=== PATIENT | male | born 1960 | race Caucasian/White ===

== ENCOUNTER → 2017-09-13 | Outpatient (CLI) | payer MEDICAID ==
--- NOTE | 2017-09-13 16:56 | RADIOLOGY REPORT (SQ) ---
EXAM DESCRIPTION: LUMBAR SPINE COMPLETE COMPLETED DATE/TIME: 09/13/2017 2:34 pm REASON FOR STUDY: LOW BACK PAIN M54.5 LOW BACK PAIN COMPARISON: None. NUMBER OF VIEWS: Five views including obliques. TECHNIQUE: AP, lateral, oblique, and sacral radiographic images acquired of the lumbar spine. LIMITATIONS: None. FINDINGS: MINERALIZATION: Normal. SEGMENTATION: Normal. No transitional anatomy. ALIGNMENT: Minimal curvature, convex to the right. VERTEBRAE: Maintained height. No fracture or worrisome bone lesion. DISCS: Mild disc space narrowing with small osteophytes. POSTERIOR ELEMENTS: Pedicles and facets are intact. No pars defect or posterior arch defects. HARDWARE: None in the spine. PARASPINAL SOFT TISSUES: Normal. PELVIS: Intact as visualized. No fractures or worrisome bone lesions. SI joints intact. OTHER: No other significant finding. IMPRESSION: MILD DEGENERATIVE CHANGES. NO ACUTE FINDINGS. TECHNICAL DOCUMENTATION: JOB ID: [id number] [employer]- All Rights Reserved
== END ==
LOC: OD 14:08
PROVIDERS: ATTEND Internal Medicine
DX: M54.5 Low back pain (principal)
CPT/HCPCS: 72110

== ENCOUNTER 2017-09-25 15:55 | Inpatient (IN) | payer MEDICAID ==
[2017-09-25] MEDS ORDERED: NORMAL SALINE 250 ML IV ONE (16:28)
[2017-09-25 16:38] LABS: ABSOLUTE BASOPHILS # (AUTO) 0.1 10^3/uL (0.0-0.2); ABSOLUTE LYMPHOCYTES (AUTO) 0.9 10^3/uL (0.5-4.7); ABSOLUTE MONOCYTES (AUTO) 0.8 10^3/uL (0.1-1.4); ABSOLUTE NEUT (AUTO) 7.6 10^3/uL (1.7-8.2); BASOPHILS % (AUTO) 1.4 % (0-2); HEMATOCRIT 18.9 % (37.9-51.0); LYMPHOCYTES % (AUTO) 9.9 % (13-45); MEAN CORPUSCULAR HEMOGLOBIN 35.6 pg (27.0-33.4); MEAN CORPUSCULAR HGB CONC 34.1 g/dL (32.0-36.0); MEAN CORPUSCULAR VOLUME 105 fl (80-97); MONOCYTES % (AUTO) 8.6 % (3-13); RED BLOOD COUNT 1.81 10^6/uL (4.35-5.55); RED CELL DISTRIBUTION WIDTH 15.2 % (11.5-14.0); SEGMENTED NEUTROPHILS % (AUTO) 80.1 % (42-78); TOTAL CELLS COUNTED % (AUTO) 100 %; WHITE BLOOD COUNT 9.4 10^3/uL (4.0-10.5)
[2017-09-25 16:40] LABS: HEMOGLOBIN 6.4 g/dL (13.5-17.0); PLATELET COUNT 88 10^3/uL (150-450)
--- NOTE | 2017-09-25 16:55 | RADIOLOGY REPORT (SQ) ---
EXAM DESCRIPTION: CHEST SINGLE VIEW COMPLETED DATE/TIME: 09/25/2017 4:45 pm REASON FOR STUDY: Weakness and vomiting COMPARISON: 01/05/2011, 02/15/2011 EXAM PARAMETERS: NUMBER OF VIEWS: One view. TECHNIQUE: Single frontal radiographic view of the chest acquired. RADIATION DOSE: NA LIMITATIONS: None. FINDINGS: LUNGS AND PLEURA: No opacities, masses or pneumothorax. No pleural effusion. MEDIASTINUM AND HILAR STRUCTURES: No masses. Contour normal. HEART AND VASCULAR STRUCTURES: Heart normal in size. Normal vasculature. BONES: No acute findings. HARDWARE: None in the chest. OTHER: Stable chronic elevation right hemidiaphragm IMPRESSION: NO ACUTE RADIOGRAPHIC FINDING IN THE CHEST. TECHNICAL DOCUMENTATION: JOB ID: [id number] [employer]- All Rights Reserved
--- NOTE | 2017-09-25 16:59 | ER Document Report ---
ED GI/ - General Chief Complaint: Nausea/Vomiting Stated Complaint: WEAKNESS Time Seen by Provider: 09/25/17 16:02 Notes: Patient says that he was awakened from sleep about 1 AM with his stomach flipping and began vomiting and has vomited every 45 minutes since then. Thinks he is vomited about a total of 20 times. Has not had any diarrhea. Only mild abdominal pain. About 7 or 8 AM this morning, he noted passage of some black stools, but no blood seen. Thinks he may have seen a small amount of blood in his vomitus. Has not taken any Pepto-Bismol. Patient has a history of gastrointestinal disease having been seen here for similar presentation a year or so ago and transferred to [facility] where he says he underwent scopes of the upper and lower part of his body and was told he had a couple of polyps that were removed. Patient denies any chest pains. Denies any difficulty breathing. No fevers. No abdominal surgeries. Patient admits to regular and heavy alcohol drinking and smokes cigarettes. TRAVEL OUTSIDE OF THE [place] IN LAST 30 DAYS: No - Related Data Allergies/Adverse Reactions: No Known Allergies Allergy (Unverified 09/05/11 15:27) Past Medical History - Social History Smoking Status: Current Every Day Smoker Chew tobacco use (# tins/day): No Frequency of alcohol use: Heavy Drug Abuse: None Family History: Reviewed & Not Pertinent Patient has suicidal ideation: No Patient has homicidal ideation: No - Past Medical History Cardiac Medical History: Reports: Hx Hypercholesterolemia, Hx Hypertension - meds x 2.5 months Pulmonary Medical History: Reports: Hx Bronchitis, Hx COPD GI Medical History: Reports: Hx Gastroesophageal Reflux Disease Musculoskeltal Medical History: Reports Hx Arthritis - RA Psychiatric Medical History: Reports: Hx Depression Past Surgical History: Reports: Hx Orthopedic Surgery - right femur, jaw surgery - Immunizations Hx Diphtheria, Pertussis, Tetanus Vaccination: Yes Review of Systems - Review of Systems Notes: REVIEW OF SYSTEMS: CONSTITUTIONAL : Denies fever. Feels generalized weakness. EENT: Denies eye, ear, nose or mouth or throat pain or other symptoms. CARDIOVASCULAR: Denies chest pain. RESPIRATORY: Denies cough, chest congestion, or shortness of breath. GASTROINTESTINAL: See HPI. GENITOURINARY: Denies difficulty or painful urinating, urinary frequency, blood in urine. MUSCULOSKELETAL: Denies back or neck pain. Denies joint pain or swelling. SKIN: Denies rash or skin lesions. NEUROLOGICAL: Denies LOC or altered mental status. Denies headache. Denies sensory loss or motor deficits. ALL OTHER SYSTEMS REVIEWED AND NEGATIVE. Physical Exam - Vital signs Vitals: Temp Pulse Resp BP Pulse Ox 98.5 F 118 H 16 118/73 94 18 16:24 18 16:24 09/25/17 16:24 09/25/17 16:24 09/25/17 16:24 Interpretation: Tachycardic - Notes Notes: PHYSICAL EXAMINATION: GENERAL: Well-appearing, in no acute distress. HEAD: Atraumatic, normocephalic. Patient appears to have a somewhat yellow color to his skin. EYES: Pupils equal round and reactive to light, extraocular movements intact. I think the patient has scleral icterus ENT: oropharynx clear without exudates. Moist mucous membranes. NECK: Normal range of motion, supple. LUNGS: Breath sounds clear and equal bilaterally. HEART: Regular rate and rhythm without murmurs. Heart rate about 120 and irregular at the bedside by me. ABDOMEN: Soft, nontender. No guarding or rebound. No masses. Rectal exam reveals some dark flecks of stool and brown color as well. Not grossly bloody. BACK: No tenderness throughout entire back. EXTREMITIES: Normal range of motion without pain. NEUROLOGICAL: Normal speech, normal gait. Normal sensory, motor, and reflex exams. Awake, alert, and oriented x3. Cranial nerves normal. PSYCH: Normal mood, normal affect. SKIN: Warm, dry, no rashes. Chronic old bruises present of the extremities. Course - Re-evaluation Re-evalutation: 09/25/17 16:59 Patient's initial hemoglobin is 6.4. Being typed for a couple units of blood now. 09/25/17 17:[address] Chung and Dr. Barillas about patient and he will be admitted to [facility] here. But is being typed. Protonix bolus and drip have been started. Dr. Barillas will see the patient in consultation. - Vital Signs Vital signs: Temp Pulse Resp BP Pulse Ox 98.5 F 118 H 16 118/73 94 09/25/17 16:24 09/25/17 16:24 09/25/17 16:24 09/25/17 16:24 09/25/17 16:24 - Laboratory Result Diagrams: 09/25/17 13:50 09/25/17 16:19 Laboratory results interpreted by me: 09/25/17 09/25/17 09/25/17 13:50 16:19 16:19 RBC 1.81 L Hgb 6.4 L Hct 18.9 L MCV 105 H MCH 35.6 H RDW 15.2 H Plt Count 88 L Seg Neutrophils % 80.1 H Lymphocytes % 9.9 L PT 20.0 H Sodium 147.2 H Carbon Dioxide 32 H BUN 33 H Glucose 158 H Total Bilirubin 5.1 H Direct Bilirubin 1.6 H AST 86 H Alkaline Phosphatase 204 H Albumin 2.7 L Crossmatch 09/25/17 17:02 RBC Hgb Hct MCV MCH RDW Plt Count Seg Neutrophils % Lymphocytes % PT Sodium Carbon Dioxide BUN Glucose Total Bilirubin Direct Bilirubin AST Alkaline Phosphatase Albumin Crossmatch See Detail - EKG Interpretation by Ri EKG shows normal: Sinus rhythm Rate: Tachycardia Rhythm: NSR Additional EKG results interpreted by me: 09/25/17 17:00 Except for tachycardia, patient's EKG is essentially normal. Discharge - Discharge Clinical Impression: Gastrointestinal hemorrhage, Anemia, Liver disease Condition: Serious Disposition: ADMITTED INPATIENT Admitting Provider: Juliet Unit Admitted: [facility]
[2017-09-25 17:11] LABS: ALANINE AMINOTRANSFERASE 37 U/L (21-72); ALBUMIN 2.7 g/dL (3.5-5.0); ALKALINE PHOSPHATASE 204 U/L (38-126); ANION GAP 9 (5-19); ASPARTATE AMINO TRANSFERASE 86 U/L (17-59); BILIRUBIN,DIRECT 1.6 mg/dL (0.0-0.4); BILIRUBIN,TOTAL 5.1 mg/dL (0.2-1.3); BLOOD UREA NITROGEN 33 mg/dL (7-20); CALCIUM 9.3 mg/dL (8.4-10.2); CARBON DIOXIDE 32 mmol/L (22-30); CHLORIDE 106 mmol/L (98-107); GLUCOSE 158 mg/dL (75-110); LIPASE 108.4 U/L (23-300); POTASSIUM 4.2 mmol/L (3.6-5.0); SODIUM 147.2 mmol/L (137-145); TOTAL PROTEIN 6.3 g/dL (6.3-8.2)
[2017-09-25] MEDS ORDERED: PANTOPRAZOLE SODIUM 40 MG VIAL IV ONE (17:27)
[2017-09-25] MEDS ORDERED: ONDANSETRON HCL INJ/PF 4 MG/2 ML SDV ONE (18:12)
[2017-09-25] MEDS: PANTOPRAZOLE SODIUM 40 MG VIAL IV PRN (18:14)
[2017-09-25] MEDS ORDERED: ONDANSETRON HCL INJ/PF 4 MG/2 ML SDV IV ONE (18:37)
--- NOTE | 2017-09-25 19:10 | PDOC CONSULTATION ---
Consultation Consult Date: 09/25/17 Attending physician:: EDSON GUADALUPE Consult reason:: coffee ground emesis vs melena. history of alcohol use. colon polyps. alcoholic hepatitis History of Present Illness Admission Date/PCP: 09/25/17 17:49 GARLAND ROJAS History of Present Illness: MARTIN OWEN is a 57 year old male I have been asked to see this patient as a GI consult from the ED physician patient is being admitted presented with melena, and Hgb of 6.6 has a history of ETOH use in the past on his previous admission, he was transferred to [facility] he apparently had EGD and colonoscopy the only thing that he remembers is that he had some colon polyps he cannot remember being told if he had varices he present jaundice as well, he does have an elevated T. Bili and does have transaminases that are probably consistent with alcoholic hepatitis patient will need to admitted should be started on PPI drip as well as probably Sandostatin for now will need PRBC tranfusion will need EGD to find out reason for his melena he would likely need Propofol for adequate sedation Past Medical History Cardiac Medical History: Reports: Hyperlipidema, Hypertension - meds x 2.5 months Pulmonary Medical History: Reports: Bronchitis, Chronic Obstructive Pulmonary Disease (COPD) GI Medical History: Reports: Gastroesophageal Reflux Disease Musculoskeltal Medical History: Reports: Arthritis - RA Psychiatric Medical History: Reports: Depression Hematology: Denies: Anemia Past Surgical History Past Surgical History: Reports: Orthopedic Surgery - right femur, jaw surgery Social History Smoking Status: Current Every Day Smoker Frequency of Alcohol Use: None Hx Recreational Drug Use: No Drugs: None Hx Prescription Drug Abuse: No Family History Family History: Reviewed & Not Pertinent Parental Family History Reviewed: Yes Children Family History Reviewed: Unknown Sibling(s) Family History Reviewed.: Unknown Medication/Allergy Allergies/Adverse Reactions: No Known Allergies Allergy (Unverified 09/05/11 15:27) Review of Systems Constitutional: ABSENT: fever(s), headache(s), night sweats, weakness Eyes: ABSENT: visual disturbances Ears: ABSENT: hearing changes Nose, Mouth, and Throat: ABSENT: mouth pain, sore throat Cardiovascular: ABSENT: edema, orthropnea Respiratory: ABSENT: dyspnea, hemoptysis Gastrointestinal: PRESENT: coffee ground emesis. ABSENT: diarrhea, nausea, vomiting Genitourinary: ABSENT: dysuria, hematuria Musculoskeletal: ABSENT: deformity, joint swelling Integumentary: ABSENT: lesions Neurological: PRESENT: weakness. ABSENT: syncope, tingling, tremor(s) Endocrine: ABSENT: polydipsia, polyphagia, polyuria Hematologic/Lymphatic: ABSENT: easy bruising Physical Exam Vital Signs: Temp Pulse Resp BP Pulse Ox 98.5 F 118 H 16 118/73 94 09/25/17 16:24 09/25/17 16:24 09/25/17 16:24 09/25/17 16:24 09/25/17 16:24 General appearance: PRESENT: no acute distress, well-developed, well-nourished Head exam: PRESENT: atraumatic, normocephalic Eye exam: PRESENT: EOMI, PERRLA, scleral icterus. ABSENT: nystagmus, periorbital swelling Mouth exam: PRESENT: moist, neck supple Throat exam: ABSENT: tonsillar exudate, tonsillogmegaly Neck exam: ABSENT: meningismus, tenderness, thyromegaly Respiratory exam: PRESENT: symmetrical, unlabored. ABSENT: tachypnea, wheezes Cardiovascular exam: PRESENT: RRR, +S1, +S2 Pulses: PRESENT: normal carotid pulses GI/Abdominal exam: PRESENT: soft. ABSENT: Waddell's sign, rebound, rigid, tenderness Extremities exam: ABSENT: joint swelling Musculoskeletal exam: PRESENT: full ROM Neurological exam: PRESENT: oriented to time, oriented to situation, CN II-XII grossly intact Psychiatric exam: PRESENT: appropriate affect Focused psych exam: PRESENT: restlessness Skin exam: PRESENT: normal color. ABSENT: mottled, pallor, urticaria, vesicles Results Impressions: Chest X-Ray 09/25/17 16:29 IMPRESSION: NO ACUTE RADIOGRAPHIC FINDING IN THE CHEST. Assessment & Plan - Diagnosis (1) Anemia Plan: likely multifactorial due to alcohol use could be due to GI bleeding as well could have peptic ulcer disease also differential to include variceal but less likely given hemodynamic stability will need work up with EGD risks, benefits and alternatives are discussed with the patient in detail further recommendations to follow he would likely need Propofol sedation (2) Gastrointestinal hemorrhage Plan: start PPI drip and possibly even sandostatin if needed transfuse PRBC as needed his BUN/ creat ratio is suggestive of upper GI source (3) Liver disease Plan: likely has chronic liver disease given history of alcohol use will need to prevent DT's likely has alcoholic hepatitis as well given the blood work check phosphorus level (4) Chronic alcohol abuse Plan: likely will go into DT's patient will need Propofol sedation during his procedure Risks, benefits and alternatives are discussed he appears to be willing to proceed - Time Time Spent: 50 to 70 Minutes
[2017-09-25 19:31] LABS: APPEARANCE,URINE CLEAR; BILIRUBIN,URINE NEGATIVE (NEGATIVE); COLOR,URINE AMBER; GLUCOSE, URINE NEGATIVE (NEGATIVE); KETONES,URINE TRACE mg/dL (NEGATIVE); LEUKOCYTE ESTERASE,URINE NEGATIVE (NEGATIVE); NITRITE,URINE NEGATIVE (NEGATIVE); PROTEIN,URINE NEGATIVE (NEGATIVE); URINE SPECIFIC GRAVITY 1.021
[2017-09-25] MEDS ORDERED: ONDANSETRON HCL INJ/PF 4 MG/2 ML SDV IV PRN ×2 (21:16→23:02)
--- NOTE | 2017-09-25 22:44 | EKG REPORT ---
SEVERITY:- ABNORMAL ECG - SINUS TACHYCARDIA RIGHT BUNDLE BRANCH BLOCK : Confirmed by: Fausto Russell 25-Sep-2017 22:43:54
[2017-09-25] MEDS ORDERED: DIPHENHYDRAMINE HCL 25 MG/10 ML UDC PO PRN (23:01)
[2017-09-26] MEDS: NORMAL SALINE 250 ML IV PRN ×2 (00:17→02:58)
[2017-09-26] MEDS: ZOLPIDEM TARTRATE 5 MG TABLET PO PRN (01:15)
[2017-09-26] MEDS: FUROSEMIDE INJ/PF 20 MG/2 ML SDV IV PRN ×2 (03:02→20:00)
[2017-09-26] MEDS: PANTOPRAZOLE SODIUM 40 MG VIAL IV PRN (04:04)
[2017-09-26] MEDS: LORAZEPAM INJ 2 MG/1 ML VIAL IV PRN ×6 (04:23→18:50)
[2017-09-26 05:25] LABS: ALANINE AMINOTRANSFERASE 44 U/L (21-72); ALBUMIN 2.8 g/dL (3.5-5.0); ALKALINE PHOSPHATASE 181 U/L (38-126); ANION GAP 9 (5-19); ASPARTATE AMINO TRANSFERASE 84 U/L (17-59); BILIRUBIN,DIRECT 2.3 mg/dL (0.0-0.4); BILIRUBIN,TOTAL 6.9 mg/dL (0.2-1.3); BLOOD UREA NITROGEN 41 mg/dL (7-20); CALCIUM 9.3 mg/dL (8.4-10.2); CARBON DIOXIDE 31 mmol/L (22-30); CHLORIDE 106 mmol/L (98-107); CHOLESTEROL 241.98 mg/dL (0-200); GLUCOSE 109 mg/dL (75-110); POTASSIUM 3.6 mmol/L (3.6-5.0); SODIUM 145.9 mmol/L (137-145); TOTAL PROTEIN 6.3 g/dL (6.3-8.2); TRIGLYCERIDES 63 mg/dL (<150)
[2017-09-26] MEDS ORDERED: HALOPERIDOL LACTATE INJ 5 MG/1 ML VIAL IV ONE (05:35)
[2017-09-26 05:36] LABS: DIRECT LDL 31 mg/dL (<100)
[2017-09-26] MEDS ORDERED: DIPHENHYDRAMINE HCL 50 MG/ML VIAL IV ONE (05:36)
--- NOTE | 2017-09-26 05:37 | Progress Note ---
Provider Note Provider Note: Hospitalist called around 530 regarding this patient. Patient going through DTs. Apparently Ativan is not helping. Haldol 5 IV was ordered along with a low-dose of Benadryl. Also patient is being placed in soft restraints.
[2017-09-26 05:44] LABS: ABSOLUTE BASOPHILS # (AUTO) 0.1 10^3/uL (0.0-0.2); ABSOLUTE LYMPHOCYTES (AUTO) 2.3 10^3/uL (0.5-4.7); ABSOLUTE MONOCYTES (AUTO) 1.7 10^3/uL (0.1-1.4); ABSOLUTE NEUT (AUTO) 9.7 10^3/uL (1.7-8.2); BASOPHILS % (AUTO) 0.7 % (0-2); EOSINOPHILS % (AUTO) 0.2 % (0-6); HEMATOCRIT 24.6 % (37.9-51.0); LYMPHOCYTES % (AUTO) 16.9 % (13-45); MEAN CORPUSCULAR HEMOGLOBIN 32.9 pg (27.0-33.4); MEAN CORPUSCULAR HGB CONC 35.2 g/dL (32.0-36.0); RED BLOOD COUNT 2.63 10^6/uL (4.35-5.55); RED CELL DISTRIBUTION WIDTH 21.4 % (11.5-14.0); SEGMENTED NEUTROPHILS % (AUTO) 70.2 % (42-78); TOTAL CELLS COUNTED % (AUTO) 100 %; WHITE BLOOD COUNT 13.9 10^3/uL (4.0-10.5)
[2017-09-26 05:57] LABS: HEMOGLOBIN 8.7 g/dL (13.5-17.0); MEAN CORPUSCULAR VOLUME 94 fl (80-97)
[2017-09-26 05:58] LABS: PLATELET COUNT 80 10^3/uL (150-450)
--- NOTE | 2017-09-26 07:22 | Progress Note ---
Provider Note Provider Note: Patient seen yesterday in ED Hospitalist called over night for DT's patient has no signed consent for EGD and therefore will have to defer at this point he previous had a niece who had signed consent for him while he was at [facility] will need to get up with her patient is in soft restraints at this point was on Ativan but did not help monitor H/H continue PPI transfuse as necessary EGD in the next 1-2 days
[2017-09-26] MEDS ORDERED: FUROSEMIDE 40 MG TABLET PO SCH (10:00)
[2017-09-26] MEDS ORDERED: SPIRONOLACTONE 25 MG TABLET PO SCH (10:00)
--- NOTE | 2017-09-26 10:17 | PDOC H&P ---
History of Present Illness Admission Date/PCP: 09/25/17 17:49 GARLAND ROJAS Patient complains of: Vomiting, hematochezia, melena, abd. pain since 1-2 am on day of presentation. History of Present Illness: 57 year old man with hx of HTN/Hyperlipidemia/COPD/PUD/ETOH liver disease/BPH/ Osteoarthritis/Rhinitis/RLS/Gout/Vitamin D def/Depression/Anxiety disorder/ Chronic smoker, who was transferred to [facility] for GI blled s.p EGD/colonoscopy. Pt continued to drink heavily. He was woken up from sleep at around 1-2 am with persistent vomiting, abd. pain, dark stool - possible hematochezia vs melena. He denied NSAID use. He was brought to ER by EMS and his Hb is 6.4; BUN/Cr- 33/0.88. He is mildly tachycardic.He was admitted to [facility] for GI bleed and severe ETOH withdrawal with possible delirium tremens. Past Medical History Cardiac Medical History: Reports: Hyperlipidema, Hypertension - meds x 2.5 months Pulmonary Medical History: Reports: Bronchitis, Chronic Obstructive Pulmonary Disease (COPD) GI Medical History: Reports: Gastroesophageal Reflux Disease Musculoskeltal Medical History: Reports: Arthritis - RA Psychiatric Medical History: Reports: Depression Hematology: Denies: Anemia Past Surgical History Past Surgical History: Reports: Orthopedic Surgery - right femur, jaw surgery Social History Smoking Status: Current Every Day Smoker Cigarettes Packs Per Day: 0.5 Number of Years Smokin Last Time Smoked: 09/25/17 Frequency of Alcohol Use: Heavy Hx Recreational Drug Use: Yes Drugs: Cocaine, Marijuana Hx Prescription Drug Abuse: No - Advance Directive Resuscitation Status: Full Code Family History Family History: Reviewed & Not Pertinent Parental Family History Reviewed: Yes Children Family History Reviewed: Yes Sibling(s) Family History Reviewed.: Yes Medication/Allergy Allergies/Adverse Reactions: No Known Allergies Allergy (Unverified 09/05/11 15:27) Review of Systems All systems: reviewed and no additional remarkable complaints except as stated Constitutional: PRESENT: anorexia, fatigue, weakness, weight loss Eyes: PRESENT: as per HPI Ears: PRESENT: as per HPI Nose, Mouth, and Throat: PRESENT: as per HPI Cardiovascular: PRESENT: as per HPI Respiratory: PRESENT: as per HPI Gastrointestinal: PRESENT: abdominal pain, hematemesis, hematochezia, melena Genitourinary: PRESENT: as per HPI Musculoskeletal: PRESENT: as per HPI Integumentary: PRESENT: as per HPI Neurological: PRESENT: as per HPI Psychiatric: PRESENT: as per HPI Physical Exam Vital Signs: Temp Pulse Resp BP Pulse Ox 97.9 F 105 H 20 124/79 95 09/26/17 04:25 09/26/17 04:25 09/26/17 04:25 09/26/17 04:25 09/26/17 09:40 Intake & Output 09/25/17 09/26/17 09/27/17 06:59 06:59 06:59 Intake Total 1050 Balance 1050 Weight 59.9 kg General appearance: PRESENT: no acute distress, disheveled, thin Head exam: PRESENT: atraumatic, normocephalic Eye exam: PRESENT: conjunctiva pale, scleral icterus Ear exam: PRESENT: normal external ear exam, TM's normal bilaterally Mouth exam: PRESENT: neck supple, tongue midline Neck exam: PRESENT: full ROM Respiratory exam: PRESENT: decreased breath sounds, stridor, symmetrical Cardiovascular exam: PRESENT: +S1, +S2 Pulses: PRESENT: +1 pedal pulses bilateral GI/Abdominal exam: PRESENT: normal bowel sounds, soft, tenderness Rectal exam: PRESENT: heme (+) stool Extremities exam: PRESENT: full ROM Musculoskeletal exam: PRESENT: full ROM Neurological exam: PRESENT: alert, awake, oriented to person, oriented to place , oriented to time Psychiatric exam: PRESENT: agitated Results Laboratory Results: 09/26/17 04:32 09/26/17 04:32 09/25/17 09/26/17 09/26/17 18:23 04:32 04:32 WBC 13.9 H RBC 2.63 L Hgb 8.7 L D Hct 24.6 L MCV 94 D MCH 32.9 MCHC 35.2 RDW 21.4 H Plt Count 80 L Seg Neutrophils % 70.2 Lymphocytes % 16.9 Monocytes % 12.0 Eosinophils % 0.2 Basophils % 0.7 Absolute Neutrophils 9.7 H Absolute Lymphocytes 2.3 Absolute Monocytes 1.7 H Absolute Eosinophils 0.0 Absolute Basophils 0.1 Sodium 145.9 H Potassium 3.6 Chloride 106 Carbon Dioxide 31 H Anion Gap 9 BUN 41 H Creatinine 0.94 Est GFR ( Amer) > 60 Est GFR (Non-Af Amer) > 60 Glucose 109 Calcium 9.3 Total Bilirubin 6.9 H AST 84 H ALT 44 Alkaline Phosphatase 181 H Total Protein 6.3 Albumin 2.8 L Triglycerides 63 Cholesterol 241.98 H LDL Cholesterol Direct 31 VLDL Cholesterol 13.0 HDL Cholesterol 71 Urine Color MCKAYLA Urine Appearance CLEAR Urine pH 6.0 Ur Specific [place] 1.021 Urine Protein NEGATIVE Urine Glucose (UA) NEGATIVE Urine Ketones TRACE H Urine Blood NEGATIVE Urine Nitrite NEGATIVE Ur Leukocyte Esterase NEGATIVE Urine WBC (Auto) 3 Urine RBC (Auto) 1 Impressions: Chest X-Ray 09/25/17 16:29 IMPRESSION: NO ACUTE RADIOGRAPHIC FINDING IN THE CHEST. Assessment & Plan - Diagnosis (1) Gastrointestinal hemorrhage Is this a current diagnosis for this admission?: Yes Plan: Ct with Protonix drip; Transfuse 3 units of PRBC and give Lasix 20 mg IV after each unit of PRBC; NPO for now. Ct with IV fluids; F/U GI, Dr Barillas. (2) Alcohol withdrawal delirium Is this a current diagnosis for this admission?: Yes Plan: Ct with IV fluids- D5 in normal saline plus Thiamine and multivitamin at 125 cc/ hr; Ativan 1 mg q2h IV prn; 2 hourly neurochecks; soft restraints. (3) Hypertension Qualifiers: Hypertension type: essential hypertension Qualified Code(s): I10 - Essential (primary) hypertension Is this a current diagnosis for this admission?: Yes Plan: Ct with Coreg 6.25 mg BID PO; 2 g sodium diet when NPO is D/C. (4) Hyperlipidemia Qualifiers: Hyperlipidemia type: mixed hyperlipidemia Qualified Code(s): E78.2 - Mixed hyperlipidemia Is this a current diagnosis for this admission?: Yes Plan: Ct with Simvasatin 20 mg qhs po; 200 mg cholesterol diet when NPO is D/C. (5) COPD (chronic obstructive pulmonary disease) Qualifiers: COPD type: unspecified COPD Qualified Code(s): J44.9 - Chronic obstructive pulmonary disease, unspecified Is this a current diagnosis for this admission?: Yes Plan: Ct with oxygen by N/C 2 L/min to keep saturation >92%; Duonebs q6h prn; Advair 250/50 1 puff BID. (6) BPH (benign prostatic hyperplasia) Is this a current diagnosis for this admission?: Yes Plan: Ct with Flomax 0.4 mg qd po. (7) Alcoholic cirrhosis of liver Qualifiers: Ascites presence: with ascites Qualified Code(s): K70.31 - Alcoholic cirrhosis of liver with ascites Is this a current diagnosis for this admission?: Yes Plan: Ct with spironolactone 100 mg qd po; Lasix 40 mg qd po.Strict input/out put chart; daily weight; monitor chemistries daily. (8) Depression Is this a current diagnosis for this admission?: Yes Plan: Ct with Celexa 20 mg qd po. (9) Osteoarthritis Is this a current diagnosis for this admission?: Yes Plan: Ct with Oxycodone 5 mg TID prn po. (10) DVT prophylaxis Is this a current diagnosis for this admission?: Yes Plan: Ct with SCD; Hold Lovenox due to GI bleed. - Time Time Spent: 30 to 50 Minutes Smoking Cessation Education: 3 to 10 minutes Medications reviewed and adjusted accordingly: Yes Anticipated discharge: Home Within: within 72 hours - Inpatient Certification Medical Necessity: Failure to Improve With Outpatient Therapy, Significant Comorbidiites Make Outpatient Treatment Too Risky, Need Close Monitoring Due to Risk of Patient Decompensation, Need For IV Fluids, Need For Continuous Telemetry Monitoring, Need for Neurological Checks, Risk of Complication if Not Cared For in Hospital, Risk of Diagnosis Which Will Require Inpatient Eval/Care/ Monitoring
[2017-09-26] MEDS ORDERED: OXYCODONE HCL IR 5 MG TABLET PO PRN (10:23)
[2017-09-26] MEDS: FLUTICASONE/SALMETEROL DISKUS 250-50 MCG/DOSE IH SCH ×2 (11:17→18:54)
[2017-09-26] MEDS: CITALOPRAM HYDROBROMIDE 20 MG TABLET PO SCH (11:17)
[2017-09-26] MEDS: CARVEDILOL 6.25 MG TABLET PO SCH ×2 (11:17→18:54)
[2017-09-26] MEDS: THIAMINE HCL 100 MG TABLET PO SCH (11:17)
[2017-09-26] MEDS: TAMSULOSIN HCL 0.4 MG CAP.SR.24H PO SCH (11:17)
[2017-09-26] MEDS: NICOTINE 21 MG/24 HR PATCH.TD24 TD SCH (13:19)
--- NOTE | 2017-09-26 15:16 | Physician Advisory Note ---
Physician Advisor ProgressNote .: Pursuant to the plan for [facility], I have reviewed the medical record for this patient. Physician Advisor Statement: Please consider documenting, if you agree: 1. "Anemia of Acute Blood Loss due to GI bleeding" 2. "GI Bleed, suspect likely due to " 3. "Acute Hypernatremia, suspect due to " Thanks! CK
[2017-09-26] MEDS: [UNRECOGNIZED DRUG - REMARK] IV SCH ×3 (19:32)
[2017-09-26 22:59] LABS: HEMATOCRIT 25.6 % (37.9-51.0); HEMOGLOBIN 9.1 g/dL (13.5-17.0); MEAN CORPUSCULAR HGB CONC 35.4 g/dL (32.0-36.0); MEAN CORPUSCULAR VOLUME 93 fl (80-97); RED BLOOD COUNT 2.75 10^6/uL (4.35-5.55); RED CELL DISTRIBUTION WIDTH 20.9 % (11.5-14.0); WHITE BLOOD COUNT 13.9 10^3/uL (4.0-10.5)
[2017-09-26 23:16] LABS: PLATELET COUNT 76 10^3/uL (150-450)
[2017-09-27] MEDS: LORAZEPAM INJ 2 MG/1 ML VIAL IV PRN ×2 (00:09→05:01)
[2017-09-27] MEDS: PANTOPRAZOLE SODIUM 40 MG VIAL IV PRN (05:18)
[2017-09-27 07:25] LABS: ABSOLUTE BASOPHILS # (AUTO) 0.1 10^3/uL (0.0-0.2); ABSOLUTE MONOCYTES (AUTO) 2.4 10^3/uL (0.1-1.4); BASOPHILS % (AUTO) 0.8 % (0-2); EOSINOPHILS % (AUTO) 0.2 % (0-6); HEMATOCRIT 22.9 % (37.9-51.0); HEMOGLOBIN 8.1 g/dL (13.5-17.0); LYMPHOCYTES % (AUTO) 7.2 % (13-45); MEAN CORPUSCULAR HEMOGLOBIN 33.1 pg (27.0-33.4); MEAN CORPUSCULAR HGB CONC 35.5 g/dL (32.0-36.0); MEAN CORPUSCULAR VOLUME 93 fl (80-97); MONOCYTES % (AUTO) 17.8 % (3-13); RED BLOOD COUNT 2.46 10^6/uL (4.35-5.55); RED CELL DISTRIBUTION WIDTH 21.1 % (11.5-14.0); TOTAL CELLS COUNTED % (AUTO) 100 %; WHITE BLOOD COUNT 13.5 10^3/uL (4.0-10.5)
[2017-09-27 07:35] LABS: ALANINE AMINOTRANSFERASE 39 U/L (21-72); ALBUMIN 2.6 g/dL (3.5-5.0); ALKALINE PHOSPHATASE 126 U/L (38-126); ANION GAP 9 (5-19); ASPARTATE AMINO TRANSFERASE 80 U/L (17-59); BILIRUBIN,DIRECT 2.3 mg/dL (0.0-0.4); BILIRUBIN,TOTAL 6.3 mg/dL (0.2-1.3); BLOOD UREA NITROGEN 63 mg/dL (7-20); CALCIUM 8.4 mg/dL (8.4-10.2); CARBON DIOXIDE 31 mmol/L (22-30); CHLORIDE 113 mmol/L (98-107); GLUCOSE 129 mg/dL (75-110); PHOSPHORUS 4.7 mg/dL (2.5-4.5); POTASSIUM 3.2 mmol/L (3.6-5.0); SODIUM 152.9 mmol/L (137-145); TOTAL PROTEIN 5.7 g/dL (6.3-8.2)
[2017-09-27 08:28] LABS: ANISOCYTOSIS 3+; BURR CELLS 2+; PLATELET COMMENT DECREASED; PLATELET COUNT 74 10^3/uL (150-450); POIKILOCYTOSIS 2+
--- NOTE | 2017-09-27 09:09 | PDOC PROGRESS REPORT ---
Subjective Progress Note for:: 09/27/17 Subjective:: Still no family member available for the patient he remains in DT's labs are worsening this am likely elevated WBC, LFT's are abnormal worsening renal function patient is tachycardic increased respiratory rate ? if patient needs to be transferred to tertiary institution he remains a full code for now Reason For Visit: GI BLEED ETOH WITHDRAWAL Physical Exam Vital Signs: Temp Pulse Resp BP Pulse Ox 98.8 F 133 H 36 H 164/77 H 91 L 09/27/17 08:01 09/27/17 08:01 09/27/17 08:01 09/27/17 08:01 09/27/17 08:01 Intake & Output 09/26/17 09/27/17 09/28/17 06:59 06:59 06:59 Intake Total 1050 2165 Output Total 175 Balance 1050 1990 Weight 59.9 kg 57.1 kg General appearance: PRESENT: severe distress Head exam: PRESENT: atraumatic Eye exam: PRESENT: EOMI, PERRLA, scleral icterus. ABSENT: nystagmus, periorbital swelling Mouth exam: PRESENT: moist, neck supple Throat exam: ABSENT: tonsillar exudate, tonsillogmegaly Neck exam: ABSENT: thyromegaly Respiratory exam: PRESENT: retraction, tachypnea Cardiovascular exam: PRESENT: RRR, +S1, +S2, tachycardia GI/Abdominal exam: PRESENT: diminished bowel sounds. ABSENT: rebound, rigid, tenderness Extremities exam: ABSENT: joint swelling Neurological exam: PRESENT: altered Psychiatric exam: PRESENT: agitated Focused psych exam: PRESENT: restlessness Skin exam: ABSENT: mottled, petechiae, urticaria, vesicles Results Laboratory Results: 09/27/17 06:04 09/27/17 06:04 09/26/17 09/26/17 09/27/17 21:30 22:43 06:04 WBC Cancelled 13.9 H RBC Cancelled 2.75 L Hgb Cancelled 9.1 L Hct Cancelled 25.6 L MCV Cancelled 93 MCH Cancelled 33.0 MCHC Cancelled 35.4 RDW Cancelled 20.9 H Plt Count Cancelled 76 L Seg Neutrophils % Lymphocytes % Monocytes % Eosinophils % Basophils % Absolute Neutrophils Absolute Lymphocytes Absolute Monocytes Absolute Eosinophils Absolute Basophils Sodium 152.9 H Potassium 3.2 L Chloride 113 H Carbon Dioxide 31 H Anion Gap 9 BUN 63 H Creatinine 1.52 H Est GFR ( Amer) 57 L Est GFR (Non-Af Amer) 48 L Glucose 129 H Calcium 8.4 Phosphorus 4.7 H Total Bilirubin 6.3 H AST 80 H ALT 39 Alkaline Phosphatase 126 Total Protein 5.7 L Albumin 2.6 L 09/27/17 06:04 WBC 13.5 H RBC 2.46 L Hgb 8.1 L Hct 22.9 L MCV 93 MCH 33.1 MCHC 35.5 RDW 21.1 H Plt Count 74 L Seg Neutrophils % 74.0 Lymphocytes % 7.2 L Monocytes % 17.8 H Eosinophils % 0.2 Basophils % 0.8 Absolute Neutrophils 10.0 H Absolute Lymphocytes 1.0 Absolute Monocytes 2.4 H Absolute Eosinophils 0.0 Absolute Basophils 0.1 Sodium Potassium Chloride Carbon Dioxide Anion Gap BUN Creatinine Est GFR ( Amer) Est GFR (Non-Af Amer) Glucose Calcium Phosphorus Total Bilirubin AST ALT Alkaline Phosphatase Total Protein Albumin Impressions: Chest X-Ray 09/25/17 16:29 IMPRESSION: NO ACUTE RADIOGRAPHIC FINDING IN THE CHEST. Assessment & Plan - Diagnosis (1) Anemia Plan: multifactorial in nature now had worsening labs include hypernatremia, azotemia etc (2) Gastrointestinal hemorrhage Is this a current diagnosis for this admission?: Yes Plan: not able to get EGD done patient not able to sign consent no family member available (3) Liver disease Plan: Alcoholic hepatitis previous GI work up done at [facility] may need to be transferred for higher level of care (4) Chronic alcohol abuse Plan: currently in DT's ? if patient needs to be moved to ICU setting. - Time Time Spent with patient: 25-34 minutes
[2017-09-27 09:25] LABS: ARTERIAL BLOOD BASE EXCESS 4.5 mmol/L; ARTERIAL BLOOD H2CO3 1.23 mmol/L (1.05-1.35); ARTERIAL BLOOD HCO3 28.7 mmol/L (20-26); ARTERIAL BLOOD O2 SATURATION 97.4 % (94-98); ARTERIAL BLOOD PH 7.46 (7.35-7.45); ARTERIAL BLOOD PO2 92.5 mmHg (80-100)
[2017-09-27 09:26] LABS: ARTERIAL BLOOD FIO2 4L
[2017-09-27] MEDS ORDERED: MIDAZOLAM 2 MG/2 ML INJ ONE ×3 (11:13→11:24)
[2017-09-27] MEDS ORDERED: MIDAZOLAM 2 MG/2 ML INJ IV ONE ×3 (11:18→13:30)
[2017-09-27] MEDS ORDERED: MIDAZOLAM HCL 50 MG/100 ML RTUINJ IV PRN ×2 (11:29→12:02)
[2017-09-27] MEDS ORDERED: DEXTROSE 5%-1/2 NORMAL SALINE 1,000 ML IV PRN (11:35)
[2017-09-27] MEDS ORDERED: PHENYLEPHRINE HCL INJ/PF 10 MG/1 ML SDV ONE (11:44)
--- NOTE | 2017-09-27 11:55 | Progress Note ---
Provider Note Provider Note: This is Dr. Dumont dictating a cross cover note for Dr. Chung patient. I was notified by the nurse that there is a patient in 329 that was not doing well. Nurse has explained the patient had transfer orders to come to ICU. I went to evaluate the patient and found patient in acute respiratory distress which appeared at that time to be consistent with aspiration pneumonia. Patient was intubated on first attempt with an 8 cuff ET tube patient was given 4 mg of Versed initially and after patient was intubated patient was given a total of 8 additional milligrams of Versed. Patient was transferred to ICU. Patient's lab results were evaluated it appears that patient is volume depleted secondary to diuretics therefore patient was given IV fluids. Patient was also noted to have a sodium of 152 therefore patient was given D5W bolus followed by maintenance fluids. Patient also written for normal saline bolus. Dr. Park was consulted and has recommended starting patient on pressors. During the intubation process patient was found to have whitish brown secretions that were very thick consistent with aspiration. Chest x-ray has been ordered to evaluate ET tube placement. Patient was also noted to have acute renal failure secondary to over diuresing therefore patient has given IV fluids for volume resuscitation. Patient does have history of hepatitis C and has been experiencing DTs. Patient was also admitted for gastrointestinal hemorrhage and GI has been following patient. No anticoagulation will be used at this time and patient will be written for SCDs. Patient has been placed on Zosyn and sputum cultures have been requested.
--- NOTE | 2017-09-27 12:43 | PDOC PROGRESS REPORT ---
Bedside Procedure - History of Present Illness History of Present Illness: 57 year old man with hx of HTN/Hyperlipidemia/COPD/PUD/ETOH liver disease/BPH/ Osteoarthritis/Rhinitis/RLS/Gout/Vitamin D def/Depression/Anxiety disorder/ Chronic smoker, who was transferred to [facility] for GI blled s.p EGD/colonoscopy. Pt continued to drink heavily. He was woken up from sleep at around 1-2 am with persistent vomiting, abd. pain, dark stool - possible hematochezia vs melena. He denied NSAID use. He was brought to ER by EMS and his Hb is 6.4; BUN/Cr- 33/0.88. He is mildly tachycardic.He was admitted to IMCU for GI bleed and severe ETOH withdrawal with possible delirium tremens. Indication for Procedure: poor venous access - Central Line Right Internal jugular Time completed: 12:42 Central line pre-insertion: Sterile PPE donned, Betadine prep applied, Chloraprep applied, Sterile drapes applied Central line lumen type: Triple Anesthetic type: 1% Lidocaine Line secured with sutures: Yes Central line post-insertion: Blood return from lumens, Biopatch applied, Sutured , Sterile dressing applied Complications: No
--- NOTE | 2017-09-27 12:51 | PDOC CONSULTATION ---
Consultation Consult Date: 09/27/17 Attending physician:: DAVID QUIGLEY Consult reason:: acute resp failure History of Present Illness Admission Date/PCP: 09/25/17 17:49 GARLAND ROJAS History of Present Illness: 57 year old man with hx of HTN/Hyperlipidemia/COPD/PUD/ETOH liver disease/BPH/ Osteoarthritis/Rhinitis/RLS/Gout/Vitamin D def/Depression/Anxiety disorder/ Chronic smoker, who was transferred to [facility] for GI blled s.p EGD/colonoscopy. Pt continued to drink heavily. He was woken up from sleep at around 1-2 am with persistent vomiting, abd. pain, dark stool - possible hematochezia vs melena. He denied NSAID use. He was brought to ER by EMS and his Hb is 6.4; BUN/Cr- 33/0.88. He is mildly tachycardic.He was admitted to [facility] for GI bleed and severe ETOH withdrawal with possible delirium tremens. Past Medical History Cardiac Medical History: Reports: Hyperlipidema, Hypertension - meds x 2.5 months Pulmonary Medical History: Reports: Bronchitis, Chronic Obstructive Pulmonary Disease (COPD) GI Medical History: Reports: Gastroesophageal Reflux Disease Musculoskeltal Medical History: Reports: Arthritis - RA Psychiatric Medical History: Reports: Depression Hematology: Denies: Anemia Past Surgical History Past Surgical History: Reports: Orthopedic Surgery - right femur, jaw surgery Social History Smoking Status: Current Every Day Smoker Cigarettes Packs Per Day: 0.5 Number of Years Smokin Last Time Smoked: 09/25/17 Frequency of Alcohol Use: Heavy Hx Recreational Drug Use: Yes Drugs: Cocaine, Marijuana Hx Prescription Drug Abuse: No - Advance Directive Resuscitation Status: Full Code Family History Parental Family History Reviewed: No Children Family History Reviewed: No Sibling(s) Family History Reviewed.: No Medication/Allergy Home Medications: Fluticasone Propionate [Flonase Nasal [place] 50 Mcg/[place] 16 gm] 1 spray NASL DAILY 09/26/17 Oxycodone HCl [Oxy-Ir 5 mg Tablet] 5 mg PO Q8 09/26/17 Tamsulosin HCl [Flomax 0.4 mg Cap.sr] 0.4 mg PO DAILY 09/26/17 Zolpidem Tartrate [Ambien 5 mg Tablet] 5 mg PO QHS 09/26/17 Allergies/Adverse Reactions: No Known Allergies Allergy (Unverified 09/05/11 15:27) Review of Systems ROS unobtainable: Due to endotracheal tube Physical Exam Vital Signs: Temp Pulse Resp BP Pulse Ox 100.4 F 104 H 23 H 95/48 L 96 09/27/17 12:19 09/27/17 12:19 09/27/17 12:27 09/27/17 12:27 09/27/17 12:27 Intake & Output 09/26/17 09/27/17 09/28/17 06:59 06:59 06:59 Intake Total 1050 2165 Output Total 175 400 Balance 1050 1989 - Weight 59.9 kg 57.1 kg General appearance: PRESENT: no acute distress, disheveled, mild distress, morbidly obese, obese, severe distress, thin, well-developed. ABSENT: cooperative Head exam: PRESENT: atraumatic, normocephalic Eye exam: PRESENT: conjunctiva pale, scleral icterus. ABSENT: conjunctival injection, conjunctiva pink, nystagmus Mouth exam: PRESENT: dry mucosa, neck supple, tongue midline, other - ET tube. ABSENT: laceration, moist Neck exam: ABSENT: carotid bruit, JVD, lymphadenopathy, thyromegaly, tracheal deviation, tracheostomy Respiratory exam: PRESENT: decreased breath sounds, prolonged expiratory phas, rhonchi - scattered, symmetrical, unlabored, wheezes - rare. ABSENT: accessory muscle use, chest wall tenderness, clear to auscultation spike, crackles, rales, retraction, stridor, tachypnea Cardiovascular exam: PRESENT: RRR, +S1, +S2 Pulses: PRESENT: normal radial pulses GI/Abdominal exam: PRESENT: diminished bowel sounds Gentrourinary exam: PRESENT: indwelling catheter Extremities exam: ABSENT: clubbing, full ROM, joint swelling Musculoskeletal exam: ABSENT: ambulatory, deformity, dislocation Neurological exam: ABSENT: alert, altered, awake, oriented to person Skin exam: PRESENT: dry, jaundice, warm Results Laboratory Results: 09/27/17 06:04 09/27/17 06:04 09/26/17 09/26/17 09/27/17 21:30 22:43 06:04 WBC Cancelled 13.9 H RBC Cancelled 2.75 L Hgb Cancelled 9.1 L Hct Cancelled 25.6 L MCV Cancelled 93 MCH Cancelled 33.0 MCHC Cancelled 35.4 RDW Cancelled 20.9 H Plt Count Cancelled 76 L Seg Neutrophils % Lymphocytes % Monocytes % Eosinophils % Basophils % Absolute Neutrophils Absolute Lymphocytes Absolute Monocytes Absolute Eosinophils Absolute Basophils Carbonic Acid HCO3/H2CO3 Ratio ABG pH ABG pCO2 ABG pO2 ABG HCO3 ABG O2 Saturation ABG Base Excess FiO2 Sodium 152.9 H Potassium 3.2 L Chloride 113 H Carbon Dioxide 31 H Anion Gap 9 BUN 63 H Creatinine 1.52 H Est GFR ( Amer) 57 L Est GFR (Non-Af Amer) 48 L Glucose 129 H Calcium 8.4 Phosphorus 4.7 H Total Bilirubin 6.3 H AST 80 H ALT 39 Alkaline Phosphatase 126 Total Protein 5.7 L Albumin 2.6 L 09/27/17 09/27/17 06:04 08:10 WBC 13.5 H RBC 2.46 L Hgb 8.1 L Hct 22.9 L MCV 93 MCH 33.1 MCHC 35.5 RDW 21.1 H Plt Count 74 L Seg Neutrophils % 74.0 Lymphocytes % 7.2 L Monocytes % 17.8 H Eosinophils % 0.2 Basophils % 0.8 Absolute Neutrophils 10.0 H Absolute Lymphocytes 1.0 Absolute Monocytes 2.4 H Absolute Eosinophils 0.0 Absolute Basophils 0.1 Carbonic Acid 1.23 HCO3/H2CO3 Ratio 23:1 ABG pH 7.46 H ABG pCO2 41.0 ABG pO2 92.5 ABG HCO3 28.7 H ABG O2 Saturation 97.4 ABG Base Excess 4.5 FiO2 4L Sodium Potassium Chloride Carbon Dioxide Anion Gap BUN Creatinine Est GFR ( Amer) Est GFR (Non-Af Amer) Glucose Calcium Phosphorus Total Bilirubin AST ALT Alkaline Phosphatase Total Protein Albumin Assessment & Plan - Diagnosis (1) Obtunded Is this a current diagnosis for this admission?: Yes Plan: unable to respond or protect airway (2) Alcohol withdrawal delirium Is this a current diagnosis for this admission?: Yes Plan: as per PCP and GI med (3) Alcoholic cirrhosis of liver Qualifiers: Ascites presence: with ascites Qualified Code(s): K70.31 - Alcoholic cirrhosis of liver with ascites Is this a current diagnosis for this admission?: Yes Plan: as per PCP and GI med (4) Anemia Is this a current diagnosis for this admission?: Yes Plan: bone marrow toxicity due to etoh (5) Alcohol withdrawal seizure Qualifiers: Complication of substance-induced condition: uncomplicated Qualified Code(s ): F10.230 - Alcohol dependence with withdrawal, uncomplicated Is this a current diagnosis for this admission?: Yes (6) Anxiety disorder Is this a current diagnosis for this admission?: Yes - Time Total Critical Time (Minutes): 60
--- NOTE | 2017-09-27 12:57 | RADIOLOGY REPORT (SQ) ---
EXAM DESCRIPTION: CHEST SINGLE VIEW COMPLETED DATE/TIME: 09/27/2017 12:21 pm REASON FOR STUDY: post intubation COMPARISON: 09/25/2017, 02/13/2008 EXAM PARAMETERS: NUMBER OF VIEWS: One view. TECHNIQUE: Single frontal radiographic view of the chest acquired. RADIATION DOSE: NA LIMITATIONS: Left lateral costophrenic sulcus and left lung apex cropped from the field of view FINDINGS: Endotracheal tube tip 3 cm above the will. Nasogastric tube tip and side port in the st omach. LUNGS AND PLEURA: No opacities, masses or pneumothorax. No pleural effusion. MEDIASTINUM AND HILAR STRUCTURES: No masses. Contour normal. HEART AND VASCULAR STRUCTURES: Heart normal in size. Normal vasculature. BONES: No acute findings. HARDWARE: As above OTHER: No other significant finding. IMPRESSION: Endotracheal and nasogastric tubes in good positioning. No focal infiltrates TECHNICAL DOCUMENTATION: JOB ID: [id number] [employer]- All Rights Reserved
[2017-09-27] MEDS ORDERED: RINGERS SOLUTION,LACTATED 1,000 ML IV ONE (13:00)
[2017-09-27] MEDS ORDERED: DEXTROSE 5%-WATER 1000 ML 1,000 ML IV ONE (13:00)
[2017-09-27] MEDS ORDERED: PIPERACILLIN SODIUM/TAZOBACTAM 3.375 GM in NORMAL SALINE 100 ML IV ONE (13:00)
[2017-09-27] MEDS: THIAMINE HCL 100 MG TABLET PO SCH (13:13)
[2017-09-27] MEDS: CITALOPRAM HYDROBROMIDE 20 MG TABLET PO SCH (13:13)
[2017-09-27] MEDS: TAMSULOSIN HCL 0.4 MG CAP.SR.24H PO SCH (13:13)
[2017-09-27] MEDS: FLUTICASONE/SALMETEROL DISKUS 250-50 MCG/DOSE IH SCH ×2 (13:13→19:15)
[2017-09-27] MEDS: NICOTINE 21 MG/24 HR PATCH.TD24 TD SCH (13:13)
[2017-09-27] MEDS: CARVEDILOL 6.25 MG TABLET PO SCH ×2 (13:13→19:15)
--- NOTE | 2017-09-27 13:13 | RADIOLOGY REPORT (SQ) ---
EXAM DESCRIPTION: CHEST SINGLE VIEW COMPLETED DATE/TIME: 09/27/2017 12:55 pm REASON FOR STUDY: verify central line placement COMPARISON: Chest films 09/27/2017, 09/25/2017 EXAM PARAMETERS: NUMBER OF VIEWS: One view. TECHNIQUE: Single frontal radiographic view of the chest acquired. RADIATION DOSE: NA LIMITATIONS: None. FINDINGS: Interval placement of a right jugular central line with the tip in the right atrium. No p neumothorax. LUNGS AND PLEURA: No opacities, masses or pneumothorax. No pleural effusion. MEDIASTINUM AND HILAR STRUCTURES: No masses. Contour normal. HEART AND VASCULAR STRUCTURES: Heart normal in size. Normal vasculature. BONES: No acute findings. HARDWARE: Endotracheal and nasogastric tubes in good positioning OTHER: No other significant finding. IMPRESSION: Interval placement of a right jugular central line with the tip in the right atrium. No pneumothorax. Endotracheal and nasogastric tubes in good positioning No focal pulmonary infiltrates TECHNICAL DOCUMENTATION: JOB ID: [id number] [employer]- All Rights Reserved
[2017-09-27] MEDS: MIDAZOLAM HCL 50 MG/100 ML RTUINJ IV PRN ×2 (13:15→20:49)
[2017-09-27 13:16] LABS: APPEARANCE,URINE CLEAR; BILIRUBIN,URINE NEGATIVE (NEGATIVE); COLOR,URINE YELLOW; GLUCOSE, URINE 150 mg/dL (NEGATIVE); KETONES,URINE NEGATIVE (NEGATIVE); LEUKOCYTE ESTERASE,URINE NEGATIVE (NEGATIVE); NITRITE,URINE NEGATIVE (NEGATIVE); PROTEIN,URINE NEGATIVE (NEGATIVE); URINE SPECIFIC GRAVITY 1.015
[2017-09-27] MEDS: DEXTROSE 5%-WATER 250 ML with PHENYLEPHRINE HCL 40 MG IV PRN ×4 (13:16→22:09)
[2017-09-27 14:00] LABS: ARTERIAL BLOOD BASE EXCESS 0.2 mmol/L; ARTERIAL BLOOD FIO2 40%; ARTERIAL BLOOD H2CO3 1.11 mmol/L (1.05-1.35); ARTERIAL BLOOD HCO3 24.4 mmol/L (20-26); ARTERIAL BLOOD PCO2 36.8 mmHg (35-45); ARTERIAL BLOOD PH 7.44 (7.35-7.45); ARTERIAL BLOOD PO2 77.9 mmHg (80-100); ARTERIAL BLOOD TOTAL CO2 25.5 mmol/L (23-27)
[2017-09-27] MEDS ORDERED: NOREPINEPHRINE BITARTRATE INJ/PF 4 MG/4 ML SDV IV ONE (15:22)
[2017-09-27] MEDS ORDERED: LACTULOSE SYRUP 20 GM/30 ML UDCUP PO ONE (16:00)
--- NOTE | 2017-09-27 16:06 | PDOC PROGRESS REPORT ---
Subjective Progress Note for:: 09/27/17 Subjective:: Pt was transferred to ICU because of acute respiratory failure- his respiratory rate was 40 and was unresponsive and could no longer maintain his airways. His ammonia level was 136; sodium was 152. He was intubated on mech. ventilation and we got pulmonary consult with Dr Park for ventilator mgt. We appreciate his input and that of hospitalist, Dr Dumont in the mgt of this pt. Reason For Visit: GI BLEED ETOH WITHDRAWAL Physical Exam Vital Signs: Temp Pulse Resp BP Pulse Ox 98.4 F 96 24 H 88/40 L 97 09/27/17 14:00 09/27/17 14:00 09/27/17 14:00 09/27/17 14:00 09/27/17 14:00 Intake & Output 09/26/17 09/27/17 09/28/17 06:59 06:59 06:59 Intake Total 1050 2165 Output Total 175 550 Balance 1050 1989 -550 Weight 59.9 kg 57.1 kg General appearance: PRESENT: severe distress, thin Eye exam: PRESENT: conjunctiva pale, EOMI, PERRLA Ear exam: PRESENT: normal external ear exam, TM's normal bilaterally Mouth exam: PRESENT: neck supple Respiratory exam: PRESENT: decreased breath sounds, symmetrical Cardiovascular exam: PRESENT: +S1, +S2 GI/Abdominal exam: PRESENT: normal bowel sounds, soft Rectal exam: PRESENT: heme (+) stool Neurological exam: PRESENT: altered Results Laboratory Results: 09/27/17 06:04 09/26/17 09/26/17 09/27/17 21:30 22:43 06:04 WBC Cancelled 13.9 H RBC Cancelled 2.75 L Hgb Cancelled 9.1 L Hct Cancelled 25.6 L MCV Cancelled 93 MCH Cancelled 33.0 MCHC Cancelled 35.4 RDW Cancelled 20.9 H Plt Count Cancelled 76 L Seg Neutrophils % Lymphocytes % Monocytes % Eosinophils % Basophils % Absolute Neutrophils Absolute Lymphocytes Absolute Monocytes Absolute Eosinophils Absolute Basophils Carbonic Acid HCO3/H2CO3 Ratio ABG pH ABG pCO2 ABG pO2 ABG HCO3 ABG O2 Saturation ABG Base Excess FiO2 Sodium 152.9 H Potassium 3.2 L Chloride 113 H Carbon Dioxide 31 H Anion Gap 9 BUN 63 H Creatinine 1.52 H Est GFR ( Amer) 57 L Est GFR (Non-Af Amer) 48 L Glucose 129 H Calcium 8.4 Phosphorus 4.7 H Total Bilirubin 6.3 H AST 80 H ALT 39 Alkaline Phosphatase 126 Ammonia Total Protein 5.7 L Albumin 2.6 L Urine Color Urine Appearance Urine pH Ur Specific Donald Urine Protein Urine Glucose (UA) Urine Ketones Urine Blood Urine Nitrite Ur Leukocyte Esterase Urine WBC (Auto) Urine RBC (Auto) 09/27/17 09/27/17 09/27/17 06:04 08:10 12:41 WBC 13.5 H RBC 2.46 L Hgb 8.1 L Hct 22.9 L MCV 93 MCH 33.1 MCHC 35.5 RDW 21.1 H Plt Count 74 L Seg Neutrophils % 74.0 Lymphocytes % 7.2 L Monocytes % 17.8 H Eosinophils % 0.2 Basophils % 0.8 Absolute Neutrophils 10.0 H Absolute Lymphocytes 1.0 Absolute Monocytes 2.4 H Absolute Eosinophils 0.0 Absolute Basophils 0.1 Carbonic Acid 1.23 HCO3/H2CO3 Ratio 23:1 ABG pH 7.46 H ABG pCO2 41.0 ABG pO2 92.5 ABG HCO3 28.7 H ABG O2 Saturation 97.4 ABG Base Excess 4.5 FiO2 4L Sodium Potassium Chloride Carbon Dioxide Anion Gap BUN Creatinine Est GFR ( Amer) Est GFR (Non-Af Amer) Glucose Calcium Phosphorus Total Bilirubin AST ALT Alkaline Phosphatase Ammonia 136.3 H Total Protein Albumin Urine Color Urine Appearance Urine pH Ur Specific Donald Urine Protein Urine Glucose (UA) Urine Ketones Urine Blood Urine Nitrite Ur Leukocyte Esterase Urine WBC (Auto) Urine RBC (Auto) 09/27/17 09/27/17 12:50 12:50 WBC RBC Hgb Hct MCV MCH MCHC RDW Plt Count Seg Neutrophils % Lymphocytes % Monocytes % Eosinophils % Basophils % Absolute Neutrophils Absolute Lymphocytes Absolute Monocytes Absolute Eosinophils Absolute Basophils Carbonic Acid 1.11 HCO3/H2CO3 Ratio 21:1 ABG pH 7.44 ABG pCO2 36.8 ABG pO2 77.9 L ABG HCO3 24.4 ABG O2 Saturation 96.0 ABG Base Excess 0.2 FiO2 40% Sodium Potassium Chloride Carbon Dioxide Anion Gap BUN Creatinine Est GFR ( Amer) Est GFR (Non-Af Amer) Glucose Calcium Phosphorus Total Bilirubin AST ALT Alkaline Phosphatase Ammonia Total Protein Albumin Urine Color YELLOW Urine Appearance CLEAR Urine pH 6.0 Ur Specific Donald 1.015 Urine Protein NEGATIVE Urine Glucose (UA) 150 H Urine Ketones NEGATIVE Urine Blood LARGE H Urine Nitrite NEGATIVE Ur Leukocyte Esterase NEGATIVE Urine WBC (Auto) 11 Urine RBC (Auto) 53 Impressions: Chest X-Ray 09/27/17 11:20 IMPRESSION: Endotracheal and nasogastric tubes in good positioning. No focal infiltrates Assessment & Plan - Diagnosis (1) Acute respiratory failure Qualifiers: Respiratory failure complication: hypoxia Qualified Code(s): J96.01 - Acute respiratory failure with hypoxia Is this a current diagnosis for this admission?: Yes Plan: Ct with [facility]. ventilation and sedation with propofol; ct with Zosyn 3.375 m q6h IV; f/u blood cultures and sputum cultures. (2) Acute hepatic encephalopathy Is this a current diagnosis for this admission?: Yes Plan: Ct with Lactulose 20 g q8h via NGT; monitor ammonia level daily. (3) Gastrointestinal hemorrhage Qualifiers: Gastritis type: alcoholic Is this a current diagnosis for this admission?: Yes Plan: Ct with Protonix drip; Transfuse 3 units of PRBC and give Lasix 20 mg IV after each unit of PRBC; NPO for now. Ct with IV fluids; F/U GI, Dr Barillas. (4) Alcohol withdrawal delirium Is this a current diagnosis for this admission?: Yes Plan: Ct with IV fluids- D5 in normal saline plus Thiamine and multivitamin at 125 cc/ hr; Ativan 1 mg q2h IV prn; 2 hourly neurochecks; soft restraints. (5) Acute hypernatremia Is this a current diagnosis for this admission?: Yes Plan: This is likely due poor po intake due to altered mental status from delirium tremens and hepatic encephalopathy. Ct with IV fluids D5 half normal saline at 75 cc/hr; Monitor chemistries daily. (6) Hypertension Qualifiers: Hypertension type: essential hypertension Qualified Code(s): I10 - Essential (primary) hypertension Is this a current diagnosis for this admission?: Yes Plan: Hold Coreg 6.25 mg BID PO due to hypotension; 2 g sodium diet when NPO is D/C. (7) Hyperlipidemia Qualifiers: Hyperlipidemia type: mixed hyperlipidemia Qualified Code(s): E78.2 - Mixed hyperlipidemia Is this a current diagnosis for this admission?: Yes Plan: Hold Simvasatin 20 mg qhs po for now; 200 mg cholesterol diet when NPO is D/C. (8) COPD (chronic obstructive pulmonary disease) Qualifiers: COPD type: unspecified COPD Qualified Code(s): J44.9 - Chronic obstructive pulmonary disease, unspecified Is this a current diagnosis for this admission?: Yes Plan: Ct with [facility]. ventilation; Duonebs q6h prn; Advair 250/50 1 puff BID. (9) BPH (benign prostatic hyperplasia) Is this a current diagnosis for this admission?: Yes Plan: Ct with Flomax 0.4 mg qd po. (10) Alcoholic cirrhosis of liver Qualifiers: Ascites presence: with ascites Qualified Code(s): K70.31 - Alcoholic cirrhosis of liver with ascites Is this a current diagnosis for this admission?: Yes Plan: Hold spironolactone 100 mg qd po and Lasix 40 mg qd po. due to mild metabolic alkalosis.Strict input/out put chart; daily weight; monitor chemistries daily. (11) Depression Is this a current diagnosis for this admission?: Yes Plan: Ct with Celexa 20 mg qd po. (12) Osteoarthritis Is this a current diagnosis for this admission?: Yes Plan: Ct with Oxycodone 5 mg TID prn po. (13) DVT prophylaxis Is this a current diagnosis for this admission?: Yes Plan: Ct with SCD; Hold Lovenox due to GI bleed. - Time Time Spent with patient: 35 or more minutes Smoking Cessation Education: 3 to 10 minutes Medications reviewed and adjusted accordingly: Yes Within: within 72 hours - Inpatient Certification Medical Necessity: Failure to Improve With Outpatient Therapy, Significant Comorbidiites Make Outpatient Treatment Too Risky, Need Close Monitoring Due to Risk of Patient Decompensation, Need For IV Fluids, Need For Continuous Telemetry Monitoring, Need for Nebulizer Therapy and Monitoring of Response, Need for Neurological Checks, Need for IV Antibiotics, Risk of Complication if Not Cared For in Hospital, Risk of Diagnosis Which Will Require Inpatient Eval/ Care/Monitoring
[2017-09-27 16:22] LABS: CREATINE KINASE MB 0.8 ng/mL (<4.55); TROPONIN I 0.028 ng/mL
[2017-09-27] MEDS ORDERED: VASOPRESSIN INJ 20 UNIT/1 ML VIAL ONE (17:12)
[2017-09-27 17:22] LABS: ANION GAP 12 (5-19); BLOOD UREA NITROGEN 56 mg/dL (7-20); CALCIUM 7.5 mg/dL (8.4-10.2); CARBON DIOXIDE 25 mmol/L (22-30); CHLORIDE 109 mmol/L (98-107); GLUCOSE 111 mg/dL (75-110); SODIUM 146.1 mmol/L (137-145)
[2017-09-27 17:28] LABS: POTASSIUM 2.7 mmol/L (3.6-5.0)
[2017-09-27] MEDS ORDERED: POTASSI CL 20 MEQ/50 ML RIDER 20 MEQ/50 ML RTUPB IV ONE (17:31)
[2017-09-27] MEDS ORDERED: PROPOFOL 100 ML IV PRN (18:28)
[2017-09-27] MEDS: DEXTROSE 5%-WATER 250 ML with VASOPRESSIN 100 UNIT IV PRN ×2 (18:57)
[2017-09-27] MEDS: [UNRECOGNIZED DRUG - REMARK] IV SCH ×3 (19:10)
[2017-09-27] MEDS: POTASSIUM CHLORIDE 20 MEQ/50 ML RTU IV SCH ×3 (19:11→22:10)
[2017-09-27] MEDS: PIPERACILLIN SODIUM/TAZOBACTAM 3.375 GM in NORMAL SALINE 100 ML IV SCH (19:13)
[2017-09-27] MEDS ORDERED: ACETAMINOPHEN 325 MG SUPP.RECT PR PRN (19:46)
[2017-09-27 20:10] LABS: ABSOLUTE BASOPHILS # (AUTO) 0.5 10^3/uL (0.0-0.2); ABSOLUTE EOSINOPHILS # (AUTO) 0.1 10^3/uL (0.0-0.6); ABSOLUTE LYMPHOCYTES (AUTO) 1.2 10^3/uL (0.5-4.7); ABSOLUTE MONOCYTES (AUTO) 2.2 10^3/uL (0.1-1.4); BASOPHILS % (AUTO) 3.1 % (0-2); EOSINOPHILS % (AUTO) 0.5 % (0-6); LYMPHOCYTES % (AUTO) 7.5 % (13-45); MEAN CORPUSCULAR HEMOGLOBIN 32.7 pg (27.0-33.4); MEAN CORPUSCULAR HGB CONC 34.7 g/dL (32.0-36.0); MEAN CORPUSCULAR VOLUME 94 fl (80-97); MONOCYTES % (AUTO) 13.9 % (3-13); RED BLOOD COUNT 2.12 10^6/uL (4.35-5.55); TOTAL CELLS COUNTED % (AUTO) 100 %
[2017-09-27 20:13] LABS: INTERNATIONAL RATION (INR) 1.83; PARTIAL THROMBOPLASTIN TIME 40.6 SEC (23.5-35.8); PROTHROMBIN TIME 22.2 SEC (11.4-15.4)
[2017-09-27] MEDS: VANCOMYCIN HCL 1,000 MG in DEXTROSE 5%-WATER 250 ML IV SCH (20:33)
--- NOTE | 2017-09-27 20:53 | RADIOLOGY REPORT (SQ) ---
EXAM DESCRIPTION: U/S ABDOMEN COMPLETE W/O DOP COMPLETED DATE/TIME: 09/27/2017 8:30 pm REASON FOR STUDY: elavated LFT COMPARISON: 10/30/2014 TECHNIQUE: Dynamic and static grayscale images acquired of the abdomen and recorded on PACS. Additio sarbjit selected color Doppler and spectral images recorded. LIMITATIONS: Very limited study. FINDINGS: PANCREAS: No masses. Visualized pancreatic duct normal caliber. LIVER: Heterogeneous. LIVER VASCULATURE: Poorly seen. GALLBLADDER: No stones. Normal wall thickness. No pericholecystic fluid. ULTRASOUND-DETECTED DE DIOS'S SIGN: Negative. INTRAHEPATIC DUCTS AND COMMON DUCT: CBD and intrahepatic ducts normal caliber. No filling defects. INFERIOR VENA CAVA: Normal flow. AORTA: No aneurysm. RIGHT KIDNEY: Normal size. Normal echogenicity. No solid or suspicious masses. No hydronephros is. No calcifications. LEFT KIDNEY: Normal size. Normal echogenicity. No solid or suspicious masses. No hydronephrosi s. No calcifications. SPLEEN: Not seen. PERITONEAL AND PLEURAL SPACES: No ascites or effusions. OTHER: No other significant finding. IMPRESSION: For visualization of the liver and hepatic vessels. Heterogeneous appearance. Fatty in filtration/ cirrhosis. TECHNICAL DOCUMENTATION: JOB ID: [id number] [employer]- All Rights Reserved
[2017-09-27 21:16] LABS: HEMOGLOBIN 6.9 g/dL (13.5-17.0)
[2017-09-27 21:17] LABS: PLATELET COUNT 86 10^3/uL (150-450)
[2017-09-27] MEDS ORDERED: FUROSEMIDE INJ/PF 20 MG/2 ML SDV IV PRN (21:45)
[2017-09-27] MEDS: LACTULOSE SYRUP 20 GM/30 ML UDCUP PO SCH (22:09)
[2017-09-27] MEDS: DEXTROSE 5%-WATER 250 ML with NOREPINEPHRINE BITARTRATE 4 MG IV PRN ×2 (22:09)
--- NOTE | 2017-09-27 22:43 | EKG REPORT ---
SEVERITY:- ABNORMAL ECG - SINUS TACHYCARDIA MULTIPLE ATRIAL PREMATURE COMPLEXES PROBABLE ANTEROSEPTAL INFARCT, AGE INDETERM : Confirmed by: Fausto Russell 27-Sep-2017 22:42:51
[2017-09-28] MEDS: PIPERACILLIN SODIUM/TAZOBACTAM 3.375 GM in NORMAL SALINE 100 ML IV SCH ×4 (00:01→18:14)
[2017-09-28] MEDS: MIDAZOLAM HCL 50 MG/100 ML RTUINJ IV PRN ×5 (00:02→21:54)
[2017-09-28] MEDS: PROPOFOL 100 ML IV PRN ×2 (00:02→15:54)
[2017-09-28] MEDS: LACTULOSE SYRUP 20 GM/30 ML UDCUP PO SCH ×3 (05:27→21:54)
[2017-09-28] MEDS: DEXTROSE 5%-WATER 250 ML with PHENYLEPHRINE HCL 40 MG IV PRN ×4 (05:28→15:54)
--- NOTE | 2017-09-28 06:45 | RADIOLOGY REPORT (SQ) ---
EXAM DESCRIPTION: CHEST SINGLE VIEW CLINICAL HISTORY: resp fail COMPARISON: 09/27/2016 FINDINGS: Single frontal view of the chest. Endotracheal tube with tip 4 cm above the will. NG tube with tip below the diaphragm. Right IJ central venous catheter. Leads overlie the chest. No consolidation, pneumothorax, or pleural effusion. No acute osseous abnormalities identified. Upper abdominal soft tissues are unremarkable. IMPRESSION: 1. Stable appearance of the chest.
[2017-09-28 09:01] LABS: ARTERIAL BLOOD BASE EXCESS 4.1 mmol/L; ARTERIAL BLOOD H2CO3 0.76 mmol/L (1.05-1.35); ARTERIAL BLOOD HCO3 25.1 mmol/L (20-26); ARTERIAL BLOOD O2 SATURATION 95.6 % (94-98); ARTERIAL BLOOD PCO2 25.3 mmHg (35-45); ARTERIAL BLOOD PO2 62.4 mmHg (80-100); ARTERIAL BLOOD TOTAL CO2 25.9 mmol/L (23-27)
[2017-09-28 09:14] LABS: ARTERIAL BLOOD FIO2 50%
[2017-09-28 09:17] LABS: ARTERIAL BLOOD PH 7.62 (7.35-7.45)
[2017-09-28 09:18] LABS: INTERNATIONAL RATION (INR) 1.41; PROTHROMBIN TIME 18.2 SEC (11.4-15.4)
[2017-09-28 09:19] LABS: PARTIAL THROMBOPLASTIN TIME 39.1 SEC (23.5-35.8)
[2017-09-28 09:34] LABS: HEMATOCRIT 24.3 % (37.9-51.0); MEAN CORPUSCULAR HEMOGLOBIN 31.4 pg (27.0-33.4); RED BLOOD COUNT 2.78 10^6/uL (4.35-5.55); RED CELL DISTRIBUTION WIDTH 21.3 % (11.5-14.0); WHITE BLOOD COUNT 16.7 10^3/uL (4.0-10.5)
[2017-09-28 09:42] LABS: ALANINE AMINOTRANSFERASE 40 U/L (21-72); ALBUMIN 2.6 g/dL (3.5-5.0); ALKALINE PHOSPHATASE 112 U/L (38-126); ANION GAP 8 (5-19); ASPARTATE AMINO TRANSFERASE 74 U/L (17-59); BILIRUBIN,DIRECT 2.9 mg/dL (0.0-0.4); BILIRUBIN,TOTAL 7.4 mg/dL (0.2-1.3); CALCIUM 8.3 mg/dL (8.4-10.2); CARBON DIOXIDE 27 mmol/L (22-30); CHLORIDE 106 mmol/L (98-107); CREATINE KINASE 64 U/L (55-170); GLUCOSE 162 mg/dL (75-110); SODIUM 140.7 mmol/L (137-145); TRIGLYCERIDES 79 mg/dL (<150)
[2017-09-28 09:59] LABS: HEMOGLOBIN 8.7 g/dL (13.5-17.0); MEAN CORPUSCULAR VOLUME 87 fl (80-97)
[2017-09-28 10:00] LABS: PLATELET COUNT 119 10^3/uL (150-450)
[2017-09-28 10:02] LABS: BLOOD UREA NITROGEN 32 mg/dL (7-20)
[2017-09-28 10:04] LABS: POTASSIUM 2.4 mmol/L (3.6-5.0)
[2017-09-28 10:13] LABS: ABSOLUTE LYMPHOCYTES# (MANUAL) 2.8 10^3/uL (0.5-4.7); ABSOLUTE MONOCYTES # (MANUAL) 0.5 10^3/uL (0.1-1.4); ABSOLUTE NEUTROPHILS# (MANUAL) 13.2 10^3/uL (1.7-8.2); ANISOCYTOSIS 2+; BAND NEUTROPHILS % (MANUAL) 4 % (3-5); BASOPHILS % (MANUAL) 1 % (0-2); EOSINOPHILS % (MANUAL) 0 % (0-6); LYMPHOCYTES % (MANUAL) 16 % (13-45); METAMYELOCYTES % (MANUAL) 2 % (0); MONOCYTES % (MANUAL) 3 % (3-13); OVALOCYTES 1+; POIKILOCYTOSIS 2+; POLYCHROMASIA 1+; SEGMENTED NEUTROPHILS % (MAN) 73 % (42-78); TOTAL CELLS COUNTED 100
[2017-09-28 10:14] LABS: BURR CELLS 1+; PLATELET COMMENT DECREASED; PLATELET LARGE PRESENT
[2017-09-28 10:38] LABS: HEPATITIS A AB IGM Negative (Negative); HEPATITIS B CORE AB IGM Negative (Negative); HEPATITS B SURFACE ANTIGEN Negative (Negative)
[2017-09-28 10:45] LABS: HEPATITIS C VIRUS ANTIBODY <0.1 s/co ratio (0.0-0.9)
[2017-09-28] MEDS: DEXTROSE 5%-WATER 250 ML with NOREPINEPHRINE BITARTRATE 4 MG IV PRN ×4 (10:56→21:54)
[2017-09-28] MEDS: THIAMINE HCL 100 MG TABLET PO SCH (10:57)
[2017-09-28] MEDS: NICOTINE 21 MG/24 HR PATCH.TD24 TD SCH (10:57)
[2017-09-28] MEDS: TAMSULOSIN HCL 0.4 MG CAP.SR.24H PO SCH (10:57)
[2017-09-28] MEDS: CITALOPRAM HYDROBROMIDE 20 MG TABLET PO SCH (10:57)
[2017-09-28] MEDS: POTASSI CL 20 MEQ/50 ML RIDER 20 MEQ/50 ML RTUPB IV SCH ×3 (10:58→16:26)
[2017-09-28] MEDS: CARVEDILOL 6.25 MG TABLET PO SCH ×2 (11:01→18:11)
[2017-09-28] MEDS: FLUTICASONE/SALMETEROL DISKUS 250-50 MCG/DOSE IH SCH ×2 (11:01→18:11)
[2017-09-28] MEDS: POTASSI CL 40 MEQ/D5-1/2NS 1L 40 MEQ/1,000 ML RTUINJ IV PRN (11:09)
[2017-09-28] MEDS ORDERED: MAGNESIUM SULFATE 4 GM/100 ML RTUPB IV ONE (11:15)
[2017-09-28] MEDS ORDERED: NALOXONE HCL INJ/PF 0.4 MG/1 ML SDV ONE (11:29)
[2017-09-28] MEDS ORDERED: DIPHENHYDRAMINE HCL 50 MG/ML VIAL ONE (11:29)
[2017-09-28] MEDS ORDERED: ONDANSETRON HCL INJ/PF 4 MG/2 ML SDV ONE (11:29)
[2017-09-28] MEDS ORDERED: MIDAZOLAM 2 MG/2 ML INJ ONE (11:30)
[2017-09-28] MEDS ORDERED: EPINEPHRINE INJ 1 MG/10 ML DISP.SYRIN ONE (11:30)
[2017-09-28] MEDS ORDERED: GLUCAGON,HUMAN RECOMB 1 MG INJ ONE (11:30)
[2017-09-28] MEDS ORDERED: FENTANYL CITRATE INJ/PF 100 MCG/2 ML AMPUL ONE (11:30)
[2017-09-28] MEDS ORDERED: FLUMAZENIL INJ 0.5 MG/5 ML VIAL ONE (11:30)
--- NOTE | 2017-09-28 12:21 | Operative Report ---
Operative Report DATE OF SURGERY: 09/28/17 Operative Report: The risks benefits and alternatives of the procedure explained to the patient in detail and informed consent is obtained.A GIF Olympus video scope was inserted into the patient's mouth and hypopharynx, the esophagus is identified intubated and insufflated, the scope was then advanced through the esophagus stomach and duodenum, retroflexion maneuver is done, the esophagus stomach and first and second portions of the duodenum examined PREOPERATIVE DIAGNOSIS: Possible GI bleed POSTOPERATIVE DIAGNOSIS: Gastritis likely alcoholic related. Biopsies obtained to rule out Helicobacter pylori. No ulcers noted. No varices noted OPERATION: EGD with biopsy SURGEON: EDSON GUADALUPE ANESTHESIA: LMAC TISSUE REMOVED OR ALTERED: Gastric mucosal specimen obtained COMPLICATIONS: None. ESTIMATED BLOOD LOSS: None. INTRAOPERATIVE FINDINGS: As noted above. PROCEDURE: Patient tolerated procedure well. No immediate postprocedure complications are noted. We will wait on biopsies. Patient continues to be intubated should be kept n.p.o. Further recommendations to follow.
[2017-09-28 12:24] LABS: ARTERIAL BLOOD BASE EXCESS 2.2 mmol/L; ARTERIAL BLOOD H2CO3 0.94 mmol/L (1.05-1.35); ARTERIAL BLOOD HCO3 24.9 mmol/L (20-26); ARTERIAL BLOOD O2 SATURATION 93.3 % (94-98); ARTERIAL BLOOD PCO2 31.2 mmHg (35-45); ARTERIAL BLOOD PH 7.52 (7.35-7.45); ARTERIAL BLOOD PO2 58.9 mmHg (80-100); ARTERIAL BLOOD TOTAL CO2 25.9 mmol/L (23-27)
[2017-09-28 12:26] LABS: ARTERIAL BLOOD FIO2 35%
--- NOTE | 2017-09-28 14:19 | PDOC PROGRESS REPORT ---
Subjective Progress Note for:: 09/28/17 Subjective:: He had EGD today by Dr Barillas and finding was gastritis, no active bleeding source seen. His HB was 6.9 yesterday night and he was 2 extra units of PRBC and post-transfusion HB/HCT this am is 8.7/24.3; his WBC is 16.7. His Potassium is 2.4 and Mg is 0.8. He will receive KCL 20 MEQ IV x3 doses in addition to KCL 40 MEQ in IV fluids. He will receive Mg sulfate 4 g IV.Blood culture showed Gram positive cocci in clusters and he is on Vancomycin and Zosyn IV. [facility] and we will continue to need ICU level of care. Reason For Visit: GI BLEED ETOH WITHDRAWAL Physical Exam Vital Signs: Temp Pulse Resp BP Pulse Ox 98.4 F 75 18 109/65 94 09/28/17 12:00 09/28/17 12:29 09/28/17 13:14 09/28/17 13:14 09/28/17 13:14 Intake & Output 09/27/17 09/28/17 09/29/17 06:59 06:59 06:59 Intake Total 2165 6927 315 Output Total 175 2930 2380 Balance 1989 3997 -2065 Weight 57.1 kg 62.5 kg General appearance: PRESENT: no acute distress, mild distress, thin Head exam: PRESENT: atraumatic, normocephalic Eye exam: PRESENT: conjunctiva pale, EOMI Ear exam: PRESENT: normal external ear exam, TM's normal bilaterally Mouth exam: PRESENT: neck supple, tongue midline Respiratory exam: PRESENT: decreased breath sounds, symmetrical Cardiovascular exam: PRESENT: +S1, +S2 Pulses: PRESENT: +1 pedal pulses bilateral GI/Abdominal exam: PRESENT: normal bowel sounds, soft Rectal exam: PRESENT: deferred Neurological exam: PRESENT: altered Results Laboratory Results: 09/28/17 08:40 09/28/17 08:40 09/27/17 09/27/17 09/27/17 15:20 15:20 15:20 WBC RBC Hgb Hct MCV MCH MCHC RDW Plt Count Seg Neutrophils % Lymphocytes % Monocytes % Eosinophils % Basophils % Absolute Neutrophils Absolute Lymphocytes Absolute Monocytes Absolute Eosinophils Absolute Basophils Carbonic Acid HCO3/H2CO3 Ratio ABG pH ABG pCO2 ABG pO2 ABG HCO3 ABG O2 Saturation ABG Base Excess FiO2 Sodium Cancelled 146.1 H Potassium Cancelled 2.7 L* Chloride Cancelled 109 H Carbon Dioxide Cancelled 25 Anion Gap Cancelled 12 BUN Cancelled 56 H Creatinine Cancelled 1.36 H Est GFR ( Amer) Cancelled > 60 Est GFR (Non-Af Amer) Cancelled 54 L Glucose Cancelled 111 H Lactic Acid 4.4 H Calcium Cancelled 7.5 L Magnesium Total Bilirubin AST ALT Alkaline Phosphatase Total Protein Albumin Triglycerides 09/27/17 09/28/17 09/28/17 19:00 08:40 08:40 WBC 16.0 H 16.7 H RBC 2.12 L 2.78 L Hgb 6.9 L 8.7 L Hct 20.0 L 24.3 L MCV 94 87 D MCH 32.7 31.4 MCHC 34.7 36.0 RDW 21.0 H 21.3 H Plt Count 86 L 119 L Seg Neutrophils % 75.0 Not Reportable Lymphocytes % 7.5 L Not Reportable Monocytes % 13.9 H Not Reportable Eosinophils % 0.5 Not Reportable Basophils % 3.1 H Not Reportable Absolute Neutrophils 12.0 H Not Reportable Absolute Lymphocytes 1.2 Not Reportable Absolute Monocytes 2.2 H Not Reportable Absolute Eosinophils 0.1 Not Reportable Absolute Basophils 0.5 H Not Reportable Carbonic Acid HCO3/H2CO3 Ratio ABG pH ABG pCO2 ABG pO2 ABG HCO3 ABG O2 Saturation ABG Base Excess FiO2 Sodium 140.7 Potassium 2.4 L* Chloride 106 Carbon Dioxide 27 Anion Gap 8 BUN 32 H D Creatinine 1.00 Est GFR ( Amer) > 60 Est GFR (Non-Af Amer) > 60 Glucose 162 H Lactic Acid Calcium 8.3 L Magnesium 0.8 L* Total Bilirubin 7.4 H AST 74 H ALT 40 Alkaline Phosphatase 112 Total Protein 6.0 L Albumin 2.6 L Triglycerides 79 09/28/17 09/28/17 08:45 12:05 WBC RBC Hgb Hct MCV MCH MCHC RDW Plt Count Seg Neutrophils % Lymphocytes % Monocytes % Eosinophils % Basophils % Absolute Neutrophils Absolute Lymphocytes Absolute Monocytes Absolute Eosinophils Absolute Basophils Carbonic Acid 0.76 L 0.94 L HCO3/H2CO3 Ratio 33:1 26:1 ABG pH 7.62 H* 7.52 H ABG pCO2 25.3 L 31.2 L ABG pO2 62.4 L 58.9 L ABG HCO3 25.1 24.9 ABG O2 Saturation 95.6 93.3 L ABG Base Excess 4.1 2.2 FiO2 50% 35% Sodium Potassium Chloride Carbon Dioxide Anion Gap BUN Creatinine Est GFR ( Amer) Est GFR (Non-Af Amer) Glucose Lactic Acid Calcium Magnesium Total Bilirubin AST ALT Alkaline Phosphatase Total Protein Albumin Triglycerides 09/27/17 12:00 Tracheal Aspirate Gram Stain - Final 09/27/17 12:00 Tracheal Aspirate Sputum Culture - Final 09/27/17 09/27/17 09/27/17 15:20 15:20 15:20 Creatine Kinase 95 CK-MB (CK-2) 0.80 Troponin I 0.028 NT-Pro-B Natriuret Pep 438 426 09/28/17 09/28/17 09/28/17 08:40 08:40 08:40 Creatine Kinase 64 CK-MB (CK-2) 0.47 Troponin I < 0.012 NT-Pro-B Natriuret Pep Impressions: Abdomen Ultrasound 09/27/17 12:07 IMPRESSION: For visualization of the liver and hepatic vessels. Heterogeneous appearance. Fatty infiltration/ cirrhosis. Chest X-Ray 09/28/17 06:00 IMPRESSION: 1. Stable appearance of the chest. Assessment & Plan - Diagnosis (1) Acute respiratory failure Qualifiers: Respiratory failure complication: hypoxia Qualified Code(s): J96.01 - Acute respiratory failure with hypoxia Is this a current diagnosis for this admission?: Yes Plan: He has septicemia secondary to Gram positive cocci in clusters.Ct with [facility]. ventilation and sedation with propofol; ct with Zosyn 3.375 m q6h IV; Vancomycin IV as per [facility] protocol. F/u blood cultures and sputum cultures. (2) Acute hepatic encephalopathy Is this a current diagnosis for this admission?: Yes Plan: Ct with Lactulose 20 g q8h via NGT; monitor ammonia level daily. (3) Gastrointestinal hemorrhage Qualifiers: Gastritis type: alcoholic Is this a current diagnosis for this admission?: Yes Plan: Ct with Protonix drip; Transfused a total of 5 units of PRBC and give Lasix 20 mg IV after each unit of PRBC; NPO for now. Ct with IV fluids; F/U Dr Nargis FAULKNER. (4) Acute blood loss anemia Is this a current diagnosis for this admission?: Yes Plan: The acute blodd loss anemia is due to GI bleed secondary to alcoholic gastritis. Pt has received a total of 5 units of PRBC and Lasix 20 mg IV given each unit of PRBC. Continue to monitor CBC daily. (5) Alcohol withdrawal delirium Is this a current diagnosis for this admission?: Yes Plan: Ct with IV fluids- D5 in normal saline plus Thiamine and multivitamin at 125 cc/ hr; Ativan 1 mg q2h IV prn; 2 hourly neurochecks; soft restraints. (6) Hypokalemia Is this a current diagnosis for this admission?: Yes Plan: Pt was given KCL 20 MEQ Iv x3 doses; ct with KCL 40 MEQ in IV fluids. Monitor chemistries daily. (7) Hypomagnesemia Is this a current diagnosis for this admission?: Yes Plan: Pt was given Mg sulfate 4 G IV. Monitor mg level daily. (8) Acute hypernatremia Is this a current diagnosis for this admission?: Yes Plan: This is likely due poor po intake due to altered mental status from delirium tremens and hepatic encephalopathy. Ct with IV fluids D5 half normal saline at 75 cc/hr; Monitor chemistries daily. (9) Hypertension Qualifiers: Hypertension type: essential hypertension Qualified Code(s): I10 - Essential (primary) hypertension Is this a current diagnosis for this admission?: Yes Plan: Hold Coreg 6.25 mg BID PO due to hypotension; 2 g sodium diet when NPO is D/C. (10) Hyperlipidemia Qualifiers: Hyperlipidemia type: mixed hyperlipidemia Qualified Code(s): E78.2 - Mixed hyperlipidemia Is this a current diagnosis for this admission?: Yes Plan: Hold Simvasatin 20 mg qhs po for now; 200 mg cholesterol diet when NPO is D/C. (11) COPD (chronic obstructive pulmonary disease) Qualifiers: COPD type: unspecified COPD Qualified Code(s): J44.9 - Chronic obstructive pulmonary disease, unspecified Is this a current diagnosis for this admission?: Yes Plan: Ct with mech. ventilation; Duonebs q6h prn; Advair 250/50 1 puff BID. (12) BPH (benign prostatic hyperplasia) Is this a current diagnosis for this admission?: Yes Plan: Ct with Flomax 0.4 mg qd po. (13) Alcoholic cirrhosis of liver Qualifiers: Ascites presence: with ascites Qualified Code(s): K70.31 - Alcoholic cirrhosis of liver with ascites Is this a current diagnosis for this admission?: Yes Plan: Hold spironolactone 100 mg qd po and Lasix 40 mg qd po. due to mild metabolic alkalosis.Strict input/out put chart; daily weight; monitor chemistries daily. (14) Depression Is this a current diagnosis for this admission?: Yes Plan: Ct with Celexa 20 mg qd po. (15) Osteoarthritis Is this a current diagnosis for this admission?: Yes Plan: Ct with Oxycodone 5 mg TID prn po. (16) DVT prophylaxis Is this a current diagnosis for this admission?: Yes Plan: Ct with SCD; Hold Lovenox due to GI bleed.
[2017-09-28] MEDS: [UNRECOGNIZED DRUG - REMARK] IV SCH ×3 (16:26)
--- NOTE | 2017-09-28 17:57 | RADIOLOGY REPORT (SQ) ---
EXAM DESCRIPTION: KUB/ABDOMEN (SINGLE VIEW) COMPLETED DATE/TIME: 09/28/2017 5:45 pm REASON FOR STUDY: OG tube Placement COMPARISON: None. NUMBER OF VIEWS: One view. TECHNIQUE: Supine radiographic image of the abdomen acquired. LIMITATIONS: None. FINDINGS: BOWEL GAS PATTERN: Normal bowel gas pattern. No dilated loops. CALCIFICATIONS: No suspicious calcifications. SOFT TISSUES: No gross mass or suggestion of organomegaly. HARDWARE: NG tube is seen with its tip in the left upper quadrant presumably in the proximal stomach. BONES: No acute fracture. No worrisome bone lesions. OTHER: No other significant finding. IMPRESSION: NG tube with its tip in the left upper quadrant presumably in the proximal stomach. Oth er findings as noted above TECHNICAL DOCUMENTATION: JOB ID: [id number] [email or web address]- All Rights Reserved
[2017-09-28 19:52] LABS: ANION GAP 7 (5-19); BLOOD UREA NITROGEN 24 mg/dL (7-20); CALCIUM 7.9 mg/dL (8.4-10.2); CARBON DIOXIDE 27 mmol/L (22-30); CHLORIDE 107 mmol/L (98-107); GLUCOSE 140 mg/dL (75-110); SODIUM 141.3 mmol/L (137-145)
[2017-09-28 19:57] LABS: POTASSIUM 3.3 mmol/L (3.6-5.0)
[2017-09-28] MEDS: VANCOMYCIN HCL 1,000 MG in DEXTROSE 5%-WATER 250 ML IV SCH (20:53)
[2017-09-29] MEDS: PIPERACILLIN SODIUM/TAZOBACTAM 3.375 GM in NORMAL SALINE 100 ML IV SCH ×5 (00:46→23:48)
[2017-09-29] MEDS: DEXTROSE 5%-WATER 250 ML with PHENYLEPHRINE HCL 40 MG IV PRN ×6 (01:39→22:16)
[2017-09-29 05:21] LABS: ARTERIAL BLOOD FIO2 35%; ARTERIAL BLOOD H2CO3 1.22 mmol/L (1.05-1.35); ARTERIAL BLOOD HCO3 25.6 mmol/L (20-26); ARTERIAL BLOOD O2 SATURATION 90.6 % (94-98); ARTERIAL BLOOD PCO2 40.4 mmHg (35-45); ARTERIAL BLOOD PH 7.42 (7.35-7.45); ARTERIAL BLOOD PO2 57.9 mmHg (80-100); ARTERIAL BLOOD TOTAL CO2 26.8 mmol/L (23-27)
[2017-09-29 05:25] LABS: ABSOLUTE BASOPHILS # (AUTO) 0.1 10^3/uL (0.0-0.2); ABSOLUTE EOSINOPHILS # (AUTO) 0.2 10^3/uL (0.0-0.6); ABSOLUTE MONOCYTES (AUTO) 1.8 10^3/uL (0.1-1.4); ABSOLUTE NEUT (AUTO) 9.8 10^3/uL (1.7-8.2); EOSINOPHILS % (AUTO) 1.5 % (0-6); HEMATOCRIT 23.3 % (37.9-51.0); HEMOGLOBIN 8.2 g/dL (13.5-17.0); LYMPHOCYTES % (AUTO) 14.3 % (13-45); MEAN CORPUSCULAR HEMOGLOBIN 31.3 pg (27.0-33.4); MEAN CORPUSCULAR HGB CONC 35.4 g/dL (32.0-36.0); MEAN CORPUSCULAR VOLUME 88 fl (80-97); MONOCYTES % (AUTO) 13.1 % (3-13); RED BLOOD COUNT 2.63 10^6/uL (4.35-5.55); RED CELL DISTRIBUTION WIDTH 21.7 % (11.5-14.0); SEGMENTED NEUTROPHILS % (AUTO) 70.1 % (42-78); TOTAL CELLS COUNTED % (AUTO) 100 %
[2017-09-29 05:40] LABS: ALANINE AMINOTRANSFERASE 38 U/L (21-72); ALBUMIN 2.3 g/dL (3.5-5.0); ALKALINE PHOSPHATASE 116 U/L (38-126); ANION GAP 9 (5-19); ASPARTATE AMINO TRANSFERASE 69 U/L (17-59); BILIRUBIN,DIRECT 2.3 mg/dL (0.0-0.4); BILIRUBIN,TOTAL 6.9 mg/dL (0.2-1.3); BLOOD UREA NITROGEN 22 mg/dL (7-20); CALCIUM 7.7 mg/dL (8.4-10.2); CARBON DIOXIDE 25 mmol/L (22-30); CHLORIDE 107 mmol/L (98-107); GLUCOSE 154 mg/dL (75-110); POTASSIUM 3.1 mmol/L (3.6-5.0); TOTAL PROTEIN 5.2 g/dL (6.3-8.2)
[2017-09-29 05:51] LABS: CREATINE KINASE MB 0.57 ng/mL (<4.55)
[2017-09-29 05:53] LABS: TROPONIN I < 0.012 ng/mL
[2017-09-29 06:00] LABS: PLATELET COUNT 86 10^3/uL (150-450)
[2017-09-29] MEDS: LACTULOSE SYRUP 20 GM/30 ML UDCUP PO SCH ×3 (06:55→22:16)
--- NOTE | 2017-09-29 07:12 | RADIOLOGY REPORT (SQ) ---
EXAM DESCRIPTION: CHEST SINGLE VIEW CLINICAL HISTORY: resp failure COMPARISON: 09/28/2016 FINDINGS: Single frontal view of the chest. Endotracheal tube with tip 4 cm above the will. NG tube with tip below the diaphragm. Right IJ central venous catheter. Interval development of right basilar airspace opacity. No pneumothorax or large effusion. No acute osseous abnormalities identified. Upper abdominal soft tissues are unremarkable. IMPRESSION: 1. Interval development of bibasilar airspace opacity. This may be related to atelectasis or developing pneumonia. Electronically signed by: Flaco Magaña 09/29/2017 6:11 AM
[2017-09-29] MEDS: MAGNESIUM SULFATE/D5W 1 GM/100 ML RTUPB IV SCH ×4 (07:42→10:04)
[2017-09-29] MEDS: POTASSI CL 20 MEQ/50 ML RIDER 20 MEQ/50 ML RTUPB IV SCH ×2 (07:42→09:38)
[2017-09-29] MEDS ORDERED: POTASSIUM CHLORIDE 20 MEQ/15 ML UDCUP NG ONE (09:00)
[2017-09-29] MEDS: FLUTICASONE/SALMETEROL DISKUS 250-50 MCG/DOSE IH SCH ×2 (09:31→18:05)
[2017-09-29] MEDS: CARVEDILOL 6.25 MG TABLET PO SCH ×2 (09:31→18:05)
[2017-09-29] MEDS: TAMSULOSIN HCL 0.4 MG CAP.SR.24H PO SCH (09:31)
[2017-09-29] MEDS: NICOTINE 21 MG/24 HR PATCH.TD24 TD SCH (09:35)
[2017-09-29] MEDS: DEXTROSE 5%-WATER 250 ML with VASOPRESSIN 100 UNIT IV PRN ×2 (09:35)
[2017-09-29] MEDS: THIAMINE HCL 100 MG TABLET PO SCH (09:36)
[2017-09-29] MEDS: CITALOPRAM HYDROBROMIDE 20 MG TABLET PO SCH (09:36)
[2017-09-29] MEDS: MIDAZOLAM HCL 50 MG/100 ML RTUINJ IV PRN ×3 (09:37→22:17)
[2017-09-29] MEDS: PROPOFOL 100 ML IV PRN (09:37)
[2017-09-29] MEDS ORDERED: MAGNESIUM SULFATE 4 GM/100 ML RTUPB IV ONE (10:00)
[2017-09-29] MEDS: NORMAL SALINE 100 ML with PANTOPRAZOLE SODIUM 80 MG IV PRN ×4 (10:13→18:07)
[2017-09-29] MEDS: DEXTROSE 5%-WATER 250 ML with NOREPINEPHRINE BITARTRATE 4 MG IV PRN ×4 (11:33→23:47)
[2017-09-29] MEDS: POTASSI CL 40 MEQ/D5-1/2NS 1L 40 MEQ/1,000 ML RTUINJ IV PRN (11:33)
--- NOTE | 2017-09-29 15:29 | PDOC PROGRESS REPORT ---
Subjective Progress Note for:: 09/29/17 Subjective:: 57-year-old gentleman with Hypertension Hyperlipidemia COPD Peptic ulcer disease Alcoholic liver disease Benign prostatic hypertrophy Osteoarthritis Rhinitis Restless leg syndrome Gout Vitamin D deficiency Depression and anxiety Chronic smoker Hepatitis C He was recently transferred to [facility] for GI bleed and had an endoscopy and colonoscopy. He continued to drink heavily and presented to the hospital on September 26 with abdominal pain dark stool persistent vomiting. His hemoglobin on admission was 6.4 he was mildly tachycardic he was admitted to [facility] for GI bleed and severe alcohol withdrawal with possible delirium tremens. He also had metabolic encephalopathy due to cirrhosis with elevated ammonia levels. On September 27 the patient developed acute respiratory distress secondary to aspiration pneumonia. He was intubated and transferred to the intensive care unit. Sputum cultures were sent and Zosyn was started. He was started on a Protonix drip transfused 3 units of packed red blood cells given lactulose via NG tube. Upper endoscopy by Dr. Barillas showed gastritis with no active bleeding. Calcium and magnesium were replaced. Blood cultures are growing 1 out of 2 sets staph epidermidis which seems to be a skin contaminant. We will repeat 2 sets of blood cultures. Hemoglobin has remained stable at 8.2. We will continue to monitor. Potassium today is 3.1, magnesium is 1.4. This will be repleted. HIV and hepatitis panel negative he is sedated on the vent on pressors Reason For Visit: GI BLEED ETOH WITHDRAWAL Physical Exam Vital Signs: Temp Pulse Resp BP Pulse Ox 97.5 F 66 19 97/53 L 96 09/29/17 05:02 09/28/17 20:00 09/29/17 04:31 09/29/17 04:31 09/29/17 04:31 Intake & Output 09/28/17 09/29/17 09/30/17 06:59 06:59 06:59 Intake Total 3111 5937 Output Total 1541 3008 Balance 3997 2192 Weight 62.5 kg 64.5 kg General appearance: PRESENT: thin Ear exam: PRESENT: normal external ear exam Respiratory exam: PRESENT: clear to auscultation spike, symmetrical, unlabored Cardiovascular exam: PRESENT: RRR GI/Abdominal exam: PRESENT: normal bowel sounds, soft. ABSENT: tenderness Rectal exam: PRESENT: deferred Extremities exam: ABSENT: calf tenderness Skin exam: ABSENT: mottled, rash Results Laboratory Results: 09/29/17 05:05 09/29/17 05:05 09/28/17 09/28/17 09/28/17 08:40 08:40 08:40 WBC 16.7 H RBC 2.78 L Hgb 8.7 L Hct 24.3 L MCV 87 D MCH 31.4 MCHC 36.0 RDW 21.3 H Plt Count 119 L Seg Neutrophils % Not Reportable Lymphocytes % Not Reportable Monocytes % Not Reportable Eosinophils % Not Reportable Basophils % Not Reportable Absolute Neutrophils Not Reportable Absolute Lymphocytes Not Reportable Absolute Monocytes Not Reportable Absolute Eosinophils Not Reportable Absolute Basophils Not Reportable Carbonic Acid HCO3/H2CO3 Ratio ABG pH ABG pCO2 ABG pO2 ABG HCO3 ABG O2 Saturation ABG Base Excess FiO2 Sodium 140.7 Potassium 2.4 L* Chloride 106 Carbon Dioxide 27 Anion Gap 8 BUN 32 H D Creatinine 1.00 Est GFR ( Amer) > 60 Est GFR (Non-Af Amer) > 60 Glucose 162 H Calcium 8.3 L Magnesium 0.8 L* Total Bilirubin 7.4 H AST 74 H ALT 40 Alkaline Phosphatase 112 Ammonia Total Protein 6.0 L Albumin 2.6 L Triglycerides 79 77 09/28/17 09/28/17 09/28/17 08:45 12:05 19:17 WBC RBC Hgb Hct MCV MCH MCHC RDW Plt Count Seg Neutrophils % Lymphocytes % Monocytes % Eosinophils % Basophils % Absolute Neutrophils Absolute Lymphocytes Absolute Monocytes Absolute Eosinophils Absolute Basophils Carbonic Acid 0.76 L 0.94 L HCO3/H2CO3 Ratio 33:1 26:1 ABG pH 7.62 H* 7.52 H ABG pCO2 25.3 L 31.2 L ABG pO2 62.4 L 58.9 L ABG HCO3 25.1 24.9 ABG O2 Saturation 95.6 93.3 L ABG Base Excess 4.1 2.2 FiO2 50% 35% Sodium 141.3 Potassium 3.3 L Chloride 107 Carbon Dioxide 27 Anion Gap 7 BUN 24 H Creatinine 0.83 Est GFR ( Amer) > 60 Est GFR (Non-Af Amer) > 60 Glucose 140 H Calcium 7.9 L Magnesium 1.7 Total Bilirubin AST ALT Alkaline Phosphatase Ammonia Total Protein Albumin Triglycerides 09/29/17 09/29/17 09/29/17 05:05 05:05 05:05 WBC 14.0 H RBC 2.63 L Hgb 8.2 L Hct 23.3 L MCV 88 MCH 31.3 MCHC 35.4 RDW 21.7 H Plt Count 86 L Seg Neutrophils % 70.1 Lymphocytes % 14.3 Monocytes % 13.1 H Eosinophils % 1.5 Basophils % 1.0 Absolute Neutrophils 9.8 H Absolute Lymphocytes 2.0 Absolute Monocytes 1.8 H Absolute Eosinophils 0.2 Absolute Basophils 0.1 Carbonic Acid 1.22 HCO3/H2CO3 Ratio 20:1 ABG pH 7.42 ABG pCO2 40.4 ABG pO2 57.9 L ABG HCO3 25.6 ABG O2 Saturation 90.6 L ABG Base Excess 1.0 FiO2 35% Sodium Potassium Chloride Carbon Dioxide Anion Gap BUN Creatinine Est GFR ( Amer) Est GFR (Non-Af Amer) Glucose Calcium Magnesium Total Bilirubin AST ALT Alkaline Phosphatase Ammonia 35.1 H Total Protein Albumin Triglycerides 09/29/17 05:05 WBC RBC Hgb Hct MCV MCH MCHC RDW Plt Count Seg Neutrophils % Lymphocytes % Monocytes % Eosinophils % Basophils % Absolute Neutrophils Absolute Lymphocytes Absolute Monocytes Absolute Eosinophils Absolute Basophils Carbonic Acid HCO3/H2CO3 Ratio ABG pH ABG pCO2 ABG pO2 ABG HCO3 ABG O2 Saturation ABG Base Excess FiO2 Sodium 141.0 Potassium 3.1 L Chloride 107 Carbon Dioxide 25 Anion Gap 9 BUN 22 H Creatinine 0.81 Est GFR ( Amer) > 60 Est GFR (Non-Af Amer) > 60 Glucose 154 H Calcium 7.7 L Magnesium 1.4 L Total Bilirubin 6.9 H AST 69 H ALT 38 Alkaline Phosphatase 116 Ammonia Total Protein 5.2 L Albumin 2.3 L Triglycerides 09/27/17 12:00 Tracheal Aspirate Gram Stain - Final 09/27/17 12:00 Tracheal Aspirate Sputum Culture - Final 09/27/17 09/27/17 09/27/17 15:20 15:20 15:20 Creatine Kinase 95 CK-MB (CK-2) 0.80 Troponin I 0.028 NT-Pro-B Natriuret Pep 438 426 09/28/17 09/28/17 09/28/17 08:40 08:40 08:40 Creatine Kinase 64 CK-MB (CK-2) 0.47 Troponin I < 0.012 NT-Pro-B Natriuret Pep 09/29/17 05:05 Creatine Kinase CK-MB (CK-2) 0.57 Troponin I < 0.012 NT-Pro-B Natriuret Pep Impressions: Abdomen Ultrasound 09/27/17 12:07 IMPRESSION: For visualization of the liver and hepatic vessels. Heterogeneous appearance. Fatty infiltration/ cirrhosis. KUB X-Ray 09/28/17 15:16 IMPRESSION: NG tube with its tip in the left upper quadrant presumably in the proximal stomach. Other findings as noted above Chest X-Ray 09/29/17 06:00 IMPRESSION: 1. Interval development of bibasilar airspace opacity. This may be related to atelectasis or developing pneumonia. Assessment & Plan - Diagnosis (1) Acute blood loss anemia Is this a current diagnosis for this admission?: Yes Plan: Due to gastritis, continue PPI gtt (2) Acute hepatic encephalopathy Is this a current diagnosis for this admission?: Yes Plan: On Lactulose (3) Acute respiratory failure Qualifiers: Respiratory failure complication: hypoxia Qualified Code(s): J96.01 - Acute respiratory failure with hypoxia Is this a current diagnosis for this admission?: Yes Plan: Cont vent management per Pulm (4) Alcohol withdrawal delirium Is this a current diagnosis for this admission?: Yes Plan: Lorazepam as needed (5) Alcoholic cirrhosis of liver Qualifiers: Ascites presence: with ascites Qualified Code(s): K70.31 - Alcoholic cirrhosis of liver with ascites Is this a current diagnosis for this admission?: Yes (6) Gastrointestinal hemorrhage Qualifiers: Gastritis type: alcoholic Is this a current diagnosis for this admission?: Yes (7) Liver disease Is this a current diagnosis for this admission?: Yes Plan: cont Lactulose (8) Anxiety disorder Is this a current diagnosis for this admission?: Yes (9) BPH (benign prostatic hyperplasia) Is this a current diagnosis for this admission?: Yes Plan: Flomax (10) COPD (chronic obstructive pulmonary disease) Qualifiers: COPD type: unspecified COPD Qualified Code(s): J44.9 - Chronic obstructive pulmonary disease, unspecified Is this a current diagnosis for this admission?: Yes (11) Chronic alcohol abuse Is this a current diagnosis for this admission?: Yes Plan: Thiamine and Folic acid (12) Depression Is this a current diagnosis for this admission?: Yes (13) Hyperlipidemia Qualifiers: Hyperlipidemia type: mixed hyperlipidemia Qualified Code(s): E78.2 - Mixed hyperlipidemia Is this a current diagnosis for this admission?: Yes (14) Hypertension Qualifiers: Hypertension type: essential hypertension Qualified Code(s): I10 - Essential (primary) hypertension Is this a current diagnosis for this admission?: Yes (15) Hypomagnesemia Is this a current diagnosis for this admission?: Yes Plan: IV magnesium sulfate (16) Hypokalemia Is this a current diagnosis for this admission?: Yes Plan: Replete - Time Total Critical Time (Minutes): 45
[2017-09-29 15:48] LABS: BLOOD UREA NITROGEN 21 mg/dL (7-20); GLUCOSE 135 mg/dL (75-110)
[2017-09-29 15:57] LABS: CARBON DIOXIDE 26 mmol/L (22-30); CHLORIDE 107 mmol/L (98-107); POTASSIUM 3.6 mmol/L (3.6-5.0); SODIUM 137.3 mmol/L (137-145)
[2017-09-29 16:01] LABS: ANION GAP 4 (5-19)
[2017-09-29] MEDS: [UNRECOGNIZED DRUG - REMARK] IV SCH ×3 (18:07)
[2017-09-29] MEDS: VANCOMYCIN HCL 1,000 MG in DEXTROSE 5%-WATER 250 ML IV SCH (20:07)
[2017-09-30] MEDS: PROPOFOL 100 ML IV PRN (05:46)
[2017-09-30] MEDS: NORMAL SALINE 100 ML with PANTOPRAZOLE SODIUM 80 MG IV PRN ×4 (05:46→14:34)
[2017-09-30] MEDS: MIDAZOLAM HCL 50 MG/100 ML RTUINJ IV PRN (05:47)
[2017-09-30] MEDS: PIPERACILLIN SODIUM/TAZOBACTAM 3.375 GM in NORMAL SALINE 100 ML IV SCH ×4 (05:48→23:50)
[2017-09-30] MEDS: LACTULOSE SYRUP 20 GM/30 ML UDCUP PO SCH ×3 (05:48→22:08)
[2017-09-30 06:20] LABS: ARTERIAL BLOOD BASE EXCESS -1.3 mmol/L; ARTERIAL BLOOD H2CO3 1.25 mmol/L (1.05-1.35); ARTERIAL BLOOD HCO3 23.8 mmol/L (20-26); ARTERIAL BLOOD PCO2 41.6 mmHg (35-45); ARTERIAL BLOOD PH 7.38 (7.35-7.45); ARTERIAL BLOOD PO2 76.5 mmHg (80-100); ARTERIAL BLOOD TOTAL CO2 25.1 mmol/L (23-27)
[2017-09-30 06:21] LABS: ARTERIAL BLOOD FIO2 30%
[2017-09-30 06:37] LABS: ABSOLUTE BASOPHILS # (AUTO) 0.1 10^3/uL (0.0-0.2); ABSOLUTE EOSINOPHILS # (AUTO) 0.4 10^3/uL (0.0-0.6); ABSOLUTE LYMPHOCYTES (AUTO) 1.8 10^3/uL (0.5-4.7); ABSOLUTE MONOCYTES (AUTO) 2.2 10^3/uL (0.1-1.4); ABSOLUTE NEUT (AUTO) 9.1 10^3/uL (1.7-8.2); BASOPHILS % (AUTO) 0.7 % (0-2); EOSINOPHILS % (AUTO) 2.8 % (0-6); HEMATOCRIT 24.2 % (37.9-51.0); HEMOGLOBIN 8.5 g/dL (13.5-17.0); LYMPHOCYTES % (AUTO) 13.4 % (13-45); MEAN CORPUSCULAR HEMOGLOBIN 31.7 pg (27.0-33.4); MEAN CORPUSCULAR HGB CONC 35.1 g/dL (32.0-36.0); MEAN CORPUSCULAR VOLUME 90 fl (80-97); MONOCYTES % (AUTO) 16.4 % (3-13); RED BLOOD COUNT 2.68 10^6/uL (4.35-5.55); RED CELL DISTRIBUTION WIDTH 21.9 % (11.5-14.0); SEGMENTED NEUTROPHILS % (AUTO) 66.7 % (42-78); TOTAL CELLS COUNTED % (AUTO) 100 %; WHITE BLOOD COUNT 13.6 10^3/uL (4.0-10.5)
--- NOTE | 2017-09-30 06:42 | RADIOLOGY REPORT (SQ) ---
EXAM DESCRIPTION: CHEST SINGLE VIEW CLINICAL HISTORY: pna/resp failure COMPARISON: 09/29/2017 FINDINGS: Single frontal view of the chest. Endotracheal tube with tip 4 cm above the will. NG tube with tip below the diaphragm. Right IJ central venous catheter. Slight interval increase in right basilar airspace opacity. No pneumothorax or large effusion. No acute osseous abnormalities identified. Upper abdominal soft tissues are unremarkable. IMPRESSION: 1. Slight interval increase in right basilar airspace opacity. Electronically signed by: Flaco Magaña 09/30/2017 5:41 AM [employer]MICAL [employer]ECTION EX[employer]ERT
[2017-09-30 06:49] LABS: ALANINE AMINOTRANSFERASE 44 U/L (21-72); ALBUMIN 2.3 g/dL (3.5-5.0); ALKALINE PHOSPHATASE 119 U/L (38-126); ANION GAP 6 (5-19); ASPARTATE AMINO TRANSFERASE 73 U/L (17-59); BILIRUBIN,DIRECT 2.2 mg/dL (0.0-0.4); BILIRUBIN,TOTAL 5.6 mg/dL (0.2-1.3); BLOOD UREA NITROGEN 18 mg/dL (7-20); CALCIUM 8.1 mg/dL (8.4-10.2); CARBON DIOXIDE 23 mmol/L (22-30); CHLORIDE 107 mmol/L (98-107); GLUCOSE 145 mg/dL (75-110); POTASSIUM 3.3 mmol/L (3.6-5.0); SODIUM 135.8 mmol/L (137-145); TOTAL PROTEIN 5.7 g/dL (6.3-8.2)
[2017-09-30 06:56] LABS: PLATELET COUNT 84 10^3/uL (150-450)
[2017-09-30] MEDS ORDERED: MAGNESIUM SULFATE 4 GM/100 ML RTUPB IV ONE (08:11)
[2017-09-30] MEDS ORDERED: MAGNESIUM SULFATE/D5W 1 GM/100 ML RTUPB IV ONE (08:36)
[2017-09-30] MEDS ORDERED: POTASSI CL 20 MEQ/50 ML RIDER 20 MEQ/50 ML RTUPB IV ONE (08:36)
[2017-09-30] MEDS: POTASSI CL 40 MEQ/D5-1/2NS 1L 40 MEQ/1,000 ML RTUINJ IV PRN (08:40)
[2017-09-30] MEDS: CARVEDILOL 6.25 MG TABLET PO SCH ×2 (09:19→17:11)
[2017-09-30] MEDS: FLUTICASONE/SALMETEROL DISKUS 250-50 MCG/DOSE IH SCH ×2 (09:19→17:11)
[2017-09-30] MEDS: TAMSULOSIN HCL 0.4 MG CAP.SR.24H PO SCH (09:19)
[2017-09-30] MEDS: THIAMINE HCL 100 MG TABLET PO SCH (09:29)
[2017-09-30] MEDS: NICOTINE 21 MG/24 HR PATCH.TD24 TD SCH (09:29)
[2017-09-30] MEDS: CITALOPRAM HYDROBROMIDE 20 MG TABLET PO SCH (09:30)
[2017-09-30] MEDS: MAGNESIUM SULFATE 1 GM/D5W 100 ML IV SCH ×4 (09:48→18:06)
[2017-09-30] MEDS ORDERED: FUROSEMIDE INJ/PF 20 MG/2 ML SDV IV ONE (10:00)
[2017-09-30] MEDS: POTASSIUM CHLORIDE 20 MEQ/50 ML RTU IV SCH ×2 (10:36→12:31)
--- NOTE | 2017-09-30 11:56 | PDOC PROGRESS REPORT ---
Subjective Progress Note for:: 09/30/17 Subjective:: 57-year-old gentleman with Hypertension Hyperlipidemia COPD Peptic ulcer disease Alcoholic liver disease Benign prostatic hypertrophy Osteoarthritis Rhinitis Restless leg syndrome Gout Vitamin D deficiency Depression and anxiety Chronic smoker Hepatitis C He was recently transferred to [facility] for GI bleed and had an endoscopy and colonoscopy. He continued to drink heavily and presented to the hospital on September 26 with abdominal pain dark stool persistent vomiting. His hemoglobin on admission was 6.4 he was mildly tachycardic he was admitted to [facility] for GI bleed and severe alcohol withdrawal with possible delirium tremens. He also had metabolic encephalopathy due to cirrhosis with elevated ammonia levels. On September 27 the patient developed acute respiratory distress secondary to aspiration pneumonia. He was intubated and transferred to the intensive care unit. Sputum cultures were sent and Zosyn was started. He was started on a Protonix drip transfused 3 units of packed red blood cells given lactulose via NG tube. Upper endoscopy by Dr. Barillas showed gastritis with no active bleeding. Calcium and magnesium were replaced. Blood cultures are growing 1 out of 2 sets staph epidermidis which seems to be a skin contaminant. We will repeat 2 sets of blood cultures. Hemoglobin has remained stable at 8.2. We will continue to monitor. Potassium today is 3.1, magnesium is 1.4. This will be repleted. HIV and hepatitis panel negative The patient remain sedated on the vent on pressors. Will start enteral tube feeds. Reason For Visit: GI BLEED ETOH WITHDRAWAL Physical Exam Vital Signs: Temp Pulse Resp BP Pulse Ox 97.5 F 64 10 L 97/64 L 97 09/30/17 10:00 09/30/17 08:00 09/30/17 11:01 09/30/17 11:01 09/30/17 11:41 Intake & Output 09/29/17 09/30/17 10/01/17 06:59 06:59 06:59 Intake Total 5977 4425 Output Total 3785 1025 1050 Balance 2192 3400 -1050 Weight 64.5 kg 67 kg General appearance: ABSENT: no acute distress Head exam: PRESENT: normocephalic Ear exam: PRESENT: normal external ear exam. ABSENT: bleeding Mouth exam: PRESENT: dry mucosa Neck exam: ABSENT: tracheal deviation Respiratory exam: PRESENT: clear to auscultation spike, unlabored Cardiovascular exam: PRESENT: RRR. ABSENT: systolic murmur Vascular exam: ABSENT: pallor GI/Abdominal exam: PRESENT: normal bowel sounds, soft. ABSENT: rebound, tenderness Rectal exam: PRESENT: deferred Extremities exam: ABSENT: calf tenderness, pedal edema, tenderness Results Laboratory Results: 09/30/17 05:55 09/30/17 05:55 09/29/17 09/30/17 09/30/17 15:13 05:55 05:55 WBC RBC Hgb Hct MCV MCH MCHC RDW Plt Count Seg Neutrophils % Lymphocytes % Monocytes % Eosinophils % Basophils % Absolute Neutrophils Absolute Lymphocytes Absolute Monocytes Absolute Eosinophils Absolute Basophils Carbonic Acid 1.25 HCO3/H2CO3 Ratio 19:1 ABG pH 7.38 ABG pCO2 41.6 ABG pO2 76.5 L ABG HCO3 23.8 ABG O2 Saturation 95.0 ABG Base Excess -1.3 FiO2 30% Sodium 137.3 Potassium 3.6 Chloride 107 Carbon Dioxide 26 Anion Gap 4 L BUN 21 H Creatinine 0.80 Est GFR ( Amer) > 60 Est GFR (Non-Af Amer) > 60 Glucose 135 H Calcium 8.0 L Magnesium Total Bilirubin AST ALT Alkaline Phosphatase Ammonia 49.8 H Total Protein Albumin 09/30/17 09/30/17 05:55 05:55 WBC 13.6 H RBC 2.68 L Hgb 8.5 L Hct 24.2 L MCV 90 MCH 31.7 MCHC 35.1 RDW 21.9 H Plt Count 84 L Seg Neutrophils % 66.7 Lymphocytes % 13.4 Monocytes % 16.4 H Eosinophils % 2.8 Basophils % 0.7 Absolute Neutrophils 9.1 H Absolute Lymphocytes 1.8 Absolute Monocytes 2.2 H Absolute Eosinophils 0.4 Absolute Basophils 0.1 Carbonic Acid HCO3/H2CO3 Ratio ABG pH ABG pCO2 ABG pO2 ABG HCO3 ABG O2 Saturation ABG Base Excess FiO2 Sodium 135.8 L Potassium 3.3 L Chloride 107 Carbon Dioxide 23 Anion Gap 6 BUN 18 Creatinine 0.73 Est GFR ( Amer) > 60 Est GFR (Non-Af Amer) > 60 Glucose 145 H Calcium 8.1 L Magnesium 1.3 L Total Bilirubin 5.6 H AST 73 H ALT 44 Alkaline Phosphatase 119 Ammonia Total Protein 5.7 L Albumin 2.3 L 09/28/17 15:45 Tracheal Aspirate Gram Stain - Final 09/28/17 15:45 Tracheal Aspirate Sputum Culture - Final GREATLY REDUCED NORMAL TRAM 09/27/17 12:50 Catheterized Urine Urine Culture - Final NO GROWTH 2 DAYS 09/27/17 09/27/17 09/27/17 15:20 15:20 15:20 Creatine Kinase 95 CK-MB (CK-2) 0.80 Troponin I 0.028 NT-Pro-B Natriuret Pep 438 426 09/28/17 09/28/17 09/28/17 08:40 08:40 08:40 Creatine Kinase 64 CK-MB (CK-2) 0.47 Troponin I < 0.012 NT-Pro-B Natriuret Pep 09/29/17 05:05 Creatine Kinase CK-MB (CK-2) 0.57 Troponin I < 0.012 NT-Pro-B Natriuret Pep Impressions: Abdomen Ultrasound 09/27/17 12:07 IMPRESSION: For visualization of the liver and hepatic vessels. Heterogeneous appearance. Fatty infiltration/ cirrhosis. KUB X-Ray 09/28/17 15:16 IMPRESSION: NG tube with its tip in the left upper quadrant presumably in the proximal stomach. Other findings as noted above Chest X-Ray 09/30/17 06:00 IMPRESSION: 1. Slight interval increase in right basilar airspace opacity. Assessment & Plan - Diagnosis (1) Acute blood loss anemia Is this a current diagnosis for this admission?: Yes Plan: Due to gastritis, continue PPI gtt (2) Acute hepatic encephalopathy Is this a current diagnosis for this admission?: Yes Plan: On Lactulose (3) Acute respiratory failure Qualifiers: Respiratory failure complication: hypoxia Qualified Code(s): J96.01 - Acute respiratory failure with hypoxia Is this a current diagnosis for this admission?: Yes Plan: Cont vent management per Pulm (4) Alcohol withdrawal delirium Is this a current diagnosis for this admission?: Yes Plan: Lorazepam as needed (5) Alcoholic cirrhosis of liver Qualifiers: Ascites presence: with ascites Qualified Code(s): K70.31 - Alcoholic cirrhosis of liver with ascites Is this a current diagnosis for this admission?: Yes (6) Gastrointestinal hemorrhage Qualifiers: Gastritis type: alcoholic Is this a current diagnosis for this admission?: Yes (7) Liver disease Is this a current diagnosis for this admission?: Yes Plan: cont Lactulose (8) Anxiety disorder Is this a current diagnosis for this admission?: Yes (9) BPH (benign prostatic hyperplasia) Is this a current diagnosis for this admission?: Yes Plan: Flomax (10) COPD (chronic obstructive pulmonary disease) Qualifiers: COPD type: unspecified COPD Qualified Code(s): J44.9 - Chronic obstructive pulmonary disease, unspecified Is this a current diagnosis for this admission?: Yes (11) Chronic alcohol abuse Is this a current diagnosis for this admission?: Yes Plan: Thiamine and Folic acid (12) Depression Is this a current diagnosis for this admission?: Yes (13) Hyperlipidemia Qualifiers: Hyperlipidemia type: mixed hyperlipidemia Qualified Code(s): E78.2 - Mixed hyperlipidemia Is this a current diagnosis for this admission?: Yes (14) Hypertension Qualifiers: Hypertension type: essential hypertension Qualified Code(s): I10 - Essential (primary) hypertension Is this a current diagnosis for this admission?: Yes (15) Hypomagnesemia Is this a current diagnosis for this admission?: Yes Plan: IV magnesium sulfate (16) Hypokalemia Is this a current diagnosis for this admission?: Yes - Time Total Critical Time (Minutes): 50
[2017-09-30] MEDS: DEXTROSE 5%-WATER 250 ML with NOREPINEPHRINE BITARTRATE 4 MG IV PRN ×4 (12:31→23:50)
[2017-09-30 15:15] LABS: ANION GAP 7 (5-19); BLOOD UREA NITROGEN 15 mg/dL (7-20); CALCIUM 8.2 mg/dL (8.4-10.2); CARBON DIOXIDE 24 mmol/L (22-30); CHLORIDE 104 mmol/L (98-107); GLUCOSE 131 mg/dL (75-110); POTASSIUM 3.6 mmol/L (3.6-5.0); SODIUM 134.5 mmol/L (137-145)
[2017-09-30] MEDS: DEXTROSE 5%-WATER 250 ML with VASOPRESSIN 100 UNIT IV PRN ×2 (16:57)
[2017-09-30] MEDS: [UNRECOGNIZED DRUG - REMARK] IV SCH ×3 (17:11)
[2017-09-30] MEDS: VANCOMYCIN HCL 1,000 MG in DEXTROSE 5%-WATER 250 ML IV SCH (20:27)
[2017-09-30 20:35] LABS: VANCOMYCIN,TROUGH 5.1 ug/mL (5.0-20.0)
[2017-10-01] MEDS: NORMAL SALINE 100 ML with PANTOPRAZOLE SODIUM 80 MG IV PRN ×2 (01:48)
[2017-10-01 05:45] LABS: ARTERIAL BLOOD BASE EXCESS 1.4 mmol/L; ARTERIAL BLOOD H2CO3 1.19 mmol/L (1.05-1.35); ARTERIAL BLOOD HCO3 25.7 mmol/L (20-26); ARTERIAL BLOOD O2 SATURATION 95.6 % (94-98); ARTERIAL BLOOD PCO2 39.5 mmHg (35-45); ARTERIAL BLOOD PH 7.43 (7.35-7.45); ARTERIAL BLOOD PO2 75.6 mmHg (80-100)
[2017-10-01 05:49] LABS: ABSOLUTE BASOPHILS # (AUTO) 0.2 10^3/uL (0.0-0.2); ABSOLUTE EOSINOPHILS # (AUTO) 0.2 10^3/uL (0.0-0.6); ABSOLUTE MONOCYTES (AUTO) 2.5 10^3/uL (0.1-1.4); ABSOLUTE NEUT (AUTO) 10.4 10^3/uL (1.7-8.2); BASOPHILS % (AUTO) 1.2 % (0-2); EOSINOPHILS % (AUTO) 1.5 % (0-6); HEMATOCRIT 25.3 % (37.9-51.0); HEMOGLOBIN 8.8 g/dL (13.5-17.0); LYMPHOCYTES % (AUTO) 13.2 % (13-45); MEAN CORPUSCULAR HEMOGLOBIN 31.8 pg (27.0-33.4); MEAN CORPUSCULAR HGB CONC 34.9 g/dL (32.0-36.0); MEAN CORPUSCULAR VOLUME 91 fl (80-97); MONOCYTES % (AUTO) 16.2 % (3-13); RED BLOOD COUNT 2.77 10^6/uL (4.35-5.55); RED CELL DISTRIBUTION WIDTH 21.8 % (11.5-14.0); SEGMENTED NEUTROPHILS % (AUTO) 67.9 % (42-78); TOTAL CELLS COUNTED % (AUTO) 100 %; WHITE BLOOD COUNT 15.3 10^3/uL (4.0-10.5)
[2017-10-01 05:52] LABS: ARTERIAL BLOOD FIO2 30%
[2017-10-01 06:15] LABS: PLATELET COUNT 98 10^3/uL (150-450)
[2017-10-01 06:16] LABS: ALANINE AMINOTRANSFERASE 48 U/L (21-72); ALBUMIN 2.3 g/dL (3.5-5.0); ALKALINE PHOSPHATASE 148 U/L (38-126); ANION GAP 6 (5-19); ASPARTATE AMINO TRANSFERASE 67 U/L (17-59); BILIRUBIN,DIRECT 1.9 mg/dL (0.0-0.4); BILIRUBIN,TOTAL 4.3 mg/dL (0.2-1.3); BLOOD UREA NITROGEN 13 mg/dL (7-20); CALCIUM 8.2 mg/dL (8.4-10.2); CARBON DIOXIDE 24 mmol/L (22-30); CHLORIDE 104 mmol/L (98-107); GLUCOSE 133 mg/dL (75-110); PHOSPHORUS 3.4 mg/dL (2.5-4.5); POTASSIUM 3.5 mmol/L (3.6-5.0); SODIUM 133.9 mmol/L (137-145); TOTAL PROTEIN 5.8 g/dL (6.3-8.2); TRIGLYCERIDES 56 mg/dL (<150)
[2017-10-01 06:21] LABS: ANISOCYTOSIS 3+; OVALOCYTES SLIGHT; POIKILOCYTOSIS 2+; SCHISTOCYTES SLIGHT; TEAR DROP CELLS SLIGHT; TOXIC GRANULATION 2+
[2017-10-01 06:22] LABS: PLATELET COMMENT DECREASED; PLATELET GIANT PRESENT; PLATELET LARGE PRESENT
[2017-10-01 06:23] LABS: ACANTHOCYTES 3+
[2017-10-01] MEDS: LACTULOSE SYRUP 20 GM/30 ML UDCUP PO SCH ×3 (06:39→22:00)
[2017-10-01] MEDS: PIPERACILLIN SODIUM/TAZOBACTAM 3.375 GM in NORMAL SALINE 100 ML IV SCH ×4 (06:40→23:30)
[2017-10-01] MEDS: DEXTROSE 5%-WATER 250 ML with NOREPINEPHRINE BITARTRATE 4 MG IV PRN ×4 (07:40→19:10)
[2017-10-01] MEDS: POTASSI CL 40 MEQ/D5-1/2NS 1L 40 MEQ/1,000 ML RTUINJ IV PRN (07:41)
--- NOTE | 2017-10-01 08:48 | RADIOLOGY REPORT (SQ) ---
EXAM DESCRIPTION: CHEST SINGLE VIEW COMPLETED DATE/TIME: 10/01/2017 7:21 am REASON FOR STUDY: resp failure COMPARISON: 09/30/2017. EXAM PARAMETERS: NUMBER OF VIEWS: One view. TECHNIQUE: Single frontal radiographic view of the chest acquired. RADIATION DOSE: NA LIMITATIONS: None. FINDINGS: LUNGS AND PLEURA: Improved aeration in the right lung base. Left lung clear. MEDIASTINUM AND HILAR STRUCTURES: No masses. Contour normal. HEART AND VASCULAR STRUCTURES: Heart normal in size. Normal vasculature. BONES: No acute findings. HARDWARE: Stable endotracheal tube, nasogastric tube, central line. OTHER: No other significant finding. IMPRESSION: IMPROVED AERATION IN THE RIGHT LUNG BASE. TECHNICAL DOCUMENTATION: JOB ID: [id number] [employer]- All Rights Reserved
[2017-10-01] MEDS: NICOTINE 21 MG/24 HR PATCH.TD24 TD SCH (10:09)
[2017-10-01] MEDS: CARVEDILOL 6.25 MG TABLET PO SCH ×2 (10:09→17:15)
[2017-10-01] MEDS: VANCOMYCIN HCL 1,000 MG in DEXTROSE 5%-WATER 250 ML IV SCH ×2 (10:09→22:00)
[2017-10-01] MEDS: THIAMINE HCL 100 MG TABLET PO SCH (10:09)
[2017-10-01] MEDS: CITALOPRAM HYDROBROMIDE 20 MG TABLET PO SCH (10:09)
[2017-10-01] MEDS: MAGNESIUM SULFATE 1 GM/D5W 100 ML IV SCH ×2 (10:09→11:19)
[2017-10-01] MEDS: TAMSULOSIN HCL 0.4 MG CAP.SR.24H PO SCH (10:09)
[2017-10-01] MEDS: FLUTICASONE/SALMETEROL DISKUS 250-50 MCG/DOSE IH SCH ×2 (10:10→17:15)
--- NOTE | 2017-10-01 11:20 | PDOC PROGRESS REPORT ---
Subjective Progress Note for:: 10/01/17 Subjective:: He is doing much better and is off sedation and off Phenylephrine and Vasopressin and only at Levophed at 12 mcg/kg/min. He got 2 g of Magnessium IV today and we panchito change his IV fluids to D5 normal saline with 40 MEQ of KCL at 75 cc/hr. He is still on mech. ventilation and not yet ready for exturbation since he does not follow commands and cannot maintain his airways yet. Reason For Visit: GI BLEED ETOH WITHDRAWAL Physical Exam Vital Signs: Temp Pulse Resp BP Pulse Ox 97.9 F 86 12 108/55 L 100 10/01/17 05:01 10/01/17 08:00 10/01/17 08:17 10/01/17 08:17 10/01/17 08:17 Intake & Output 09/30/17 10/01/17 10/02/17 06:59 06:59 06:59 Intake Total 4425 3690 Output Total 1025 3655 275 Balance 3400 35 -275 Weight 67 kg 67 kg General appearance: PRESENT: no acute distress, thin Head exam: PRESENT: atraumatic, normocephalic Eye exam: PRESENT: EOMI, PERRLA Ear exam: PRESENT: normal external ear exam Mouth exam: PRESENT: tongue midline Respiratory exam: PRESENT: decreased breath sounds, symmetrical Cardiovascular exam: PRESENT: +S1, +S2 Pulses: PRESENT: +1 pedal pulses bilateral GI/Abdominal exam: PRESENT: normal bowel sounds, soft Rectal exam: PRESENT: deferred Neurological exam: PRESENT: altered Additional comments: On mech. ventilation Results Laboratory Results: 10/01/17 05:30 10/01/17 05:30 09/30/17 09/30/17 10/01/17 14:38 19:55 05:30 WBC RBC Hgb Hct MCV MCH MCHC RDW Plt Count Seg Neutrophils % Lymphocytes % Monocytes % Eosinophils % Basophils % Absolute Neutrophils Absolute Lymphocytes Absolute Monocytes Absolute Eosinophils Absolute Basophils Carbonic Acid HCO3/H2CO3 Ratio ABG pH ABG pCO2 ABG pO2 ABG HCO3 ABG O2 Saturation ABG Base Excess FiO2 Sodium 134.5 L Potassium 3.6 Chloride 104 Carbon Dioxide 24 Anion Gap 7 BUN 15 Creatinine 0.75 Est GFR ( Amer) > 60 Est GFR (Non-Af Amer) > 60 Glucose 131 H Calcium 8.2 L Phosphorus Magnesium 1.5 L 1.7 Total Bilirubin AST ALT Alkaline Phosphatase Ammonia 25.3 Total Protein Albumin Triglycerides 10/01/17 10/01/17 10/01/17 05:30 05:30 05:30 WBC 15.3 H RBC 2.77 L Hgb 8.8 L Hct 25.3 L MCV 91 MCH 31.8 MCHC 34.9 RDW 21.8 H Plt Count 98 L Seg Neutrophils % 67.9 Lymphocytes % 13.2 Monocytes % 16.2 H Eosinophils % 1.5 Basophils % 1.2 Absolute Neutrophils 10.4 H Absolute Lymphocytes 2.0 Absolute Monocytes 2.5 H Absolute Eosinophils 0.2 Absolute Basophils 0.2 Carbonic Acid 1.19 HCO3/H2CO3 Ratio 21:1 ABG pH 7.43 ABG pCO2 39.5 ABG pO2 75.6 L ABG HCO3 25.7 ABG O2 Saturation 95.6 ABG Base Excess 1.4 FiO2 30% Sodium 133.9 L Potassium 3.5 L Chloride 104 Carbon Dioxide 24 Anion Gap 6 BUN 13 Creatinine 0.77 Est GFR ( Amer) > 60 Est GFR (Non-Af Amer) > 60 Glucose 133 H Calcium 8.2 L Phosphorus 3.4 Magnesium 1.5 L Total Bilirubin 4.3 H AST 67 H ALT 48 Alkaline Phosphatase 148 H Ammonia Total Protein 5.8 L Albumin 2.3 L Triglycerides 56 09/25/17 19:40 Blood Blood Culture - Final NO GROWTH IN 5 DAYS 09/28/17 15:45 Tracheal Aspirate Gram Stain - Final 09/28/17 15:45 Tracheal Aspirate Sputum Culture - Final GREATLY REDUCED NORMAL TRAM 09/27/17 09/27/17 09/27/17 15:20 15:20 15:20 Creatine Kinase 95 CK-MB (CK-2) 0.80 Troponin I 0.028 NT-Pro-B Natriuret Pep 438 426 09/28/17 09/28/17 09/28/17 08:40 08:40 08:40 Creatine Kinase 64 CK-MB (CK-2) 0.47 Troponin I < 0.012 NT-Pro-B Natriuret Pep 09/29/17 10/01/17 05:05 05:30 Creatine Kinase CK-MB (CK-2) 0.57 Troponin I < 0.012 NT-Pro-B Natriuret Pep 612 Impressions: Abdomen Ultrasound 09/27/17 12:07 IMPRESSION: For visualization of the liver and hepatic vessels. Heterogeneous appearance. Fatty infiltration/ cirrhosis. KUB X-Ray 09/28/17 15:16 IMPRESSION: NG tube with its tip in the left upper quadrant presumably in the proximal stomach. Other findings as noted above Chest X-Ray 10/01/17 06:00 IMPRESSION: IMPROVED AERATION IN THE RIGHT LUNG BASE. Assessment & Plan - Diagnosis (1) Acute respiratory failure Qualifiers: Respiratory failure complication: hypoxia Qualified Code(s): J96.01 - Acute respiratory failure with hypoxia Is this a current diagnosis for this admission?: Yes Plan: He has septicemia secondary to Staph. epidermidis .Ct with mech. ventilation ct with Zosyn 3.375 m q6h IV; Vancomycin IV as per [facility] protocol. F/u repeat blood cultures and sputum cultures. (2) Acute hepatic encephalopathy Is this a current diagnosis for this admission?: Yes Plan: Ct with Lactulose 20 g q8h via NGT; monitor ammonia level daily. (3) Gastrointestinal hemorrhage Qualifiers: Gastritis type: alcoholic Is this a current diagnosis for this admission?: Yes Plan: Ct with Protonix drip; Transfused a total of 5 units of PRBC and give Lasix 20 mg IV after each unit of PRBC; NPO for now. Ct with IV fluids; F/U GI, Dr Barillas. (4) Acute blood loss anemia Is this a current diagnosis for this admission?: Yes Plan: The acute blodd loss anemia is due to GI bleed secondary to alcoholic gastritis. Pt has received a total of 5 units of PRBC and Lasix 20 mg IV given each unit of PRBC. Continue to monitor CBC daily. (5) Alcohol withdrawal delirium Is this a current diagnosis for this admission?: Yes Plan: Ct with IV fluids- D5 in normal saline plus Thiamine and multivitamin at 75 cc/ hr; Ativan 1 mg q2h IV prn; 2 hourly neurochecks; soft restraints. (6) Hypokalemia Is this a current diagnosis for this admission?: Yes Plan: Pt was given KCL 20 MEQ Iv x3 doses; ct with KCL 40 MEQ in IV fluids at 75 cc/ hr. Monitor chemistries daily. (7) Hypomagnesemia Is this a current diagnosis for this admission?: Yes Plan: Pt was given Mg sulfate 4 G IV. He received another 2 g IV Mg sulfate today. Monitor mg level daily. (8) Acute hypernatremia Is this a current diagnosis for this admission?: Yes Plan: Resolved. Switch IV fluids to D5 normal saline at 75 cc/hr; Monitor chemistries daily. (9) Hypertension Qualifiers: Hypertension type: essential hypertension Qualified Code(s): I10 - Essential (primary) hypertension Is this a current diagnosis for this admission?: Yes Plan: Hold Coreg 6.25 mg BID PO due to hypotension; 2 g sodium diet when NPO is D/C. (10) Hyperlipidemia Qualifiers: Hyperlipidemia type: mixed hyperlipidemia Qualified Code(s): E78.2 - Mixed hyperlipidemia Is this a current diagnosis for this admission?: Yes Plan: Hold Simvasatin 20 mg qhs po for now; 200 mg cholesterol diet when NPO is D/C. (11) COPD (chronic obstructive pulmonary disease) Qualifiers: COPD type: unspecified COPD Qualified Code(s): J44.9 - Chronic obstructive pulmonary disease, unspecified Is this a current diagnosis for this admission?: Yes Plan: [facility]; Duonebs q6h prn; Advair 250/50 1 puff BID. (12) BPH (benign prostatic hyperplasia) Is this a current diagnosis for this admission?: Yes Plan: Ct with Flomax 0.4 mg qd po. (13) Alcoholic cirrhosis of liver Qualifiers: Ascites presence: with ascites Qualified Code(s): K70.31 - Alcoholic cirrhosis of liver with ascites Is this a current diagnosis for this admission?: Yes Plan: Hold spironolactone 100 mg qd po and Lasix 40 mg qd po. due to mild metabolic alkalosis.Strict input/out put chart; daily weight; monitor chemistries daily. (14) Depression Is this a current diagnosis for this admission?: Yes Plan: Ct with Celexa 20 mg qd po. (15) Osteoarthritis Is this a current diagnosis for this admission?: Yes Plan: Ct with Oxycodone 5 mg TID prn po. (16) DVT prophylaxis Is this a current diagnosis for this admission?: Yes Plan: Ct with SCD; Hold Lovenox due to GI bleed.
[2017-10-01] MEDS: DEXTROSE 5%-WATER 250 ML with PHENYLEPHRINE HCL 40 MG IV PRN ×4 (12:22→22:00)
[2017-10-01] MEDS ORDERED: POTASSI CL 20 MEQ/50 ML RIDER 20 MEQ/50 ML RTUPB IV ONE (15:26)
[2017-10-01] MEDS: [UNRECOGNIZED DRUG - REMARK] IV SCH ×3 (17:41)
[2017-10-01] MEDS: PROPOFOL 100 ML IV PRN (19:40)
[2017-10-02] MEDS: DEXTROSE 5%-WATER 250 ML with NOREPINEPHRINE BITARTRATE 4 MG IV PRN ×6 (00:53→12:53)
[2017-10-02] MEDS: PROPOFOL 100 ML IV PRN ×2 (01:06→06:47)
[2017-10-02] MEDS: PIPERACILLIN SODIUM/TAZOBACTAM 3.375 GM in NORMAL SALINE 100 ML IV SCH ×4 (06:08→23:47)
[2017-10-02 06:09] LABS: ARTERIAL BLOOD BASE EXCESS 0.3 mmol/L; ARTERIAL BLOOD H2CO3 1.21 mmol/L (1.05-1.35); ARTERIAL BLOOD O2 SATURATION 95.7 % (94-98); ARTERIAL BLOOD PCO2 40.3 mmHg (35-45); ARTERIAL BLOOD PH 7.41 (7.35-7.45); ARTERIAL BLOOD PO2 78.2 mmHg (80-100); ARTERIAL BLOOD TOTAL CO2 26.2 mmol/L (23-27)
[2017-10-02] MEDS: LACTULOSE SYRUP 20 GM/30 ML UDCUP PO SCH ×3 (06:09→22:26)
[2017-10-02 06:15] LABS: ARTERIAL BLOOD FIO2 30%
[2017-10-02 06:28] LABS: BLOOD UREA NITROGEN 14 mg/dL (7-20); CALCIUM 8.2 mg/dL (8.4-10.2); CARBON DIOXIDE 25 mmol/L (22-30); CHLORIDE 109 mmol/L (98-107); GLUCOSE 133 mg/dL (75-110); HEMOGLOBIN 8.3 g/dL (13.5-17.0); MEAN CORPUSCULAR HEMOGLOBIN 31.9 pg (27.0-33.4); MEAN CORPUSCULAR HGB CONC 34.6 g/dL (32.0-36.0); MEAN CORPUSCULAR VOLUME 92 fl (80-97); POTASSIUM 3.5 mmol/L (3.6-5.0); WHITE BLOOD COUNT 14.1 10^3/uL (4.0-10.5)
[2017-10-02 06:39] LABS: ANION GAP 5 (5-19); SODIUM 138.5 mmol/L (137-145)
[2017-10-02] MEDS: DEXTROSE 5%-WATER 250 ML with PHENYLEPHRINE HCL 40 MG IV PRN ×2 (06:47)
[2017-10-02 06:49] LABS: PLATELET COUNT 94 10^3/uL (150-450)
[2017-10-02] MEDS: DEXTROSE 5%-NORMAL SALINE 1,000 ML with POTASSIUM CHLORIDE 40 MEQ IV PRN ×2 (07:11)
[2017-10-02 07:15] LABS: ABSOLUTE LYMPHOCYTES# (MANUAL) 2.8 10^3/uL (0.5-4.7); ABSOLUTE NEUTROPHILS# (MANUAL) 9.2 10^3/uL (1.7-8.2); BASOPHILS % (MANUAL) 0 % (0-2); EOSINOPHILS % (MANUAL) 1 % (0-6); LYMPHOCYTES % (MANUAL) 20 % (13-45); MONOCYTES % (MANUAL) 14 % (3-13); SEGMENTED NEUTROPHILS % (MAN) 65 % (42-78); TOTAL CELLS COUNTED 100
[2017-10-02 07:18] LABS: ANISOCYTOSIS 3+; BURR CELLS 2+; PLATELET COMMENT DECREASED; POIKILOCYTOSIS 2+; SCHISTOCYTES SLIGHT; TARGET CELLS 1+
--- NOTE | 2017-10-02 07:56 | RADIOLOGY REPORT (SQ) ---
EXAM DESCRIPTION: CHEST SINGLE VIEW CLINICAL HISTORY: 57 years, Male, resp fail COMPARISON: 10/01/17. NUMBER OF VIEWS: 1 LIMITATIONS: None. FINDINGS: Mild interstitial markings, moderate lung volume, no pneumothorax, normal cardiac silhouette, adequate appearing endotracheal tube, adequate appearing enteric tube obscured distally. Right jugular central line tip at the right atrium; consider 7 cm retraction. IMPRESSION: No significant change.
[2017-10-02] MEDS ORDERED: DEXAMETHASONE SOD PHOSPHATE INJ 4 MG/1 ML VIAL IV ONE (10:00)
[2017-10-02] MEDS ORDERED: ACETYLCYSTEINE 20% SOLN 800 MG/4 ML VIAL.NEB NEB ONE (10:00)
[2017-10-02] MEDS: IPRATROPIUM/ALBUTEROL 0.5-2.5 MG/3 ML AMPUL NEB PRN ×2 (10:23→20:53)
[2017-10-02] MEDS ORDERED: NORMAL SALINE 100 ML with PANTOPRAZOLE SODIUM 80 MG IV PRN ×2 (11:00)
[2017-10-02] MEDS: NICOTINE 21 MG/24 HR PATCH.TD24 TD SCH (11:09)
[2017-10-02] MEDS: THIAMINE HCL 100 MG TABLET PO SCH (11:09)
[2017-10-02] MEDS: CITALOPRAM HYDROBROMIDE 20 MG TABLET PO SCH (11:09)
[2017-10-02] MEDS: CARVEDILOL 6.25 MG TABLET PO SCH ×2 (11:09→17:26)
[2017-10-02] MEDS: FLUTICASONE/SALMETEROL DISKUS 250-50 MCG/DOSE IH SCH ×2 (11:09→17:29)
[2017-10-02] MEDS: TAMSULOSIN HCL 0.4 MG CAP.SR.24H PO SCH (11:09)
[2017-10-02] MEDS: VANCOMYCIN HCL 1,000 MG in DEXTROSE 5%-WATER 250 ML IV SCH ×2 (11:10→22:24)
--- NOTE | 2017-10-02 13:06 | PDOC PROGRESS REPORT ---
Subjective Progress Note for:: 10/02/17 Subjective:: He is doing much better but still on mech. ventilation on sedation with Propofol. He is on Levophed at 12 mcg/min and Phenylephrine at 60 mcg/min. He is not yet ready for exturbation. His Potassium in 3.5 and we will give him KCL 20 MEQ IVx1 in addition to 40 MEQ of KCL in IV fluids. Reason For Visit: GI BLEED ETOH WITHDRAWAL Physical Exam Vital Signs: Temp Pulse Resp BP Pulse Ox 98.4 F 71 22 H 127/68 H 100 10/02/17 12:00 10/02/17 12:00 10/02/17 12:03 10/02/17 12:03 10/02/17 12:03 Intake & Output 10/01/17 10/02/17 10/03/17 06:59 06:59 06:59 Intake Total 3690 4947 Output Total 3655 3530 590 Balance 35 1417 -590 Weight 67 kg 68.1 kg General appearance: PRESENT: mild distress, well-nourished Head exam: PRESENT: atraumatic, normocephalic Eye exam: PRESENT: EOMI, PERRLA Ear exam: PRESENT: normal external ear exam, TM's normal bilaterally Mouth exam: PRESENT: neck supple Respiratory exam: PRESENT: decreased breath sounds, symmetrical Cardiovascular exam: PRESENT: +S1, +S2 Pulses: PRESENT: +1 pedal pulses bilateral GI/Abdominal exam: PRESENT: normal bowel sounds, soft Rectal exam: PRESENT: deferred Neurological exam: PRESENT: altered Results Laboratory Results: 10/02/17 05:55 10/02/17 05:55 10/02/17 10/02/17 10/02/17 05:55 05:55 05:55 WBC 14.1 H RBC 2.60 L Hgb 8.3 L Hct 24.0 L MCV 92 MCH 31.9 MCHC 34.6 RDW 23.0 H Plt Count 94 L Seg Neutrophils % Not Reportable Lymphocytes % Not Reportable Monocytes % Not Reportable Eosinophils % Not Reportable Basophils % Not Reportable Absolute Neutrophils Not Reportable Absolute Lymphocytes Not Reportable Absolute Monocytes Not Reportable Absolute Eosinophils Not Reportable Absolute Basophils Not Reportable Carbonic Acid 1.21 HCO3/H2CO3 Ratio 20:1 ABG pH 7.41 ABG pCO2 40.3 ABG pO2 78.2 L ABG HCO3 25.0 ABG O2 Saturation 95.7 ABG Base Excess 0.3 FiO2 30% Sodium 138.5 Potassium 3.5 L Chloride 109 H Carbon Dioxide 25 Anion Gap 5 BUN 14 Creatinine 1.04 Est GFR ( Amer) > 60 Est GFR (Non-Af Amer) > 60 Glucose 133 H Calcium 8.2 L Magnesium 1.7 09/27/17 09/27/17 09/27/17 15:20 15:20 15:20 Creatine Kinase 95 CK-MB (CK-2) 0.80 Troponin I 0.028 NT-Pro-B Natriuret Pep 438 426 09/28/17 09/28/17 09/28/17 08:40 08:40 08:40 Creatine Kinase 64 CK-MB (CK-2) 0.47 Troponin I < 0.012 NT-Pro-B Natriuret Pep 09/29/17 10/01/17 05:05 05:30 Creatine Kinase CK-MB (CK-2) 0.57 Troponin I < 0.012 NT-Pro-B Natriuret Pep 612 Impressions: Abdomen Ultrasound 09/27/17 12:07 IMPRESSION: For visualization of the liver and hepatic vessels. Heterogeneous appearance. Fatty infiltration/ cirrhosis. KUB X-Ray 09/28/17 15:16 IMPRESSION: NG tube with its tip in the left upper quadrant presumably in the proximal stomach. Other findings as noted above Chest X-Ray 10/02/17 06:00 IMPRESSION: No significant change. Assessment & Plan - Diagnosis (1) Acute respiratory failure Qualifiers: Respiratory failure complication: hypoxia Qualified Code(s): J96.01 - Acute respiratory failure with hypoxia Is this a current diagnosis for this admission?: Yes Plan: He has septicemia secondary to Staph. epidermidis .Ct with [facility]. ventilation ct with Zosyn 3.375 m q6h IV; Vancomycin IV as per [facility] protocol. F/u repeat blood cultures and sputum cultures. (2) Acute hepatic encephalopathy Is this a current diagnosis for this admission?: Yes Plan: Ct with Lactulose 20 g q8h via NGT; monitor ammonia level daily. (3) Gastrointestinal hemorrhage Qualifiers: Gastritis type: alcoholic Is this a current diagnosis for this admission?: Yes Plan: Ct with Protonix drip; Transfused a total of 5 units of PRBC and give Lasix 20 mg IV after each unit of PRBC; NPO for now. Ct with IV fluids; F/U GI, Dr Barillas. (4) Acute blood loss anemia Is this a current diagnosis for this admission?: Yes Plan: The acute blodd loss anemia is due to GI bleed secondary to alcoholic gastritis. Pt has received a total of 5 units of PRBC and Lasix 20 mg IV given each unit of PRBC. Continue to monitor CBC daily. (5) Alcohol withdrawal delirium Is this a current diagnosis for this admission?: Yes Plan: Ct with IV fluids- D5 in normal saline plus Thiamine and multivitamin at 75 cc/ hr; Ativan 1 mg q2h IV prn; 2 hourly neurochecks; soft restraints. (6) Hypokalemia Is this a current diagnosis for this admission?: Yes Plan: Pt was given KCL 20 MEQ Iv [id number]; ct with KCL 40 MEQ in IV fluids at 75 cc/ hr. Monitor chemistries daily. (7) Hypomagnesemia Is this a current diagnosis for this admission?: Yes Plan: Pt was given Mg sulfate 4 G IV. He received another 2 g IV Mg sulfate today. Monitor mg level daily. (8) Acute hypernatremia Is this a current diagnosis for this admission?: Yes Plan: Resolved. Switch IV fluids to D5 normal saline at 75 cc/hr; Monitor chemistries daily. (9) Hypertension Qualifiers: Hypertension type: essential hypertension Qualified Code(s): I10 - Essential (primary) hypertension Is this a current diagnosis for this admission?: Yes Plan: Hold Coreg 6.25 mg BID PO due to hypotension; 2 g sodium diet when NPO is D/C. (10) Hyperlipidemia Qualifiers: Hyperlipidemia type: mixed hyperlipidemia Qualified Code(s): E78.2 - Mixed hyperlipidemia Is this a current diagnosis for this admission?: Yes Plan: Hold Simvasatin 20 mg qhs po for now; 200 mg cholesterol diet when NPO is D/C. (11) COPD (chronic obstructive pulmonary disease) Qualifiers: COPD type: unspecified COPD Qualified Code(s): J44.9 - Chronic obstructive pulmonary disease, unspecified Is this a current diagnosis for this admission?: Yes Plan: Ct with mech. ventilation; Duonebs q6h prn; Advair 250/50 1 puff BID. (12) BPH (benign prostatic hyperplasia) Is this a current diagnosis for this admission?: Yes Plan: Ct with Flomax 0.4 mg qd po. (13) Alcoholic cirrhosis of liver Qualifiers: Ascites presence: with ascites Qualified Code(s): K70.31 - Alcoholic cirrhosis of liver with ascites Is this a current diagnosis for this admission?: Yes Plan: Hold spironolactone 100 mg qd po and Lasix 40 mg qd po. due to mild metabolic alkalosis.Strict input/out put chart; daily weight; monitor chemistries daily. (14) Depression Is this a current diagnosis for this admission?: Yes Plan: Ct with Celexa 20 mg qd po. (15) Osteoarthritis Is this a current diagnosis for this admission?: Yes Plan: Ct with Oxycodone 5 mg TID prn po. (16) DVT prophylaxis Is this a current diagnosis for this admission?: Yes Plan: Ct with SCD; Hold Lovenox due to GI bleed.
[2017-10-02] MEDS ORDERED: POTASSI CL 20 MEQ/50 ML RIDER 20 MEQ/50 ML RTUPB IV ONE (14:00)
[2017-10-02] MEDS: [UNRECOGNIZED DRUG - REMARK] IV SCH ×3 (17:33)
[2017-10-02] MEDS: ACETYLCYSTEINE 20% SOLN 800 MG/4 ML VIAL.NEB NEB SCH (20:53)
[2017-10-02 22:01] LABS: VANCOMYCIN,TROUGH 17.6 ug/mL (5.0-20.0)
[2017-10-02] MEDS: LORAZEPAM INJ 2 MG/1 ML VIAL IV PRN (23:46)
[2017-10-03] MEDS ORDERED: FUROSEMIDE INJ/PF 20 MG/2 ML SDV IV PRN ×2 (05:00→10:02)
[2017-10-03 05:43] LABS: HEMATOCRIT 21.9 % (37.9-51.0); MEAN CORPUSCULAR HEMOGLOBIN 32.4 pg (27.0-33.4); MEAN CORPUSCULAR HGB CONC 34.7 g/dL (32.0-36.0); MEAN CORPUSCULAR VOLUME 93 fl (80-97); RED BLOOD COUNT 2.34 10^6/uL (4.35-5.55); RED CELL DISTRIBUTION WIDTH 23.4 % (11.5-14.0)
[2017-10-03 05:44] LABS: HEMOGLOBIN 7.6 g/dL (13.5-17.0)
[2017-10-03 05:45] LABS: PLATELET COUNT 87 10^3/uL (150-450)
[2017-10-03 05:48] LABS: ARTERIAL BLOOD BASE EXCESS -1.2 mmol/L; ARTERIAL BLOOD H2CO3 1.39 mmol/L (1.05-1.35); ARTERIAL BLOOD HCO3 24.8 mmol/L (20-26); ARTERIAL BLOOD O2 SATURATION 92.8 % (94-98); ARTERIAL BLOOD PCO2 46.3 mmHg (35-45); ARTERIAL BLOOD PH 7.35 (7.35-7.45); ARTERIAL BLOOD PO2 68.7 mmHg (80-100); ARTERIAL BLOOD TOTAL CO2 26.2 mmol/L (23-27)
[2017-10-03 05:56] LABS: ARTERIAL BLOOD FIO2 2L
[2017-10-03] MEDS: PIPERACILLIN SODIUM/TAZOBACTAM 3.375 GM in NORMAL SALINE 100 ML IV SCH ×4 (06:04→23:52)
[2017-10-03 06:07] LABS: BLOOD UREA NITROGEN 19 mg/dL (7-20); CALCIUM 8.3 mg/dL (8.4-10.2); GLUCOSE 112 mg/dL (75-110); POTASSIUM 4.3 mmol/L (3.6-5.0)
[2017-10-03] MEDS: LACTULOSE SYRUP 20 GM/30 ML UDCUP PO SCH ×3 (06:08→21:26)
[2017-10-03] MEDS: DEXTROSE 5%-NORMAL SALINE 1,000 ML with POTASSIUM CHLORIDE 40 MEQ IV PRN ×4 (06:09→07:52)
[2017-10-03 06:16] LABS: ANION GAP 5 (5-19); CARBON DIOXIDE 24 mmol/L (22-30); CHLORIDE 108 mmol/L (98-107); SODIUM 136.9 mmol/L (137-145)
[2017-10-03 06:27] LABS: ABSOLUTE LYMPHOCYTES# (MANUAL) 0.4 10^3/uL (0.5-4.7); ABSOLUTE MONOCYTES # (MANUAL) 1.3 10^3/uL (0.1-1.4); ABSOLUTE NEUTROPHILS# (MANUAL) 9.2 10^3/uL (1.7-8.2); BAND NEUTROPHILS % (MANUAL) 1 % (3-5); BASOPHILS % (MANUAL) 0 % (0-2); EOSINOPHILS % (MANUAL) 0 % (0-6); LYMPHOCYTES % (MANUAL) 4 % (13-45); MONOCYTES % (MANUAL) 12 % (3-13); SEGMENTED NEUTROPHILS % (MAN) 83 % (42-78); TOTAL CELLS COUNTED 100
[2017-10-03 06:32] LABS: PLATELET COMMENT DECREASED
[2017-10-03 06:33] LABS: PLATELET LARGE PRESENT
[2017-10-03 06:36] LABS: ANISOCYTOSIS 1+; POIKILOCYTOSIS 3+; POLYCHROMASIA SLIGHT
[2017-10-03 06:37] LABS: BURR CELLS 3+; HYPOCHROMASIA 1+; TARGET CELLS SLIGHT
--- NOTE | 2017-10-03 07:30 | RADIOLOGY REPORT (SQ) ---
EXAM DESCRIPTION: CHEST SINGLE VIEW CLINICAL HISTORY: 57 years, Male, pna COMPARISON: 10/02/17. NUMBER OF VIEWS: 1 LIMITATIONS: None. FINDINGS: Moderate lung volume, small bibasilar opacities, normal cardiac silhouette, right jugular central line tip at the right atrium; consider 7 cm retraction of the right jugular central line. No pneumothorax. Grossly intact bony thorax. IMPRESSION: Interval worsening includes small bibasilar pneumonia/atelectasis.
[2017-10-03] MEDS: IPRATROPIUM/ALBUTEROL 0.5-2.5 MG/3 ML AMPUL NEB PRN ×2 (08:44→20:51)
[2017-10-03] MEDS: ACETYLCYSTEINE 20% SOLN 800 MG/4 ML VIAL.NEB NEB SCH ×2 (08:45→20:50)
[2017-10-03] MEDS: CARVEDILOL 6.25 MG TABLET PO SCH ×2 (11:21→16:10)
[2017-10-03] MEDS: NICOTINE 21 MG/24 HR PATCH.TD24 TD SCH (11:23)
[2017-10-03] MEDS: CITALOPRAM HYDROBROMIDE 20 MG TABLET PO SCH (11:23)
[2017-10-03] MEDS: TAMSULOSIN HCL 0.4 MG CAP.SR.24H PO SCH (11:23)
[2017-10-03] MEDS: FLUTICASONE/SALMETEROL DISKUS 250-50 MCG/DOSE IH SCH ×2 (11:31→18:00)
[2017-10-03] MEDS: VANCOMYCIN HCL 1,000 MG in DEXTROSE 5%-WATER 250 ML IV SCH ×2 (11:33→21:22)
[2017-10-03] MEDS: THIAMINE HCL 100 MG TABLET PO SCH (11:33)
[2017-10-03 12:52] LABS: PATH REVIEW PATHOLOGIST REVIEWED
--- NOTE | 2017-10-03 12:56 | PDOC PROGRESS REPORT ---
Subjective Progress Note for:: 10/03/17 Subjective:: He as successfully exturbated yesterday. His Hb/HCT this morning was 7.6/21.9. We will transfuse him with 2 units of PRBC. Monitor him closely at ICU for now. Reason For Visit: GI BLEED ETOH WITHDRAWAL Physical Exam Vital Signs: Temp Pulse Resp BP Pulse Ox 97.3 F 86 15 104/69 97 10/03/17 10:00 10/03/17 10:00 10/03/17 11:18 10/03/17 11:18 10/03/17 11:18 Intake & Output 10/02/17 10/03/17 10/04/17 06:59 06:59 06:59 Intake Total 4947 3100 Output Total 3530 1880 125 Balance 1417 1220 -125 Weight 68.1 kg 70 kg General appearance: PRESENT: no acute distress, cooperative, thin, well- nourished Head exam: PRESENT: atraumatic, normocephalic Eye exam: PRESENT: conjunctiva pale, EOMI, PERRLA Ear exam: PRESENT: normal external ear exam, TM's normal bilaterally Mouth exam: PRESENT: neck supple, tongue midline Neck exam: PRESENT: full ROM Respiratory exam: PRESENT: decreased breath sounds, symmetrical Cardiovascular exam: PRESENT: +S1, +S2 Pulses: PRESENT: +1 pedal pulses bilateral GI/Abdominal exam: PRESENT: normal bowel sounds, soft Rectal exam: PRESENT: deferred Neurological exam: PRESENT: alert, oriented to person Psychiatric exam: PRESENT: anxious Results Laboratory Results: 10/03/17 05:25 10/03/17 05:25 10/03/17 10/03/17 10/03/17 05:25 05:25 05:25 WBC 11.0 H RBC 2.34 L Hgb 7.6 L Hct 21.9 L MCV 93 MCH 32.4 MCHC 34.7 RDW 23.4 H Plt Count 87 L Seg Neutrophils % Not Reportable Lymphocytes % Not Reportable Monocytes % Not Reportable Eosinophils % Not Reportable Basophils % Not Reportable Absolute Neutrophils Not Reportable Absolute Lymphocytes Not Reportable Absolute Monocytes Not Reportable Absolute Eosinophils Not Reportable Absolute Basophils Not Reportable Carbonic Acid 1.39 H HCO3/H2CO3 Ratio 17:1 ABG pH 7.35 ABG pCO2 46.3 H ABG pO2 68.7 L ABG HCO3 24.8 ABG O2 Saturation 92.8 L ABG Base Excess -1.2 FiO2 2L Sodium 136.9 L Potassium 4.3 Chloride 108 H Carbon Dioxide 24 Anion Gap 5 BUN 19 Creatinine 0.93 Est GFR ( Amer) > 60 Est GFR (Non-Af Amer) > 60 Glucose 112 H Calcium 8.3 L Magnesium 1.4 L Blood Type Antibody Screen 10/03/17 10:46 WBC RBC Hgb Hct MCV MCH MCHC RDW Plt Count Seg Neutrophils % Lymphocytes % Monocytes % Eosinophils % Basophils % Absolute Neutrophils Absolute Lymphocytes Absolute Monocytes Absolute Eosinophils Absolute Basophils Carbonic Acid HCO3/H2CO3 Ratio ABG pH ABG pCO2 ABG pO2 ABG HCO3 ABG O2 Saturation ABG Base Excess FiO2 Sodium Potassium Chloride Carbon Dioxide Anion Gap BUN Creatinine Est GFR ( Amer) Est GFR (Non-Af Amer) Glucose Calcium Magnesium Blood Type O NEGATIVE Antibody Screen NEGATIVE 09/27/17 12:54 Blood Blood Culture - Final NO GROWTH IN 5 DAYS 09/27/17 12:41 Blood Blood Culture - Final NO GROWTH IN 5 DAYS 09/27/17 09/27/17 09/27/17 15:20 15:20 15:20 Creatine Kinase 95 CK-MB (CK-2) 0.80 Troponin I 0.028 NT-Pro-B Natriuret Pep 438 426 09/28/17 09/28/17 09/28/17 08:40 08:40 08:40 Creatine Kinase 64 CK-MB (CK-2) 0.47 Troponin I < 0.012 NT-Pro-B Natriuret Pep 09/29/17 10/01/17 05:05 05:30 Creatine Kinase CK-MB (CK-2) 0.57 Troponin I < 0.012 NT-Pro-B Natriuret Pep 612 Impressions: Abdomen Ultrasound 09/27/17 12:07 IMPRESSION: For visualization of the liver and hepatic vessels. Heterogeneous appearance. Fatty infiltration/ cirrhosis. KUB X-Ray 09/28/17 15:16 IMPRESSION: NG tube with its tip in the left upper quadrant presumably in the proximal stomach. Other findings as noted above Chest X-Ray 10/03/17 06:00 IMPRESSION: Interval worsening includes small bibasilar pneumonia/atelectasis. Assessment & Plan - Diagnosis (1) Acute respiratory failure Qualifiers: Respiratory failure complication: hypoxia Qualified Code(s): J96.01 - Acute respiratory failure with hypoxia Is this a current diagnosis for this admission?: Yes Plan: He has septicemia secondary to Staph. epidermidis .Ct with Oxygen by N/C 2 L/ Min to keep saturation > 92%. ct with Zosyn 3.375 m q6h IV; Vancomycin IV as per [facility] protocol. F/u repeat blood cultures and sputum cultures. (2) Acute hepatic encephalopathy Is this a current diagnosis for this admission?: Yes Plan: Ct with Lactulose 20 g q8h po; monitor ammonia level daily. (3) Gastrointestinal hemorrhage Qualifiers: Gastritis type: alcoholic Is this a current diagnosis for this admission?: Yes Plan: Ct with Protonix drip; Transfused a total of 7 units of PRBC and give Lasix 20 mg IV after each unit of PRBC; Ct with [address] with IV fluids; F/U GI, Dr Barillas. (4) Acute blood loss anemia Is this a current diagnosis for this admission?: Yes Plan: The acute blodd loss anemia is due to GI bleed secondary to alcoholic gastritis. Pt has received a total of 7 units of PRBC and Lasix 20 mg IV given each unit of PRBC. Continue to monitor CBC daily. (5) Alcohol withdrawal delirium Is this a current diagnosis for this admission?: Yes Plan: Ct with IV fluids- D5 in normal saline plus Thiamine and multivitamin at 75 cc/ hr; Ativan 1 mg q2h IV prn; 2 hourly neurochecks; soft restraints. (6) Hypokalemia Is this a current diagnosis for this admission?: Yes Plan: Resolved.Pt was given KCL 20 MEQ Iv [id number]; ct with KCL 40 MEQ in IV fluids at 75 cc/hr. Monitor chemistries daily. (7) Hypomagnesemia Is this a current diagnosis for this admission?: Yes Plan: Resolved.Pt was given Mg sulfate 4 G IV. He received another 2 g IV Mg sulfate today. Monitor mg level daily. (8) Acute hypernatremia Is this a current diagnosis for this admission?: Yes Plan: Resolved. Switch IV fluids to D5 normal saline at 75 cc/hr; Monitor chemistries daily. (9) Hypertension Qualifiers: Hypertension type: essential hypertension Qualified Code(s): I10 - Essential (primary) hypertension Is this a current diagnosis for this admission?: Yes Plan: Hold Coreg 6.25 mg BID PO due to hypotension; 2 g sodium diet.. (10) Hyperlipidemia Qualifiers: Hyperlipidemia type: mixed hyperlipidemia Qualified Code(s): E78.2 - Mixed hyperlipidemia Is this a current diagnosis for this admission?: Yes Plan: Simvasatin 20 mg qhs po for now; 200 mg cholesterol diet.. (11) COPD (chronic obstructive pulmonary disease) Qualifiers: COPD type: unspecified COPD Qualified Code(s): J44.9 - Chronic obstructive pulmonary disease, unspecified Is this a current diagnosis for this admission?: Yes Plan: Duonebs q6h prn; Advair 250/50 1 puff BID. Oxygen by N/C 2 L/min to keep saturation>92%. (12) BPH (benign prostatic hyperplasia) Is this a current diagnosis for this admission?: Yes Plan: Ct with Flomax 0.4 mg qd po. (13) Alcoholic cirrhosis of liver Qualifiers: Ascites presence: with ascites Qualified Code(s): K70.31 - Alcoholic cirrhosis of liver with ascites Is this a current diagnosis for this admission?: Yes Plan: Hold spironolactone 100 mg qd po and Lasix 40 mg qd po. due to mild metabolic alkalosis.Strict input/out put chart; daily weight; monitor chemistries daily. (14) Depression Is this a current diagnosis for this admission?: Yes Plan: Ct with Celexa 20 mg qd po. (15) Osteoarthritis Is this a current diagnosis for this admission?: Yes Plan: Ct with Oxycodone 5 mg TID prn po. (16) DVT prophylaxis Is this a current diagnosis for this admission?: Yes Plan: Ct with SCD; Hold Lovenox due to GI bleed.
[2017-10-03] MEDS: MAGNESIUM SULFATE 1 GM/D5W 100 ML IV SCH ×2 (15:13→16:14)
[2017-10-03 16:26] LABS: ALANINE AMINOTRANSFERASE 38 U/L (21-72); ALBUMIN 1.9 g/dL (3.5-5.0); ALKALINE PHOSPHATASE 128 U/L (38-126); ASPARTATE AMINO TRANSFERASE 58 U/L (17-59); BILIRUBIN,DIRECT 1.4 mg/dL (0.0-0.4); TOTAL PROTEIN 4.9 g/dL (6.3-8.2)
[2017-10-03] MEDS: [UNRECOGNIZED DRUG - REMARK] IV SCH ×3 (17:58)
[2017-10-03] MEDS: ZOLPIDEM TARTRATE 5 MG TABLET PO PRN (21:33)
[2017-10-04] MEDS: PIPERACILLIN SODIUM/TAZOBACTAM 3.375 GM in NORMAL SALINE 100 ML IV SCH ×2 (05:28→11:37)
[2017-10-04] MEDS: LACTULOSE SYRUP 20 GM/30 ML UDCUP PO SCH ×3 (05:30→21:35)
[2017-10-04 05:56] LABS: HEMATOCRIT 29.9 % (37.9-51.0); MEAN CORPUSCULAR HEMOGLOBIN 32.3 pg (27.0-33.4); MEAN CORPUSCULAR HGB CONC 35.2 g/dL (32.0-36.0); MEAN CORPUSCULAR VOLUME 92 fl (80-97); PLATELET COUNT 103 10^3/uL (150-450); RED BLOOD COUNT 3.26 10^6/uL (4.35-5.55); RED CELL DISTRIBUTION WIDTH 20.4 % (11.5-14.0); WHITE BLOOD COUNT 14.2 10^3/uL (4.0-10.5)
[2017-10-04 06:09] LABS: HEMOGLOBIN 10.5 g/dL (13.5-17.0)
[2017-10-04 06:22] LABS: ALANINE AMINOTRANSFERASE 43 U/L (21-72); ALBUMIN 2.2 g/dL (3.5-5.0); ALKALINE PHOSPHATASE 171 U/L (38-126); ANION GAP 7 (5-19); ASPARTATE AMINO TRANSFERASE 63 U/L (17-59); BILIRUBIN,DIRECT 1.5 mg/dL (0.0-0.4); BILIRUBIN,TOTAL 4.4 mg/dL (0.2-1.3); BLOOD UREA NITROGEN 20 mg/dL (7-20); CALCIUM 8.3 mg/dL (8.4-10.2); CARBON DIOXIDE 23 mmol/L (22-30); CHLORIDE 106 mmol/L (98-107); GLUCOSE 112 mg/dL (75-110); POTASSIUM 3.4 mmol/L (3.6-5.0); SODIUM 135.9 mmol/L (137-145); TOTAL PROTEIN 5.2 g/dL (6.3-8.2)
[2017-10-04 06:31] LABS: ABSOLUTE LYMPHOCYTES# (MANUAL) 2.3 10^3/uL (0.5-4.7); ABSOLUTE NEUTROPHILS# (MANUAL) 9.8 10^3/uL (1.7-8.2); ANISOCYTOSIS 2+; BAND NEUTROPHILS % (MANUAL) 1 % (3-5); BASOPHILS % (MANUAL) 0 % (0-2); BURR CELLS 2+; EOSINOPHILS % (MANUAL) 1 % (0-6); LYMPHOCYTES % (MANUAL) 16 % (13-45); MONOCYTES % (MANUAL) 14 % (3-13); PLATELET COMMENT DECREASED; POIKILOCYTOSIS 2+; SEGMENTED NEUTROPHILS % (MAN) 68 % (42-78); TOTAL CELLS COUNTED 100
[2017-10-04] MEDS: ACETYLCYSTEINE 20% SOLN 800 MG/4 ML VIAL.NEB NEB SCH ×2 (09:22→19:37)
[2017-10-04] MEDS: IPRATROPIUM/ALBUTEROL 0.5-2.5 MG/3 ML AMPUL NEB PRN (09:22)
[2017-10-04] MEDS: NICOTINE 21 MG/24 HR PATCH.TD24 TD SCH (11:34)
[2017-10-04] MEDS: FLUTICASONE/SALMETEROL DISKUS 250-50 MCG/DOSE IH SCH ×2 (11:34→16:56)
[2017-10-04] MEDS: VANCOMYCIN HCL 1,000 MG in DEXTROSE 5%-WATER 250 ML IV SCH ×2 (11:35→21:33)
[2017-10-04] MEDS: THIAMINE HCL 100 MG TABLET PO SCH (11:35)
[2017-10-04] MEDS: CITALOPRAM HYDROBROMIDE 20 MG TABLET PO SCH (11:35)
[2017-10-04] MEDS: CARVEDILOL 6.25 MG TABLET PO SCH ×2 (11:36→18:03)
[2017-10-04] MEDS: TAMSULOSIN HCL 0.4 MG CAP.SR.24H PO SCH (11:37)
[2017-10-04] MEDS: POTASSI CL 20 MEQ/50 ML RIDER 20 MEQ/50 ML RTUPB IV SCH ×2 (11:41→14:42)
--- NOTE | 2017-10-04 16:10 | PDOC PROGRESS REPORT ---
Subjective Progress Note for:: 10/04/17 Subjective:: He was successfully exturbated on 10/02/2017. His post transfusion HB/HCT is 10.9/29.9 today. His Potassium is 3.4 and we gave him KCL 20 MEQ IVx2 doses. We will step him down to IMCU level of care today. Reason For Visit: GI BLEED ETOH WITHDRAWAL Physical Exam Vital Signs: Temp Pulse Resp BP Pulse Ox 98.2 F 84 17 114/79 96 10/04/17 12:00 10/04/17 12:00 10/04/17 12:00 10/04/17 12:00 10/04/17 12:00 Intake & Output 10/03/17 10/04/17 10/05/17 06:59 06:59 06:59 Intake Total 3100 3858 Output Total 1880 2975 405 Balance 1220 883 -405 Weight 70 kg 73.1 kg General appearance: PRESENT: no acute distress, cooperative, thin, well- nourished Head exam: PRESENT: atraumatic, normocephalic Eye exam: PRESENT: EOMI, PERRLA Mouth exam: PRESENT: neck supple Neck exam: PRESENT: full ROM Respiratory exam: PRESENT: decreased breath sounds, symmetrical Cardiovascular exam: PRESENT: +S1, +S2 Pulses: PRESENT: +1 pedal pulses bilateral GI/Abdominal exam: PRESENT: normal bowel sounds, soft Rectal exam: PRESENT: deferred Neurological exam: PRESENT: alert, awake, oriented to person, oriented to place Psychiatric exam: PRESENT: normal mood Results Laboratory Results: 10/04/17 05:30 10/04/17 05:30 10/03/17 10/03/17 10/04/17 05:25 10:46 05:30 WBC 14.2 H RBC 3.26 L Hgb 10.5 L D Hct 29.9 L MCV 92 MCH 32.3 MCHC 35.2 RDW 20.4 H Plt Count 103 L Seg Neutrophils % Not Reportable Lymphocytes % Not Reportable Monocytes % Not Reportable Eosinophils % Not Reportable Basophils % Not Reportable Absolute Neutrophils Not Reportable Absolute Lymphocytes Not Reportable Absolute Monocytes Not Reportable Absolute Eosinophils Not Reportable Absolute Basophils Not Reportable Sodium Potassium Chloride Carbon Dioxide Anion Gap BUN Creatinine Est GFR ( Amer) Est GFR (Non-Af Amer) Glucose Calcium Total Bilirubin 3.0 H AST 58 ALT 38 Alkaline Phosphatase 128 H Total Protein 4.9 L Albumin 1.9 L Blood Type O NEGATIVE Antibody Screen NEGATIVE 10/04/17 05:30 WBC RBC Hgb Hct MCV MCH MCHC RDW Plt Count Seg Neutrophils % Lymphocytes % Monocytes % Eosinophils % Basophils % Absolute Neutrophils Absolute Lymphocytes Absolute Monocytes Absolute Eosinophils Absolute Basophils Sodium 135.9 L Potassium 3.4 L Chloride 106 Carbon Dioxide 23 Anion Gap 7 BUN 20 Creatinine 1.03 Est GFR ( Amer) > 60 Est GFR (Non-Af Amer) > 60 Glucose 112 H Calcium 8.3 L Total Bilirubin 4.4 H AST 63 H ALT 43 Alkaline Phosphatase 171 H Total Protein 5.2 L Albumin 2.2 L Blood Type Antibody Screen 09/27/17 09/27/17 09/27/17 15:20 15:20 15:20 Creatine Kinase 95 CK-MB (CK-2) 0.80 Troponin I 0.028 NT-Pro-B Natriuret Pep 438 426 09/28/17 09/28/17 09/28/17 08:40 08:40 08:40 Creatine Kinase 64 CK-MB (CK-2) 0.47 Troponin I < 0.012 NT-Pro-B Natriuret Pep 09/29/17 10/01/17 05:05 05:30 Creatine Kinase CK-MB (CK-2) 0.57 Troponin I < 0.012 NT-Pro-B Natriuret Pep 612 Impressions: Abdomen Ultrasound 09/27/17 12:07 IMPRESSION: For visualization of the liver and hepatic vessels. Heterogeneous appearance. Fatty infiltration/ cirrhosis. KUB X-Ray 09/28/17 15:16 IMPRESSION: NG tube with its tip in the left upper quadrant presumably in the proximal stomach. Other findings as noted above Chest X-Ray 10/03/17 06:00 IMPRESSION: Interval worsening includes small bibasilar pneumonia/atelectasis. Assessment & Plan - Diagnosis (1) Acute respiratory failure Qualifiers: Respiratory failure complication: hypoxia Qualified Code(s): J96.01 - Acute respiratory failure with hypoxia Is this a current diagnosis for this admission?: Yes Plan: He has septicemia secondary to Staph. epidermidis .Ct with Oxygen by N/C 2 L/ Min to keep saturation > 92%. ct with Zosyn 3.375 m q6h IV; Vancomycin IV as per [facility] protocol. (2) Acute hepatic encephalopathy Is this a current diagnosis for this admission?: Yes Plan: Ct with Lactulose 20g daily po; monitor ammonia level daily. (3) Gastrointestinal hemorrhage Qualifiers: Gastritis type: alcoholic Is this a current diagnosis for this admission?: Yes Plan: Ct with Protonix drip; Transfused a total of 7 units of PRBC and give Lasix 20 mg IV after each unit of PRBC; Ct with [address] with IV fluids; F/U GI, Dr Barillas. (4) Acute blood loss anemia Is this a current diagnosis for this admission?: Yes Plan: The acute blodd loss anemia is due to GI bleed secondary to alcoholic gastritis. Pt has received a total of 7 units of PRBC and Lasix 20 mg IV given each unit of PRBC. Continue to monitor CBC daily. (5) Alcohol withdrawal delirium Is this a current diagnosis for this admission?: Yes Plan: Ct with IV fluids- D5 in normal saline plus Thiamine and multivitamin at 75 cc/ hr; Ativan 1 mg q2h IV prn; 2 hourly neurochecks; soft restraints. (6) Hypokalemia Is this a current diagnosis for this admission?: Yes Plan: He was given another 2 doses of KCL 20 MEQ IV today. So pt has received a total of KCL 20 MEQ IV [id number]; ct with KCL 40 MEQ in IV fluids at 75 cc/hr. Monitor chemistries daily. (7) Hypomagnesemia Is this a current diagnosis for this admission?: Yes Plan: Resolved.Pt was given Mg sulfate 4 G IV. He received another 2 g IV Mg sulfate today. Monitor mg level daily. (8) Acute hypernatremia Is this a current diagnosis for this admission?: Yes Plan: Resolved. Switch IV fluids to D5 normal saline at 75 cc/hr; Monitor chemistries daily. (9) Hypertension Qualifiers: Hypertension type: essential hypertension Qualified Code(s): I10 - Essential (primary) hypertension Is this a current diagnosis for this admission?: Yes Plan: Hold Coreg 6.25 mg BID PO due to hypotension; 2 g sodium diet.. (10) Hyperlipidemia Qualifiers: Hyperlipidemia type: mixed hyperlipidemia Qualified Code(s): E78.2 - Mixed hyperlipidemia Is this a current diagnosis for this admission?: Yes Plan: Simvasatin 20 mg qhs po for now; 200 mg cholesterol diet.. (11) COPD (chronic obstructive pulmonary disease) Qualifiers: COPD type: unspecified COPD Qualified Code(s): J44.9 - Chronic obstructive pulmonary disease, unspecified Is this a current diagnosis for this admission?: Yes Plan: Duonebs q6h prn; Advair 250/50 1 puff BID. Oxygen by N/C 2 L/min to keep saturation>92%. (12) BPH (benign prostatic hyperplasia) Is this a current diagnosis for this admission?: Yes Plan: Ct with Flomax 0.4 mg qd po. (13) Alcoholic cirrhosis of liver Qualifiers: Ascites presence: with ascites Qualified Code(s): K70.31 - Alcoholic cirrhosis of liver with ascites Is this a current diagnosis for this admission?: Yes Plan: Hold spironolactone 100 mg qd po and Lasix 40 mg qd po. due to mild metabolic alkalosis.Strict input/out put chart; daily weight; monitor chemistries daily. (14) Depression Is this a current diagnosis for this admission?: Yes Plan: Ct with Celexa 20 mg qd po. (15) Osteoarthritis Is this a current diagnosis for this admission?: Yes Plan: Ct with Oxycodone 5 mg TID prn po. (16) DVT prophylaxis Is this a current diagnosis for this admission?: Yes Plan: Ct with SCD; Hold Lovenox due to GI bleed.
[2017-10-04] MEDS: [UNRECOGNIZED DRUG - REMARK] IV SCH ×3 (16:55)
[2017-10-04] MEDS: ZOLPIDEM TARTRATE 5 MG TABLET PO PRN (21:34)
[2017-10-05] MEDS: DEXTROSE 5%-NORMAL SALINE 1,000 ML with POTASSIUM CHLORIDE 40 MEQ IV PRN ×4 (04:24→20:23)
[2017-10-05] MEDS ORDERED: PANTOPRAZOLE SODIUM 40 MG VIAL IV PRN (05:09)
[2017-10-05] MEDS: NORMAL SALINE INJ/PF 0.9% 10 ML SDV IV PRN (05:16)
[2017-10-05] MEDS: LACTULOSE SYRUP 20 GM/30 ML UDCUP PO SCH ×3 (05:16→22:56)
[2017-10-05] MEDS: NORMAL SALINE 100 ML with PANTOPRAZOLE SODIUM 80 MG IV PRN ×4 (05:17→15:46)
[2017-10-05 06:31] LABS: ALANINE AMINOTRANSFERASE 48 U/L (21-72); ALBUMIN 2.2 g/dL (3.5-5.0); ALKALINE PHOSPHATASE 146 U/L (38-126); ANION GAP 5 (5-19); ASPARTATE AMINO TRANSFERASE 59 U/L (17-59); BILIRUBIN,DIRECT 1.3 mg/dL (0.0-0.4); BILIRUBIN,TOTAL 4.6 mg/dL (0.2-1.3); BLOOD UREA NITROGEN 19 mg/dL (7-20); CALCIUM 8.3 mg/dL (8.4-10.2); CARBON DIOXIDE 25 mmol/L (22-30); CHLORIDE 106 mmol/L (98-107); GLUCOSE 84 mg/dL (75-110); POTASSIUM 3.8 mmol/L (3.6-5.0); SODIUM 136.4 mmol/L (137-145); TOTAL PROTEIN 5.4 g/dL (6.3-8.2)
[2017-10-05 06:40] LABS: ABSOLUTE BASOPHILS # (AUTO) 0.1 10^3/uL (0.0-0.2); ABSOLUTE EOSINOPHILS # (AUTO) 0.2 10^3/uL (0.0-0.6); ABSOLUTE LYMPHOCYTES (AUTO) 1.6 10^3/uL (0.5-4.7); ABSOLUTE MONOCYTES (AUTO) 1.9 10^3/uL (0.1-1.4); ABSOLUTE NEUT (AUTO) 5.8 10^3/uL (1.7-8.2); EOSINOPHILS % (AUTO) 2.4 % (0-6); HEMATOCRIT 29.6 % (37.9-51.0); HEMOGLOBIN 10.4 g/dL (13.5-17.0); LYMPHOCYTES % (AUTO) 16.9 % (13-45); MEAN CORPUSCULAR HEMOGLOBIN 32.5 pg (27.0-33.4); MEAN CORPUSCULAR HGB CONC 35.1 g/dL (32.0-36.0); MEAN CORPUSCULAR VOLUME 93 fl (80-97); MONOCYTES % (AUTO) 19.9 % (3-13); RED BLOOD COUNT 3.19 10^6/uL (4.35-5.55); RED CELL DISTRIBUTION WIDTH 20.9 % (11.5-14.0); SEGMENTED NEUTROPHILS % (AUTO) 59.8 % (42-78); TOTAL CELLS COUNTED % (AUTO) 100 %; WHITE BLOOD COUNT 9.7 10^3/uL (4.0-10.5)
[2017-10-05 07:13] LABS: PLATELET COUNT 108 10^3/uL (150-450)
[2017-10-05] MEDS: IPRATROPIUM/ALBUTEROL 0.5-2.5 MG/3 ML AMPUL NEB PRN ×2 (07:45→21:04)
[2017-10-05] MEDS: ACETYLCYSTEINE 20% SOLN 800 MG/4 ML VIAL.NEB NEB SCH ×2 (07:45→21:04)
[2017-10-05] MEDS: CARVEDILOL 6.25 MG TABLET PO SCH ×2 (09:39→17:53)
[2017-10-05] MEDS: CITALOPRAM HYDROBROMIDE 20 MG TABLET PO SCH (09:39)
[2017-10-05] MEDS: TAMSULOSIN HCL 0.4 MG CAP.SR.24H PO SCH (09:39)
[2017-10-05] MEDS: VANCOMYCIN HCL 1,000 MG in DEXTROSE 5%-WATER 250 ML IV SCH ×2 (09:40→22:57)
[2017-10-05] MEDS: THIAMINE HCL 100 MG TABLET PO SCH (09:40)
[2017-10-05] MEDS: FLUTICASONE/SALMETEROL DISKUS 250-50 MCG/DOSE IH SCH ×2 (09:40→17:54)
[2017-10-05] MEDS: NICOTINE 21 MG/24 HR PATCH.TD24 TD SCH (09:40)
--- NOTE | 2017-10-05 13:04 | PDOC PROGRESS REPORT ---
Subjective Progress Note for:: 10/05/17 Subjective:: Pt was stepped down to IMCU level care yesterday evening, but he move to IMCU this am. He has no new complaints. Pt will need aggressive PT/OT. Reason For Visit: GI BLEED ETOH WITHDRAWAL Physical Exam Vital Signs: Temp Pulse Resp BP Pulse Ox 98.0 F 83 20 126/80 H 95 10/05/17 07:52 10/05/17 07:52 10/05/17 07:52 10/05/17 07:52 10/05/17 07:52 Intake & Output 10/04/17 10/05/17 10/06/17 06:59 06:59 06:59 Intake Total 3858 2251 Output Total 2975 1205 Balance 883 1046 Weight 73.1 kg General appearance: PRESENT: no acute distress, cooperative, thin, well- nourished Head exam: PRESENT: atraumatic, normocephalic Eye exam: PRESENT: EOMI, PERRLA Ear exam: PRESENT: normal external ear exam, TM's normal bilaterally Mouth exam: PRESENT: neck supple, tongue midline Respiratory exam: PRESENT: decreased breath sounds, symmetrical Cardiovascular exam: PRESENT: +S1, +S2 Pulses: PRESENT: +1 pedal pulses bilateral GI/Abdominal exam: PRESENT: normal bowel sounds, soft Rectal exam: PRESENT: deferred Extremities exam: PRESENT: full ROM Neurological exam: PRESENT: alert, awake, oriented to person, oriented to place Psychiatric exam: PRESENT: normal mood Results Laboratory Results: 10/05/17 05:25 10/05/17 05:25 10/05/17 10/05/17 05:25 05:25 WBC 9.7 RBC 3.19 L Hgb 10.4 L Hct 29.6 L MCV 93 MCH 32.5 MCHC 35.1 RDW 20.9 H Plt Count 108 L Seg Neutrophils % 59.8 Lymphocytes % 16.9 Monocytes % 19.9 H Eosinophils % 2.4 Basophils % 1.0 Absolute Neutrophils 5.8 Absolute Lymphocytes 1.6 Absolute Monocytes 1.9 H Absolute Eosinophils 0.2 Absolute Basophils 0.1 Sodium 136.4 L Potassium 3.8 Chloride 106 Carbon Dioxide 25 Anion Gap 5 BUN 19 Creatinine 0.99 Est GFR ( Amer) > 60 Est GFR (Non-Af Amer) > 60 Glucose 84 Calcium 8.3 L Total Bilirubin 4.6 H AST 59 ALT 48 Alkaline Phosphatase 146 H Total Protein 5.4 L Albumin 2.2 L 09/27/17 09/27/17 09/27/17 15:20 15:20 15:20 Creatine Kinase 95 CK-MB (CK-2) 0.80 Troponin I 0.028 NT-Pro-B Natriuret Pep 438 426 09/28/17 09/28/17 09/28/17 08:40 08:40 08:40 Creatine Kinase 64 CK-MB (CK-2) 0.47 Troponin I < 0.012 NT-Pro-B Natriuret Pep 09/29/17 10/01/17 05:05 05:30 Creatine Kinase CK-MB (CK-2) 0.57 Troponin I < 0.012 NT-Pro-B Natriuret Pep 612 Impressions: Abdomen Ultrasound 09/27/17 12:07 IMPRESSION: For visualization of the liver and hepatic vessels. Heterogeneous appearance. Fatty infiltration/ cirrhosis. KUB X-Ray 09/28/17 15:16 IMPRESSION: NG tube with its tip in the left upper quadrant presumably in the proximal stomach. Other findings as noted above Chest X-Ray 10/03/17 06:00 IMPRESSION: Interval worsening includes small bibasilar pneumonia/atelectasis. Assessment & Plan - Diagnosis (1) Acute respiratory failure Qualifiers: Respiratory failure complication: hypoxia Qualified Code(s): J96.01 - Acute respiratory failure with hypoxia Is this a current diagnosis for this admission?: Yes Plan: He has septicemia secondary to Staph. epidermidis .Ct with Oxygen by N/C 2 L/ Min to keep saturation > 92%. ct with Zosyn 3.375 m q6h IV; Vancomycin IV as per [facility] protocol. (2) Acute hepatic encephalopathy Is this a current diagnosis for this admission?: Yes Plan: Ct with Lactulose 20g daily po; monitor ammonia level daily. (3) Gastrointestinal hemorrhage Qualifiers: Gastritis type: alcoholic Is this a current diagnosis for this admission?: Yes Plan: Ct with Protonix drip; Transfused a total of 7 units of PRBC and give Lasix 20 mg IV after each unit of PRBC; Ct with [address] with IV fluids; F/U GI, Dr Barillas. (4) Acute blood loss anemia Is this a current diagnosis for this admission?: Yes Plan: The acute blodd loss anemia is due to GI bleed secondary to alcoholic gastritis. Pt has received a total of 7 units of PRBC and Lasix 20 mg IV given each unit of PRBC. Continue to monitor CBC daily. (5) Alcohol withdrawal delirium Is this a current diagnosis for this admission?: Yes Plan: Ct with IV fluids- D5 in normal saline plus Thiamine and multivitamin at 75 cc/ hr; Ativan 1 mg q2h IV prn; 2 hourly neurochecks; soft restraints. (6) Hypokalemia Is this a current diagnosis for this admission?: Yes Plan: He was given another 2 doses of KCL 20 MEQ IV today. So pt has received a total of KCL 20 MEQ IV [id number]; ct with KCL 40 MEQ in IV fluids at 75 cc/hr. Monitor chemistries daily. (7) Hypomagnesemia Is this a current diagnosis for this admission?: Yes Plan: Resolved.Pt was given Mg sulfate 4 G IV. He received another 2 g IV Mg sulfate today. Monitor mg level daily. (8) Acute hypernatremia Is this a current diagnosis for this admission?: Yes Plan: Resolved. Switch IV fluids to D5 normal saline at 75 cc/hr; Monitor chemistries daily. (9) Hypertension Qualifiers: Hypertension type: essential hypertension Qualified Code(s): I10 - Essential (primary) hypertension Is this a current diagnosis for this admission?: Yes Plan: Hold Coreg 6.25 mg BID PO due to hypotension; 2 g sodium diet.. (10) Hyperlipidemia Qualifiers: Hyperlipidemia type: mixed hyperlipidemia Qualified Code(s): E78.2 - Mixed hyperlipidemia Is this a current diagnosis for this admission?: Yes Plan: Simvasatin 20 mg qhs po for now; 200 mg cholesterol diet.. (11) COPD (chronic obstructive pulmonary disease) Qualifiers: COPD type: unspecified COPD Qualified Code(s): J44.9 - Chronic obstructive pulmonary disease, unspecified Is this a current diagnosis for this admission?: Yes Plan: Duonebs q6h prn; Advair 250/50 1 puff BID. Oxygen by N/C 2 L/min to keep saturation>92%. (12) BPH (benign prostatic hyperplasia) Is this a current diagnosis for this admission?: Yes Plan: Ct with Flomax 0.4 mg qd po. (13) Alcoholic cirrhosis of liver Qualifiers: Ascites presence: with ascites Qualified Code(s): K70.31 - Alcoholic cirrhosis of liver with ascites Is this a current diagnosis for this admission?: Yes Plan: Hold spironolactone 100 mg qd po and Lasix 40 mg qd po. due to mild metabolic alkalosis.Strict input/out put chart; daily weight; monitor chemistries daily. (14) Depression Is this a current diagnosis for this admission?: Yes Plan: Ct with Celexa 20 mg qd po. (15) Osteoarthritis Is this a current diagnosis for this admission?: Yes Plan: Ct with Oxycodone 5 mg TID prn po. (16) DVT prophylaxis Is this a current diagnosis for this admission?: Yes Plan: Ct with SCD; Hold Lovenox due to GI bleed.
[2017-10-05] MEDS: OXYCODONE HCL IR 5 MG TABLET PO PRN ×2 (13:51→23:01)
[2017-10-05] MEDS: [UNRECOGNIZED DRUG - REMARK] IV SCH ×3 (17:54)
[2017-10-06] MEDS: NORMAL SALINE 100 ML with PANTOPRAZOLE SODIUM 80 MG IV PRN ×4 (01:18→13:22)
[2017-10-06] MEDS: LACTULOSE SYRUP 20 GM/30 ML UDCUP PO SCH ×2 (05:28→16:14)
[2017-10-06 05:30] LABS: ABSOLUTE BASOPHILS # (AUTO) 0.1 10^3/uL (0.0-0.2); ABSOLUTE EOSINOPHILS # (AUTO) 0.2 10^3/uL (0.0-0.6); ABSOLUTE LYMPHOCYTES (AUTO) 1.9 10^3/uL (0.5-4.7); ABSOLUTE NEUT (AUTO) 6.4 10^3/uL (1.7-8.2); BASOPHILS % (AUTO) 1.4 % (0-2); EOSINOPHILS % (AUTO) 1.8 % (0-6); HEMATOCRIT 27.3 % (37.9-51.0); HEMOGLOBIN 9.4 g/dL (13.5-17.0); LYMPHOCYTES % (AUTO) 17.8 % (13-45); MEAN CORPUSCULAR HEMOGLOBIN 32.2 pg (27.0-33.4); MEAN CORPUSCULAR HGB CONC 34.4 g/dL (32.0-36.0); MEAN CORPUSCULAR VOLUME 94 fl (80-97); MONOCYTES % (AUTO) 18.8 % (3-13); RED BLOOD COUNT 2.91 10^6/uL (4.35-5.55); RED CELL DISTRIBUTION WIDTH 20.6 % (11.5-14.0); SEGMENTED NEUTROPHILS % (AUTO) 60.2 % (42-78); TOTAL CELLS COUNTED % (AUTO) 100 %; WHITE BLOOD COUNT 10.7 10^3/uL (4.0-10.5)
[2017-10-06 05:36] LABS: ALANINE AMINOTRANSFERASE 46 U/L (21-72); ALKALINE PHOSPHATASE 190 U/L (38-126); ANION GAP 7 (5-19); ASPARTATE AMINO TRANSFERASE 53 U/L (17-59); BILIRUBIN,DIRECT 1.4 mg/dL (0.0-0.4); BILIRUBIN,TOTAL 3.3 mg/dL (0.2-1.3); BLOOD UREA NITROGEN 19 mg/dL (7-20); CALCIUM 8.4 mg/dL (8.4-10.2); CARBON DIOXIDE 22 mmol/L (22-30); CHLORIDE 110 mmol/L (98-107); GLUCOSE 125 mg/dL (75-110); SODIUM 138.7 mmol/L (137-145); TOTAL PROTEIN 5.2 g/dL (6.3-8.2)
[2017-10-06 05:58] LABS: PLATELET COUNT 107 10^3/uL (150-450)
[2017-10-06] MEDS: ACETYLCYSTEINE 20% SOLN 800 MG/4 ML VIAL.NEB NEB SCH ×2 (07:48→20:35)
[2017-10-06] MEDS: TAMSULOSIN HCL 0.4 MG CAP.SR.24H PO SCH (10:00)
[2017-10-06] MEDS: NICOTINE 21 MG/24 HR PATCH.TD24 TD SCH (10:00)
[2017-10-06] MEDS: CARVEDILOL 6.25 MG TABLET PO SCH ×2 (10:00→18:14)
[2017-10-06] MEDS: CITALOPRAM HYDROBROMIDE 20 MG TABLET PO SCH (10:00)
[2017-10-06] MEDS: FLUTICASONE/SALMETEROL DISKUS 250-50 MCG/DOSE IH SCH ×2 (10:01→18:14)
[2017-10-06] MEDS: THIAMINE HCL 100 MG TABLET PO SCH (10:01)
[2017-10-06] MEDS: VANCOMYCIN HCL 1,000 MG in DEXTROSE 5%-WATER 250 ML IV SCH ×2 (10:01→22:26)
[2017-10-06] MEDS: OXYCODONE HCL IR 5 MG TABLET PO PRN ×2 (10:02→23:12)
[2017-10-06] MEDS: DEXTROSE 5%-NORMAL SALINE 1,000 ML with POTASSIUM CHLORIDE 40 MEQ IV PRN ×2 (16:01)
[2017-10-06] MEDS ORDERED: RINGERS SOLUTION,LACTATED 1,000 ML IV ONE (16:15)
[2017-10-06 17:02] LABS: HEMATOCRIT 26.2 % (37.9-51.0); HEMOGLOBIN 9.2 g/dL (13.5-17.0); MEAN CORPUSCULAR HEMOGLOBIN 32.9 pg (27.0-33.4); MEAN CORPUSCULAR VOLUME 94 fl (80-97); RED BLOOD COUNT 2.79 10^6/uL (4.35-5.55); RED CELL DISTRIBUTION WIDTH 20.8 % (11.5-14.0); WHITE BLOOD COUNT 8.3 10^3/uL (4.0-10.5)
[2017-10-06 17:19] LABS: PLATELET COUNT 100 10^3/uL (150-450)
--- NOTE | 2017-10-06 17:43 | PDOC PROGRESS REPORT ---
Subjective Progress Note for:: 10/06/17 Subjective:: Patient is feeling significantly better today. He is awake alert aware of his situation. He is eating and drinking better. He is moving his bowels, multiple times. He has no chest pain or difficulty breathing. No fevers or chills. No emesis. No evidence of upper or lower GI bleed at this time-with no melena hematochezia or coffee-ground emesis. Full review of systems is performed and is negative aside from what I have just noted. I have reviewed his labs and his pertinent diagnostic studies today. Reason For Visit: GI BLEED ETOH WITHDRAWAL Physical Exam Vital Signs: Temp Pulse Resp BP Pulse Ox 97.8 F 69 16 101/66 94 10/06/17 15:37 10/06/17 15:37 10/06/17 15:37 10/06/17 15:37 10/06/17 15:37 Intake & Output 10/05/17 10/06/17 10/07/17 06:59 06:59 06:59 Intake Total 2251 3981 210 Output Total 1205 1025 350 Balance 1046 2956 -140 Weight 77.1 kg General appearance: PRESENT: no acute distress, cooperative, disheveled Head exam: PRESENT: atraumatic, normocephalic Eye exam: PRESENT: conjunctiva pink, EOMI Ear exam: PRESENT: normal external ear exam Mouth exam: PRESENT: neck supple Neck exam: ABSENT: lymphadenopathy Respiratory exam: PRESENT: unlabored. ABSENT: wheezes Cardiovascular exam: PRESENT: RRR. ABSENT: systolic murmur Pulses: PRESENT: normal radial pulses GI/Abdominal exam: PRESENT: normal bowel sounds, soft. ABSENT: distended, guarding, tenderness Rectal exam: PRESENT: deferred Gentrourinary exam: PRESENT: indwelling catheter Extremities exam: PRESENT: +1 edema Musculoskeletal exam: PRESENT: normal inspection Neurological exam: PRESENT: alert, altered, awake, oriented to person, oriented to place, oriented to situation, CN II-XII grossly intact. ABSENT: aphasic Psychiatric exam: PRESENT: appropriate affect. ABSENT: agitated, anxious Skin exam: PRESENT: dry, warm Results Laboratory Results: 10/06/17 16:20 10/06/17 04:25 10/06/17 10/06/17 10/06/17 04:25 04:25 16:20 WBC 10.7 H 8.3 RBC 2.91 L 2.79 L Hgb 9.4 L 9.2 L Hct 27.3 L 26.2 L MCV 94 94 MCH 32.2 32.9 MCHC 34.4 35.0 RDW 20.6 H 20.8 H Plt Count 107 L 100 L Seg Neutrophils % 60.2 Lymphocytes % 17.8 Monocytes % 18.8 H Eosinophils % 1.8 Basophils % 1.4 Absolute Neutrophils 6.4 Absolute Lymphocytes 1.9 Absolute Monocytes 2.0 H Absolute Eosinophils 0.2 Absolute Basophils 0.1 Sodium 138.7 Potassium 4.0 Chloride 110 H Carbon Dioxide 22 Anion Gap 7 BUN 19 Creatinine 0.94 Est GFR ( Amer) > 60 Est GFR (Non-Af Amer) > 60 Glucose 125 H Calcium 8.4 Total Bilirubin 3.3 H AST 53 ALT 46 Alkaline Phosphatase 190 H Total Protein 5.2 L Albumin 2.0 L 09/27/17 09/27/17 09/27/17 15:20 15:20 15:20 Creatine Kinase 95 CK-MB (CK-2) 0.80 Troponin I 0.028 NT-Pro-B Natriuret Pep 438 426 09/28/17 09/28/17 09/28/17 08:40 08:40 08:40 Creatine Kinase 64 CK-MB (CK-2) 0.47 Troponin I < 0.012 NT-Pro-B Natriuret Pep 09/29/17 10/01/17 05:05 05:30 Creatine Kinase CK-MB (CK-2) 0.57 Troponin I < 0.012 NT-Pro-B Natriuret Pep 612 Impressions: Abdomen Ultrasound 09/27/17 12:07 IMPRESSION: For visualization of the liver and hepatic vessels. Heterogeneous appearance. Fatty infiltration/ cirrhosis. KUB X-Ray 09/28/17 15:16 IMPRESSION: NG tube with its tip in the left upper quadrant presumably in the proximal stomach. Other findings as noted above Chest X-Ray 10/03/17 06:00 IMPRESSION: Interval worsening includes small bibasilar pneumonia/atelectasis. Assessment & Plan - Diagnosis (1) Acute blood loss anemia Is this a current diagnosis for this admission?: Yes Plan: Secondary to upper GI bleed caused by gastritis due to excessive alcohol intake. Patient has undergone transfusion of multiple units of packed red blood cells. His H&H is now stable. IM stopping the PPI drip and starting pantoprazole 40 mg IV every 12 hours. (2) Acute hepatic encephalopathy Is this a current diagnosis for this admission?: Yes Plan: Resolved. Patient is having multiple bowel movements. His mental status is back to normal and he is not on lactulose at baseline and so I am going to stop the lactulose and monitor his mental status. (3) Alcohol withdrawal delirium Is this a current diagnosis for this admission?: Yes Plan: Resolved. He has as needed Ativan available. (4) Gastrointestinal hemorrhage Qualifiers: Gastritis type: alcoholic Is this a current diagnosis for this admission?: Yes Plan: Due to alcohol intake, gastritis. PPI drip stopped and twice daily pantoprazole 40 mg ordered. (5) Anxiety disorder Is this a current diagnosis for this admission?: Yes Plan: We will continue as needed Ativan. This problem is stable for now. (6) BPH (benign prostatic hyperplasia) Is this a current diagnosis for this admission?: Yes Plan: I am holding the patient's Flomax. He has a Dillon catheter in place. His blood pressure has been trending low. (7) Chronic alcohol abuse Is this a current diagnosis for this admission?: Yes Plan: Patient and I discussed today the importance of cessation of alcohol. He plans to stop. We will offer support and work with him on strategies for discontinuation of alcohol. (8) Constipation Is this a current diagnosis for this admission?: Yes Plan: Golf. Lactulose has been discontinued and we will monitor his bowels closely. He is eating and drinking well now. (9) Hypotension Qualifiers: Hypotension type: other hypotension type Qualified Code(s): I95.89 - Other hypotension Is this a current diagnosis for this admission?: Yes Plan: Not entirely clear etiology the patient may be dehydrated, intravascularly depleted. Given him a liter of LR in a systolic blood pressure did increase from 90-98. We will continue Dillon so we can closely monitor urine output. He may need several more fluid boluses. Flomax has been discontinued. We will watch blood pressure closely. - Time Time Spent with patient: 35 or more minutes Medications reviewed and adjusted accordingly: Yes Within: within 72 hours - Inpatient Certification Based on my medical assessment, after consideration of the patient's comorbidities, presenting symptoms, or acuity I expect that the services needed warrant INPATIENT care.: Yes I certify that my determination is in accordance with my understanding of Medicare's requirements for reasonable and necessary INPATIENT services [42 CFR 412.3e].: Yes Medical Necessity: Significant Comorbidiites Make Outpatient Treatment Too Risky , Need Close Monitoring Due to Risk of Patient Decompensation, Need For IV Fluids, Risk of Complication if Not Cared For in Hospital
[2017-10-06] MEDS: [UNRECOGNIZED DRUG - REMARK] IV SCH ×3 (18:14)
[2017-10-06] MEDS: PANTOPRAZOLE SODIUM 40 MG VIAL IV SCH (22:26)
[2017-10-07 05:41] LABS: ABSOLUTE BASOPHILS # (AUTO) 0.1 10^3/uL (0.0-0.2); ABSOLUTE EOSINOPHILS # (AUTO) 0.3 10^3/uL (0.0-0.6); ABSOLUTE LYMPHOCYTES (AUTO) 1.4 10^3/uL (0.5-4.7); ABSOLUTE MONOCYTES (AUTO) 1.5 10^3/uL (0.1-1.4); ABSOLUTE NEUT (AUTO) 5.9 10^3/uL (1.7-8.2); BASOPHILS % (AUTO) 0.7 % (0-2); EOSINOPHILS % (AUTO) 2.9 % (0-6); HEMATOCRIT 26.9 % (37.9-51.0); HEMOGLOBIN 9.3 g/dL (13.5-17.0); LYMPHOCYTES % (AUTO) 15.1 % (13-45); MEAN CORPUSCULAR HEMOGLOBIN 32.8 pg (27.0-33.4); MEAN CORPUSCULAR HGB CONC 34.8 g/dL (32.0-36.0); MEAN CORPUSCULAR VOLUME 94 fl (80-97); MONOCYTES % (AUTO) 16.6 % (3-13); RED BLOOD COUNT 2.85 10^6/uL (4.35-5.55); RED CELL DISTRIBUTION WIDTH 20.8 % (11.5-14.0); SEGMENTED NEUTROPHILS % (AUTO) 64.7 % (42-78); TOTAL CELLS COUNTED % (AUTO) 100 %; WHITE BLOOD COUNT 9.1 10^3/uL (4.0-10.5)
[2017-10-07 05:42] LABS: PLATELET COUNT 100 10^3/uL (150-450)
[2017-10-07] MEDS: NORMAL SALINE INJ/PF 0.9% 10 ML SDV IV PRN ×2 (05:48→22:09)
[2017-10-07 05:52] LABS: ALANINE AMINOTRANSFERASE 45 U/L (21-72); ALKALINE PHOSPHATASE 158 U/L (38-126); ASPARTATE AMINO TRANSFERASE 59 U/L (17-59); BILIRUBIN,DIRECT 1.3 mg/dL (0.0-0.4); BILIRUBIN,TOTAL 3.8 mg/dL (0.2-1.3); BLOOD UREA NITROGEN 17 mg/dL (7-20); CALCIUM 8.4 mg/dL (8.4-10.2); GLUCOSE 104 mg/dL (75-110); TOTAL PROTEIN 5.4 g/dL (6.3-8.2)
[2017-10-07 06:17] LABS: ANION GAP 4 (5-19); CARBON DIOXIDE 24 mmol/L (22-30); CHLORIDE 110 mmol/L (98-107); POTASSIUM 4.3 mmol/L (3.6-5.0); SODIUM 137.6 mmol/L (137-145)
[2017-10-07] MEDS: ACETYLCYSTEINE 20% SOLN 800 MG/4 ML VIAL.NEB NEB SCH ×2 (07:50→20:22)
[2017-10-07] MEDS: CITALOPRAM HYDROBROMIDE 20 MG TABLET PO SCH (09:59)
[2017-10-07] MEDS: PANTOPRAZOLE SODIUM 40 MG VIAL IV SCH (09:59)
[2017-10-07] MEDS: CARVEDILOL 6.25 MG TABLET PO SCH ×2 (10:00→17:11)
[2017-10-07] MEDS: THIAMINE HCL 100 MG TABLET PO SCH (10:00)
[2017-10-07] MEDS: FLUTICASONE/SALMETEROL DISKUS 250-50 MCG/DOSE IH SCH ×2 (10:00→17:10)
[2017-10-07] MEDS: NICOTINE 21 MG/24 HR PATCH.TD24 TD SCH (10:00)
[2017-10-07] MEDS: VANCOMYCIN HCL 1,000 MG in DEXTROSE 5%-WATER 250 ML IV SCH (10:01)
[2017-10-07] MEDS: DEXTROSE 5%-NORMAL SALINE 1,000 ML with POTASSIUM CHLORIDE 40 MEQ IV PRN ×2 (10:01)
[2017-10-07] MEDS ORDERED: LANSOPRAZOLE 30 MG TAB.RAP.DR PO ONE (11:15)
[2017-10-07 12:34] LABS: VANCOMYCIN,TROUGH 20.7 ug/mL (5.0-20.0)
[2017-10-07] MEDS: IPRATROPIUM/ALBUTEROL 0.5-2.5 MG/3 ML AMPUL NEB PRN ×2 (16:37→20:22)
[2017-10-07] MEDS: [UNRECOGNIZED DRUG - REMARK] IV SCH ×3 (17:11)
[2017-10-07] MEDS: LANSOPRAZOLE 30 MG TAB.RAP.DR PO SCH (17:11)
[2017-10-07] MEDS: OXYCODONE HCL IR 5 MG TABLET PO PRN (17:12)
--- NOTE | 2017-10-07 17:57 | RADIOLOGY REPORT (SQ) ---
EXAM DESCRIPTION: CHEST PA/LAT COMPLETED DATE/TIME: 10/07/2017 5:41 pm REASON FOR STUDY: dyspnea COMPARISON: 10/03/2017. TECHNIQUE: Frontal and lateral radiographic views of the chest acquired. NUMBER OF VIEWS: Two view. LIMITATIONS: None. FINDINGS: LUNGS AND PLEURA: Diminished basilar aeration bilaterally. Possibly slightly worse with s mall associated effusions. Upper lung ann look relatively clear allowing for mild vascular conges tion. No pneumothorax. MEDIASTINUM AND HILAR STRUCTURES: Stable contours. HEART AND VASCULAR STRUCTURES: Stable heart size. BONES: No acute findings. HARDWARE: Right IJ line, tip to the cavoatrial junction are step tip to the SVC. OTHER: No other significant finding. IMPRESSION: Slightly worsening basilar aeration, suspect effusions and volume loss with mild vascula r congestion. TECHNICAL DOCUMENTATION: JOB ID: [id number] [employer]- All Rights Reserved
--- NOTE | 2017-10-07 21:24 | PDOC PROGRESS REPORT ---
Subjective Progress Note for:: 10/07/17 Subjective:: Patient is feeling better today, no evidence of bleeding, he starting to eat and drink better. He does not feel confused. He is ready to start getting out of bed. No chest pain. Later in the afternoon he did experience some dyspnea which is now resolved. No fevers or chills. Remainder of review of systems is performed and is negative. I have reviewed his labs and pertinent diagnostic studies today. Reason For Visit: GI BLEED ETOH WITHDRAWAL Physical Exam Vital Signs: Temp Pulse Resp BP Pulse Ox 98.4 F 66 18 116/69 98 10/07/17 16:05 10/07/17 19:00 10/07/17 16:37 10/07/17 16:05 10/07/17 16:37 Intake & Output 10/06/17 10/07/17 10/08/17 06:59 06:59 06:59 Intake Total 3981 4514 1490 Output Total 1025 1250 950 Balance 2956 3264 540 Weight 77.1 kg 82.2 kg General appearance: PRESENT: no acute distress, cooperative, disheveled Head exam: PRESENT: atraumatic, normocephalic Eye exam: PRESENT: conjunctiva pink Ear exam: PRESENT: normal external ear exam Mouth exam: PRESENT: moist, tongue midline Respiratory exam: PRESENT: decreased breath sounds, rales Cardiovascular exam: PRESENT: RRR. ABSENT: systolic murmur Pulses: PRESENT: normal radial pulses GI/Abdominal exam: PRESENT: normal bowel sounds, soft. ABSENT: distended, tenderness Rectal exam: PRESENT: deferred Gentrourinary exam: PRESENT: indwelling catheter - Clear yellow urine in Dillon bag Extremities exam: ABSENT: pedal edema Musculoskeletal exam: PRESENT: normal inspection Neurological exam: PRESENT: alert, awake, oriented to person, oriented to place , oriented to situation, CN II-XII grossly intact Psychiatric exam: PRESENT: appropriate affect. ABSENT: anxious Skin exam: PRESENT: dry, intact, warm Results Laboratory Results: 10/07/17 04:05 10/07/17 10:00 10/07/17 10/07/17 10/07/17 04:05 04:05 10:00 WBC 9.1 RBC 2.85 L Hgb 9.3 L Hct 26.9 L MCV 94 MCH 32.8 MCHC 34.8 RDW 20.8 H Plt Count 100 L Seg Neutrophils % 64.7 Lymphocytes % 15.1 Monocytes % 16.6 H Eosinophils % 2.9 Basophils % 0.7 Absolute Neutrophils 5.9 Absolute Lymphocytes 1.4 Absolute Monocytes 1.5 H Absolute Eosinophils 0.3 Absolute Basophils 0.1 Sodium 137.6 Potassium 4.3 Chloride 110 H Carbon Dioxide 24 Anion Gap 4 L BUN 17 Creatinine 0.90 0.89 Est GFR ( Amer) > 60 > 60 Est GFR (Non-Af Amer) > 60 > 60 Glucose 104 Calcium 8.4 Total Bilirubin 3.8 H AST 59 ALT 45 Alkaline Phosphatase 158 H Total Protein 5.4 L Albumin 2.0 L 09/27/17 09/27/17 09/27/17 15:20 15:20 15:20 Creatine Kinase 95 CK-MB (CK-2) 0.80 Troponin I 0.028 NT-Pro-B Natriuret Pep 438 426 09/28/17 09/28/17 09/28/17 08:40 08:40 08:40 Creatine Kinase 64 CK-MB (CK-2) 0.47 Troponin I < 0.012 NT-Pro-B Natriuret Pep 09/29/17 10/01/17 05:05 05:30 Creatine Kinase CK-MB (CK-2) 0.57 Troponin I < 0.012 NT-Pro-B Natriuret Pep 612 Impressions: Abdomen Ultrasound 09/27/17 12:07 IMPRESSION: For visualization of the liver and hepatic vessels. Heterogeneous appearance. Fatty infiltration/ cirrhosis. KUB X-Ray 09/28/17 15:16 IMPRESSION: NG tube with its tip in the left upper quadrant presumably in the proximal stomach. Other findings as noted above Chest X-Ray 10/07/17 00:00 IMPRESSION: Slightly worsening basilar aeration, suspect effusions and volume loss with mild vascular congestion. Assessment & Plan - Diagnosis (1) Acute blood loss anemia Is this a current diagnosis for this admission?: Yes Plan: Secondary to gastritis from alcohol abuse. H&H are now stable. No evidence of ongoing bleeding. He is now on a twice daily PPI. (2) Acute hepatic encephalopathy Is this a current diagnosis for this admission?: Yes Plan: This has resolved. Patient was having a significant number of stools. I have stopped his lactulose and we are monitoring his mental status. Ammonia level is unconcerning. (3) Alcohol withdrawal delirium Is this a current diagnosis for this admission?: Yes Plan: This is resolved. He has as needed Ativan available if needed for evidence of withdrawal or agitation. (4) Gastrointestinal hemorrhage Qualifiers: Gastritis type: alcoholic Is this a current diagnosis for this admission?: Yes Plan: Stratus secondary to alcohol misuse. Twice daily PPI by mouth. Alcohol cessation encouraged. (5) Anxiety disorder Is this a current diagnosis for this admission?: Yes Plan: Stable, continue as needed Ativan. (6) BPH (benign prostatic hyperplasia) Is this a current diagnosis for this admission?: Yes Plan: Stable, no changes today. (7) Chronic alcohol abuse Is this a current diagnosis for this admission?: Yes Plan: Alcohol cessation encouraged. (8) Hypotension Qualifiers: Hypotension type: other hypotension type Qualified Code(s): I95.89 - Other hypotension Is this a current diagnosis for this admission?: Yes Plan: This seems to be resolved. Yesterday the patient received some IV fluids blood pressure has remained mostly normal today with a few below normal dips. We are keeping close track of his blood pressure. There is no evidence of active bleeding. He is not symptomatic. (9) Shortness of breath Is this a current diagnosis for this admission?: Yes Plan: Patient had an episode of shortness of breath later this afternoon. He received a DuoNeb treatment which helped him feel significantly better. Also I obtained a chest x-ray which shows some pulmonary congestion. I have opted not to give Lasix as his blood pressure has been borderline. When his blood pressure improves he may benefit from a dose of Lasix but this remains to be seen. - Time Time Spent with patient: 35 or more minutes Anticipated discharge: Home - Inpatient Certification Medical Necessity: Significant Comorbidiites Make Outpatient Treatment Too Risky , Need Close Monitoring Due to Risk of Patient Decompensation, Need for Nebulizer Therapy and Monitoring of Response, Risk of Complication if Not Cared For in Hospital
[2017-10-07] MEDS: ZOLPIDEM TARTRATE 5 MG TABLET PO PRN (22:05)
[2017-10-07] MEDS: VANCOMYCIN HCL 750 MG in DEXTROSE 5%-WATER 250 ML IV SCH (22:06)
[2017-10-08 05:40] LABS: BLOOD UREA NITROGEN 17 mg/dL (7-20); CALCIUM 8.8 mg/dL (8.4-10.2); CARBON DIOXIDE 24 mmol/L (22-30); GLUCOSE 84 mg/dL (75-110); POTASSIUM 4.2 mmol/L (3.6-5.0)
[2017-10-08] MEDS: NORMAL SALINE INJ/PF 0.9% 10 ML SDV IV PRN (05:43)
[2017-10-08] MEDS: LANSOPRAZOLE 30 MG TAB.RAP.DR PO SCH ×2 (05:44→18:35)
[2017-10-08 06:01] LABS: ANION GAP 5 (5-19); CHLORIDE 109 mmol/L (98-107); SODIUM 138.1 mmol/L (137-145)
[2017-10-08] MEDS ORDERED: CEFAZOLIN 2 GM/D5W RTU 2 GM/50 ML RTUPB IV ONE (06:15)
[2017-10-08] MEDS: ACETYLCYSTEINE 20% SOLN 800 MG/4 ML VIAL.NEB NEB SCH ×2 (09:02→19:51)
[2017-10-08] MEDS: TAMSULOSIN HCL 0.4 MG CAP.SR.24H PO SCH (10:28)
[2017-10-08] MEDS: FLUTICASONE/SALMETEROL DISKUS 250-50 MCG/DOSE IH SCH ×2 (10:28→18:36)
[2017-10-08] MEDS: THIAMINE HCL 100 MG TABLET PO SCH (10:28)
[2017-10-08] MEDS: CARVEDILOL 6.25 MG TABLET PO SCH ×2 (10:29→18:35)
[2017-10-08] MEDS: CITALOPRAM HYDROBROMIDE 20 MG TABLET PO SCH (10:30)
[2017-10-08] MEDS: VANCOMYCIN HCL 750 MG in DEXTROSE 5%-WATER 250 ML IV SCH ×2 (10:30→22:08)
[2017-10-08] MEDS: NICOTINE 21 MG/24 HR PATCH.TD24 TD SCH (10:32)
[2017-10-08] MEDS: OXYCODONE HCL IR 5 MG TABLET PO PRN ×2 (11:13→20:43)
--- NOTE | 2017-10-08 15:57 | PDOC PROGRESS REPORT ---
Subjective Progress Note for:: 10/08/17 Subjective:: Pt had webster removed yesterday and is now having urinary retention. He was put on Flomax 0.4 mg yesterday night and pt is ready to get out of bed and commence aggressive PT. Reason For Visit: GI BLEED ETOH WITHDRAWAL Physical Exam Vital Signs: Temp Pulse Resp BP Pulse Ox 98.0 F 72 18 116/68 94 10/08/17 11:22 10/08/17 11:22 10/08/17 11:22 10/08/17 11:22 10/08/17 11:22 Intake & Output 10/07/17 10/08/17 10/09/17 06:59 06:59 06:59 Intake Total 4514 2740 150 Output Total 1250 2000 600 Balance 3264 740 -450 Weight 82.2 kg 80.8 kg General appearance: PRESENT: no acute distress, cooperative, thin, well- nourished Head exam: PRESENT: atraumatic, normocephalic Eye exam: PRESENT: EOMI, PERRLA Ear exam: PRESENT: TM's normal bilaterally Mouth exam: PRESENT: neck supple Respiratory exam: PRESENT: decreased breath sounds, symmetrical Cardiovascular exam: PRESENT: +S1, +S2 Pulses: PRESENT: +1 pedal pulses bilateral Vascular exam: PRESENT: normal capillary refill GI/Abdominal exam: PRESENT: normal bowel sounds, soft Rectal exam: PRESENT: deferred Neurological exam: PRESENT: alert, awake, oriented to person, oriented to place , oriented to time Psychiatric exam: PRESENT: normal mood Results Laboratory Results: 10/07/17 04:05 10/08/17 04:00 10/08/17 04:00 Sodium 138.1 Potassium 4.2 Chloride 109 H Carbon Dioxide 24 Anion Gap 5 BUN 17 Creatinine 0.92 Est GFR ( Amer) > 60 Est GFR (Non-Af Amer) > 60 Glucose 84 Calcium 8.8 09/27/17 09/27/17 09/27/17 15:20 15:20 15:20 Creatine Kinase 95 CK-MB (CK-2) 0.80 Troponin I 0.028 NT-Pro-B Natriuret Pep 438 426 09/28/17 09/28/17 09/28/17 08:40 08:40 08:40 Creatine Kinase 64 CK-MB (CK-2) 0.47 Troponin I < 0.012 NT-Pro-B Natriuret Pep 09/29/17 10/01/17 05:05 05:30 Creatine Kinase CK-MB (CK-2) 0.57 Troponin I < 0.012 NT-Pro-B Natriuret Pep 612 Impressions: Abdomen Ultrasound 09/27/17 12:07 IMPRESSION: For visualization of the liver and hepatic vessels. Heterogeneous appearance. Fatty infiltration/ cirrhosis. KUB X-Ray 09/28/17 15:16 IMPRESSION: NG tube with its tip in the left upper quadrant presumably in the proximal stomach. Other findings as noted above Chest X-Ray 10/07/17 00:00 IMPRESSION: Slightly worsening basilar aeration, suspect effusions and volume loss with mild vascular congestion. Assessment & Plan - Diagnosis (1) Acute respiratory failure Qualifiers: Respiratory failure complication: hypoxia Qualified Code(s): J96.01 - Acute respiratory failure with hypoxia Is this a current diagnosis for this admission?: Yes Plan: He has septicemia secondary to Staph. epidermidis .Ct with Oxygen by N/C 2 L/ Min to keep saturation > 92%. ct with Zosyn 3.375 m q6h IV; Vancomycin IV as per [facility] protocol. (2) Acute hepatic encephalopathy Is this a current diagnosis for this admission?: Yes Plan: Ct with Lactulose 20g daily po; monitor ammonia level daily. (3) Gastrointestinal hemorrhage Qualifiers: Gastritis type: alcoholic Is this a current diagnosis for this admission?: Yes Plan: Ct with Protonix drip; Transfused a total of 7 units of PRBC and give Lasix 20 mg IV after each unit of PRBC; Ct with [address] with IV fluids; F/U GIDr Barillas. (4) Acute blood loss anemia Is this a current diagnosis for this admission?: Yes Plan: The acute blodd loss anemia is due to GI bleed secondary to alcoholic gastritis. Pt has received a total of 7 units of PRBC and Lasix 20 mg IV given each unit of PRBC. Continue to monitor CBC daily. (5) Alcohol withdrawal delirium Is this a current diagnosis for this admission?: Yes Plan: Ct with IV fluids- D5 in normal saline plus Thiamine and multivitamin at 75 cc/ hr; Ativan 1 mg q2h IV prn; 2 hourly neurochecks; soft restraints. (6) Hypokalemia Is this a current diagnosis for this admission?: Yes Plan: He was given another 2 doses of KCL 20 MEQ IV today. So pt has received a total of KCL 20 MEQ IV [id number]; ct with KCL 40 MEQ in IV fluids at 75 cc/hr. Monitor chemistries daily. (7) Hypomagnesemia Is this a current diagnosis for this admission?: Yes Plan: Resolved.Pt was given Mg sulfate 4 G IV. He received another 2 g IV Mg sulfate today. Monitor mg level daily. (8) Acute hypernatremia Is this a current diagnosis for this admission?: Yes Plan: Resolved. Switch IV fluids to D5 normal saline at 75 cc/hr; Monitor chemistries daily. (9) Hypertension Qualifiers: Hypertension type: essential hypertension Qualified Code(s): I10 - Essential (primary) hypertension Is this a current diagnosis for this admission?: Yes Plan: Hold Coreg 6.25 mg BID PO due to hypotension; 2 g sodium diet.. (10) Hyperlipidemia Qualifiers: Hyperlipidemia type: mixed hyperlipidemia Qualified Code(s): E78.2 - Mixed hyperlipidemia Is this a current diagnosis for this admission?: Yes Plan: Simvasatin 20 mg qhs po for now; 200 mg cholesterol diet.. (11) COPD (chronic obstructive pulmonary disease) Qualifiers: COPD type: unspecified COPD Qualified Code(s): J44.9 - Chronic obstructive pulmonary disease, unspecified Is this a current diagnosis for this admission?: Yes Plan: Duonebs q6h prn; Advair 250/50 1 puff BID. Oxygen by N/C 2 L/min to keep saturation>92%. (12) BPH (benign prostatic hyperplasia) Is this a current diagnosis for this admission?: Yes Plan: Ct with Flomax 0.4 mg qd po. (13) Alcoholic cirrhosis of liver Qualifiers: Ascites presence: with ascites Qualified Code(s): K70.31 - Alcoholic cirrhosis of liver with ascites Is this a current diagnosis for this admission?: Yes Plan: Hold spironolactone 100 mg qd po and Lasix 40 mg qd po. due to mild metabolic alkalosis.Strict input/out put chart; daily weight; monitor chemistries daily. (14) Depression Is this a current diagnosis for this admission?: Yes Plan: Ct with Celexa 20 mg qd po. (15) Osteoarthritis Is this a current diagnosis for this admission?: Yes Plan: Ct with Oxycodone 5 mg TID prn po. (16) DVT prophylaxis Is this a current diagnosis for this admission?: Yes Plan: Ct with SCD; Hold Lovenox due to GI bleed.
[2017-10-08] MEDS ORDERED: FUROSEMIDE 20 MG TABLET PO ONE (18:30)
[2017-10-08] MEDS ORDERED: SPIRONOLACTONE 25 MG TABLET PO ONE (18:30)
[2017-10-08] MEDS: [UNRECOGNIZED DRUG - REMARK] IV SCH ×3 (18:35)
[2017-10-08] MEDS: ZOLPIDEM TARTRATE 5 MG TABLET PO PRN (23:55)
[2017-10-09] MEDS: LANSOPRAZOLE 30 MG TAB.RAP.DR PO SCH ×2 (05:11→16:02)
[2017-10-09] MEDS: OXYCODONE HCL IR 5 MG TABLET PO PRN (08:15)
[2017-10-09] MEDS: ACETYLCYSTEINE 20% SOLN 800 MG/4 ML VIAL.NEB NEB SCH ×2 (08:19→20:13)
[2017-10-09 08:49] LABS: ANION GAP 8 (5-19); BLOOD UREA NITROGEN 18 mg/dL (7-20); CALCIUM 8.6 mg/dL (8.4-10.2); CARBON DIOXIDE 24 mmol/L (22-30); CHLORIDE 108 mmol/L (98-107); GLUCOSE 79 mg/dL (75-110); POTASSIUM 3.7 mmol/L (3.6-5.0); SODIUM 139.5 mmol/L (137-145)
[2017-10-09] MEDS: CARVEDILOL 6.25 MG TABLET PO SCH ×2 (11:02→17:50)
[2017-10-09] MEDS: FLUTICASONE/SALMETEROL DISKUS 250-50 MCG/DOSE IH SCH ×2 (11:12→17:52)
[2017-10-09] MEDS: VANCOMYCIN HCL 750 MG in DEXTROSE 5%-WATER 250 ML IV SCH ×2 (11:14→22:00)
[2017-10-09] MEDS: TAMSULOSIN HCL 0.4 MG CAP.SR.24H PO SCH (11:22)
[2017-10-09] MEDS: THIAMINE HCL 100 MG TABLET PO SCH (11:22)
[2017-10-09] MEDS: CITALOPRAM HYDROBROMIDE 20 MG TABLET PO SCH (11:22)
[2017-10-09] MEDS: FUROSEMIDE 20 MG TABLET PO SCH (11:22)
[2017-10-09] MEDS: NICOTINE 21 MG/24 HR PATCH.TD24 TD SCH (11:22)
[2017-10-09] MEDS: SPIRONOLACTONE 25 MG TABLET PO SCH (11:23)
--- NOTE | 2017-10-09 12:23 | PDOC PROGRESS REPORT ---
Subjective Progress Note for:: 10/09/17 Subjective:: Pt has spike. leg swelling, so IV fluids was D/C and pt started on Lasix 20 mg qd po and Spironolactone 50 mg qd po. He was counseled to elevate his legs on pillow and we will monitor his chemistries daily. He was seen by PT today. He was able to pass urine last night and some today. We will monitor that closely. Reason For Visit: GI BLEED ETOH WITHDRAWAL Physical Exam Vital Signs: Temp Pulse Resp BP Pulse Ox 98.5 F 74 16 116/58 L 92 10/09/17 07:53 10/09/17 07:53 10/09/17 07:53 10/09/17 07:53 10/09/17 07:53 Intake & Output 10/08/17 10/09/17 10/10/17 06:59 06:59 06:59 Intake Total 2740 3077 Output Total 2000 800 Balance 740 2277 Weight 80.8 kg 81.1 kg General appearance: PRESENT: no acute distress, cooperative, thin, well- nourished Head exam: PRESENT: atraumatic, normocephalic Eye exam: PRESENT: EOMI, PERRLA Ear exam: PRESENT: normal external ear exam, TM's normal bilaterally Mouth exam: PRESENT: neck supple, tongue midline Neck exam: PRESENT: full ROM Respiratory exam: PRESENT: decreased breath sounds, symmetrical Cardiovascular exam: PRESENT: +S1, +S2 Pulses: PRESENT: +1 pedal pulses bilateral GI/Abdominal exam: PRESENT: normal bowel sounds, soft Rectal exam: PRESENT: deferred Extremities exam: PRESENT: pedal edema Neurological exam: PRESENT: alert, awake, oriented to person, oriented to place , oriented to time Psychiatric exam: PRESENT: normal mood Results Laboratory Results: 10/07/17 04:05 10/09/17 05:20 10/09/17 05:20 Sodium 139.5 Potassium 3.7 Chloride 108 H Carbon Dioxide 24 Anion Gap 8 BUN 18 Creatinine 0.93 Est GFR ( Amer) > 60 Est GFR (Non-Af Amer) > 60 Glucose 79 Calcium 8.6 09/27/17 09/27/17 09/27/17 15:20 15:20 15:20 Creatine Kinase 95 CK-MB (CK-2) 0.80 Troponin I 0.028 NT-Pro-B Natriuret Pep 438 426 09/28/17 09/28/17 09/28/17 08:40 08:40 08:40 Creatine Kinase 64 CK-MB (CK-2) 0.47 Troponin I < 0.012 NT-Pro-B Natriuret Pep 09/29/17 10/01/17 05:05 05:30 Creatine Kinase CK-MB (CK-2) 0.57 Troponin I < 0.012 NT-Pro-B Natriuret Pep 612 Impressions: Abdomen Ultrasound 09/27/17 12:07 IMPRESSION: For visualization of the liver and hepatic vessels. Heterogeneous appearance. Fatty infiltration/ cirrhosis. KUB X-Ray 09/28/17 15:16 IMPRESSION: NG tube with its tip in the left upper quadrant presumably in the proximal stomach. Other findings as noted above Chest X-Ray 10/07/17 00:00 IMPRESSION: Slightly worsening basilar aeration, suspect effusions and volume loss with mild vascular congestion. Assessment & Plan - Diagnosis (1) Acute respiratory failure Qualifiers: Respiratory failure complication: hypoxia Qualified Code(s): J96.01 - Acute respiratory failure with hypoxia Is this a current diagnosis for this admission?: Yes Plan: He has septicemia secondary to Staph. epidermidis .Ct with Oxygen by N/C 2 L/ Min to keep saturation > 92%. ct with Zosyn 3.375 m q6h IV; Vancomycin IV as per [facility] protocol. (2) Acute hepatic encephalopathy Is this a current diagnosis for this admission?: Yes Plan: Ct with Lactulose 20g daily po; monitor ammonia level daily. (3) Gastrointestinal hemorrhage Qualifiers: Gastritis type: alcoholic Is this a current diagnosis for this admission?: Yes Plan: Ct with Protonix drip; Transfused a total of 7 units of PRBC and give Lasix 20 mg IV after each unit of PRBC; Ct with 2 g sodium diet. F/U GIDr Barillas. (4) Acute blood loss anemia Is this a current diagnosis for this admission?: Yes Plan: The acute blodd loss anemia is due to GI bleed secondary to alcoholic gastritis. Pt has received a total of 7 units of PRBC and Lasix 20 mg IV given each unit of PRBC. Continue to monitor CBC daily. (5) Alcohol withdrawal delirium Is this a current diagnosis for this admission?: Yes Plan: Ativan 1 mg q2h IV prn; 2 hourly neurochecks; soft restraints. (6) Hypokalemia Is this a current diagnosis for this admission?: Yes Plan: Resolved.He was given another 2 doses of KCL 20 MEQ IV today. So pt has received a total of KCL 20 MEQ IV [id number]. Monitor chemistries daily. (7) Hypomagnesemia Is this a current diagnosis for this admission?: Yes Plan: Resolved.Pt was given Mg sulfate 4 G IV. He received another 2 g IV Mg sulfate today. Monitor mg level prn. (8) Acute hypernatremia Is this a current diagnosis for this admission?: Yes Plan: Resolved. Monitor chemistries daily. (9) Hypertension Qualifiers: Hypertension type: essential hypertension Qualified Code(s): I10 - Essential (primary) hypertension Is this a current diagnosis for this admission?: Yes Plan: Hold Coreg 6.25 mg BID PO due to hypotension; 2 g sodium diet.. (10) Hyperlipidemia Qualifiers: Hyperlipidemia type: mixed hyperlipidemia Qualified Code(s): E78.2 - Mixed hyperlipidemia Is this a current diagnosis for this admission?: Yes Plan: Simvasatin 20 mg qhs po ; 200 mg cholesterol diet.. (11) COPD (chronic obstructive pulmonary disease) Qualifiers: COPD type: unspecified COPD Qualified Code(s): J44.9 - Chronic obstructive pulmonary disease, unspecified Is this a current diagnosis for this admission?: Yes Plan: Duonebs q6h prn; Advair 250/50 1 puff BID. Oxygen by N/C 2 L/min to keep saturation>92%. (12) BPH (benign prostatic hyperplasia) Is this a current diagnosis for this admission?: Yes Plan: Ct with Flomax 0.4 mg qd po. (13) Alcoholic cirrhosis of liver Qualifiers: Ascites presence: with ascites Qualified Code(s): K70.31 - Alcoholic cirrhosis of liver with ascites Is this a current diagnosis for this admission?: Yes Plan: Restart spironolactone 50 mg qd po and Lasix 20 mg qd po.Strict input/out put chart; daily weight; monitor chemistries daily. (14) Depression Is this a current diagnosis for this admission?: Yes Plan: Ct with Celexa 20 mg qd po. (15) Osteoarthritis Is this a current diagnosis for this admission?: Yes Plan: Ct with Oxycodone 5 mg TID prn po. (16) DVT prophylaxis Is this a current diagnosis for this admission?: Yes Plan: Ct with SCD; Hold Lovenox due to GI bleed.
[2017-10-09] MEDS: NORMAL SALINE INJ/PF 0.9% 10 ML SDV IV PRN (12:33)
[2017-10-09 12:54] LABS: HEMATOCRIT 25.2 % (37.9-51.0); HEMOGLOBIN 8.6 g/dL (13.5-17.0); MEAN CORPUSCULAR HEMOGLOBIN 32.6 pg (27.0-33.4); MEAN CORPUSCULAR VOLUME 96 fl (80-97); PLATELET COUNT 105 10^3/uL (150-450); RED BLOOD COUNT 2.63 10^6/uL (4.35-5.55); RED CELL DISTRIBUTION WIDTH 21.3 % (11.5-14.0); WHITE BLOOD COUNT 11.7 10^3/uL (4.0-10.5)
[2017-10-09 13:17] LABS: ALANINE AMINOTRANSFERASE 44 U/L (21-72); ALBUMIN 2.1 g/dL (3.5-5.0); ALKALINE PHOSPHATASE 148 U/L (38-126); ANION GAP 6 (5-19); ASPARTATE AMINO TRANSFERASE 57 U/L (17-59); BILIRUBIN,DIRECT 1.3 mg/dL (0.0-0.4); BILIRUBIN,TOTAL 3.8 mg/dL (0.2-1.3); BLOOD UREA NITROGEN 16 mg/dL (7-20); CALCIUM 8.5 mg/dL (8.4-10.2); CARBON DIOXIDE 25 mmol/L (22-30); CHLORIDE 107 mmol/L (98-107); GLUCOSE 112 mg/dL (75-110); POTASSIUM 3.6 mmol/L (3.6-5.0); TOTAL PROTEIN 5.4 g/dL (6.3-8.2)
[2017-10-09 13:29] LABS: ABSOLUTE LYMPHOCYTES# (MANUAL) 0.7 10^3/uL (0.5-4.7); ABSOLUTE MONOCYTES # (MANUAL) 1.2 10^3/uL (0.1-1.4); ABSOLUTE NEUTROPHILS# (MANUAL) 9.1 10^3/uL (1.7-8.2); LYMPHOCYTES % (MANUAL) 6 % (13-45); MONOCYTES % (MANUAL) 10 % (3-13); SEGMENTED NEUTROPHILS % (MAN) 78 % (42-78); TOTAL CELLS COUNTED 100
[2017-10-09 13:30] LABS: BASOPHILS % (MANUAL) 3 % (0-2); EOSINOPHILS % (MANUAL) 3 % (0-6)
[2017-10-09 13:31] LABS: ACANTHOCYTES 1+; BURR CELLS 1+; HYPOCHROMASIA SLIGHT; PLATELET COMMENT DECREASED; PLATELET LARGE PRESENT; POLYCHROMASIA SLIGHT; SCHISTOCYTES 1+; TOXIC GRANULATION 1+; TOXIC VACUOLATION PRESENT
[2017-10-09] MEDS: [UNRECOGNIZED DRUG - REMARK] IV SCH ×3 (17:51)
[2017-10-09] MEDS: ZOLPIDEM TARTRATE 5 MG TABLET PO PRN (22:00)
[2017-10-10] MEDS: LANSOPRAZOLE 30 MG TAB.RAP.DR PO SCH ×2 (05:36→17:43)
[2017-10-10 06:52] LABS: ALANINE AMINOTRANSFERASE 48 U/L (21-72); ALBUMIN 2.2 g/dL (3.5-5.0); ALKALINE PHOSPHATASE 159 U/L (38-126); ANION GAP 7 (5-19); ASPARTATE AMINO TRANSFERASE 60 U/L (17-59); BILIRUBIN,DIRECT 1.2 mg/dL (0.0-0.4); BILIRUBIN,TOTAL 3.5 mg/dL (0.2-1.3); BLOOD UREA NITROGEN 15 mg/dL (7-20); CALCIUM 8.4 mg/dL (8.4-10.2); CARBON DIOXIDE 25 mmol/L (22-30); CHLORIDE 107 mmol/L (98-107); GLUCOSE 84 mg/dL (75-110); POTASSIUM 3.4 mmol/L (3.6-5.0); SODIUM 138.9 mmol/L (137-145); TOTAL PROTEIN 5.6 g/dL (6.3-8.2)
[2017-10-10 07:20] LABS: ABSOLUTE BASOPHILS # (AUTO) 0.2 10^3/uL (0.0-0.2); ABSOLUTE EOSINOPHILS # (AUTO) 0.2 10^3/uL (0.0-0.6); ABSOLUTE LYMPHOCYTES (AUTO) 1.8 10^3/uL (0.5-4.7); ABSOLUTE MONOCYTES (AUTO) 1.3 10^3/uL (0.1-1.4); ABSOLUTE NEUT (AUTO) 8.3 10^3/uL (1.7-8.2); BASOPHILS % (AUTO) 1.6 % (0-2); EOSINOPHILS % (AUTO) 1.5 % (0-6); HEMATOCRIT 24.3 % (37.9-51.0); HEMOGLOBIN 8.4 g/dL (13.5-17.0); LYMPHOCYTES % (AUTO) 15.4 % (13-45); MEAN CORPUSCULAR HEMOGLOBIN 32.7 pg (27.0-33.4); MEAN CORPUSCULAR HGB CONC 34.4 g/dL (32.0-36.0); MEAN CORPUSCULAR VOLUME 95 fl (80-97); MONOCYTES % (AUTO) 10.8 % (3-13); PLATELET COUNT 101 10^3/uL (150-450); RED BLOOD COUNT 2.56 10^6/uL (4.35-5.55); RED CELL DISTRIBUTION WIDTH 21.3 % (11.5-14.0); SEGMENTED NEUTROPHILS % (AUTO) 70.7 % (42-78); TOTAL CELLS COUNTED % (AUTO) 100 %; WHITE BLOOD COUNT 11.7 10^3/uL (4.0-10.5)
[2017-10-10] MEDS: ACETYLCYSTEINE 20% SOLN 800 MG/4 ML VIAL.NEB NEB SCH ×2 (07:41→19:42)
[2017-10-10 08:34] LABS: ANISOCYTOSIS 3+; BURR CELLS 2+; HYPOCHROMASIA 2+; POIKILOCYTOSIS 2+
[2017-10-10 08:35] LABS: ACANTHOCYTES SLIGHT; PLATELET COMMENT DECREASED; PLATELET LARGE PRESENT; SCHISTOCYTES 1+
[2017-10-10] MEDS: CITALOPRAM HYDROBROMIDE 20 MG TABLET PO SCH (09:13)
[2017-10-10] MEDS: MULTIVITAMIN TABLET PO SCH (09:13)
[2017-10-10] MEDS: FUROSEMIDE 20 MG TABLET PO SCH (09:13)
[2017-10-10] MEDS: THIAMINE HCL 100 MG TABLET PO SCH (09:13)
[2017-10-10] MEDS: TAMSULOSIN HCL 0.4 MG CAP.SR.24H PO SCH (09:13)
[2017-10-10] MEDS: OXYCODONE HCL IR 5 MG TABLET PO PRN ×2 (09:14→20:23)
[2017-10-10] MEDS: NICOTINE 21 MG/24 HR PATCH.TD24 TD SCH (09:14)
[2017-10-10] MEDS: CARVEDILOL 6.25 MG TABLET PO SCH ×2 (09:14→20:17)
[2017-10-10] MEDS: SPIRONOLACTONE 25 MG TABLET PO SCH (09:14)
[2017-10-10] MEDS: VANCOMYCIN HCL 750 MG in DEXTROSE 5%-WATER 250 ML IV SCH (09:15)
[2017-10-10] MEDS: FLUTICASONE/SALMETEROL DISKUS 250-50 MCG/DOSE IH SCH ×2 (09:23→17:43)
[2017-10-10] MEDS: NORMAL SALINE INJ/PF 0.9% 10 ML SDV IV PRN (13:31)
--- NOTE | 2017-10-10 14:39 | PDOC PROGRESS REPORT ---
Subjective Progress Note for:: 10/10/17 Subjective:: Pt has no complaints. His Potassium decreased to 3.4. We will give him KCL 20 MEQ IVx1 and start him on KCL 10 MEQ qd po. We will continue to f/u with PT/OT since pt does not want to go to SNF because he does not want to loose his benefits. Reason For Visit: GI BLEED ETOH WITHDRAWAL Physical Exam Vital Signs: Temp Pulse Resp BP Pulse Ox 98.5 F 65 18 126/71 H 94 10/10/17 09:16 10/10/17 14:00 10/10/17 09:16 10/10/17 09:16 10/10/17 09:16 Intake & Output 10/09/17 10/10/17 10/11/17 06:59 06:59 06:59 Intake Total 3077 3185 400 Output Total 800 1695 825 Balance 2277 1490 -425 Weight 81.1 kg 79.6 kg General appearance: PRESENT: no acute distress, cooperative, thin, well- nourished Head exam: PRESENT: atraumatic, normocephalic Eye exam: PRESENT: EOMI, PERRLA Ear exam: PRESENT: TM's normal bilaterally Mouth exam: PRESENT: neck supple Neck exam: PRESENT: full ROM Respiratory exam: PRESENT: decreased breath sounds, symmetrical Cardiovascular exam: PRESENT: +S1, +S2 Pulses: PRESENT: +1 pedal pulses bilateral GI/Abdominal exam: PRESENT: normal bowel sounds, soft Rectal exam: PRESENT: deferred Neurological exam: PRESENT: alert, awake, oriented to person, oriented to place , oriented to time Psychiatric exam: PRESENT: normal mood Results Laboratory Results: 10/10/17 05:40 10/10/17 05:40 10/09/17 10/10/17 10/10/17 22:00 05:40 05:40 WBC 11.7 H RBC 2.56 L Hgb 8.4 L Hct 24.3 L MCV 95 MCH 32.7 MCHC 34.4 RDW 21.3 H Plt Count 101 L Seg Neutrophils % 70.7 Lymphocytes % 15.4 Monocytes % 10.8 Eosinophils % 1.5 Basophils % 1.6 Absolute Neutrophils 8.3 H Absolute Lymphocytes 1.8 Absolute Monocytes 1.3 Absolute Eosinophils 0.2 Absolute Basophils 0.2 Sodium 138.9 Potassium 3.4 L Chloride 107 Carbon Dioxide 25 Anion Gap 7 BUN 15 Creatinine 0.99 0.88 Est GFR ( Amer) > 60 > 60 Est GFR (Non-Af Amer) > 60 > 60 Glucose 84 Calcium 8.4 Total Bilirubin 3.5 H AST 60 H ALT 48 Alkaline Phosphatase 159 H Total Protein 5.6 L Albumin 2.2 L 09/27/17 09/27/17 09/27/17 15:20 15:20 15:20 Creatine Kinase 95 CK-MB (CK-2) 0.80 Troponin I 0.028 NT-Pro-B Natriuret Pep 438 426 09/28/17 09/28/17 09/28/17 08:40 08:40 08:40 Creatine Kinase 64 CK-MB (CK-2) 0.47 Troponin I < 0.012 NT-Pro-B Natriuret Pep 09/29/17 10/01/17 05:05 05:30 Creatine Kinase CK-MB (CK-2) 0.57 Troponin I < 0.012 NT-Pro-B Natriuret Pep 612 Impressions: Abdomen Ultrasound 09/27/17 12:07 IMPRESSION: For visualization of the liver and hepatic vessels. Heterogeneous appearance. Fatty infiltration/ cirrhosis. KUB X-Ray 09/28/17 15:16 IMPRESSION: NG tube with its tip in the left upper quadrant presumably in the proximal stomach. Other findings as noted above Chest X-Ray 10/07/17 00:00 IMPRESSION: Slightly worsening basilar aeration, suspect effusions and volume loss with mild vascular congestion. Assessment & Plan - Diagnosis (1) Acute respiratory failure Qualifiers: Respiratory failure complication: hypoxia Qualified Code(s): J96.01 - Acute respiratory failure with hypoxia Is this a current diagnosis for this admission?: Yes Plan: He has septicemia secondary to Staph. epidermidis .Ct with Oxygen by N/C 2 L/ Min to keep saturation > 92%. Pt has completed 10-14 days course of Vancomycin and Zosyn. (2) Acute hepatic encephalopathy Is this a current diagnosis for this admission?: Yes Plan: Ct with Lactulose 20g daily po; monitor ammonia level daily. (3) Gastrointestinal hemorrhage Qualifiers: Gastritis type: alcoholic Is this a current diagnosis for this admission?: Yes Plan: Ct with Protonix IV; Transfused a total of 7 units of PRBC and give Lasix 20 mg IV after each unit of PRBC; Ct with 2 g sodium diet. F/U GI, Dr Barillas. (4) Acute blood loss anemia Is this a current diagnosis for this admission?: Yes Plan: The acute blodd loss anemia is due to GI bleed secondary to alcoholic gastritis. Pt has received a total of 7 units of PRBC and Lasix 20 mg IV given each unit of PRBC. Continue to monitor CBC daily. (5) Alcohol withdrawal delirium Is this a current diagnosis for this admission?: Yes Plan: Ativan 1 mg q2h IV prn; 2 hourly neurochecks; soft restraints. (6) Hypokalemia Is this a current diagnosis for this admission?: Yes Plan: He was given another 1 dose of KCL 20 MEQ IV today. So pt has received a total of KCL 20 MEQ IV [id number]. We added KCL 10 MEQ qd po.Monitor chemistries daily. (7) Hypomagnesemia Is this a current diagnosis for this admission?: Yes Plan: Resolved.Pt was given Mg sulfate 4 G IV. He received another 2 g IV Mg sulfate today. Monitor mg level prn. (8) Acute hypernatremia Is this a current diagnosis for this admission?: Yes Plan: Resolved. Monitor chemistries daily. (9) Hypertension Qualifiers: Hypertension type: essential hypertension Qualified Code(s): I10 - Essential (primary) hypertension Is this a current diagnosis for this admission?: Yes Plan: Hold Coreg 6.25 mg BID PO due to hypotension; 2 g sodium diet.. (10) Hyperlipidemia Qualifiers: Hyperlipidemia type: mixed hyperlipidemia Qualified Code(s): E78.2 - Mixed hyperlipidemia Is this a current diagnosis for this admission?: Yes Plan: Simvasatin 20 mg qhs po ; 200 mg cholesterol diet.. (11) COPD (chronic obstructive pulmonary disease) Qualifiers: COPD type: unspecified COPD Qualified Code(s): J44.9 - Chronic obstructive pulmonary disease, unspecified Is this a current diagnosis for this admission?: Yes Plan: Duonebs q6h prn; Advair 250/50 1 puff BID. Oxygen by N/C 2 L/min to keep saturation>92%. (12) BPH (benign prostatic hyperplasia) Is this a current diagnosis for this admission?: Yes Plan: Ct with Flomax 0.4 mg qd po. (13) Alcoholic cirrhosis of liver Qualifiers: Ascites presence: with ascites Qualified Code(s): K70.31 - Alcoholic cirrhosis of liver with ascites Is this a current diagnosis for this admission?: Yes Plan: Restart spironolactone 50 mg qd po and Lasix 20 mg qd po.Strict input/out put chart; daily weight; monitor chemistries daily. (14) Depression Is this a current diagnosis for this admission?: Yes Plan: Ct with Celexa 20 mg qd po. (15) Osteoarthritis Is this a current diagnosis for this admission?: Yes Plan: Ct with Oxycodone 5 mg TID prn po. (16) DVT prophylaxis Is this a current diagnosis for this admission?: Yes Plan: Ct with SCD; Hold Lovenox due to GI bleed.
[2017-10-10] MEDS ORDERED: POTASSI CL 20 MEQ/50 ML RIDER 20 MEQ/50 ML RTUPB IV ONE (15:00)
[2017-10-10] MEDS: ZOLPIDEM TARTRATE 5 MG TABLET PO PRN (23:51)
[2017-10-11 05:36] LABS: ALANINE AMINOTRANSFERASE 46 U/L (21-72); ALBUMIN 2.3 g/dL (3.5-5.0); ALKALINE PHOSPHATASE 164 U/L (38-126); ANION GAP 6 (5-19); ASPARTATE AMINO TRANSFERASE 61 U/L (17-59); BILIRUBIN,DIRECT 1.1 mg/dL (0.0-0.4); BILIRUBIN,TOTAL 3.3 mg/dL (0.2-1.3); BLOOD UREA NITROGEN 13 mg/dL (7-20); CALCIUM 8.5 mg/dL (8.4-10.2); CARBON DIOXIDE 30 mmol/L (22-30); CHLORIDE 103 mmol/L (98-107); GLUCOSE 75 mg/dL (75-110); POTASSIUM 3.5 mmol/L (3.6-5.0); SODIUM 138.5 mmol/L (137-145); TOTAL PROTEIN 5.9 g/dL (6.3-8.2)
[2017-10-11] MEDS: LANSOPRAZOLE 30 MG TAB.RAP.DR PO SCH ×2 (05:45→17:21)
[2017-10-11 05:52] LABS: ABSOLUTE BASOPHILS # (AUTO) 0.1 10^3/uL (0.0-0.2); ABSOLUTE EOSINOPHILS # (AUTO) 0.2 10^3/uL (0.0-0.6); ABSOLUTE LYMPHOCYTES (AUTO) 1.7 10^3/uL (0.5-4.7); ABSOLUTE MONOCYTES (AUTO) 1.3 10^3/uL (0.1-1.4); ABSOLUTE NEUT (AUTO) 6.3 10^3/uL (1.7-8.2); BASOPHILS % (AUTO) 1.1 % (0-2); EOSINOPHILS % (AUTO) 1.8 % (0-6); HEMATOCRIT 24.7 % (37.9-51.0); HEMOGLOBIN 8.6 g/dL (13.5-17.0); MEAN CORPUSCULAR HEMOGLOBIN 33.1 pg (27.0-33.4); MEAN CORPUSCULAR HGB CONC 34.8 g/dL (32.0-36.0); MEAN CORPUSCULAR VOLUME 95 fl (80-97); MONOCYTES % (AUTO) 13.4 % (3-13); PLATELET COUNT 102 10^3/uL (150-450); RED CELL DISTRIBUTION WIDTH 21.5 % (11.5-14.0); SEGMENTED NEUTROPHILS % (AUTO) 65.7 % (42-78); TOTAL CELLS COUNTED % (AUTO) 100 %; WHITE BLOOD COUNT 9.6 10^3/uL (4.0-10.5)
[2017-10-11] MEDS: ACETYLCYSTEINE 20% SOLN 800 MG/4 ML VIAL.NEB NEB SCH (08:09)
[2017-10-11 09:10] LABS: ANION GAP 5 (5-19); BLOOD UREA NITROGEN 13 mg/dL (7-20); CALCIUM 8.6 mg/dL (8.4-10.2); CARBON DIOXIDE 31 mmol/L (22-30); CHLORIDE 103 mmol/L (98-107); GLUCOSE 83 mg/dL (75-110); POTASSIUM 3.6 mmol/L (3.6-5.0); SODIUM 138.5 mmol/L (137-145)
[2017-10-11] MEDS: POTASSIUM CHLORIDE 10 MEQ TABLET.SA PO SCH (11:36)
[2017-10-11] MEDS: TAMSULOSIN HCL 0.4 MG CAP.SR.24H PO SCH (11:36)
[2017-10-11] MEDS: MULTIVITAMIN TABLET PO SCH (11:36)
[2017-10-11] MEDS: SPIRONOLACTONE 25 MG TABLET PO SCH (11:36)
[2017-10-11] MEDS: CARVEDILOL 6.25 MG TABLET PO SCH ×2 (11:37→21:12)
[2017-10-11] MEDS: CITALOPRAM HYDROBROMIDE 20 MG TABLET PO SCH (11:37)
[2017-10-11] MEDS: THIAMINE HCL 100 MG TABLET PO SCH (11:37)
[2017-10-11] MEDS: FUROSEMIDE 20 MG TABLET PO SCH (11:37)
[2017-10-11] MEDS: FLUTICASONE/SALMETEROL DISKUS 250-50 MCG/DOSE IH SCH ×2 (11:38→17:21)
[2017-10-11] MEDS: NICOTINE 21 MG/24 HR PATCH.TD24 TD SCH (11:38)
[2017-10-11] MEDS: OXYCODONE HCL IR 5 MG TABLET PO PRN (11:41)
--- NOTE | 2017-10-11 13:00 | PDOC PROGRESS REPORT ---
Subjective Progress Note for:: 10/11/17 Subjective:: Pt is still progressing gradually with PT/OT. The plan for discharge home with home PT/OT when he is safe to do so, since he does not want SNF placement. Reason For Visit: GI BLEED ETOH WITHDRAWAL Physical Exam Vital Signs: Temp Pulse Resp BP Pulse Ox 97.7 F 70 16 99/51 L 92 10/11/17 10:32 10/11/17 10:32 10/11/17 10:32 10/11/17 10:32 10/11/17 10:32 Intake & Output 10/10/17 10/11/17 10/12/17 06:59 06:59 06:59 Intake Total 3185 1498 Output Total 1695 2600 550 Balance 1490 -1102 -550 Weight 79.6 kg 77.6 kg General appearance: PRESENT: no acute distress, cooperative, thin, well- nourished Head exam: PRESENT: atraumatic, normocephalic Eye exam: PRESENT: EOMI, PERRLA Ear exam: PRESENT: normal external ear exam, TM's normal bilaterally Mouth exam: PRESENT: neck supple, tongue midline Respiratory exam: PRESENT: decreased breath sounds, symmetrical Cardiovascular exam: PRESENT: +S1, +S2 Pulses: PRESENT: +1 pedal pulses bilateral Vascular exam: PRESENT: pallor GI/Abdominal exam: PRESENT: normal bowel sounds, soft Rectal exam: PRESENT: deferred Neurological exam: PRESENT: alert, awake, oriented to person, oriented to place , oriented to time Psychiatric exam: PRESENT: normal mood Results Laboratory Results: 10/11/17 04:34 10/11/17 08:15 10/11/17 10/11/17 10/11/17 04:34 04:34 08:15 WBC 9.6 RBC 2.60 L Hgb 8.6 L Hct 24.7 L MCV 95 MCH 33.1 MCHC 34.8 RDW 21.5 H Plt Count 102 L Seg Neutrophils % 65.7 Lymphocytes % 18.0 Monocytes % 13.4 H Eosinophils % 1.8 Basophils % 1.1 Absolute Neutrophils 6.3 Absolute Lymphocytes 1.7 Absolute Monocytes 1.3 Absolute Eosinophils 0.2 Absolute Basophils 0.1 Sodium 138.5 138.5 Potassium 3.5 L 3.6 Chloride 103 103 Carbon Dioxide 30 31 H Anion Gap 6 5 BUN 13 13 Creatinine 0.88 0.79 Est GFR ( Amer) > 60 > 60 Est GFR (Non-Af Amer) > 60 > 60 Glucose 75 83 Calcium 8.5 8.6 Total Bilirubin 3.3 H AST 61 H ALT 46 Alkaline Phosphatase 164 H Total Protein 5.9 L Albumin 2.3 L 09/27/17 09/27/17 09/27/17 15:20 15:20 15:20 Creatine Kinase 95 CK-MB (CK-2) 0.80 Troponin I 0.028 NT-Pro-B Natriuret Pep 438 426 09/28/17 09/28/17 09/28/17 08:40 08:40 08:40 Creatine Kinase 64 CK-MB (CK-2) 0.47 Troponin I < 0.012 NT-Pro-B Natriuret Pep 09/29/17 10/01/17 05:05 05:30 Creatine Kinase CK-MB (CK-2) 0.57 Troponin I < 0.012 NT-Pro-B Natriuret Pep 612 Impressions: Abdomen Ultrasound 09/27/17 12:07 IMPRESSION: For visualization of the liver and hepatic vessels. Heterogeneous appearance. Fatty infiltration/ cirrhosis. KUB X-Ray 09/28/17 15:16 IMPRESSION: NG tube with its tip in the left upper quadrant presumably in the proximal stomach. Other findings as noted above Chest X-Ray 10/07/17 00:00 IMPRESSION: Slightly worsening basilar aeration, suspect effusions and volume loss with mild vascular congestion. Assessment & Plan - Diagnosis (1) Acute respiratory failure Qualifiers: Respiratory failure complication: hypoxia Qualified Code(s): J96.01 - Acute respiratory failure with hypoxia Is this a current diagnosis for this admission?: Yes Plan: He has septicemia secondary to Staph. epidermidis .Ct with Oxygen by N/C 2 L/ Min to keep saturation > 92%. Pt has completed 10-14 days course of Vancomycin and Zosyn. (2) Acute hepatic encephalopathy Is this a current diagnosis for this admission?: Yes Plan: Hold Lactulose 20g daily po for now; monitor ammonia level every other day. (3) Gastrointestinal hemorrhage Qualifiers: Gastritis type: alcoholic Is this a current diagnosis for this admission?: Yes Plan: Ct with Protonix IV; Transfused a total of 7 units of PRBC and give Lasix 20 mg IV after each unit of PRBC; Ct with 2 g sodium diet. F/U GI, Dr Barillas. (4) Acute blood loss anemia Is this a current diagnosis for this admission?: Yes Plan: The acute blodd loss anemia is due to GI bleed secondary to alcoholic gastritis. Pt has received a total of 7 units of PRBC and Lasix 20 mg IV given each unit of PRBC. Continue to monitor CBC daily. (5) Alcohol withdrawal delirium Is this a current diagnosis for this admission?: Yes Plan: Ativan 1 mg q2h IV prn; 2 hourly neurochecks; soft restraints. (6) Hypokalemia Is this a current diagnosis for this admission?: Yes Plan: He was given another 1 dose of KCL 20 MEQ IV today. So pt has received a total of KCL 20 MEQ IV q1uvzzo. We added KCL 10 MEQ qd po.Monitor chemistries daily. (7) Hypomagnesemia Is this a current diagnosis for this admission?: Yes Plan: Resolved.Pt was given Mg sulfate 4 G IV. He received another 2 g IV Mg sulfate today. Monitor mg level prn. (8) Acute hypernatremia Is this a current diagnosis for this admission?: Yes Plan: Resolved. Monitor chemistries daily. (9) Hypertension Qualifiers: Hypertension type: essential hypertension Qualified Code(s): I10 - Essential (primary) hypertension Is this a current diagnosis for this admission?: Yes Plan: Hold Coreg 6.25 mg BID PO due to hypotension; 2 g sodium diet.. (10) Hyperlipidemia Qualifiers: Hyperlipidemia type: mixed hyperlipidemia Qualified Code(s): E78.2 - Mixed hyperlipidemia Is this a current diagnosis for this admission?: Yes Plan: Simvasatin 20 mg qhs po ; 200 mg cholesterol diet.. (11) COPD (chronic obstructive pulmonary disease) Qualifiers: COPD type: unspecified COPD Qualified Code(s): J44.9 - Chronic obstructive pulmonary disease, unspecified Is this a current diagnosis for this admission?: Yes Plan: Duonebs q6h prn; Advair 250/50 1 puff BID. Oxygen by N/C 2 L/min to keep saturation>92%. (12) BPH (benign prostatic hyperplasia) Is this a current diagnosis for this admission?: Yes Plan: Ct with Flomax 0.4 mg qd po. (13) Alcoholic cirrhosis of liver Qualifiers: Ascites presence: with ascites Qualified Code(s): K70.31 - Alcoholic cirrhosis of liver with ascites Is this a current diagnosis for this admission?: Yes Plan: Restart spironolactone 50 mg qd po and Lasix 20 mg qd po.Strict input/out put chart; daily weight; monitor chemistries daily. (14) Depression Is this a current diagnosis for this admission?: Yes Plan: Ct with Celexa 20 mg qd po. (15) Osteoarthritis Is this a current diagnosis for this admission?: Yes Plan: Ct with Oxycodone 5 mg TID prn po. (16) DVT prophylaxis Is this a current diagnosis for this admission?: Yes Plan: Ct with SCD; Hold Lovenox due to GI bleed.
[2017-10-11] MEDS: ZOLPIDEM TARTRATE 5 MG TABLET PO PRN (21:12)
[2017-10-12 04:56] LABS: MEAN CORPUSCULAR VOLUME 95 fl (80-97)
[2017-10-12] MEDS: LANSOPRAZOLE 30 MG TAB.RAP.DR PO SCH ×2 (05:06→17:08)
[2017-10-12 05:07] LABS: ALANINE AMINOTRANSFERASE 47 U/L (21-72); ALBUMIN 2.4 g/dL (3.5-5.0); ALKALINE PHOSPHATASE 138 U/L (38-126); ANION GAP 5 (5-19); ASPARTATE AMINO TRANSFERASE 63 U/L (17-59); BILIRUBIN,DIRECT 1.1 mg/dL (0.0-0.4); BILIRUBIN,TOTAL 4.1 mg/dL (0.2-1.3); BLOOD UREA NITROGEN 14 mg/dL (7-20); CALCIUM 8.9 mg/dL (8.4-10.2); CARBON DIOXIDE 34 mmol/L (22-30); CHLORIDE 100 mmol/L (98-107); GLUCOSE 96 mg/dL (75-110); POTASSIUM 3.8 mmol/L (3.6-5.0); SODIUM 139.1 mmol/L (137-145); TOTAL PROTEIN 5.7 g/dL (6.3-8.2)
[2017-10-12 05:20] LABS: ABSOLUTE LYMPHOCYTES# (MANUAL) 1.8 10^3/uL (0.5-4.7); ABSOLUTE MONOCYTES # (MANUAL) 0.7 10^3/uL (0.1-1.4); ABSOLUTE NEUTROPHILS# (MANUAL) 7.7 10^3/uL (1.7-8.2); BAND NEUTROPHILS % (MANUAL) 2 % (3-5); BASOPHILS % (MANUAL) 0 % (0-2); EOSINOPHILS % (MANUAL) 0 % (0-6); LYMPHOCYTES % (MANUAL) 18 % (13-45); METAMYELOCYTES % (MANUAL) 1 % (0); MONOCYTES % (MANUAL) 7 % (3-13); SEGMENTED NEUTROPHILS % (MAN) 72 % (42-78); TOTAL CELLS COUNTED 100
[2017-10-12 05:23] LABS: ACANTHOCYTES 2+; ANISOCYTOSIS 3+; PLATELET COMMENT ADEQUATE; PLATELET GIANT PRESENT; PLATELET LARGE PRESENT; POIKILOCYTOSIS 1+; SCHISTOCYTES 1+; TEAR DROP CELLS SLIGHT; TOXIC GRANULATION 1+
[2017-10-12 05:24] LABS: HEMATOCRIT 24.8 % (37.9-51.0); HEMOGLOBIN 8.7 g/dL (13.5-17.0); MEAN CORPUSCULAR HEMOGLOBIN 33.4 pg (27.0-33.4); MEAN CORPUSCULAR HGB CONC 35.1 g/dL (32.0-36.0); PLATELET COUNT 104 10^3/uL (150-450); RED CELL DISTRIBUTION WIDTH 21.2 % (11.5-14.0); WHITE BLOOD COUNT 9.8 10^3/uL (4.0-10.5)
--- NOTE | 2017-10-12 09:40 | PDOC PROGRESS REPORT ---
Subjective Progress Note for:: 10/12/17 Subjective:: No new issues this morning. Reason For Visit: GI BLEED ETOH WITHDRAWAL Physical Exam Vital Signs: Temp Pulse Resp BP Pulse Ox 97.7 F 64 20 116/67 100 10/12/17 07:07 10/12/17 07:07 10/12/17 07:07 10/12/17 07:07 10/12/17 08:59 Intake & Output 10/11/17 10/12/17 10/13/17 06:59 06:59 06:59 Intake Total 1498 996 Output Total 2600 3120 Balance -1102 -212 Weight 77.6 kg 78.2 kg General appearance: PRESENT: no acute distress, thin Head exam: PRESENT: atraumatic, normocephalic Eye exam: PRESENT: conjunctiva pink, EOMI. ABSENT: scleral icterus Ear exam: PRESENT: normal external ear exam Mouth exam: PRESENT: moist, tongue midline Neck exam: ABSENT: carotid bruit, JVD, lymphadenopathy, thyromegaly Respiratory exam: PRESENT: clear to auscultation spike. ABSENT: rales, rhonchi, wheezes Cardiovascular exam: PRESENT: RRR. ABSENT: diastolic murmur, rubs, systolic murmur Pulses: PRESENT: normal dorsalis pedis pul Vascular exam: PRESENT: normal capillary refill GI/Abdominal exam: PRESENT: normal bowel sounds, soft. ABSENT: distended, guarding, mass, organolmegaly, rebound, tenderness Rectal exam: PRESENT: deferred Extremities exam: PRESENT: other - Bilateral lower extremity muscle wasting Musculoskeletal exam: PRESENT: other - Lateral lower extremity muscle wasting Neurological exam: PRESENT: alert, awake, oriented to person, oriented to place , oriented to time, oriented to situation, CN II-XII grossly intact. ABSENT: motor sensory deficit Psychiatric exam: PRESENT: appropriate affect, normal mood. ABSENT: homicidal ideation, suicidal ideation Skin exam: PRESENT: dry, intact, warm. ABSENT: cyanosis, rash Results Laboratory Results: 10/12/17 04:35 10/12/17 04:35 10/12/17 10/12/17 04:35 04:35 WBC 9.8 RBC 2.60 L Hgb 8.7 L Hct 24.8 L MCV 95 MCH 33.4 MCHC 35.1 RDW 21.2 H Plt Count 104 L Seg Neutrophils % Not Reportable Lymphocytes % Not Reportable Monocytes % Not Reportable Eosinophils % Not Reportable Basophils % Not Reportable Absolute Neutrophils Not Reportable Absolute Lymphocytes Not Reportable Absolute Monocytes Not Reportable Absolute Eosinophils Not Reportable Absolute Basophils Not Reportable Sodium 139.1 Potassium 3.8 Chloride 100 Carbon Dioxide 34 H Anion Gap 5 BUN 14 Creatinine 0.82 Est GFR ( Amer) > 60 Est GFR (Non-Af Amer) > 60 Glucose 96 Calcium 8.9 Total Bilirubin 4.1 H AST 63 H ALT 47 Alkaline Phosphatase 138 H Total Protein 5.7 L Albumin 2.4 L 09/27/17 09/27/17 09/27/17 15:20 15:20 15:20 Creatine Kinase 95 CK-MB (CK-2) 0.80 Troponin I 0.028 NT-Pro-B Natriuret Pep 438 426 09/28/17 09/28/17 09/28/17 08:40 08:40 08:40 Creatine Kinase 64 CK-MB (CK-2) 0.47 Troponin I < 0.012 NT-Pro-B Natriuret Pep 09/29/17 10/01/17 05:05 05:30 Creatine Kinase CK-MB (CK-2) 0.57 Troponin I < 0.012 NT-Pro-B Natriuret Pep 612 Impressions: Abdomen Ultrasound 09/27/17 12:07 IMPRESSION: For visualization of the liver and hepatic vessels. Heterogeneous appearance. Fatty infiltration/ cirrhosis. KUB X-Ray 09/28/17 15:16 IMPRESSION: NG tube with its tip in the left upper quadrant presumably in the proximal stomach. Other findings as noted above Chest X-Ray 10/07/17 00:00 IMPRESSION: Slightly worsening basilar aeration, suspect effusions and volume loss with mild vascular congestion. Assessment & Plan - Diagnosis (1) Acute blood loss anemia Is this a current diagnosis for this admission?: Yes Plan: Secondary to gastritis related to patient's EtOH abuse: Resolved patient will continue on PPI. (2) Acute hepatic encephalopathy Is this a current diagnosis for this admission?: Yes Plan: Secondary to EtOH abuse and elevated ammonia level: Resolved. Will continue to monitor patient. Will continue lactulose. (3) Acute hypernatremia Is this a current diagnosis for this admission?: Yes Plan: Secondary to dehydration: Resolved. (4) Acute respiratory failure Qualifiers: Respiratory failure complication: hypoxia Qualified Code(s): J96.01 - Acute respiratory failure with hypoxia Is this a current diagnosis for this admission?: Yes Plan: Secondary aspiration pneumonia and EtOH withdrawal: Resolved. Patient is doing well with no new issues. (5) Alcohol withdrawal delirium Is this a current diagnosis for this admission?: Yes Plan: Resolved. (6) Alcoholic cirrhosis of liver Qualifiers: Ascites presence: with ascites Qualified Code(s): K70.31 - Alcoholic cirrhosis of liver with ascites Is this a current diagnosis for this admission?: Yes Plan: Encourage patient to discontinue EtOH use. (7) Anemia Is this a current diagnosis for this admission?: Yes Plan: Secondary to EtOH abuse and acute on chronic GI bleed secondary to gastritis: We will continue to monitor. (8) Gastrointestinal hemorrhage Qualifiers: Gastritis type: alcoholic Is this a current diagnosis for this admission?: Yes Plan: Continue to gastritis: Patient underwent EGD by GI. Patient will continue on PPI (9) Aspiration pneumonia Is this a current diagnosis for this admission?: Yes Plan: Completed antibiotic treatment (10) DVT prophylaxis Is this a current diagnosis for this admission?: Yes Plan: SCDs - Time Time Spent with patient: Less than 15 minutes
[2017-10-12] MEDS: SPIRONOLACTONE 25 MG TABLET PO SCH (10:01)
[2017-10-12] MEDS: THIAMINE HCL 100 MG TABLET PO SCH (10:02)
[2017-10-12] MEDS: POTASSIUM CHLORIDE 10 MEQ TABLET.SA PO SCH (10:02)
[2017-10-12] MEDS: CARVEDILOL 6.25 MG TABLET PO SCH ×2 (10:02→21:57)
[2017-10-12] MEDS: CITALOPRAM HYDROBROMIDE 20 MG TABLET PO SCH (10:02)
[2017-10-12] MEDS: OXYCODONE HCL IR 5 MG TABLET PO PRN ×2 (10:02→22:03)
[2017-10-12] MEDS: TAMSULOSIN HCL 0.4 MG CAP.SR.24H PO SCH (10:03)
[2017-10-12] MEDS: FLUTICASONE/SALMETEROL DISKUS 250-50 MCG/DOSE IH SCH ×2 (10:03→17:08)
[2017-10-12] MEDS: LACTULOSE SYRUP 20 GM/30 ML UDCUP PO SCH ×2 (10:03→22:03)
[2017-10-12] MEDS: FUROSEMIDE 20 MG TABLET PO SCH (10:03)
[2017-10-12] MEDS: NICOTINE 21 MG/24 HR PATCH.TD24 TD SCH (10:03)
[2017-10-12] MEDS: MULTIVITAMIN TABLET PO SCH (10:03)
[2017-10-12] MEDS: NORMAL SALINE INJ/PF 0.9% 10 ML SDV IV PRN (22:03)
[2017-10-13] MEDS: ZOLPIDEM TARTRATE 5 MG TABLET PO PRN (00:52)
[2017-10-13] MEDS: NORMAL SALINE INJ/PF 0.9% 10 ML SDV IV PRN (04:58)
[2017-10-13] MEDS: LANSOPRAZOLE 30 MG TAB.RAP.DR PO SCH ×2 (04:58→19:03)
[2017-10-13 05:29] LABS: ABSOLUTE BASOPHILS # (AUTO) 0.2 10^3/uL (0.0-0.2); ABSOLUTE EOSINOPHILS # (AUTO) 0.1 10^3/uL (0.0-0.6); ABSOLUTE LYMPHOCYTES (AUTO) 1.9 10^3/uL (0.5-4.7); ABSOLUTE MONOCYTES (AUTO) 1.3 10^3/uL (0.1-1.4); ABSOLUTE NEUT (AUTO) 6.7 10^3/uL (1.7-8.2); BASOPHILS % (AUTO) 1.8 % (0-2); EOSINOPHILS % (AUTO) 1.1 % (0-6); HEMATOCRIT 23.4 % (37.9-51.0); HEMOGLOBIN 8.2 g/dL (13.5-17.0); LYMPHOCYTES % (AUTO) 18.7 % (13-45); MEAN CORPUSCULAR HEMOGLOBIN 33.2 pg (27.0-33.4); MEAN CORPUSCULAR HGB CONC 34.9 g/dL (32.0-36.0); MEAN CORPUSCULAR VOLUME 95 fl (80-97); MONOCYTES % (AUTO) 13.1 % (3-13); PLATELET COUNT 103 10^3/uL (150-450); RED BLOOD COUNT 2.46 10^6/uL (4.35-5.55); RED CELL DISTRIBUTION WIDTH 21.5 % (11.5-14.0); SEGMENTED NEUTROPHILS % (AUTO) 65.3 % (42-78); TOTAL CELLS COUNTED % (AUTO) 100 %; WHITE BLOOD COUNT 10.3 10^3/uL (4.0-10.5)
[2017-10-13 05:58] LABS: ALANINE AMINOTRANSFERASE 37 U/L (21-72); ALBUMIN 1.6 g/dL (3.5-5.0); ALKALINE PHOSPHATASE 143 U/L (38-126); ASPARTATE AMINO TRANSFERASE 45 U/L (17-59); BILIRUBIN,DIRECT 0.8 mg/dL (0.0-0.4); BILIRUBIN,TOTAL 1.8 mg/dL (0.2-1.3); BLOOD UREA NITROGEN 13 mg/dL (7-20); GLUCOSE 55 mg/dL (75-110); TOTAL PROTEIN 4.2 g/dL (6.3-8.2)
[2017-10-13 06:56] LABS: ANION GAP 4 (5-19); CHLORIDE 110 mmol/L (98-107); POTASSIUM 3.1 mmol/L (3.6-5.0)
[2017-10-13 06:57] LABS: CARBON DIOXIDE 26 mmol/L (22-30); SODIUM 140.4 mmol/L (137-145)
[2017-10-13 06:58] LABS: CALCIUM 6.1 mg/dL (8.4-10.2)
[2017-10-13] MEDS ORDERED: POTASSIUM CHLORIDE 10 MEQ TABLET.SA PO ONE (07:25)
[2017-10-13] MEDS ORDERED: CALCIUM GLUCONATE 1,000 MG in DEXTROSE 5%-WATER 50 ML IV ONE (07:27)
[2017-10-13] MEDS: MAGNESIUM SULFATE 1 GM/D5W 100 ML IV SCH ×2 (07:58→10:06)
[2017-10-13] MEDS: OXYCODONE HCL IR 5 MG TABLET PO PRN ×2 (08:00→19:03)
[2017-10-13] MEDS: POTASSI CL 20 MEQ/50 ML RIDER 20 MEQ/50 ML RTUPB IV SCH ×2 (08:01→10:01)
[2017-10-13] MEDS ORDERED: CALCIUM GLUCONATE 1000 MG/10 ML INJ IV ONE (08:30)
[2017-10-13] MEDS: MULTIVITAMIN TABLET PO SCH (09:54)
[2017-10-13] MEDS: FUROSEMIDE 20 MG TABLET PO SCH (09:55)
[2017-10-13] MEDS: SPIRONOLACTONE 25 MG TABLET PO SCH (09:55)
[2017-10-13] MEDS: POTASSIUM CHLORIDE 10 MEQ TABLET.SA PO SCH (09:55)
[2017-10-13] MEDS: NICOTINE 21 MG/24 HR PATCH.TD24 TD SCH (09:56)
[2017-10-13] MEDS: CARVEDILOL 6.25 MG TABLET PO SCH (09:56)
[2017-10-13] MEDS: TAMSULOSIN HCL 0.4 MG CAP.SR.24H PO SCH (09:56)
[2017-10-13] MEDS: LACTULOSE SYRUP 20 GM/30 ML UDCUP PO SCH (09:56)
[2017-10-13] MEDS: MAGNESIUM SULFATE/D5W 1 GM/100 ML RTUPB IV SCH ×3 (09:57→11:56)
[2017-10-13] MEDS: THIAMINE HCL 100 MG TABLET PO SCH (09:58)
[2017-10-13] MEDS: CITALOPRAM HYDROBROMIDE 20 MG TABLET PO SCH (09:58)
[2017-10-13] MEDS: FLUTICASONE/SALMETEROL DISKUS 250-50 MCG/DOSE IH SCH ×2 (10:03→19:01)
--- NOTE | 2017-10-13 14:40 | PDOC PROGRESS REPORT ---
Subjective Progress Note for:: 10/13/17 Subjective:: Patient states that he wants to go home. Reason For Visit: GI BLEED ETOH WITHDRAWAL Physical Exam Vital Signs: Temp Pulse Resp BP Pulse Ox 98.6 F 73 18 95/55 L 92 10/13/17 11:28 10/13/17 11:28 10/13/17 11:28 10/13/17 11:28 10/13/17 11:28 Intake & Output 10/12/17 10/13/17 10/14/17 06:59 06:59 06:59 Intake Total 996 1621 350 Output Total 3120 1850 200 Balance -2124 -229 150 Weight 78.2 kg 80.2 kg General appearance: PRESENT: no acute distress, thin Head exam: PRESENT: atraumatic, normocephalic Eye exam: PRESENT: conjunctiva pink, EOMI. ABSENT: scleral icterus Ear exam: PRESENT: normal external ear exam Mouth exam: PRESENT: moist, tongue midline Neck exam: ABSENT: carotid bruit, JVD, lymphadenopathy, thyromegaly Respiratory exam: PRESENT: clear to auscultation spike. ABSENT: rales, rhonchi, wheezes Cardiovascular exam: PRESENT: RRR. ABSENT: diastolic murmur, rubs, systolic murmur Pulses: PRESENT: normal dorsalis pedis pul Vascular exam: PRESENT: normal capillary refill GI/Abdominal exam: PRESENT: normal bowel sounds, soft. ABSENT: distended, guarding, mass, organolmegaly, rebound, tenderness Rectal exam: PRESENT: deferred Extremities exam: ABSENT: calf tenderness, clubbing, pedal edema Neurological exam: PRESENT: alert, awake, oriented to person, oriented to place , oriented to time, oriented to situation, CN II-XII grossly intact. ABSENT: motor sensory deficit Psychiatric exam: PRESENT: appropriate affect, normal mood. ABSENT: homicidal ideation, suicidal ideation Skin exam: PRESENT: abrasion Results Laboratory Results: 10/13/17 05:00 10/13/17 05:00 10/13/17 10/13/17 10/13/17 05:00 05:00 05:00 WBC 10.3 RBC 2.46 L Hgb 8.2 L Hct 23.4 L MCV 95 MCH 33.2 MCHC 34.9 RDW 21.5 H Plt Count 103 L Seg Neutrophils % 65.3 Lymphocytes % 18.7 Monocytes % 13.1 H Eosinophils % 1.1 Basophils % 1.8 Absolute Neutrophils 6.7 Absolute Lymphocytes 1.9 Absolute Monocytes 1.3 Absolute Eosinophils 0.1 Absolute Basophils 0.2 Sodium Potassium Chloride Carbon Dioxide Anion Gap BUN Creatinine Est GFR ( Amer) Est GFR (Non-Af Amer) Glucose Calcium Magnesium 1.1 L* Total Bilirubin AST ALT Alkaline Phosphatase Ammonia Cancelled Total Protein Albumin 10/13/17 10/13/17 05:00 06:15 WBC RBC Hgb Hct MCV MCH MCHC RDW Plt Count Seg Neutrophils % Lymphocytes % Monocytes % Eosinophils % Basophils % Absolute Neutrophils Absolute Lymphocytes Absolute Monocytes Absolute Eosinophils Absolute Basophils Sodium 140.4 Potassium 3.1 L Chloride 110 H Carbon Dioxide 26 Anion Gap 4 L BUN 13 Creatinine 0.59 Est GFR ( Amer) > 60 Est GFR (Non-Af Amer) > 60 Glucose 55 L Calcium 6.1 L* Magnesium Total Bilirubin 1.8 H AST 45 ALT 37 Alkaline Phosphatase 143 H Ammonia 15.9 Total Protein 4.2 L Albumin 1.6 L 09/27/17 09/27/17 09/27/17 15:20 15:20 15:20 Creatine Kinase 95 CK-MB (CK-2) 0.80 Troponin I 0.028 NT-Pro-B Natriuret Pep 438 426 09/28/17 09/28/17 09/28/17 08:40 08:40 08:40 Creatine Kinase 64 CK-MB (CK-2) 0.47 Troponin I < 0.012 NT-Pro-B Natriuret Pep 09/29/17 10/01/17 05:05 05:30 Creatine Kinase CK-MB (CK-2) 0.57 Troponin I < 0.012 NT-Pro-B Natriuret Pep 612 Impressions: Abdomen Ultrasound 09/27/17 12:07 IMPRESSION: For visualization of the liver and hepatic vessels. Heterogeneous appearance. Fatty infiltration/ cirrhosis. KUB X-Ray 09/28/17 15:16 IMPRESSION: NG tube with its tip in the left upper quadrant presumably in the proximal stomach. Other findings as noted above Chest X-Ray 10/07/17 00:00 IMPRESSION: Slightly worsening basilar aeration, suspect effusions and volume loss with mild vascular congestion. Assessment & Plan - Diagnosis (1) Acute blood loss anemia Is this a current diagnosis for this admission?: Yes Plan: Secondary to gastritis related to patient's EtOH abuse: Resolved patient will continue on PPI. (2) Acute hepatic encephalopathy Is this a current diagnosis for this admission?: Yes Plan: Secondary to EtOH abuse and elevated ammonia level: Resolved. Will continue to monitor patient. Will continue lactulose. (3) Acute hypernatremia Is this a current diagnosis for this admission?: Yes Plan: Secondary to dehydration: Resolved. (4) Acute respiratory failure Qualifiers: Respiratory failure complication: hypoxia Qualified Code(s): J96.01 - Acute respiratory failure with hypoxia Is this a current diagnosis for this admission?: Yes (5) Alcohol withdrawal delirium Is this a current diagnosis for this admission?: Yes Plan: Resolved. (6) Alcoholic cirrhosis of liver Qualifiers: Ascites presence: with ascites Qualified Code(s): K70.31 - Alcoholic cirrhosis of liver with ascites Is this a current diagnosis for this admission?: Yes Plan: Encourage patient to discontinue EtOH use. (7) Anemia Is this a current diagnosis for this admission?: Yes Plan: Secondary to EtOH abuse and acute on chronic GI bleed secondary to gastritis: We will continue to monitor. (8) Gastrointestinal hemorrhage Qualifiers: Gastritis type: alcoholic Is this a current diagnosis for this admission?: Yes Plan: Continue to gastritis: Patient underwent EGD by GI. Patient will continue on PPI (9) Aspiration pneumonia Is this a current diagnosis for this admission?: Yes Plan: Completed antibiotic treatment (10) Hypokalemia Is this a current diagnosis for this admission?: Yes Plan: Pt given Potassium replacement. (11) Hypomagnesemia Is this a current diagnosis for this admission?: Yes Plan: Pt given magnesium replacement. (12) Hypocalcemia Is this a current diagnosis for this admission?: Yes Plan: Calcium Gluconate 1 gram. Will check CMP. (13) DVT prophylaxis Is this a current diagnosis for this admission?: Yes Plan: SCDs - Time Time Spent with patient: 15-24 minutes
[2017-10-14] MEDS: OXYCODONE HCL IR 5 MG TABLET PO PRN ×3 (03:24→18:32)
[2017-10-14 05:09] LABS: ABSOLUTE BASOPHILS # (AUTO) 0.1 10^3/uL (0.0-0.2); ABSOLUTE EOSINOPHILS # (AUTO) 0.1 10^3/uL (0.0-0.6); ABSOLUTE LYMPHOCYTES (AUTO) 1.7 10^3/uL (0.5-4.7); ABSOLUTE MONOCYTES (AUTO) 1.2 10^3/uL (0.1-1.4); ABSOLUTE NEUT (AUTO) 5.7 10^3/uL (1.7-8.2); BASOPHILS % (AUTO) 1.5 % (0-2); EOSINOPHILS % (AUTO) 1.2 % (0-6); HEMATOCRIT 23.3 % (37.9-51.0); HEMOGLOBIN 8.2 g/dL (13.5-17.0); LYMPHOCYTES % (AUTO) 19.5 % (13-45); MEAN CORPUSCULAR HEMOGLOBIN 33.3 pg (27.0-33.4); MEAN CORPUSCULAR HGB CONC 35.1 g/dL (32.0-36.0); MEAN CORPUSCULAR VOLUME 95 fl (80-97); MONOCYTES % (AUTO) 13.2 % (3-13); PLATELET COUNT 100 10^3/uL (150-450); RED BLOOD COUNT 2.45 10^6/uL (4.35-5.55); SEGMENTED NEUTROPHILS % (AUTO) 64.6 % (42-78); TOTAL CELLS COUNTED % (AUTO) 100 %; WHITE BLOOD COUNT 8.8 10^3/uL (4.0-10.5)
[2017-10-14 05:35] LABS: ALANINE AMINOTRANSFERASE 45 U/L (21-72); ALBUMIN 2.4 g/dL (3.5-5.0); ALKALINE PHOSPHATASE 196 U/L (38-126); ANION GAP 7 (5-19); ASPARTATE AMINO TRANSFERASE 67 U/L (17-59); BILIRUBIN,DIRECT 0.9 mg/dL (0.0-0.4); BLOOD UREA NITROGEN 18 mg/dL (7-20); CALCIUM 8.9 mg/dL (8.4-10.2); CARBON DIOXIDE 34 mmol/L (22-30); CHLORIDE 97 mmol/L (98-107); GLUCOSE 82 mg/dL (75-110); SODIUM 137.7 mmol/L (137-145); TOTAL PROTEIN 5.9 g/dL (6.3-8.2)
[2017-10-14 05:59] LABS: POTASSIUM 4.8 mmol/L (3.6-5.0)
[2017-10-14] MEDS: LANSOPRAZOLE 30 MG TAB.RAP.DR PO SCH ×2 (06:10→18:31)
[2017-10-14] MEDS: FLUTICASONE/SALMETEROL DISKUS 250-50 MCG/DOSE IH SCH ×2 (10:42→18:33)
[2017-10-14] MEDS: MULTIVITAMIN TABLET PO SCH (10:43)
[2017-10-14] MEDS: POTASSIUM CHLORIDE 10 MEQ TABLET.SA PO SCH (10:43)
[2017-10-14] MEDS: FUROSEMIDE 20 MG TABLET PO SCH (10:44)
[2017-10-14] MEDS: TAMSULOSIN HCL 0.4 MG CAP.SR.24H PO SCH (10:44)
[2017-10-14] MEDS: LACTULOSE SYRUP 20 GM/30 ML UDCUP PO SCH ×3 (10:45→23:09)
[2017-10-14] MEDS: NICOTINE 21 MG/24 HR PATCH.TD24 TD SCH (10:45)
[2017-10-14] MEDS: CITALOPRAM HYDROBROMIDE 20 MG TABLET PO SCH (10:46)
[2017-10-14] MEDS: THIAMINE HCL 100 MG TABLET PO SCH (10:46)
[2017-10-14] MEDS: MAGNESIUM SULFATE/D5W 1 GM/100 ML RTUPB IV SCH ×2 (10:49→12:23)
[2017-10-14] MEDS: CARVEDILOL 6.25 MG TABLET PO SCH ×3 (10:50→23:12)
[2017-10-14] MEDS: SPIRONOLACTONE 25 MG TABLET PO SCH (10:51)
--- NOTE | 2017-10-14 11:22 | PDOC PROGRESS REPORT ---
Subjective Progress Note for:: 10/14/17 Subjective:: No new issues. Reason For Visit: GI BLEED ETOH WITHDRAWAL Physical Exam Vital Signs: Temp Pulse Resp BP Pulse Ox 98.0 F 57 L 18 102/58 L 94 10/14/17 08:01 10/14/17 08:01 10/14/17 08:01 10/14/17 08:01 10/14/17 08:01 Intake & Output 10/13/17 10/14/17 10/15/17 06:59 06:59 06:59 Intake Total 1621 1580 Output Total 1850 2925 Balance -229 -1345 Weight 80.2 kg 80.9 kg General appearance: PRESENT: no acute distress, thin Head exam: PRESENT: atraumatic, normocephalic Eye exam: PRESENT: conjunctiva pink, EOMI. ABSENT: scleral icterus Ear exam: PRESENT: normal external ear exam Mouth exam: PRESENT: moist, tongue midline Neck exam: ABSENT: carotid bruit, JVD, lymphadenopathy, thyromegaly Respiratory exam: PRESENT: clear to auscultation spike. ABSENT: rales, rhonchi, wheezes Cardiovascular exam: PRESENT: RRR. ABSENT: diastolic murmur, rubs, systolic murmur Pulses: PRESENT: normal dorsalis pedis pul Vascular exam: PRESENT: normal capillary refill GI/Abdominal exam: PRESENT: normal bowel sounds, soft. ABSENT: distended, guarding, mass, organolmegaly, rebound, tenderness Rectal exam: PRESENT: deferred Extremities exam: ABSENT: calf tenderness, clubbing, pedal edema Musculoskeletal exam: PRESENT: full ROM Neurological exam: PRESENT: alert, awake, oriented to person, oriented to place , oriented to time, oriented to situation, CN II-XII grossly intact. ABSENT: motor sensory deficit Psychiatric exam: PRESENT: appropriate affect, normal mood. ABSENT: homicidal ideation, suicidal ideation Skin exam: PRESENT: dry, intact, warm. ABSENT: cyanosis, rash Results Laboratory Results: 10/14/17 04:35 10/14/17 04:35 10/14/17 10/14/17 04:35 04:35 WBC 8.8 RBC 2.45 L Hgb 8.2 L Hct 23.3 L MCV 95 MCH 33.3 MCHC 35.1 RDW 22.0 H Plt Count 100 L Seg Neutrophils % 64.6 Lymphocytes % 19.5 Monocytes % 13.2 H Eosinophils % 1.2 Basophils % 1.5 Absolute Neutrophils 5.7 Absolute Lymphocytes 1.7 Absolute Monocytes 1.2 Absolute Eosinophils 0.1 Absolute Basophils 0.1 Sodium 137.7 Potassium 4.8 D Chloride 97 L Carbon Dioxide 34 H Anion Gap 7 BUN 18 Creatinine 0.93 Est GFR ( Amer) > 60 Est GFR (Non-Af Amer) > 60 Glucose 82 Calcium 8.9 Magnesium 1.5 L Total Bilirubin 3.0 H AST 67 H ALT 45 Alkaline Phosphatase 196 H Total Protein 5.9 L Albumin 2.4 L 09/27/17 09/27/17 09/27/17 15:20 15:20 15:20 Creatine Kinase 95 CK-MB (CK-2) 0.80 Troponin I 0.028 NT-Pro-B Natriuret Pep 438 426 09/28/17 09/28/17 09/28/17 08:40 08:40 08:40 Creatine Kinase 64 CK-MB (CK-2) 0.47 Troponin I < 0.012 NT-Pro-B Natriuret Pep 09/29/17 10/01/17 05:05 05:30 Creatine Kinase CK-MB (CK-2) 0.57 Troponin I < 0.012 NT-Pro-B Natriuret Pep 612 Impressions: Abdomen Ultrasound 09/27/17 12:07 IMPRESSION: For visualization of the liver and hepatic vessels. Heterogeneous appearance. Fatty infiltration/ cirrhosis. KUB X-Ray 09/28/17 15:16 IMPRESSION: NG tube with its tip in the left upper quadrant presumably in the proximal stomach. Other findings as noted above Chest X-Ray 10/07/17 00:00 IMPRESSION: Slightly worsening basilar aeration, suspect effusions and volume loss with mild vascular congestion. Assessment & Plan - Diagnosis (1) Acute blood loss anemia Is this a current diagnosis for this admission?: Yes Plan: Secondary to gastritis related to patient's EtOH abuse: Resolved patient will continue on PPI. (2) Acute hepatic encephalopathy Is this a current diagnosis for this admission?: Yes Plan: Secondary to EtOH abuse and elevated ammonia level: Resolved. Will continue to monitor patient. Will continue lactulose. (3) Acute hypernatremia Is this a current diagnosis for this admission?: Yes Plan: Secondary to dehydration: Resolved. (4) Acute respiratory failure Qualifiers: Respiratory failure complication: hypoxia Qualified Code(s): J96.01 - Acute respiratory failure with hypoxia Is this a current diagnosis for this admission?: Yes Plan: Secondary aspiration pneumonia and EtOH withdrawal: Resolved. Patient is doing well with no new issues. (5) Alcohol withdrawal delirium Is this a current diagnosis for this admission?: Yes Plan: Resolved. (6) Alcoholic cirrhosis of liver Qualifiers: Ascites presence: with ascites Qualified Code(s): K70.31 - Alcoholic cirrhosis of liver with ascites Is this a current diagnosis for this admission?: Yes Plan: Encourage patient to discontinue EtOH use. (7) Anemia Is this a current diagnosis for this admission?: Yes Plan: Secondary to EtOH abuse and acute on chronic GI bleed secondary to gastritis: We will continue to monitor. (8) Gastrointestinal hemorrhage Qualifiers: Gastritis type: alcoholic Is this a current diagnosis for this admission?: Yes Plan: Continue to gastritis: Patient underwent EGD by GI. Patient will continue on PPI (9) Aspiration pneumonia Is this a current diagnosis for this admission?: Yes Plan: Completed antibiotic treatment (10) Hypokalemia Is this a current diagnosis for this admission?: Yes Plan: Resolved. (11) Hypomagnesemia Is this a current diagnosis for this admission?: Yes Plan: Will give magnesium replacement. Will check magnesium in am. (12) Hypocalcemia Is this a current diagnosis for this admission?: Yes Plan: resolved. (13) DVT prophylaxis Is this a current diagnosis for this admission?: Yes Plan: SCDs - Time Time Spent with patient: 15-24 minutes
--- NOTE | 2017-10-14 15:33 | PDOC PROGRESS REPORT ---
Subjective Progress Note for:: 09/28/17 Subjective:: intubated/sedated Reason For Visit: GI BLEED ETOH WITHDRAWAL Physical Exam Vital Signs: Temp Pulse Resp BP Pulse Ox 98.6 F 73 24 H 146/114 H 97 09/28/17 07:59 09/28/17 07:59 09/28/17 07:59 09/28/17 07:59 09/28/17 07:55 Intake & Output 09/27/17 09/28/17 09/29/17 06:59 06:59 06:59 Intake Total 2165 1118 315 Output Total 175 2930 900 Balance 1989 4437 -316 Weight 57.1 kg 62.5 kg General appearance: PRESENT: no acute distress, disheveled, well-developed Head exam: PRESENT: atraumatic, normocephalic Eye exam: PRESENT: conjunctiva pale. ABSENT: nystagmus, periorbital swelling, scleral icterus Mouth exam: PRESENT: dry mucosa, neck supple, tongue midline, other - ET Neck exam: ABSENT: carotid bruit, JVD, lymphadenopathy, thyromegaly, tracheal deviation, tracheostomy Respiratory exam: PRESENT: decreased breath sounds, prolonged expiratory phas, rales, rhonchi, symmetrical, unlabored, wheezes. ABSENT: retraction, stridor, tachypnea Cardiovascular exam: PRESENT: RRR, +S1, +S2, tachycardia Pulses: PRESENT: normal radial pulses GI/Abdominal exam: PRESENT: diminished bowel sounds, soft Extremities exam: ABSENT: calf tenderness, clubbing, joint swelling Musculoskeletal exam: PRESENT: deformity, dislocation Neurological exam: ABSENT: alert, awake, oriented to person Skin exam: PRESENT: dry, warm Results Laboratory Results: 09/27/17 19:00 09/27/17 15:20 09/27/17 09/27/17 09/27/17 08:10 12:41 12:50 WBC RBC Hgb Hct MCV MCH MCHC RDW Plt Count Seg Neutrophils % Lymphocytes % Monocytes % Eosinophils % Basophils % Absolute Neutrophils Absolute Lymphocytes Absolute Monocytes Absolute Eosinophils Absolute Basophils Carbonic Acid 1.23 HCO3/H2CO3 Ratio 23:1 ABG pH 7.46 H ABG pCO2 41.0 ABG pO2 92.5 ABG HCO3 28.7 H ABG O2 Saturation 97.4 ABG Base Excess 4.5 FiO2 4L Sodium Potassium Chloride Carbon Dioxide Anion Gap BUN Creatinine Est GFR ( Amer) Est GFR (Non-Af Amer) Glucose Lactic Acid Calcium Ammonia 136.3 H Urine Color YELLOW Urine Appearance CLEAR Urine pH 6.0 Ur Specific [place] 1.015 Urine Protein NEGATIVE Urine Glucose (UA) 150 H Urine Ketones NEGATIVE Urine Blood LARGE H Urine Nitrite NEGATIVE Ur Leukocyte Esterase NEGATIVE Urine WBC (Auto) 11 Urine RBC (Auto) 53 09/27/17 09/27/17 09/27/17 12:50 15:20 15:20 WBC RBC Hgb Hct MCV MCH MCHC RDW Plt Count Seg Neutrophils % Lymphocytes % Monocytes % Eosinophils % Basophils % Absolute Neutrophils Absolute Lymphocytes Absolute Monocytes Absolute Eosinophils Absolute Basophils Carbonic Acid 1.11 HCO3/H2CO3 Ratio 21:1 ABG pH 7.44 ABG pCO2 36.8 ABG pO2 77.9 L ABG HCO3 24.4 ABG O2 Saturation 96.0 ABG Base Excess 0.2 FiO2 40% Sodium Cancelled Potassium Cancelled Chloride Cancelled Carbon Dioxide Cancelled Anion Gap Cancelled BUN Cancelled Creatinine Cancelled Est GFR ( Amer) Cancelled Est GFR (Non-Af Amer) Cancelled Glucose Cancelled Lactic Acid 4.4 H Calcium Cancelled Ammonia Urine Color Urine Appearance Urine pH Ur Specific [place] Urine Protein Urine Glucose (UA) Urine Ketones Urine Blood Urine Nitrite Ur Leukocyte Esterase Urine WBC (Auto) Urine RBC (Auto) 09/27/17 09/27/17 15:20 19:00 WBC 16.0 H RBC 2.12 L Hgb 6.9 L Hct 20.0 L MCV 94 MCH 32.7 MCHC 34.7 RDW 21.0 H Plt Count 86 L Seg Neutrophils % 75.0 Lymphocytes % 7.5 L Monocytes % 13.9 H Eosinophils % 0.5 Basophils % 3.1 H Absolute Neutrophils 12.0 H Absolute Lymphocytes 1.2 Absolute Monocytes 2.2 H Absolute Eosinophils 0.1 Absolute Basophils 0.5 H Carbonic Acid HCO3/H2CO3 Ratio ABG pH ABG pCO2 ABG pO2 ABG HCO3 ABG O2 Saturation ABG Base Excess FiO2 Sodium 146.1 H Potassium 2.7 L* Chloride 109 H Carbon Dioxide 25 Anion Gap 12 BUN 56 H Creatinine 1.36 H Est GFR ( Amer) > 60 Est GFR (Non-Af Amer) 54 L Glucose 111 H Lactic Acid Calcium 7.5 L Ammonia Urine Color Urine Appearance Urine pH Ur Specific [place] Urine Protein Urine Glucose (UA) Urine Ketones Urine Blood Urine Nitrite Ur Leukocyte Esterase Urine WBC (Auto) Urine RBC (Auto) 09/27/17 09/27/17 09/27/17 15:20 15:20 15:20 Creatine Kinase 95 CK-MB (CK-2) 0.80 Troponin I 0.028 NT-Pro-B Natriuret Pep 438 426 Impressions: Abdomen Ultrasound 09/27/17 12:07 IMPRESSION: For visualization of the liver and hepatic vessels. Heterogeneous appearance. Fatty infiltration/ cirrhosis. Chest X-Ray 09/28/17 06:00 IMPRESSION: 1. Stable appearance of the chest. 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 (5) Alcohol withdrawal seizure Qualifiers: Complication of substance-induced condition: uncomplicated Qualified Code(s ): F10.230 - Alcohol dependence with withdrawal, uncomplicated Is this a current diagnosis for this admission?: Yes Plan: DVT prophylaxsis (6) Anxiety disorder Is this a current diagnosis for this admission?: Yes Plan: DVT prophylaxsis (7) Acute respiratory failure Qualifiers: Respiratory failure complication: hypoxia Qualified Code(s): J96.01 - Acute respiratory failure with hypoxia Is this a current diagnosis for this admission?: Yes Plan: pna (8) Aspiration pneumonia Is this a current diagnosis for this admission?: Yes Plan: due to ETOH (9) COPD (chronic obstructive pulmonary disease) Qualifiers: COPD type: unspecified COPD Qualified Code(s): J44.9 - Chronic obstructive pulmonary disease, unspecified Is this a current diagnosis for this admission?: Yes Plan: tobacco abuse Generic Name Dose Route Start Last Admin Trade Name Freq PRN Reason Stop Dose Admin Albuterol/Ipratropium 3 ml 09/25/17 23:01 10/07/17 20:22 Duoneb 3 Ml Ampul NEB 10/25/17 23:00 3 ml [id number] PRN SHORTNESS OF BREATH/WHEEZING - Time Total Critical Time (Minutes): 40
--- NOTE | 2017-10-14 15:36 | PDOC PROGRESS REPORT ---
Subjective Progress Note for:: 09/29/17 Subjective:: intubated/sedated Reason For Visit: GI BLEED ETOH WITHDRAWAL Physical Exam Vital Signs: Temp Pulse Resp BP Pulse Ox 97.9 F 86 12 108/55 L 100 10/01/17 05:01 10/01/17 08:00 10/01/17 08:17 10/01/17 08:17 10/01/17 08:17 Intake & Output 09/30/17 10/01/17 10/02/17 06:59 06:59 06:59 Intake Total 4425 3690 Output Total 1025 3655 150 Balance 3400 35 -150 Weight 67 kg 67 kg General appearance: PRESENT: no acute distress, disheveled, well-developed. ABSENT: cooperative Head exam: PRESENT: atraumatic, normocephalic Eye exam: PRESENT: conjunctiva pale. ABSENT: nystagmus, periorbital swelling, scleral icterus Mouth exam: PRESENT: dry mucosa, neck supple, tongue midline, other - ET tube Neck exam: ABSENT: carotid bruit, JVD, lymphadenopathy, thyromegaly, tracheal deviation, tracheostomy Respiratory exam: PRESENT: decreased breath sounds, prolonged expiratory phas, rhonchi, symmetrical, tachypnea, unlabored, wheezes. ABSENT: rales, retraction , stridor Cardiovascular exam: PRESENT: RRR, +S1, +S2, tachycardia Pulses: PRESENT: normal radial pulses GI/Abdominal exam: PRESENT: diminished bowel sounds, soft Extremities exam: ABSENT: calf tenderness, clubbing, joint swelling Musculoskeletal exam: ABSENT: deformity, dislocation Neurological exam: ABSENT: alert, awake, oriented to person Skin exam: PRESENT: dry, warm Results Laboratory Results: 10/01/17 05:30 10/01/17 05:30 09/30/17 09/30/17 10/01/17 14:38 19:55 05:30 WBC RBC Hgb Hct MCV MCH MCHC RDW Plt Count Seg Neutrophils % Lymphocytes % Monocytes % Eosinophils % Basophils % Absolute Neutrophils Absolute Lymphocytes Absolute Monocytes Absolute Eosinophils Absolute Basophils Carbonic Acid HCO3/H2CO3 Ratio ABG pH ABG pCO2 ABG pO2 ABG HCO3 ABG O2 Saturation ABG Base Excess FiO2 Sodium 134.5 L Potassium 3.6 Chloride 104 Carbon Dioxide 24 Anion Gap 7 BUN 15 Creatinine 0.75 Est GFR ( Amer) > 60 Est GFR (Non-Af Amer) > 60 Glucose 131 H Calcium 8.2 L Phosphorus Magnesium 1.5 L 1.7 Total Bilirubin AST ALT Alkaline Phosphatase Ammonia 25.3 Total Protein Albumin Triglycerides 10/01/17 10/01/17 10/01/17 05:30 05:30 05:30 WBC 15.3 H RBC 2.77 L Hgb 8.8 L Hct 25.3 L MCV 91 MCH 31.8 MCHC 34.9 RDW 21.8 H Plt Count 98 L Seg Neutrophils % 67.9 Lymphocytes % 13.2 Monocytes % 16.2 H Eosinophils % 1.5 Basophils % 1.2 Absolute Neutrophils 10.4 H Absolute Lymphocytes 2.0 Absolute Monocytes 2.5 H Absolute Eosinophils 0.2 Absolute Basophils 0.2 Carbonic Acid 1.19 HCO3/H2CO3 Ratio 21:1 ABG pH 7.43 ABG pCO2 39.5 ABG pO2 75.6 L ABG HCO3 25.7 ABG O2 Saturation 95.6 ABG Base Excess 1.4 FiO2 30% Sodium 133.9 L Potassium 3.5 L Chloride 104 Carbon Dioxide 24 Anion Gap 6 BUN 13 Creatinine 0.77 Est GFR ( Amer) > 60 Est GFR (Non-Af Amer) > 60 Glucose 133 H Calcium 8.2 L Phosphorus 3.4 Magnesium 1.5 L Total Bilirubin 4.3 H AST 67 H ALT 48 Alkaline Phosphatase 148 H Ammonia Total Protein 5.8 L Albumin 2.3 L Triglycerides 56 09/25/17 19:40 Blood Blood Culture - Final NO GROWTH IN 5 DAYS 09/28/17 15:45 Tracheal Aspirate Gram Stain - Final 09/28/17 15:45 Tracheal Aspirate Sputum Culture - Final GREATLY REDUCED NORMAL TRAM 09/27/17 09/27/17 09/27/17 15:20 15:20 15:20 Creatine Kinase 95 CK-MB (CK-2) 0.80 Troponin I 0.028 NT-Pro-B Natriuret Pep 438 426 09/28/17 09/28/17 09/28/17 08:40 08:40 08:40 Creatine Kinase 64 CK-MB (CK-2) 0.47 Troponin I < 0.012 NT-Pro-B Natriuret Pep 09/29/17 10/01/17 05:05 05:30 Creatine Kinase CK-MB (CK-2) 0.57 Troponin I < 0.012 NT-Pro-B Natriuret Pep 612 Impressions: Abdomen Ultrasound 09/27/17 12:07 IMPRESSION: For visualization of the liver and hepatic vessels. Heterogeneous appearance. Fatty infiltration/ cirrhosis. KUB X-Ray 09/28/17 15:16 IMPRESSION: NG tube with its tip in the left upper quadrant presumably in the proximal stomach. Other findings as noted above Chest X-Ray 10/01/17 06:00 IMPRESSION: IMPROVED AERATION IN THE RIGHT LUNG BASE. 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 (5) Alcohol withdrawal seizure Qualifiers: Complication of substance-induced condition: uncomplicated Qualified Code(s ): F10.230 - Alcohol dependence with withdrawal, uncomplicated Is this a current diagnosis for this admission?: Yes Plan: DVT prophylaxsis (6) Anxiety disorder Is this a current diagnosis for this admission?: Yes Plan: DVT prophylaxsis (7) Acute respiratory failure Qualifiers: Respiratory failure complication: hypoxia Qualified Code(s): J96.01 - Acute respiratory failure with hypoxia Is this a current diagnosis for this admission?: Yes Plan: pna (8) Aspiration pneumonia Is this a current diagnosis for this admission?: Yes Plan: due to ETOH (9) COPD (chronic obstructive pulmonary disease) Qualifiers: COPD type: unspecified COPD Qualified Code(s): J44.9 - Chronic obstructive pulmonary disease, unspecified Is this a current diagnosis for this admission?: Yes Plan: tobacco abuse Generic Name Dose Route Start Last Admin Trade Name Freq PRN Reason Stop Dose Admin Albuterol/Ipratropium 3 ml 09/25/17 23:01 10/07/17 20:22 Duoneb 3 Ml Ampul NEB 10/25/17 23:00 3 ml [id number] PRN SHORTNESS OF BREATH/WHEEZING - Time Total Critical Time (Minutes): 40
--- NOTE | 2017-10-14 15:40 | PDOC PROGRESS REPORT ---
Subjective Progress Note for:: 09/30/17 Subjective:: intubated/sedated Reason For Visit: GI BLEED ETOH WITHDRAWAL Physical Exam Vital Signs: Temp Pulse Resp BP Pulse Ox 97.7 F 64 10 L 97/64 L 97 09/30/17 12:00 09/30/17 08:00 09/30/17 11:01 09/30/17 11:01 09/30/17 11:41 Intake & Output 09/29/17 09/30/17 10/01/17 06:59 06:59 06:59 Intake Total 5977 4425 Output Total 3785 1025 1475 Balance 2192 3400 -1475 Weight 64.5 kg 67 kg General appearance: PRESENT: no acute distress, disheveled, well-developed. ABSENT: cooperative Head exam: PRESENT: atraumatic, normocephalic Eye exam: PRESENT: conjunctiva pale. ABSENT: nystagmus, periorbital swelling Mouth exam: PRESENT: dry mucosa, neck supple, tongue midline, other - ET tube Neck exam: ABSENT: carotid bruit, JVD, lymphadenopathy, thyromegaly, tracheal deviation, tracheostomy Respiratory exam: PRESENT: crackles, decreased breath sounds, prolonged expiratory phas, rhonchi, symmetrical, unlabored. ABSENT: rales, retraction, stridor, tachypnea Cardiovascular exam: PRESENT: RRR, +S1, +S2 Pulses: PRESENT: normal radial pulses GI/Abdominal exam: PRESENT: diminished bowel sounds, soft Extremities exam: ABSENT: calf tenderness, clubbing, joint swelling Musculoskeletal exam: ABSENT: deformity, dislocation Neurological exam: ABSENT: alert, awake, oriented to person Skin exam: PRESENT: dry, warm Results Laboratory Results: 09/30/17 05:55 09/30/17 05:55 09/29/17 09/30/17 09/30/17 15:13 05:55 05:55 WBC RBC Hgb Hct MCV MCH MCHC RDW Plt Count Seg Neutrophils % Lymphocytes % Monocytes % Eosinophils % Basophils % Absolute Neutrophils Absolute Lymphocytes Absolute Monocytes Absolute Eosinophils Absolute Basophils Carbonic Acid 1.25 HCO3/H2CO3 Ratio 19:1 ABG pH 7.38 ABG pCO2 41.6 ABG pO2 76.5 L ABG HCO3 23.8 ABG O2 Saturation 95.0 ABG Base Excess -1.3 FiO2 30% Sodium 137.3 Potassium 3.6 Chloride 107 Carbon Dioxide 26 Anion Gap 4 L BUN 21 H Creatinine 0.80 Est GFR ( Amer) > 60 Est GFR (Non-Af Amer) > 60 Glucose 135 H Calcium 8.0 L Magnesium Total Bilirubin AST ALT Alkaline Phosphatase Ammonia 49.8 H Total Protein Albumin 09/30/17 09/30/17 05:55 05:55 WBC 13.6 H RBC 2.68 L Hgb 8.5 L Hct 24.2 L MCV 90 MCH 31.7 MCHC 35.1 RDW 21.9 H Plt Count 84 L Seg Neutrophils % 66.7 Lymphocytes % 13.4 Monocytes % 16.4 H Eosinophils % 2.8 Basophils % 0.7 Absolute Neutrophils 9.1 H Absolute Lymphocytes 1.8 Absolute Monocytes 2.2 H Absolute Eosinophils 0.4 Absolute Basophils 0.1 Carbonic Acid HCO3/H2CO3 Ratio ABG pH ABG pCO2 ABG pO2 ABG HCO3 ABG O2 Saturation ABG Base Excess FiO2 Sodium 135.8 L Potassium 3.3 L Chloride 107 Carbon Dioxide 23 Anion Gap 6 BUN 18 Creatinine 0.73 Est GFR ( Amer) > 60 Est GFR (Non-Af Amer) > 60 Glucose 145 H Calcium 8.1 L Magnesium 1.3 L Total Bilirubin 5.6 H AST 73 H ALT 44 Alkaline Phosphatase 119 Ammonia Total Protein 5.7 L Albumin 2.3 L 09/28/17 15:45 Tracheal Aspirate Gram Stain - Final 09/28/17 15:45 Tracheal Aspirate Sputum Culture - Final GREATLY REDUCED NORMAL TRAM 09/27/17 12:50 Catheterized Urine Urine Culture - Final NO GROWTH 2 DAYS 09/27/17 09/27/17 09/27/17 15:20 15:20 15:20 Creatine Kinase 95 CK-MB (CK-2) 0.80 Troponin I 0.028 NT-Pro-B Natriuret Pep 438 426 09/28/17 09/28/17 09/28/17 08:40 08:40 08:40 Creatine Kinase 64 CK-MB (CK-2) 0.47 Troponin I < 0.012 NT-Pro-B Natriuret Pep 09/29/17 05:05 Creatine Kinase CK-MB (CK-2) 0.57 Troponin I < 0.012 NT-Pro-B Natriuret Pep Impressions: Abdomen Ultrasound 09/27/17 12:07 IMPRESSION: For visualization of the liver and hepatic vessels. Heterogeneous appearance. Fatty infiltration/ cirrhosis. KUB X-Ray 09/28/17 15:16 IMPRESSION: NG tube with its tip in the left upper quadrant presumably in the proximal stomach. Other findings as noted above Chest X-Ray 09/30/17 06:00 IMPRESSION: 1. Slight interval increase in right basilar airspace opacity. 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 (5) Alcohol withdrawal seizure Qualifiers: Complication of substance-induced condition: uncomplicated Qualified Code(s ): F10.230 - Alcohol dependence with withdrawal, uncomplicated Is this a current diagnosis for this admission?: Yes Plan: DVT prophylaxsis (6) Anxiety disorder Is this a current diagnosis for this admission?: Yes Plan: DVT prophylaxsis (7) Acute respiratory failure Qualifiers: Respiratory failure complication: hypoxia Qualified Code(s): J96.01 - Acute respiratory failure with hypoxia Is this a current diagnosis for this admission?: Yes Plan: pna (8) Aspiration pneumonia Is this a current diagnosis for this admission?: Yes Plan: due to ETOH (9) COPD (chronic obstructive pulmonary disease) Qualifiers: COPD type: unspecified COPD Qualified Code(s): J44.9 - Chronic obstructive pulmonary disease, unspecified Is this a current diagnosis for this admission?: Yes Plan: tobacco abuse Generic Name Dose Route Start Last Admin Trade Name Freq PRN Reason Stop Dose Admin Albuterol/Ipratropium 3 ml 09/25/17 23:01 10/07/17 20:22 Duoneb 3 Ml Ampul NEB 10/25/17 23:00 3 ml [id number] PRN SHORTNESS OF BREATH/WHEEZING - Time Total Critical Time (Minutes): 45
--- NOTE | 2017-10-14 15:45 | PDOC PROGRESS REPORT ---
Subjective Progress Note for:: 10/01/17 Subjective:: intubated/sedated Reason For Visit: GI BLEED ETOH WITHDRAWAL Physical Exam Vital Signs: Temp Pulse Resp BP Pulse Ox 97.9 F 86 12 108/55 L 100 10/01/17 05:01 10/01/17 08:00 10/01/17 08:17 10/01/17 08:17 10/01/17 08:17 Intake & Output 09/30/17 10/01/17 10/02/17 06:59 06:59 06:59 Intake Total 4425 3690 Output Total 1025 3655 150 Balance 3400 35 -150 Weight 67 kg 67 kg General appearance: PRESENT: no acute distress, disheveled, well-developed. ABSENT: cooperative Head exam: PRESENT: atraumatic, normocephalic Eye exam: PRESENT: conjunctiva pale. ABSENT: nystagmus, periorbital swelling Mouth exam: PRESENT: dry mucosa, neck supple, tongue midline, other - ET Neck exam: ABSENT: carotid bruit, JVD, lymphadenopathy, thyromegaly, tracheal deviation, tracheostomy Respiratory exam: PRESENT: crackles, decreased breath sounds, prolonged expiratory phas, rhonchi, symmetrical, unlabored. ABSENT: rales, retraction, stridor, tachypnea Cardiovascular exam: PRESENT: RRR, +S1, +S2 Pulses: PRESENT: normal radial pulses GI/Abdominal exam: PRESENT: diminished bowel sounds, soft Extremities exam: ABSENT: calf tenderness, clubbing Musculoskeletal exam: ABSENT: deformity, dislocation Neurological exam: ABSENT: alert, awake Skin exam: PRESENT: dry, warm Results Laboratory Results: 10/01/17 05:30 10/01/17 05:30 09/30/17 09/30/17 10/01/17 14:38 19:55 05:30 WBC RBC Hgb Hct MCV MCH MCHC RDW Plt Count Seg Neutrophils % Lymphocytes % Monocytes % Eosinophils % Basophils % Absolute Neutrophils Absolute Lymphocytes Absolute Monocytes Absolute Eosinophils Absolute Basophils Carbonic Acid HCO3/H2CO3 Ratio ABG pH ABG pCO2 ABG pO2 ABG HCO3 ABG O2 Saturation ABG Base Excess FiO2 Sodium 134.5 L Potassium 3.6 Chloride 104 Carbon Dioxide 24 Anion Gap 7 BUN 15 Creatinine 0.75 Est GFR ( Amer) > 60 Est GFR (Non-Af Amer) > 60 Glucose 131 H Calcium 8.2 L Phosphorus Magnesium 1.5 L 1.7 Total Bilirubin AST ALT Alkaline Phosphatase Ammonia 25.3 Total Protein Albumin Triglycerides 10/01/17 10/01/17 10/01/17 05:30 05:30 05:30 WBC 15.3 H RBC 2.77 L Hgb 8.8 L Hct 25.3 L MCV 91 MCH 31.8 MCHC 34.9 RDW 21.8 H Plt Count 98 L Seg Neutrophils % 67.9 Lymphocytes % 13.2 Monocytes % 16.2 H Eosinophils % 1.5 Basophils % 1.2 Absolute Neutrophils 10.4 H Absolute Lymphocytes 2.0 Absolute Monocytes 2.5 H Absolute Eosinophils 0.2 Absolute Basophils 0.2 Carbonic Acid 1.19 HCO3/H2CO3 Ratio 21:1 ABG pH 7.43 ABG pCO2 39.5 ABG pO2 75.6 L ABG HCO3 25.7 ABG O2 Saturation 95.6 ABG Base Excess 1.4 FiO2 30% Sodium 133.9 L Potassium 3.5 L Chloride 104 Carbon Dioxide 24 Anion Gap 6 BUN 13 Creatinine 0.77 Est GFR ( Amer) > 60 Est GFR (Non-Af Amer) > 60 Glucose 133 H Calcium 8.2 L Phosphorus 3.4 Magnesium 1.5 L Total Bilirubin 4.3 H AST 67 H ALT 48 Alkaline Phosphatase 148 H Ammonia Total Protein 5.8 L Albumin 2.3 L Triglycerides 56 09/25/17 19:40 Blood Blood Culture - Final NO GROWTH IN 5 DAYS 09/28/17 15:45 Tracheal Aspirate Gram Stain - Final 09/28/17 15:45 Tracheal Aspirate Sputum Culture - Final GREATLY REDUCED NORMAL TRAM 09/27/17 09/27/17 09/27/17 15:20 15:20 15:20 Creatine Kinase 95 CK-MB (CK-2) 0.80 Troponin I 0.028 NT-Pro-B Natriuret Pep 438 426 09/28/17 09/28/17 09/28/17 08:40 08:40 08:40 Creatine Kinase 64 CK-MB (CK-2) 0.47 Troponin I < 0.012 NT-Pro-B Natriuret Pep 09/29/17 10/01/17 05:05 05:30 Creatine Kinase CK-MB (CK-2) 0.57 Troponin I < 0.012 NT-Pro-B Natriuret Pep 612 Impressions: Abdomen Ultrasound 09/27/17 12:07 IMPRESSION: For visualization of the liver and hepatic vessels. Heterogeneous appearance. Fatty infiltration/ cirrhosis. KUB X-Ray 09/28/17 15:16 IMPRESSION: NG tube with its tip in the left upper quadrant presumably in the proximal stomach. Other findings as noted above Chest X-Ray 10/01/17 06:00 IMPRESSION: IMPROVED AERATION IN THE RIGHT LUNG BASE. 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 (5) Alcohol withdrawal seizure Qualifiers: Complication of substance-induced condition: uncomplicated Qualified Code(s ): F10.230 - Alcohol dependence with withdrawal, uncomplicated Is this a current diagnosis for this admission?: Yes Plan: DVT prophylaxsis (6) Anxiety disorder Is this a current diagnosis for this admission?: Yes Plan: DVT prophylaxsis (7) Acute respiratory failure Qualifiers: Respiratory failure complication: hypoxia Qualified Code(s): J96.01 - Acute respiratory failure with hypoxia Is this a current diagnosis for this admission?: Yes Plan: pna (8) Aspiration pneumonia Is this a current diagnosis for this admission?: Yes Plan: due to ETOH (9) COPD (chronic obstructive pulmonary disease) Qualifiers: COPD type: unspecified COPD Qualified Code(s): J44.9 - Chronic obstructive pulmonary disease, unspecified Is this a current diagnosis for this admission?: Yes Plan: tobacco abuse Generic Name Dose Route Start Last Admin Trade Name Freq PRN Reason Stop Dose Admin Albuterol/Ipratropium 3 ml 09/25/17 23:01 10/07/17 20:22 Duoneb 3 Ml Ampul NEB 10/25/17 23:00 3 ml [id number] PRN SHORTNESS OF BREATH/WHEEZING - Time Total Critical Time (Minutes): 45
--- NOTE | 2017-10-14 15:50 | PDOC PROGRESS REPORT ---
Subjective Progress Note for:: 10/02/17 Subjective:: intubated/sedated Reason For Visit: GI BLEED ETOH WITHDRAWAL Physical Exam Vital Signs: Temp Pulse Resp BP Pulse Ox 97.3 F 64 14 103/61 100 10/02/17 08:00 10/02/17 08:00 10/02/17 08:18 10/02/17 08:18 10/02/17 08:18 Intake & Output 10/01/17 10/02/17 10/03/17 06:59 06:59 06:59 Intake Total 3690 4947 Output Total 3655 3530 125 Balance 35 1417 -125 Weight 67 kg 68.1 kg General appearance: PRESENT: no acute distress, disheveled, well-developed. ABSENT: cooperative Head exam: PRESENT: atraumatic, normocephalic Eye exam: PRESENT: EOMI. ABSENT: conjunctiva pale, nystagmus, periorbital swelling Mouth exam: PRESENT: dry mucosa, neck supple, tongue midline, other - ET tube Neck exam: ABSENT: carotid bruit, JVD, lymphadenopathy, thyromegaly, tracheal deviation, tracheostomy Respiratory exam: PRESENT: crackles, decreased breath sounds, prolonged expiratory phas, rhonchi, symmetrical, unlabored. ABSENT: rales, retraction, stridor Cardiovascular exam: PRESENT: RRR, +S1, +S2 Pulses: PRESENT: normal radial pulses GI/Abdominal exam: PRESENT: diminished bowel sounds, soft Extremities exam: ABSENT: calf tenderness, clubbing Musculoskeletal exam: ABSENT: deformity, dislocation Neurological exam: PRESENT: awake Skin exam: PRESENT: dry, warm Results Laboratory Results: 10/02/17 05:55 10/02/17 05:55 10/02/17 10/02/17 10/02/17 05:55 05:55 05:55 WBC 14.1 H RBC 2.60 L Hgb 8.3 L Hct 24.0 L MCV 92 MCH 31.9 MCHC 34.6 RDW 23.0 H Plt Count 94 L Seg Neutrophils % Not Reportable Lymphocytes % Not Reportable Monocytes % Not Reportable Eosinophils % Not Reportable Basophils % Not Reportable Absolute Neutrophils Not Reportable Absolute Lymphocytes Not Reportable Absolute Monocytes Not Reportable Absolute Eosinophils Not Reportable Absolute Basophils Not Reportable Carbonic Acid 1.21 HCO3/H2CO3 Ratio 20:1 ABG pH 7.41 ABG pCO2 40.3 ABG pO2 78.2 L ABG HCO3 25.0 ABG O2 Saturation 95.7 ABG Base Excess 0.3 FiO2 30% Sodium 138.5 Potassium 3.5 L Chloride 109 H Carbon Dioxide 25 Anion Gap 5 BUN 14 Creatinine 1.04 Est GFR ( Amer) > 60 Est GFR (Non-Af Amer) > 60 Glucose 133 H Calcium 8.2 L Magnesium 1.7 09/27/17 09/27/17 09/27/17 15:20 15:20 15:20 Creatine Kinase 95 CK-MB (CK-2) 0.80 Troponin I 0.028 NT-Pro-B Natriuret Pep 438 426 09/28/17 09/28/17 09/28/17 08:40 08:40 08:40 Creatine Kinase 64 CK-MB (CK-2) 0.47 Troponin I < 0.012 NT-Pro-B Natriuret Pep 09/29/17 10/01/17 05:05 05:30 Creatine Kinase CK-MB (CK-2) 0.57 Troponin I < 0.012 NT-Pro-B Natriuret Pep 612 Impressions: Abdomen Ultrasound 09/27/17 12:07 IMPRESSION: For visualization of the liver and hepatic vessels. Heterogeneous appearance. Fatty infiltration/ cirrhosis. KUB X-Ray 09/28/17 15:16 IMPRESSION: NG tube with its tip in the left upper quadrant presumably in the proximal stomach. Other findings as noted above Chest X-Ray 10/02/17 06:00 IMPRESSION: No significant change. 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 (5) Alcohol withdrawal seizure Qualifiers: Complication of substance-induced condition: uncomplicated Qualified Code(s ): F10.230 - Alcohol dependence with withdrawal, uncomplicated Is this a current diagnosis for this admission?: Yes Plan: DVT prophylaxsis (6) Anxiety disorder Is this a current diagnosis for this admission?: Yes Plan: DVT prophylaxsis (7) Acute respiratory failure Qualifiers: Respiratory failure complication: hypoxia Qualified Code(s): J96.01 - Acute respiratory failure with hypoxia Is this a current diagnosis for this admission?: Yes Plan: rr;fio2;min vol ok willl extubate (8) Aspiration pneumonia Is this a current diagnosis for this admission?: Yes Plan: wbc trending down (9) COPD (chronic obstructive pulmonary disease) Qualifiers: COPD type: unspecified COPD Qualified Code(s): J44.9 - Chronic obstructive pulmonary disease, unspecified Is this a current diagnosis for this admission?: Yes Plan: tobacco abuse Generic Name Dose Route Start Last Admin Trade Name Freq PRN Reason Stop Dose Admin Albuterol/Ipratropium 3 ml 09/25/17 23:01 10/07/17 20:22 Duoneb 3 Ml Ampul NEB 10/25/17 23:00 3 ml [id number] PRN SHORTNESS OF BREATH/WHEEZING - Time Total Critical Time (Minutes): 55
--- NOTE | 2017-10-14 15:54 | PDOC PROGRESS REPORT ---
Subjective Progress Note for:: 10/03/17 Subjective:: 24h s/p req NIPPV stable Reason For Visit: GI BLEED ETOH WITHDRAWAL Physical Exam Vital Signs: Temp Pulse Resp BP Pulse Ox 97.5 F 69 16 98/60 L 95 10/09/17 16:32 10/09/17 16:32 10/09/17 16:32 10/09/17 16:32 10/09/17 16:32 Intake & Output 10/08/17 10/09/17 10/10/17 06:59 06:59 06:59 Intake Total 2740 3077 1784 Output Total 1999 800 1145 Balance 740 2846 639 Weight 80.8 kg 81.1 kg General appearance: PRESENT: no acute distress, disheveled, well-developed Head exam: PRESENT: atraumatic, normocephalic Eye exam: PRESENT: conjunctiva pale, EOMI. ABSENT: nystagmus, periorbital swelling Mouth exam: PRESENT: dry mucosa, neck supple, tongue midline Neck exam: ABSENT: carotid bruit, JVD, lymphadenopathy, thyromegaly, tracheal deviation, tracheostomy Respiratory exam: PRESENT: decreased breath sounds, prolonged expiratory phas, rales, rhonchi, symmetrical, unlabored. ABSENT: retraction, stridor, tachypnea Cardiovascular exam: PRESENT: RRR, +S1, +S2, tachycardia Pulses: PRESENT: normal radial pulses GI/Abdominal exam: PRESENT: diminished bowel sounds, soft Extremities exam: ABSENT: calf tenderness, clubbing Musculoskeletal exam: ABSENT: deformity, dislocation Neurological exam: PRESENT: awake Skin exam: PRESENT: dry, warm Results Laboratory Results: 10/09/17 12:26 10/09/17 12:26 10/09/17 10/09/17 10/09/17 05:20 12:26 12:26 WBC 11.7 H RBC 2.63 L Hgb 8.6 L Hct 25.2 L MCV 96 MCH 32.6 MCHC 34.0 RDW 21.3 H Plt Count 105 L Seg Neutrophils % Not Reportable Lymphocytes % Not Reportable Monocytes % Not Reportable Eosinophils % Not Reportable Basophils % Not Reportable Absolute Neutrophils Not Reportable Absolute Lymphocytes Not Reportable Absolute Monocytes Not Reportable Absolute Eosinophils Not Reportable Absolute Basophils Not Reportable Sodium 139.5 138.0 Potassium 3.7 3.6 Chloride 108 H 107 Carbon Dioxide 24 25 Anion Gap 8 6 BUN 18 16 Creatinine 0.93 0.86 Est GFR ( Amer) > 60 > 60 Est GFR (Non-Af Amer) > 60 > 60 Glucose 79 112 H Calcium 8.6 8.5 Total Bilirubin 3.8 H AST 57 ALT 44 Alkaline Phosphatase 148 H Total Protein 5.4 L Albumin 2.1 L 09/27/17 09/27/17 09/27/17 15:20 15:20 15:20 Creatine Kinase 95 CK-MB (CK-2) 0.80 Troponin I 0.028 NT-Pro-B Natriuret Pep 438 426 09/28/17 09/28/17 09/28/17 08:40 08:40 08:40 Creatine Kinase 64 CK-MB (CK-2) 0.47 Troponin I < 0.012 NT-Pro-B Natriuret Pep 09/29/17 10/01/17 05:05 05:30 Creatine Kinase CK-MB (CK-2) 0.57 Troponin I < 0.012 NT-Pro-B Natriuret Pep 612 Impressions: Abdomen Ultrasound 09/27/17 12:07 IMPRESSION: For visualization of the liver and hepatic vessels. Heterogeneous appearance. Fatty infiltration/ cirrhosis. KUB X-Ray 09/28/17 15:16 IMPRESSION: NG tube with its tip in the left upper quadrant presumably in the proximal stomach. Other findings as noted above Chest X-Ray 10/07/17 00:00 IMPRESSION: Slightly worsening basilar aeration, suspect effusions and volume loss with mild vascular congestion. Assessment & Plan - Diagnosis (1) Alcohol withdrawal delirium Is this a current diagnosis for this admission?: Yes Plan: as per PCP and GI med (2) Alcoholic cirrhosis of liver Qualifiers: Ascites presence: with ascites Qualified Code(s): K70.31 - Alcoholic cirrhosis of liver with ascites Is this a current diagnosis for this admission?: Yes Plan: as per PCP and GI med (3) Anemia Qualifiers: Bone marrow failure anemia type: pancytopenia, other Is this a current diagnosis for this admission?: Yes (4) Alcohol withdrawal seizure Qualifiers: Complication of substance-induced condition: uncomplicated Qualified Code(s ): F10.230 - Alcohol dependence with withdrawal, uncomplicated Is this a current diagnosis for this admission?: Yes Plan: not reported (5) Anxiety disorder Is this a current diagnosis for this admission?: Yes Plan: anxiety prophylaxsis (6) Acute respiratory failure Qualifiers: Respiratory failure complication: hypoxia Qualified Code(s): J96.01 - Acute respiratory failure with hypoxia Is this a current diagnosis for this admission?: Yes Plan: NIPPV (7) Aspiration pneumonia Is this a current diagnosis for this admission?: Yes Plan: wbc trending down (8) COPD (chronic obstructive pulmonary disease) Qualifiers: COPD type: unspecified COPD Qualified Code(s): J44.9 - Chronic obstructive pulmonary disease, unspecified Is this a current diagnosis for this admission?: Yes Plan: tobacco abuse Generic Name Dose Route Start Last Admin Trade Name Freq PRN Reason Stop Dose Admin Albuterol/Ipratropium 3 ml 09/25/17 23:01 10/07/17 20:22 Duoneb 3 Ml Ampul NEB 10/25/17 23:00 3 ml [id number] PRN SHORTNESS OF BREATH/WHEEZING - Time Total Critical Time (Minutes): 45
--- NOTE | 2017-10-14 15:59 | PDOC PROGRESS REPORT ---
Subjective Progress Note for:: 10/04/17 Subjective:: 48h s/p continues to req NIPPV stable Reason For Visit: GI BLEED ETOH WITHDRAWAL Physical Exam Vital Signs: Temp Pulse Resp BP Pulse Ox 97.5 F 69 16 98/60 L 95 10/09/17 16:32 10/09/17 16:32 10/09/17 16:32 10/09/17 16:32 10/09/17 16:32 Intake & Output 10/08/17 10/09/17 10/10/17 06:59 06:59 06:59 Intake Total 2740 3077 1784 Output Total 1999 800 1145 Balance 740 0937 609 Weight 80.8 kg 81.1 kg General appearance: PRESENT: no acute distress, cooperative, disheveled, well- developed Head exam: PRESENT: atraumatic, normocephalic Eye exam: PRESENT: conjunctiva pale, EOMI. ABSENT: nystagmus, periorbital swelling Mouth exam: PRESENT: dry mucosa, neck supple, tongue midline Neck exam: ABSENT: carotid bruit, JVD, lymphadenopathy, thyromegaly, tracheal deviation, tracheostomy Respiratory exam: PRESENT: decreased breath sounds, prolonged expiratory phas, rhonchi, symmetrical, unlabored. ABSENT: rales, retraction, stridor, tachypnea Cardiovascular exam: PRESENT: RRR, +S1, +S2 Pulses: PRESENT: normal radial pulses GI/Abdominal exam: PRESENT: diminished bowel sounds, soft Extremities exam: PRESENT: joint swelling. ABSENT: calf tenderness, clubbing Musculoskeletal exam: ABSENT: deformity, dislocation Neurological exam: PRESENT: awake Skin exam: PRESENT: dry, warm Results Laboratory Results: 10/09/17 12:26 10/09/17 12:26 10/09/17 10/09/17 10/09/17 05:20 12:26 12:26 WBC 11.7 H RBC 2.63 L Hgb 8.6 L Hct 25.2 L MCV 96 MCH 32.6 MCHC 34.0 RDW 21.3 H Plt Count 105 L Seg Neutrophils % Not Reportable Lymphocytes % Not Reportable Monocytes % Not Reportable Eosinophils % Not Reportable Basophils % Not Reportable Absolute Neutrophils Not Reportable Absolute Lymphocytes Not Reportable Absolute Monocytes Not Reportable Absolute Eosinophils Not Reportable Absolute Basophils Not Reportable Sodium 139.5 138.0 Potassium 3.7 3.6 Chloride 108 H 107 Carbon Dioxide 24 25 Anion Gap 8 6 BUN 18 16 Creatinine 0.93 0.86 Est GFR ( Amer) > 60 > 60 Est GFR (Non-Af Amer) > 60 > 60 Glucose 79 112 H Calcium 8.6 8.5 Total Bilirubin 3.8 H AST 57 ALT 44 Alkaline Phosphatase 148 H Total Protein 5.4 L Albumin 2.1 L 09/27/17 09/27/17 09/27/17 15:20 15:20 15:20 Creatine Kinase 95 CK-MB (CK-2) 0.80 Troponin I 0.028 NT-Pro-B Natriuret Pep 438 426 09/28/17 09/28/17 09/28/17 08:40 08:40 08:40 Creatine Kinase 64 CK-MB (CK-2) 0.47 Troponin I < 0.012 NT-Pro-B Natriuret Pep 09/29/17 10/01/17 05:05 05:30 Creatine Kinase CK-MB (CK-2) 0.57 Troponin I < 0.012 NT-Pro-B Natriuret Pep 612 Impressions: Abdomen Ultrasound 09/27/17 12:07 IMPRESSION: For visualization of the liver and hepatic vessels. Heterogeneous appearance. Fatty infiltration/ cirrhosis. KUB X-Ray 09/28/17 15:16 IMPRESSION: NG tube with its tip in the left upper quadrant presumably in the proximal stomach. Other findings as noted above Chest X-Ray 10/07/17 00:00 IMPRESSION: Slightly worsening basilar aeration, suspect effusions and volume loss with mild vascular congestion. 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 (5) Alcohol withdrawal seizure Qualifiers: Complication of substance-induced condition: uncomplicated Qualified Code(s ): F10.230 - Alcohol dependence with withdrawal, uncomplicated Is this a current diagnosis for this admission?: Yes Plan: not reported (6) Anxiety disorder Is this a current diagnosis for this admission?: Yes Plan: anxiety prophylaxsis (7) Acute respiratory failure Qualifiers: Respiratory failure complication: hypoxia Qualified Code(s): J96.01 - Acute respiratory failure with hypoxia Is this a current diagnosis for this admission?: Yes Plan: NIPPV (8) Aspiration pneumonia Is this a current diagnosis for this admission?: Yes Plan: wbc trending down (9) COPD (chronic obstructive pulmonary disease) Qualifiers: COPD type: unspecified COPD Qualified Code(s): J44.9 - Chronic obstructive pulmonary disease, unspecified Is this a current diagnosis for this admission?: Yes Plan: tobacco abuse Generic Name Dose Route Start Last Admin Trade Name Freq PRN Reason Stop Dose Admin Albuterol/Ipratropium 3 ml 09/25/17 23:01 10/07/17 20:22 Duoneb 3 Ml Ampul NEB 10/25/17 23:00 3 ml [id number] PRN SHORTNESS OF BREATH/WHEEZING - Time Total Critical Time (Minutes): 45
--- NOTE | 2017-10-14 16:04 | PDOC PROGRESS REPORT ---
Subjective Progress Note for:: 10/05/17 Subjective:: stable Reason For Visit: GI BLEED ETOH WITHDRAWAL Physical Exam Vital Signs: Temp Pulse Resp BP Pulse Ox 97.5 F 69 16 98/60 L 95 10/09/17 16:32 10/09/17 16:32 10/09/17 16:32 10/09/17 16:32 10/09/17 16:32 Intake & Output 10/08/17 10/09/17 10/10/17 06:59 06:59 06:59 Intake Total 2740 3077 1784 Output Total 1999 800 1145 Balance 740 2764 639 Weight 80.8 kg 81.1 kg General appearance: PRESENT: no acute distress, cooperative, disheveled, well- developed Head exam: PRESENT: atraumatic, normocephalic Eye exam: PRESENT: conjunctiva pale, EOMI. ABSENT: nystagmus, periorbital swelling Mouth exam: PRESENT: dry mucosa, neck supple, tongue midline Neck exam: ABSENT: carotid bruit, JVD, lymphadenopathy, thyromegaly, tracheal deviation, tracheostomy Respiratory exam: PRESENT: decreased breath sounds, prolonged expiratory phas, rales, rhonchi, symmetrical, unlabored. ABSENT: retraction, stridor Cardiovascular exam: PRESENT: RRR, +S1, +S2 Pulses: PRESENT: normal radial pulses GI/Abdominal exam: PRESENT: diminished bowel sounds, soft Extremities exam: ABSENT: calf tenderness, clubbing, joint swelling Musculoskeletal exam: ABSENT: deformity, dislocation Neurological exam: PRESENT: awake Psychiatric exam: PRESENT: flat affect Skin exam: PRESENT: dry, warm Results Laboratory Results: 10/09/17 12:26 10/09/17 12:26 10/09/17 10/09/17 10/09/17 05:20 12:26 12:26 WBC 11.7 H RBC 2.63 L Hgb 8.6 L Hct 25.2 L MCV 96 MCH 32.6 MCHC 34.0 RDW 21.3 H Plt Count 105 L Seg Neutrophils % Not Reportable Lymphocytes % Not Reportable Monocytes % Not Reportable Eosinophils % Not Reportable Basophils % Not Reportable Absolute Neutrophils Not Reportable Absolute Lymphocytes Not Reportable Absolute Monocytes Not Reportable Absolute Eosinophils Not Reportable Absolute Basophils Not Reportable Sodium 139.5 138.0 Potassium 3.7 3.6 Chloride 108 H 107 Carbon Dioxide 24 25 Anion Gap 8 6 BUN 18 16 Creatinine 0.93 0.86 Est GFR ( Amer) > 60 > 60 Est GFR (Non-Af Amer) > 60 > 60 Glucose 79 112 H Calcium 8.6 8.5 Total Bilirubin 3.8 H AST 57 ALT 44 Alkaline Phosphatase 148 H Total Protein 5.4 L Albumin 2.1 L 09/27/17 09/27/17 09/27/17 15:20 15:20 15:20 Creatine Kinase 95 CK-MB (CK-2) 0.80 Troponin I 0.028 NT-Pro-B Natriuret Pep 438 426 09/28/17 09/28/17 09/28/17 08:40 08:40 08:40 Creatine Kinase 64 CK-MB (CK-2) 0.47 Troponin I < 0.012 NT-Pro-B Natriuret Pep 09/29/17 10/01/17 05:05 05:30 Creatine Kinase CK-MB (CK-2) 0.57 Troponin I < 0.012 NT-Pro-B Natriuret Pep 612 Impressions: Abdomen Ultrasound 09/27/17 12:07 IMPRESSION: For visualization of the liver and hepatic vessels. Heterogeneous appearance. Fatty infiltration/ cirrhosis. KUB X-Ray 09/28/17 15:16 IMPRESSION: NG tube with its tip in the left upper quadrant presumably in the proximal stomach. Other findings as noted above Chest X-Ray 10/07/17 00:00 IMPRESSION: Slightly worsening basilar aeration, suspect effusions and volume loss with mild vascular congestion. 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 (4) Alcohol withdrawal seizure Qualifiers: Complication of substance-induced condition: uncomplicated Qualified Code(s ): F10.230 - Alcohol dependence with withdrawal, uncomplicated Is this a current diagnosis for this admission?: Yes Plan: not reported (5) Anxiety disorder Is this a current diagnosis for this admission?: Yes Plan: anxiety prophylaxsis (6) Acute respiratory failure Qualifiers: Respiratory failure complication: hypoxia Qualified Code(s): J96.01 - Acute respiratory failure with hypoxia Is this a current diagnosis for this admission?: Yes Plan: stable (7) Aspiration pneumonia Is this a current diagnosis for this admission?: Yes Plan: wbc trending down (8) COPD (chronic obstructive pulmonary disease) Qualifiers: COPD type: unspecified COPD Qualified Code(s): J44.9 - Chronic obstructive pulmonary disease, unspecified Is this a current diagnosis for this admission?: Yes Plan: tobacco abuse Generic Name Dose Route Start Last Admin Trade Name Freq PRN Reason Stop Dose Admin Albuterol/Ipratropium 3 ml 09/25/17 23:01 10/07/17 20:22 Duoneb 3 Ml Ampul NEB 10/25/17 23:00 3 ml [id number] PRN SHORTNESS OF BREATH/WHEEZING patient to floor overnit
--- NOTE | 2017-10-14 16:07 | PDOC PROGRESS REPORT ---
Subjective Progress Note for:: 10/06/17 Subjective:: stable Reason For Visit: GI BLEED ETOH WITHDRAWAL Physical Exam Vital Signs: Temp Pulse Resp BP Pulse Ox 97.5 F 69 16 98/60 L 95 10/09/17 16:32 10/09/17 16:32 10/09/17 16:32 10/09/17 16:32 10/09/17 16:32 Intake & Output 10/08/17 10/09/17 10/10/17 06:59 06:59 06:59 Intake Total 2740 3077 1784 Output Total 1999 800 1145 Balance 740 7202 638 Weight 80.8 kg 81.1 kg General appearance: PRESENT: no acute distress, cooperative, disheveled, well- developed Head exam: PRESENT: atraumatic, normocephalic Eye exam: PRESENT: conjunctiva pale, EOMI. ABSENT: nystagmus, periorbital swelling Mouth exam: PRESENT: dry mucosa, neck supple, tongue midline Neck exam: ABSENT: carotid bruit, JVD, lymphadenopathy, thyromegaly, tracheal deviation, tracheostomy Respiratory exam: PRESENT: decreased breath sounds, prolonged expiratory phas, rales, rhonchi, symmetrical, unlabored. ABSENT: retraction, stridor, tachypnea Cardiovascular exam: PRESENT: RRR, +S1, +S2 Pulses: PRESENT: normal radial pulses GI/Abdominal exam: PRESENT: diminished bowel sounds, soft Extremities exam: ABSENT: calf tenderness, clubbing Musculoskeletal exam: ABSENT: deformity, dislocation Neurological exam: PRESENT: alert, awake Skin exam: PRESENT: dry, warm Results Laboratory Results: 10/09/17 12:26 10/09/17 12:26 10/09/17 10/09/17 10/09/17 05:20 12:26 12:26 WBC 11.7 H RBC 2.63 L Hgb 8.6 L Hct 25.2 L MCV 96 MCH 32.6 MCHC 34.0 RDW 21.3 H Plt Count 105 L Seg Neutrophils % Not Reportable Lymphocytes % Not Reportable Monocytes % Not Reportable Eosinophils % Not Reportable Basophils % Not Reportable Absolute Neutrophils Not Reportable Absolute Lymphocytes Not Reportable Absolute Monocytes Not Reportable Absolute Eosinophils Not Reportable Absolute Basophils Not Reportable Sodium 139.5 138.0 Potassium 3.7 3.6 Chloride 108 H 107 Carbon Dioxide 24 25 Anion Gap 8 6 BUN 18 16 Creatinine 0.93 0.86 Est GFR ( Amer) > 60 > 60 Est GFR (Non-Af Amer) > 60 > 60 Glucose 79 112 H Calcium 8.6 8.5 Total Bilirubin 3.8 H AST 57 ALT 44 Alkaline Phosphatase 148 H Total Protein 5.4 L Albumin 2.1 L 09/27/17 09/27/17 09/27/17 15:20 15:20 15:20 Creatine Kinase 95 CK-MB (CK-2) 0.80 Troponin I 0.028 NT-Pro-B Natriuret Pep 438 426 09/28/17 09/28/17 09/28/17 08:40 08:40 08:40 Creatine Kinase 64 CK-MB (CK-2) 0.47 Troponin I < 0.012 NT-Pro-B Natriuret Pep 09/29/17 10/01/17 05:05 05:30 Creatine Kinase CK-MB (CK-2) 0.57 Troponin I < 0.012 NT-Pro-B Natriuret Pep 612 Impressions: Abdomen Ultrasound 09/27/17 12:07 IMPRESSION: For visualization of the liver and hepatic vessels. Heterogeneous appearance. Fatty infiltration/ cirrhosis. KUB X-Ray 09/28/17 15:16 IMPRESSION: NG tube with its tip in the left upper quadrant presumably in the proximal stomach. Other findings as noted above Chest X-Ray 10/07/17 00:00 IMPRESSION: Slightly worsening basilar aeration, suspect effusions and volume loss with mild vascular congestion. 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 (4) Alcohol withdrawal seizure Qualifiers: Complication of substance-induced condition: uncomplicated Qualified Code(s ): F10.230 - Alcohol dependence with withdrawal, uncomplicated Is this a current diagnosis for this admission?: Yes Plan: not reported (5) Anxiety disorder Is this a current diagnosis for this admission?: Yes Plan: anxiety prophylaxsis (6) Acute respiratory failure Qualifiers: Respiratory failure complication: hypoxia Qualified Code(s): J96.01 - Acute respiratory failure with hypoxia Is this a current diagnosis for this admission?: Yes Plan: continues to require NIPPV (7) Aspiration pneumonia Is this a current diagnosis for this admission?: Yes Plan: wbc trending down (8) COPD (chronic obstructive pulmonary disease) Qualifiers: COPD type: unspecified COPD Qualified Code(s): J44.9 - Chronic obstructive pulmonary disease, unspecified Is this a current diagnosis for this admission?: Yes Plan: tobacco abuse Generic Name Dose Route Start Last Admin Trade Name Freq PRN Reason Stop Dose Admin Albuterol/Ipratropium 3 ml 09/25/17 23:01 10/07/17 20:22 Duoneb 3 Ml Ampul NEB 10/25/17 23:00 3 ml [id number] PRN SHORTNESS OF BREATH/WHEEZING patient to floor overnignt
--- NOTE | 2017-10-14 16:12 | PDOC PROGRESS REPORT ---
Subjective Progress Note for:: 10/07/17 Subjective:: stable Reason For Visit: GI BLEED ETOH WITHDRAWAL Physical Exam Vital Signs: Temp Pulse Resp BP Pulse Ox 97.5 F 69 16 98/60 L 95 10/09/17 16:32 10/09/17 16:32 10/09/17 16:32 10/09/17 16:32 10/09/17 16:32 Intake & Output 10/08/17 10/09/17 10/10/17 06:59 06:59 06:59 Intake Total 2740 3077 1784 Output Total 1999 800 1145 Balance 740 7742 639 Weight 80.8 kg 81.1 kg Results Laboratory Results: 10/09/17 12:26 10/09/17 12:26 10/09/17 10/09/17 10/09/17 05:20 12:26 12:26 WBC 11.7 H RBC 2.63 L Hgb 8.6 L Hct 25.2 L MCV 96 MCH 32.6 MCHC 34.0 RDW 21.3 H Plt Count 105 L Seg Neutrophils % Not Reportable Lymphocytes % Not Reportable Monocytes % Not Reportable Eosinophils % Not Reportable Basophils % Not Reportable Absolute Neutrophils Not Reportable Absolute Lymphocytes Not Reportable Absolute Monocytes Not Reportable Absolute Eosinophils Not Reportable Absolute Basophils Not Reportable Sodium 139.5 138.0 Potassium 3.7 3.6 Chloride 108 H 107 Carbon Dioxide 24 25 Anion Gap 8 6 BUN 18 16 Creatinine 0.93 0.86 Est GFR ( Amer) > 60 > 60 Est GFR (Non-Af Amer) > 60 > 60 Glucose 79 112 H Calcium 8.6 8.5 Total Bilirubin 3.8 H AST 57 ALT 44 Alkaline Phosphatase 148 H Total Protein 5.4 L Albumin 2.1 L 09/27/17 09/27/17 09/27/17 15:20 15:20 15:20 Creatine Kinase 95 CK-MB (CK-2) 0.80 Troponin I 0.028 NT-Pro-B Natriuret Pep 438 426 09/28/17 09/28/17 09/28/17 08:40 08:40 08:40 Creatine Kinase 64 CK-MB (CK-2) 0.47 Troponin I < 0.012 NT-Pro-B Natriuret Pep 09/29/17 10/01/17 05:05 05:30 Creatine Kinase CK-MB (CK-2) 0.57 Troponin I < 0.012 NT-Pro-B Natriuret Pep 612 Impressions: Abdomen Ultrasound 09/27/17 12:07 IMPRESSION: For visualization of the liver and hepatic vessels. Heterogeneous appearance. Fatty infiltration/ cirrhosis. KUB X-Ray 09/28/17 15:16 IMPRESSION: NG tube with its tip in the left upper quadrant presumably in the proximal stomach. Other findings as noted above Chest X-Ray 10/07/17 00:00 IMPRESSION: Slightly worsening basilar aeration, suspect effusions and volume loss with mild vascular congestion. Assessment & Plan - Diagnosis (1) Alcohol withdrawal delirium Is this a current diagnosis for this admission?: No (2) Alcoholic cirrhosis of liver Qualifiers: Ascites presence: with ascites Qualified Code(s): K70.31 - Alcoholic cirrhosis of liver with ascites Is this a current diagnosis for this admission?: Yes Plan: as per PCP and GI med (3) Anemia Qualifiers: Bone marrow failure anemia type: pancytopenia, other Is this a current diagnosis for this admission?: Yes (4) Alcohol withdrawal seizure Qualifiers: Complication of substance-induced condition: uncomplicated Qualified Code(s ): F10.230 - Alcohol dependence with withdrawal, uncomplicated Is this a current diagnosis for this admission?: Yes Plan: not reported (5) Anxiety disorder Is this a current diagnosis for this admission?: Yes Plan: anxiety prophylaxsis (6) Acute respiratory failure Qualifiers: Respiratory failure complication: hypoxia Qualified Code(s): J96.01 - Acute respiratory failure with hypoxia Is this a current diagnosis for this admission?: Yes Plan: stable (7) Aspiration pneumonia Is this a current diagnosis for this admission?: Yes Plan: improved (8) COPD (chronic obstructive pulmonary disease) Qualifiers: COPD type: unspecified COPD Qualified Code(s): J44.9 - Chronic obstructive pulmonary disease, unspecified Is this a current diagnosis for this admission?: Yes Plan: tobacco abuse Generic Name Dose Route Start Last Admin Trade Name Freq PRN Reason Stop Dose Admin Albuterol/Ipratropium 3 ml 09/25/17 23:01 10/07/17 20:22 Duoneb 3 Ml Ampul NEB 10/25/17 23:00 3 ml [id number] PRN SHORTNESS OF BREATH/WHEEZING
--- NOTE | 2017-10-14 16:14 | PDOC PROGRESS REPORT ---
Subjective Progress Note for:: 10/08/17 Subjective:: stable Reason For Visit: GI BLEED ETOH WITHDRAWAL Physical Exam Vital Signs: Temp Pulse Resp BP Pulse Ox 97.5 F 69 16 98/60 L 95 10/09/17 16:32 10/09/17 16:32 10/09/17 16:32 10/09/17 16:32 10/09/17 16:32 Intake & Output 10/08/17 10/09/17 10/10/17 06:59 06:59 06:59 Intake Total 2740 3077 1784 Output Total 1999 800 1145 Balance 740 0264 635 Weight 80.8 kg 81.1 kg General appearance: PRESENT: no acute distress, cooperative, disheveled, well- developed Head exam: PRESENT: atraumatic, normocephalic Eye exam: PRESENT: conjunctiva pale, EOMI. ABSENT: nystagmus, periorbital swelling Mouth exam: PRESENT: moist, neck supple, tongue midline Neck exam: ABSENT: carotid bruit, JVD, lymphadenopathy, thyromegaly, tracheal deviation, tracheostomy Respiratory exam: PRESENT: decreased breath sounds, prolonged expiratory phas, rhonchi, symmetrical, unlabored. ABSENT: rales, retraction, stridor, tachypnea Cardiovascular exam: PRESENT: RRR, +S1, +S2 Pulses: PRESENT: normal femoral pulses GI/Abdominal exam: PRESENT: diminished bowel sounds, soft Extremities exam: ABSENT: calf tenderness, clubbing, joint swelling Musculoskeletal exam: ABSENT: deformity, dislocation Neurological exam: PRESENT: awake Skin exam: PRESENT: dry, warm Results Laboratory Results: 10/09/17 12:26 10/09/17 12:26 10/09/17 10/09/17 10/09/17 05:20 12:26 12:26 WBC 11.7 H RBC 2.63 L Hgb 8.6 L Hct 25.2 L MCV 96 MCH 32.6 MCHC 34.0 RDW 21.3 H Plt Count 105 L Seg Neutrophils % Not Reportable Lymphocytes % Not Reportable Monocytes % Not Reportable Eosinophils % Not Reportable Basophils % Not Reportable Absolute Neutrophils Not Reportable Absolute Lymphocytes Not Reportable Absolute Monocytes Not Reportable Absolute Eosinophils Not Reportable Absolute Basophils Not Reportable Sodium 139.5 138.0 Potassium 3.7 3.6 Chloride 108 H 107 Carbon Dioxide 24 25 Anion Gap 8 6 BUN 18 16 Creatinine 0.93 0.86 Est GFR ( Amer) > 60 > 60 Est GFR (Non-Af Amer) > 60 > 60 Glucose 79 112 H Calcium 8.6 8.5 Total Bilirubin 3.8 H AST 57 ALT 44 Alkaline Phosphatase 148 H Total Protein 5.4 L Albumin 2.1 L 09/27/17 09/27/17 09/27/17 15:20 15:20 15:20 Creatine Kinase 95 CK-MB (CK-2) 0.80 Troponin I 0.028 NT-Pro-B Natriuret Pep 438 426 09/28/17 09/28/17 09/28/17 08:40 08:40 08:40 Creatine Kinase 64 CK-MB (CK-2) 0.47 Troponin I < 0.012 NT-Pro-B Natriuret Pep 09/29/17 10/01/17 05:05 05:30 Creatine Kinase CK-MB (CK-2) 0.57 Troponin I < 0.012 NT-Pro-B Natriuret Pep 612 Impressions: Abdomen Ultrasound 09/27/17 12:07 IMPRESSION: For visualization of the liver and hepatic vessels. Heterogeneous appearance. Fatty infiltration/ cirrhosis. KUB X-Ray 09/28/17 15:16 IMPRESSION: NG tube with its tip in the left upper quadrant presumably in the proximal stomach. Other findings as noted above Chest X-Ray 10/07/17 00:00 IMPRESSION: Slightly worsening basilar aeration, suspect effusions and volume loss with mild vascular congestion. 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 (4) Alcohol withdrawal seizure Qualifiers: Complication of substance-induced condition: uncomplicated Qualified Code(s ): F10.230 - Alcohol dependence with withdrawal, uncomplicated Is this a current diagnosis for this admission?: Yes Plan: not reported (5) Anxiety disorder Is this a current diagnosis for this admission?: Yes Plan: anxiety prophylaxsis (6) Acute respiratory failure Qualifiers: Respiratory failure complication: hypoxia Qualified Code(s): J96.01 - Acute respiratory failure with hypoxia Is this a current diagnosis for this admission?: Yes Plan: stable (7) Aspiration pneumonia Is this a current diagnosis for this admission?: Yes Plan: improved (8) COPD (chronic obstructive pulmonary disease) Qualifiers: COPD type: unspecified COPD Qualified Code(s): J44.9 - Chronic obstructive pulmonary disease, unspecified Is this a current diagnosis for this admission?: Yes Plan: tobacco abuse Generic Name Dose Route Start Last Admin Trade Name Freq PRN Reason Stop Dose Admin Albuterol/Ipratropium 3 ml 09/25/17 23:01 10/07/17 20:22 Duoneb 3 Ml Ampul NEB 10/25/17 23:00 3 ml [id number] PRN SHORTNESS OF BREATH/WHEEZING
[2017-10-14] MEDS: ZOLPIDEM TARTRATE 5 MG TABLET PO PRN (23:10)
[2017-10-15 05:46] LABS: ABSOLUTE BASOPHILS # (AUTO) 0.2 10^3/uL (0.0-0.2); ABSOLUTE EOSINOPHILS # (AUTO) 0.1 10^3/uL (0.0-0.6); ABSOLUTE LYMPHOCYTES (AUTO) 1.8 10^3/uL (0.5-4.7); ABSOLUTE MONOCYTES (AUTO) 1.2 10^3/uL (0.1-1.4); ABSOLUTE NEUT (AUTO) 5.9 10^3/uL (1.7-8.2); BASOPHILS % (AUTO) 1.7 % (0-2); EOSINOPHILS % (AUTO) 1.4 % (0-6); HEMATOCRIT 23.5 % (37.9-51.0); HEMOGLOBIN 8.2 g/dL (13.5-17.0); LYMPHOCYTES % (AUTO) 19.7 % (13-45); MEAN CORPUSCULAR HEMOGLOBIN 33.2 pg (27.0-33.4); MEAN CORPUSCULAR HGB CONC 34.8 g/dL (32.0-36.0); MEAN CORPUSCULAR VOLUME 96 fl (80-97); MONOCYTES % (AUTO) 13.4 % (3-13); RED BLOOD COUNT 2.46 10^6/uL (4.35-5.55); SEGMENTED NEUTROPHILS % (AUTO) 63.8 % (42-78); TOTAL CELLS COUNTED % (AUTO) 100 %; WHITE BLOOD COUNT 9.3 10^3/uL (4.0-10.5)
[2017-10-15 06:12] LABS: ALANINE AMINOTRANSFERASE 49 U/L (21-72); ALBUMIN 2.5 g/dL (3.5-5.0); ALKALINE PHOSPHATASE 194 U/L (38-126); ANION GAP 10 (5-19); ASPARTATE AMINO TRANSFERASE 69 U/L (17-59); BILIRUBIN,DIRECT 1.1 mg/dL (0.0-0.4); BILIRUBIN,TOTAL 3.3 mg/dL (0.2-1.3); BLOOD UREA NITROGEN 20 mg/dL (7-20); CALCIUM 8.5 mg/dL (8.4-10.2); CARBON DIOXIDE 32 mmol/L (22-30); CHLORIDE 95 mmol/L (98-107); GLUCOSE 80 mg/dL (75-110); POTASSIUM 4.6 mmol/L (3.6-5.0); SODIUM 137.2 mmol/L (137-145); TOTAL PROTEIN 6.3 g/dL (6.3-8.2)
[2017-10-15] MEDS: LANSOPRAZOLE 30 MG TAB.RAP.DR PO SCH ×2 (06:30→17:18)
[2017-10-15 06:35] LABS: PLATELET COUNT 108 10^3/uL (150-450)
[2017-10-15] MEDS: FLUTICASONE/SALMETEROL DISKUS 250-50 MCG/DOSE IH SCH ×2 (09:32→17:17)
[2017-10-15] MEDS: NICOTINE 21 MG/24 HR PATCH.TD24 TD SCH (09:33)
[2017-10-15] MEDS: POTASSIUM CHLORIDE 10 MEQ TABLET.SA PO SCH (09:36)
[2017-10-15] MEDS: MULTIVITAMIN TABLET PO SCH (09:36)
[2017-10-15] MEDS: LACTULOSE SYRUP 20 GM/30 ML UDCUP PO SCH ×2 (09:36→21:40)
[2017-10-15] MEDS: THIAMINE HCL 100 MG TABLET PO SCH (09:37)
[2017-10-15] MEDS: TAMSULOSIN HCL 0.4 MG CAP.SR.24H PO SCH (09:37)
[2017-10-15] MEDS: CITALOPRAM HYDROBROMIDE 20 MG TABLET PO SCH (09:37)
[2017-10-15] MEDS: CARVEDILOL 6.25 MG TABLET PO SCH ×2 (09:39→21:34)
[2017-10-15] MEDS: FUROSEMIDE 20 MG TABLET PO SCH (09:39)
[2017-10-15] MEDS: SPIRONOLACTONE 25 MG TABLET PO SCH (09:39)
[2017-10-15] MEDS: OXYCODONE HCL IR 5 MG TABLET PO PRN (12:12)
[2017-10-15] MEDS: MAGNESIUM SULFATE/D5W 1 GM/100 ML RTUPB IV SCH ×2 (12:13→13:18)
[2017-10-15] MEDS: NORMAL SALINE INJ/PF 0.9% 10 ML SDV IV PRN ×2 (13:21→21:40)
--- NOTE | 2017-10-15 13:46 | PDOC PROGRESS REPORT ---
Subjective Progress Note for:: 10/15/17 Subjective:: Pt's magnesium today was 1.4. We gave him Mg sulfate 2 G IVx1 and put him on Mg oxide 400mg BID PO. Pt is refusing PT/OT and this was discussed at length with him that we will have to discharge him if he continues to refuse PT/OT and he also does not want to go to SNF. Reason For Visit: GI BLEED ETOH WITHDRAWAL Physical Exam Vital Signs: Temp Pulse Resp BP Pulse Ox 98.0 F 72 18 94/52 L 93 10/15/17 10:50 10/15/17 10:50 10/15/17 10:50 10/15/17 10:50 10/15/17 10:50 Intake & Output 10/14/17 10/15/17 10/16/17 06:59 06:59 06:59 Intake Total 1580 1760 Output Total 2925 2350 Balance -1345 -590 Weight 80.9 kg 77.9 kg General appearance: PRESENT: no acute distress, cooperative, thin, well- nourished Head exam: PRESENT: atraumatic, normocephalic Eye exam: PRESENT: EOMI, PERRLA Ear exam: PRESENT: normal external ear exam, TM's normal bilaterally Mouth exam: PRESENT: neck supple, tongue midline Neck exam: PRESENT: full ROM Respiratory exam: PRESENT: decreased breath sounds, symmetrical Cardiovascular exam: PRESENT: +S1, +S2 Pulses: PRESENT: +1 pedal pulses bilateral GI/Abdominal exam: PRESENT: normal bowel sounds, soft Rectal exam: PRESENT: deferred Neurological exam: PRESENT: alert, awake, oriented to person, oriented to place Psychiatric exam: PRESENT: normal mood Results Laboratory Results: 10/15/17 04:50 10/15/17 04:50 10/15/17 10/15/17 04:50 04:50 WBC 9.3 RBC 2.46 L Hgb 8.2 L Hct 23.5 L MCV 96 MCH 33.2 MCHC 34.8 RDW 22.0 H Plt Count 108 L Seg Neutrophils % 63.8 Lymphocytes % 19.7 Monocytes % 13.4 H Eosinophils % 1.4 Basophils % 1.7 Absolute Neutrophils 5.9 Absolute Lymphocytes 1.8 Absolute Monocytes 1.2 Absolute Eosinophils 0.1 Absolute Basophils 0.2 Sodium 137.2 Potassium 4.6 Chloride 95 L Carbon Dioxide 32 H Anion Gap 10 BUN 20 Creatinine 1.00 Est GFR ( Amer) > 60 Est GFR (Non-Af Amer) > 60 Glucose 80 Calcium 8.5 Magnesium 1.4 L Total Bilirubin 3.3 H AST 69 H ALT 49 Alkaline Phosphatase 194 H Total Protein 6.3 Albumin 2.5 L 09/27/17 09/27/17 09/27/17 15:20 15:20 15:20 Creatine Kinase 95 CK-MB (CK-2) 0.80 Troponin I 0.028 NT-Pro-B Natriuret Pep 438 426 09/28/17 09/28/17 09/28/17 08:40 08:40 08:40 Creatine Kinase 64 CK-MB (CK-2) 0.47 Troponin I < 0.012 NT-Pro-B Natriuret Pep 09/29/17 10/01/17 05:05 05:30 Creatine Kinase CK-MB (CK-2) 0.57 Troponin I < 0.012 NT-Pro-B Natriuret Pep 612 Impressions: Abdomen Ultrasound 09/27/17 12:07 IMPRESSION: For visualization of the liver and hepatic vessels. Heterogeneous appearance. Fatty infiltration/ cirrhosis. KUB X-Ray 09/28/17 15:16 IMPRESSION: NG tube with its tip in the left upper quadrant presumably in the proximal stomach. Other findings as noted above Chest X-Ray 10/07/17 00:00 IMPRESSION: Slightly worsening basilar aeration, suspect effusions and volume loss with mild vascular congestion. Assessment & Plan - Diagnosis (1) Acute respiratory failure Qualifiers: Respiratory failure complication: hypoxia Qualified Code(s): J96.01 - Acute respiratory failure with hypoxia Is this a current diagnosis for this admission?: Yes Plan: He has septicemia secondary to Staph. epidermidis .Ct with Oxygen by N/C 2 L/ Min to keep saturation > 92%. Pt has completed 10-14 days course of Vancomycin and Zosyn. (2) Acute hepatic encephalopathy Is this a current diagnosis for this admission?: Yes Plan: Hold Lactulose 20g daily po for now; monitor ammonia level every other day. (3) Gastrointestinal hemorrhage Qualifiers: Gastritis type: alcoholic Is this a current diagnosis for this admission?: Yes Plan: Ct with Prevacid 30 mg BID PO; Transfused a total of 7 units of PRBC and give Lasix 20 mg IV after each unit of PRBC; Ct with 2 g sodium diet. F/U GI, Dr Barillas. (4) Acute blood loss anemia Is this a current diagnosis for this admission?: Yes Plan: The acute blodd loss anemia is due to GI bleed secondary to alcoholic gastritis. Pt has received a total of 7 units of PRBC and Lasix 20 mg IV given each unit of PRBC. Continue to monitor CBC daily. (5) Alcohol withdrawal delirium Is this a current diagnosis for this admission?: No Plan: Ativan 1 mg q2h IV prn; 2 hourly neurochecks; soft restraints. (6) Hypokalemia Is this a current diagnosis for this admission?: Yes Plan: He was given another 1 dose of KCL 20 MEQ IV today. So pt has received a total of KCL 20 MEQ IV [id number]. We added KCL 10 MEQ qd po.Monitor chemistries daily. (7) Hypomagnesemia Is this a current diagnosis for this admission?: Yes Plan: Pt was given additional Mg sulfate 2 G IV today. We will add Mg oxide 400 mg BID PO. Monitor mg level daily. (8) Acute hypernatremia Is this a current diagnosis for this admission?: Yes Plan: Resolved. Monitor chemistries daily. (9) Hypertension Qualifiers: Hypertension type: essential hypertension Qualified Code(s): I10 - Essential (primary) hypertension Is this a current diagnosis for this admission?: Yes Plan: Hold Coreg 6.25 mg BID PO due to hypotension; 2 g sodium diet.. (10) Hyperlipidemia Qualifiers: Hyperlipidemia type: mixed hyperlipidemia Qualified Code(s): E78.2 - Mixed hyperlipidemia Is this a current diagnosis for this admission?: Yes Plan: Simvasatin 20 mg qhs po ; 200 mg cholesterol diet.. (11) COPD (chronic obstructive pulmonary disease) Qualifiers: COPD type: unspecified COPD Qualified Code(s): J44.9 - Chronic obstructive pulmonary disease, unspecified Is this a current diagnosis for this admission?: Yes Plan: Duonebs q6h prn; Advair 250/50 1 puff BID. Oxygen by N/C 2 L/min to keep saturation>92%. (12) BPH (benign prostatic hyperplasia) Is this a current diagnosis for this admission?: Yes Plan: Ct with Flomax 0.4 mg qd po. (13) Alcoholic cirrhosis of liver Qualifiers: Ascites presence: with ascites Qualified Code(s): K70.31 - Alcoholic cirrhosis of liver with ascites Is this a current diagnosis for this admission?: Yes Plan: Restart spironolactone 50 mg qd po and Lasix 20 mg qd po.Strict input/out put chart; daily weight; monitor chemistries daily. (14) Depression Is this a current diagnosis for this admission?: Yes Plan: Ct with Celexa 20 mg qd po. (15) Osteoarthritis Is this a current diagnosis for this admission?: Yes Plan: Ct with Oxycodone 5 mg TID prn po. (16) DVT prophylaxis Is this a current diagnosis for this admission?: Yes Plan: Ct with SCD; Hold Lovenox due to GI bleed.
[2017-10-15] MEDS: MAGNESIUM OXIDE 400 MG TABLET PO SCH (17:18)
[2017-10-16] MEDS: NORMAL SALINE INJ/PF 0.9% 10 ML SDV IV PRN (05:00)
[2017-10-16] MEDS: LANSOPRAZOLE 30 MG TAB.RAP.DR PO SCH ×2 (05:00→17:58)
[2017-10-16 08:25] LABS: HEMATOCRIT 25.6 % (37.9-51.0); HEMOGLOBIN 8.9 g/dL (13.5-17.0); MEAN CORPUSCULAR HEMOGLOBIN 33.5 pg (27.0-33.4); MEAN CORPUSCULAR HGB CONC 34.8 g/dL (32.0-36.0); MEAN CORPUSCULAR VOLUME 96 fl (80-97); PLATELET COUNT 116 10^3/uL (150-450); RED BLOOD COUNT 2.66 10^6/uL (4.35-5.55); RED CELL DISTRIBUTION WIDTH 22.6 % (11.5-14.0); WHITE BLOOD COUNT 8.7 10^3/uL (4.0-10.5)
[2017-10-16 08:33] LABS: ALANINE AMINOTRANSFERASE 48 U/L (21-72); ALBUMIN 2.7 g/dL (3.5-5.0); ALKALINE PHOSPHATASE 164 U/L (38-126); ANION GAP 6 (5-19); ASPARTATE AMINO TRANSFERASE 70 U/L (17-59); BILIRUBIN,DIRECT 1.3 mg/dL (0.0-0.4); BILIRUBIN,TOTAL 5.2 mg/dL (0.2-1.3); BLOOD UREA NITROGEN 18 mg/dL (7-20); CALCIUM 8.7 mg/dL (8.4-10.2); CARBON DIOXIDE 31 mmol/L (22-30); CHLORIDE 99 mmol/L (98-107); GLUCOSE 74 mg/dL (75-110); POTASSIUM 4.6 mmol/L (3.6-5.0); SODIUM 136.2 mmol/L (137-145); TOTAL PROTEIN 7.4 g/dL (6.3-8.2)
[2017-10-16 09:17] LABS: ABSOLUTE MONOCYTES # (MANUAL) 0.9 10^3/uL (0.1-1.4); ABSOLUTE NEUTROPHILS# (MANUAL) 6.7 10^3/uL (1.7-8.2); ACANTHOCYTES 1+; BASOPHILS % (MANUAL) 1 % (0-2); BURR CELLS SLIGHT; EOSINOPHILS % (MANUAL) 0 % (0-6); LYMPHOCYTES % (MANUAL) 12 % (13-45); MONOCYTES % (MANUAL) 10 % (3-13); PLATELET COMMENT DECREASED; POIKILOCYTOSIS 3+; POLYCHROMASIA SLIGHT; ROULEAUX SLIGHT; SCHISTOCYTES 1+; SEGMENTED NEUTROPHILS % (MAN) 77 % (42-78); TARGET CELLS SLIGHT; TOTAL CELLS COUNTED 100; TOXIC GRANULATION SLIGHT
[2017-10-16 09:18] LABS: ANISOCYTOSIS 2+
[2017-10-16] MEDS: MULTIVITAMIN TABLET PO SCH (09:48)
[2017-10-16] MEDS: CARVEDILOL 6.25 MG TABLET PO SCH ×2 (09:49→21:26)
[2017-10-16] MEDS: POTASSIUM CHLORIDE 10 MEQ TABLET.SA PO SCH (09:49)
[2017-10-16] MEDS: FUROSEMIDE 20 MG TABLET PO SCH (09:50)
[2017-10-16] MEDS: CITALOPRAM HYDROBROMIDE 20 MG TABLET PO SCH (09:50)
[2017-10-16] MEDS: THIAMINE HCL 100 MG TABLET PO SCH (09:50)
[2017-10-16] MEDS: TAMSULOSIN HCL 0.4 MG CAP.SR.24H PO SCH (09:50)
[2017-10-16] MEDS: OXYCODONE HCL IR 5 MG TABLET PO PRN (09:50)
[2017-10-16] MEDS: NICOTINE 21 MG/24 HR PATCH.TD24 TD SCH (09:51)
[2017-10-16] MEDS: SPIRONOLACTONE 25 MG TABLET PO SCH (09:51)
[2017-10-16] MEDS: MAGNESIUM OXIDE 400 MG TABLET PO SCH ×2 (09:51→17:58)
[2017-10-16] MEDS: LACTULOSE SYRUP 20 GM/30 ML UDCUP PO SCH ×2 (09:52→21:20)
[2017-10-16] MEDS: FLUTICASONE/SALMETEROL DISKUS 250-50 MCG/DOSE IH SCH ×2 (09:56→17:59)
--- NOTE | 2017-10-16 14:25 | PDOC PROGRESS REPORT ---
Subjective Progress Note for:: 10/10/17 Subjective:: stable Reason For Visit: GI BLEED ETOH WITHDRAWAL Physical Exam Vital Signs: Temp Pulse Resp BP Pulse Ox 98.1 F 63 18 121/68 97 10/16/17 07:11 10/16/17 07:11 10/16/17 07:11 10/16/17 07:11 10/16/17 07:11 Intake & Output 10/15/17 10/16/17 10/17/17 06:59 06:59 06:59 Intake Total 1760 1505 Output Total 2350 3595 Balance -590 -2090 Weight 77.9 kg 63.1 kg General appearance: PRESENT: no acute distress, disheveled, well-developed Head exam: PRESENT: atraumatic, normocephalic Eye exam: PRESENT: conjunctiva pale. ABSENT: nystagmus, periorbital swelling, scleral icterus Mouth exam: PRESENT: dry mucosa, neck supple, tongue midline Neck exam: ABSENT: carotid bruit, JVD, lymphadenopathy, thyromegaly, tracheal deviation, tracheostomy Respiratory exam: PRESENT: decreased breath sounds, prolonged expiratory phas, rhonchi, symmetrical, unlabored, wheezes. ABSENT: rales, retraction, stridor, tachypnea Cardiovascular exam: PRESENT: RRR, +S1, +S2 Pulses: PRESENT: normal radial pulses GI/Abdominal exam: PRESENT: diminished bowel sounds, soft Gentrourinary exam: PRESENT: indwelling catheter Extremities exam: ABSENT: clubbing, joint swelling Musculoskeletal exam: ABSENT: deformity, dislocation Neurological exam: PRESENT: awake. ABSENT: alert Skin exam: PRESENT: dry, warm Results Laboratory Results: 10/16/17 07:47 10/16/17 07:47 10/16/17 10/16/17 10/16/17 06:27 06:27 07:47 WBC Cancelled 8.7 RBC Cancelled 2.66 L Hgb Cancelled 8.9 L Hct Cancelled 25.6 L MCV Cancelled 96 MCH Cancelled 33.5 H MCHC Cancelled 34.8 RDW Cancelled 22.6 H Plt Count Cancelled 116 L Seg Neutrophils % Cancelled Not Reportable Lymphocytes % Cancelled Not Reportable Monocytes % Cancelled Not Reportable Eosinophils % Cancelled Not Reportable Basophils % Cancelled Not Reportable Absolute Neutrophils Cancelled Not Reportable Absolute Lymphocytes Cancelled Not Reportable Absolute Monocytes Cancelled Not Reportable Absolute Eosinophils Cancelled Not Reportable Absolute Basophils Cancelled Not Reportable Sodium Cancelled Potassium Cancelled Chloride Cancelled Carbon Dioxide Cancelled Anion Gap Cancelled BUN Cancelled Creatinine Cancelled Est GFR ( Amer) Cancelled Est GFR (Non-Af Amer) Cancelled Glucose Cancelled Calcium Cancelled Total Bilirubin Cancelled AST Cancelled ALT Cancelled Alkaline Phosphatase Cancelled Total Protein Cancelled Albumin Cancelled 10/16/17 07:47 WBC RBC Hgb Hct MCV MCH MCHC RDW Plt Count Seg Neutrophils % Lymphocytes % Monocytes % Eosinophils % Basophils % Absolute Neutrophils Absolute Lymphocytes Absolute Monocytes Absolute Eosinophils Absolute Basophils Sodium 136.2 L Potassium 4.6 Chloride 99 Carbon Dioxide 31 H Anion Gap 6 BUN 18 Creatinine 0.90 Est GFR ( Amer) > 60 Est GFR (Non-Af Amer) > 60 Glucose 74 L Calcium 8.7 Total Bilirubin 5.2 H AST 70 H ALT 48 Alkaline Phosphatase 164 H Total Protein 7.4 Albumin 2.7 L 09/27/17 09/27/17 09/27/17 15:20 15:20 15:20 Creatine Kinase 95 CK-MB (CK-2) 0.80 Troponin I 0.028 NT-Pro-B Natriuret Pep 438 426 09/28/17 09/28/17 09/28/17 08:40 08:40 08:40 Creatine Kinase 64 CK-MB (CK-2) 0.47 Troponin I < 0.012 NT-Pro-B Natriuret Pep 09/29/17 10/01/17 05:05 05:30 Creatine Kinase CK-MB (CK-2) 0.57 Troponin I < 0.012 NT-Pro-B Natriuret Pep 612 Impressions: Abdomen Ultrasound 09/27/17 12:07 IMPRESSION: For visualization of the liver and hepatic vessels. Heterogeneous appearance. Fatty infiltration/ cirrhosis. KUB X-Ray 09/28/17 15:16 IMPRESSION: NG tube with its tip in the left upper quadrant presumably in the proximal stomach. Other findings as noted above Chest X-Ray 10/07/17 00:00 IMPRESSION: Slightly worsening basilar aeration, suspect effusions and volume loss with mild vascular congestion. 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 (4) Alcohol withdrawal seizure Qualifiers: Complication of substance-induced condition: uncomplicated Qualified Code(s ): F10.230 - Alcohol dependence with withdrawal, uncomplicated Is this a current diagnosis for this admission?: Yes Plan: not reported (5) Anxiety disorder Is this a current diagnosis for this admission?: Yes Plan: anxiety prophylaxsis (6) Acute respiratory failure Qualifiers: Respiratory failure complication: hypoxia Qualified Code(s): J96.01 - Acute respiratory failure with hypoxia Is this a current diagnosis for this admission?: Yes Plan: stable (7) Aspiration pneumonia Is this a current diagnosis for this admission?: Yes Plan: improved (8) COPD (chronic obstructive pulmonary disease) Qualifiers: COPD type: unspecified COPD Qualified Code(s): J44.9 - Chronic obstructive pulmonary disease, unspecified Is this a current diagnosis for this admission?: Yes Plan: tobacco abuse Generic Name Dose Route Start Last Admin Trade Name Freq PRN Reason Stop Dose Admin Albuterol/Ipratropium 3 ml 09/25/17 23:01 10/07/17 20:22 Duoneb 3 Ml Ampul NEB 10/25/17 23:00 3 ml [id number] PRN SHORTNESS OF BREATH/WHEEZING
--- NOTE | 2017-10-16 14:29 | PDOC PROGRESS REPORT ---
Subjective Progress Note for:: 10/16/17 Subjective:: stable Reason For Visit: GI BLEED ETOH WITHDRAWAL Physical Exam Vital Signs: Temp Pulse Resp BP Pulse Ox 98.1 F 63 18 121/68 97 10/16/17 07:11 10/16/17 07:11 10/16/17 07:11 10/16/17 07:11 10/16/17 07:11 Intake & Output 10/15/17 10/16/17 10/17/17 06:59 06:59 06:59 Intake Total 1760 1505 Output Total 2350 3595 Balance -590 -2090 Weight 77.9 kg 63.1 kg General appearance: PRESENT: no acute distress, disheveled, well-developed Head exam: PRESENT: atraumatic, normocephalic Eye exam: PRESENT: conjunctiva pale. ABSENT: nystagmus, periorbital swelling, scleral icterus Mouth exam: PRESENT: dry mucosa, neck supple, tongue midline Neck exam: ABSENT: carotid bruit, JVD, lymphadenopathy, thyromegaly, tracheal deviation, tracheostomy Respiratory exam: PRESENT: decreased breath sounds, prolonged expiratory phas, rales, rhonchi, symmetrical, unlabored. ABSENT: retraction, stridor, tachypnea Cardiovascular exam: PRESENT: RRR, +S1, +S2 Pulses: PRESENT: normal radial pulses GI/Abdominal exam: PRESENT: diminished bowel sounds, soft Gentrourinary exam: PRESENT: indwelling catheter Extremities exam: ABSENT: calf tenderness, clubbing Musculoskeletal exam: ABSENT: deformity, dislocation Neurological exam: PRESENT: awake. ABSENT: alert Skin exam: PRESENT: dry, warm Results Laboratory Results: 10/16/17 07:47 10/16/17 07:47 10/16/17 10/16/17 10/16/17 06:27 06:27 07:47 WBC Cancelled 8.7 RBC Cancelled 2.66 L Hgb Cancelled 8.9 L Hct Cancelled 25.6 L MCV Cancelled 96 MCH Cancelled 33.5 H MCHC Cancelled 34.8 RDW Cancelled 22.6 H Plt Count Cancelled 116 L Seg Neutrophils % Cancelled Not Reportable Lymphocytes % Cancelled Not Reportable Monocytes % Cancelled Not Reportable Eosinophils % Cancelled Not Reportable Basophils % Cancelled Not Reportable Absolute Neutrophils Cancelled Not Reportable Absolute Lymphocytes Cancelled Not Reportable Absolute Monocytes Cancelled Not Reportable Absolute Eosinophils Cancelled Not Reportable Absolute Basophils Cancelled Not Reportable Sodium Cancelled Potassium Cancelled Chloride Cancelled Carbon Dioxide Cancelled Anion Gap Cancelled BUN Cancelled Creatinine Cancelled Est GFR ( Amer) Cancelled Est GFR (Non-Af Amer) Cancelled Glucose Cancelled Calcium Cancelled Total Bilirubin Cancelled AST Cancelled ALT Cancelled Alkaline Phosphatase Cancelled Total Protein Cancelled Albumin Cancelled 10/16/17 07:47 WBC RBC Hgb Hct MCV MCH MCHC RDW Plt Count Seg Neutrophils % Lymphocytes % Monocytes % Eosinophils % Basophils % Absolute Neutrophils Absolute Lymphocytes Absolute Monocytes Absolute Eosinophils Absolute Basophils Sodium 136.2 L Potassium 4.6 Chloride 99 Carbon Dioxide 31 H Anion Gap 6 BUN 18 Creatinine 0.90 Est GFR ( Amer) > 60 Est GFR (Non-Af Amer) > 60 Glucose 74 L Calcium 8.7 Total Bilirubin 5.2 H AST 70 H ALT 48 Alkaline Phosphatase 164 H Total Protein 7.4 Albumin 2.7 L 09/27/17 09/27/17 09/27/17 15:20 15:20 15:20 Creatine Kinase 95 CK-MB (CK-2) 0.80 Troponin I 0.028 NT-Pro-B Natriuret Pep 438 426 09/28/17 09/28/17 09/28/17 08:40 08:40 08:40 Creatine Kinase 64 CK-MB (CK-2) 0.47 Troponin I < 0.012 NT-Pro-B Natriuret Pep 09/29/17 10/01/17 05:05 05:30 Creatine Kinase CK-MB (CK-2) 0.57 Troponin I < 0.012 NT-Pro-B Natriuret Pep 612 Impressions: Abdomen Ultrasound 09/27/17 12:07 IMPRESSION: For visualization of the liver and hepatic vessels. Heterogeneous appearance. Fatty infiltration/ cirrhosis. KUB X-Ray 09/28/17 15:16 IMPRESSION: NG tube with its tip in the left upper quadrant presumably in the proximal stomach. Other findings as noted above Chest X-Ray 10/07/17 00:00 IMPRESSION: Slightly worsening basilar aeration, suspect effusions and volume loss with mild vascular congestion. 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 (4) Alcohol withdrawal seizure Qualifiers: Complication of substance-induced condition: uncomplicated Qualified Code(s ): F10.230 - Alcohol dependence with withdrawal, uncomplicated Is this a current diagnosis for this admission?: Yes (5) Anxiety disorder Is this a current diagnosis for this admission?: Yes Plan: anxiety prophylaxsis (6) Acute respiratory failure Qualifiers: Respiratory failure complication: hypoxia Qualified Code(s): J96.01 - Acute respiratory failure with hypoxia Is this a current diagnosis for this admission?: Yes Plan: stable (7) Aspiration pneumonia Is this a current diagnosis for this admission?: Yes Plan: improved (8) COPD (chronic obstructive pulmonary disease) Qualifiers: COPD type: unspecified COPD Qualified Code(s): J44.9 - Chronic obstructive pulmonary disease, unspecified Is this a current diagnosis for this admission?: Yes Plan: tobacco abuse Generic Name Dose Route Start Last Admin Trade Name Freq PRN Reason Stop Dose Admin Albuterol/Ipratropium 3 ml 09/25/17 23:01 10/07/17 20:22 Duoneb 3 Ml Ampul NEB 10/25/17 23:00 3 ml [id number] PRN SHORTNESS OF BREATH/WHEEZING
--- NOTE | 2017-10-16 15:05 | PDOC PROGRESS REPORT ---
Subjective Progress Note for:: 10/09/17 Subjective:: Pt's magnesium is 1.4 today; we will give him another 4 g IV magnesium sulfate and ct him with Mg oxide 400 mg BID PO. Pt counseled to work with PT/OT to expedite his going home. Reason For Visit: GI BLEED ETOH WITHDRAWAL Physical Exam Vital Signs: Temp Pulse Resp BP Pulse Ox 98.1 F 63 18 121/68 97 10/16/17 07:11 10/16/17 07:11 10/16/17 07:11 10/16/17 07:11 10/16/17 07:11 Intake & Output 10/15/17 10/16/17 10/17/17 06:59 06:59 06:59 Intake Total 1760 1505 300 Output Total 2350 3595 550 Balance -965 -7589 -569 Weight 77.9 kg 63.1 kg General appearance: PRESENT: no acute distress, cooperative, thin, well- nourished Head exam: PRESENT: atraumatic, normocephalic Eye exam: PRESENT: EOMI, PERRLA Ear exam: PRESENT: normal external ear exam, TM's normal bilaterally Mouth exam: PRESENT: moist, neck supple, tongue midline Respiratory exam: PRESENT: decreased breath sounds, symmetrical Cardiovascular exam: PRESENT: +S1, +S2 Pulses: PRESENT: +1 pedal pulses bilateral GI/Abdominal exam: PRESENT: normal bowel sounds, soft Rectal exam: PRESENT: deferred Neurological exam: PRESENT: alert, awake, oriented to person, oriented to place Psychiatric exam: PRESENT: normal mood Results Laboratory Results: 10/16/17 07:47 10/16/17 07:47 10/16/17 10/16/17 10/16/17 06:27 06:27 07:47 WBC Cancelled 8.7 RBC Cancelled 2.66 L Hgb Cancelled 8.9 L Hct Cancelled 25.6 L MCV Cancelled 96 MCH Cancelled 33.5 H MCHC Cancelled 34.8 RDW Cancelled 22.6 H Plt Count Cancelled 116 L Seg Neutrophils % Cancelled Not Reportable Lymphocytes % Cancelled Not Reportable Monocytes % Cancelled Not Reportable Eosinophils % Cancelled Not Reportable Basophils % Cancelled Not Reportable Absolute Neutrophils Cancelled Not Reportable Absolute Lymphocytes Cancelled Not Reportable Absolute Monocytes Cancelled Not Reportable Absolute Eosinophils Cancelled Not Reportable Absolute Basophils Cancelled Not Reportable Sodium Cancelled Potassium Cancelled Chloride Cancelled Carbon Dioxide Cancelled Anion Gap Cancelled BUN Cancelled Creatinine Cancelled Est GFR ( Amer) Cancelled Est GFR (Non-Af Amer) Cancelled Glucose Cancelled Calcium Cancelled Magnesium Total Bilirubin Cancelled AST Cancelled ALT Cancelled Alkaline Phosphatase Cancelled Total Protein Cancelled Albumin Cancelled 10/16/17 10/16/17 07:47 12:30 WBC RBC Hgb Hct MCV MCH MCHC RDW Plt Count Seg Neutrophils % Lymphocytes % Monocytes % Eosinophils % Basophils % Absolute Neutrophils Absolute Lymphocytes Absolute Monocytes Absolute Eosinophils Absolute Basophils Sodium 136.2 L Potassium 4.6 Chloride 99 Carbon Dioxide 31 H Anion Gap 6 BUN 18 Creatinine 0.90 Est GFR ( Amer) > 60 Est GFR (Non-Af Amer) > 60 Glucose 74 L Calcium 8.7 Magnesium 1.4 L Total Bilirubin 5.2 H AST 70 H ALT 48 Alkaline Phosphatase 164 H Total Protein 7.4 Albumin 2.7 L 09/27/17 09/27/17 09/27/17 15:20 15:20 15:20 Creatine Kinase 95 CK-MB (CK-2) 0.80 Troponin I 0.028 NT-Pro-B Natriuret Pep 438 426 09/28/17 09/28/17 09/28/17 08:40 08:40 08:40 Creatine Kinase 64 CK-MB (CK-2) 0.47 Troponin I < 0.012 NT-Pro-B Natriuret Pep 09/29/17 10/01/17 05:05 05:30 Creatine Kinase CK-MB (CK-2) 0.57 Troponin I < 0.012 NT-Pro-B Natriuret Pep 612 Impressions: Abdomen Ultrasound 09/27/17 12:07 IMPRESSION: For visualization of the liver and hepatic vessels. Heterogeneous appearance. Fatty infiltration/ cirrhosis. KUB X-Ray 09/28/17 15:16 IMPRESSION: NG tube with its tip in the left upper quadrant presumably in the proximal stomach. Other findings as noted above Chest X-Ray 10/07/17 00:00 IMPRESSION: Slightly worsening basilar aeration, suspect effusions and volume loss with mild vascular congestion. Assessment & Plan - Diagnosis (1) Acute respiratory failure Qualifiers: Respiratory failure complication: hypoxia Qualified Code(s): J96.01 - Acute respiratory failure with hypoxia Is this a current diagnosis for this admission?: Yes Plan: He has septicemia secondary to Staph. epidermidis .Ct with Oxygen by N/C 2 L/ Min to keep saturation > 92%. Pt has completed 10-14 days course of Vancomycin and Zosyn. (2) Acute hepatic encephalopathy Is this a current diagnosis for this admission?: Yes Plan: Hold Lactulose 20g daily po for now; monitor ammonia level every other day. (3) Gastrointestinal hemorrhage Qualifiers: Gastritis type: alcoholic Is this a current diagnosis for this admission?: Yes Plan: Ct with Prevacid 30 mg BID PO; Transfused a total of 7 units of PRBC and give Lasix 20 mg IV after each unit of PRBC; Ct with 2 g sodium diet. F/U GI, Dr Barillas. (4) Acute blood loss anemia Is this a current diagnosis for this admission?: Yes Plan: The acute blodd loss anemia is due to GI bleed secondary to alcoholic gastritis. Pt has received a total of 7 units of PRBC and Lasix 20 mg IV given each unit of PRBC. Continue to monitor CBC daily. (5) Alcohol withdrawal delirium Is this a current diagnosis for this admission?: No Plan: Ativan 1 mg q2h IV prn; 2 hourly neurochecks; soft restraints. (6) Hypokalemia Is this a current diagnosis for this admission?: Yes Plan: He was given another 1 dose of KCL 20 MEQ IV today. So pt has received a total of KCL 20 MEQ IV [id number]. We added KCL 10 MEQ qd po.Monitor chemistries daily. (7) Hypomagnesemia Is this a current diagnosis for this admission?: Yes Plan: Pt was given additional Mg sulfate 4 G IV today. We will add Mg oxide 400 mg BID PO. Monitor mg level daily. (8) Acute hypernatremia Is this a current diagnosis for this admission?: Yes Plan: Resolved. Monitor chemistries daily. (9) Hypertension Qualifiers: Hypertension type: essential hypertension Qualified Code(s): I10 - Essential (primary) hypertension Is this a current diagnosis for this admission?: Yes Plan: Hold Coreg 6.25 mg BID PO due to hypotension; 2 g sodium diet.. (10) Hyperlipidemia Qualifiers: Hyperlipidemia type: mixed hyperlipidemia Qualified Code(s): E78.2 - Mixed hyperlipidemia Is this a current diagnosis for this admission?: Yes Plan: Simvasatin 20 mg qhs po ; 200 mg cholesterol diet.. (11) COPD (chronic obstructive pulmonary disease) Qualifiers: COPD type: unspecified COPD Qualified Code(s): J44.9 - Chronic obstructive pulmonary disease, unspecified Is this a current diagnosis for this admission?: Yes Plan: Duonebs q6h prn; Advair 250/50 1 puff BID. Oxygen by N/C 2 L/min to keep saturation>92%. (12) BPH (benign prostatic hyperplasia) Is this a current diagnosis for this admission?: Yes Plan: Ct with Flomax 0.4 mg qd po. (13) Alcoholic cirrhosis of liver Qualifiers: Ascites presence: with ascites Qualified Code(s): K70.31 - Alcoholic cirrhosis of liver with ascites Is this a current diagnosis for this admission?: Yes Plan: Restart spironolactone 50 mg qd po and Lasix 20 mg qd po.Strict input/out put chart; daily weight; monitor chemistries daily. (14) Depression Is this a current diagnosis for this admission?: Yes Plan: Ct with Celexa 20 mg qd po. (15) Osteoarthritis Is this a current diagnosis for this admission?: Yes Plan: Ct with Oxycodone 5 mg TID prn po. (16) DVT prophylaxis Is this a current diagnosis for this admission?: Yes Plan: Ct with SCD; Hold Lovenox due to GI bleed.
[2017-10-16] MEDS ORDERED: MAGNESIUM SULFATE 4 GM/100 ML RTUPB IV ONE (16:00)
[2017-10-16] MEDS: ZOLPIDEM TARTRATE 5 MG TABLET PO PRN (21:20)
[2017-10-17] MEDS: OXYCODONE HCL IR 5 MG TABLET PO PRN (03:53)
[2017-10-17] MEDS: LANSOPRAZOLE 30 MG TAB.RAP.DR PO SCH ×2 (05:38→17:57)
[2017-10-17 06:00] LABS: HEMATOCRIT 23.4 % (37.9-51.0); HEMOGLOBIN 8.1 g/dL (13.5-17.0); MEAN CORPUSCULAR HEMOGLOBIN 33.5 pg (27.0-33.4); MEAN CORPUSCULAR HGB CONC 34.6 g/dL (32.0-36.0); MEAN CORPUSCULAR VOLUME 97 fl (80-97); PLATELET COUNT 119 10^3/uL (150-450); RED BLOOD COUNT 2.41 10^6/uL (4.35-5.55); RED CELL DISTRIBUTION WIDTH 22.6 % (11.5-14.0); WHITE BLOOD COUNT 10.5 10^3/uL (4.0-10.5)
[2017-10-17 06:23] LABS: ALANINE AMINOTRANSFERASE 49 U/L (21-72); ALBUMIN 2.6 g/dL (3.5-5.0); ALKALINE PHOSPHATASE 179 U/L (38-126); ANION GAP 8 (5-19); ASPARTATE AMINO TRANSFERASE 69 U/L (17-59); BILIRUBIN,TOTAL 3.7 mg/dL (0.2-1.3); BLOOD UREA NITROGEN 21 mg/dL (7-20); CARBON DIOXIDE 30 mmol/L (22-30); CHLORIDE 99 mmol/L (98-107); GLUCOSE 76 mg/dL (75-110); POTASSIUM 4.5 mmol/L (3.6-5.0); SODIUM 137.3 mmol/L (137-145); TOTAL PROTEIN 6.2 g/dL (6.3-8.2)
[2017-10-17 06:33] LABS: ABSOLUTE LYMPHOCYTES# (MANUAL) 1.7 10^3/uL (0.5-4.7); ABSOLUTE MONOCYTES # (MANUAL) 0.5 10^3/uL (0.1-1.4); ABSOLUTE NEUTROPHILS# (MANUAL) 8.1 10^3/uL (1.7-8.2); BASOPHILS % (MANUAL) 0 % (0-2); EOSINOPHILS % (MANUAL) 2 % (0-6); LYMPHOCYTES % (MANUAL) 16 % (13-45); MONOCYTES % (MANUAL) 5 % (3-13); SEGMENTED NEUTROPHILS % (MAN) 77 % (42-78); TOTAL CELLS COUNTED 100
[2017-10-17 06:36] LABS: BURR CELLS 1+; OVALOCYTES 1+; PLATELET COMMENT ADEQUATE; POIKILOCYTOSIS 1+; TOXIC GRANULATION 1+
[2017-10-17 06:37] LABS: PLATELET CLUMPS PRESENT
[2017-10-17] MEDS: POTASSIUM CHLORIDE 10 MEQ TABLET.SA PO SCH (10:39)
[2017-10-17] MEDS: NICOTINE 21 MG/24 HR PATCH.TD24 TD SCH (10:39)
[2017-10-17] MEDS: CITALOPRAM HYDROBROMIDE 20 MG TABLET PO SCH (10:39)
[2017-10-17] MEDS: FUROSEMIDE 20 MG TABLET PO SCH (10:40)
[2017-10-17] MEDS: THIAMINE HCL 100 MG TABLET PO SCH (10:40)
[2017-10-17] MEDS: MULTIVITAMIN TABLET PO SCH (10:40)
[2017-10-17] MEDS: MAGNESIUM OXIDE 400 MG TABLET PO SCH ×2 (10:40→17:57)
[2017-10-17] MEDS: TAMSULOSIN HCL 0.4 MG CAP.SR.24H PO SCH (10:40)
[2017-10-17] MEDS: SPIRONOLACTONE 25 MG TABLET PO SCH (10:40)
[2017-10-17] MEDS: LACTULOSE SYRUP 20 GM/30 ML UDCUP PO SCH ×2 (10:41→21:43)
[2017-10-17] MEDS: FLUTICASONE/SALMETEROL DISKUS 250-50 MCG/DOSE IH SCH ×2 (10:46→17:56)
[2017-10-17] MEDS: CARVEDILOL 6.25 MG TABLET PO SCH ×2 (10:47→21:45)
--- NOTE | 2017-10-17 11:28 | PDOC PROGRESS REPORT ---
Subjective Progress Note for:: 10/17/17 Subjective:: stable Reason For Visit: GI BLEED ETOH WITHDRAWAL Physical Exam Vital Signs: Temp Pulse Resp BP Pulse Ox 98.1 F 59 L 18 102/56 L 91 L 10/17/17 07:27 10/17/17 07:27 10/17/17 07:27 10/17/17 07:27 10/17/17 07:27 Intake & Output 10/16/17 10/17/17 10/18/17 06:59 06:59 06:59 Intake Total 1505 1930 Output Total 3595 1275 Balance -209 655 Weight 63.1 kg 62.3 kg General appearance: PRESENT: no acute distress, cooperative, disheveled, thin Head exam: PRESENT: atraumatic, normocephalic Eye exam: PRESENT: conjunctiva pale. ABSENT: nystagmus, periorbital swelling, scleral icterus Mouth exam: PRESENT: dry mucosa, neck supple, tongue midline Neck exam: ABSENT: carotid bruit, JVD, lymphadenopathy, thyromegaly, tracheal deviation Respiratory exam: PRESENT: decreased breath sounds, prolonged expiratory phas, rhonchi, symmetrical, unlabored. ABSENT: retraction, stridor, tachypnea Cardiovascular exam: PRESENT: RRR, +S1, +S2 Pulses: PRESENT: normal radial pulses GI/Abdominal exam: PRESENT: diminished bowel sounds, soft Extremities exam: ABSENT: clubbing, joint swelling Musculoskeletal exam: ABSENT: deformity, dislocation Neurological exam: PRESENT: awake Skin exam: PRESENT: dry, warm Results Laboratory Results: 10/17/17 05:45 10/17/17 05:45 10/16/17 10/17/17 10/17/17 12:30 05:45 05:45 WBC 10.5 RBC 2.41 L Hgb 8.1 L Hct 23.4 L MCV 97 MCH 33.5 H MCHC 34.6 RDW 22.6 H Plt Count 119 L Seg Neutrophils % Not Reportable Lymphocytes % Not Reportable Monocytes % Not Reportable Eosinophils % Not Reportable Basophils % Not Reportable Absolute Neutrophils Not Reportable Absolute Lymphocytes Not Reportable Absolute Monocytes Not Reportable Absolute Eosinophils Not Reportable Absolute Basophils Not Reportable Sodium 137.3 Potassium 4.5 Chloride 99 Carbon Dioxide 30 Anion Gap 8 BUN 21 H Creatinine 1.08 Est GFR ( Amer) > 60 Est GFR (Non-Af Amer) > 60 Glucose 76 Calcium 9.0 Magnesium 1.4 L Total Bilirubin 3.7 H AST 69 H ALT 49 Alkaline Phosphatase 179 H Total Protein 6.2 L Albumin 2.6 L 09/27/17 09/27/17 09/27/17 15:20 15:20 15:20 Creatine Kinase 95 CK-MB (CK-2) 0.80 Troponin I 0.028 NT-Pro-B Natriuret Pep 438 426 09/28/17 09/28/17 09/28/17 08:40 08:40 08:40 Creatine Kinase 64 CK-MB (CK-2) 0.47 Troponin I < 0.012 NT-Pro-B Natriuret Pep 09/29/17 10/01/17 05:05 05:30 Creatine Kinase CK-MB (CK-2) 0.57 Troponin I < 0.012 NT-Pro-B Natriuret Pep 612 Impressions: Abdomen Ultrasound 09/27/17 12:07 IMPRESSION: For visualization of the liver and hepatic vessels. Heterogeneous appearance. Fatty infiltration/ cirrhosis. KUB X-Ray 09/28/17 15:16 IMPRESSION: NG tube with its tip in the left upper quadrant presumably in the proximal stomach. Other findings as noted above Chest X-Ray 10/07/17 00:00 IMPRESSION: Slightly worsening basilar aeration, suspect effusions and volume loss with mild vascular congestion. Assessment & Plan - Diagnosis (1) Alcoholic cirrhosis of liver Qualifiers: Ascites presence: with ascites Qualified Code(s): K70.31 - Alcoholic cirrhosis of liver with ascites Is this a current diagnosis for this admission?: Yes Plan: as per PCP and GI med (2) Anemia Qualifiers: Bone marrow failure anemia type: pancytopenia, other Is this a current diagnosis for this admission?: Yes Plan: bone marrow toxicity due to etoh (3) Alcohol withdrawal seizure Qualifiers: Complication of substance-induced condition: uncomplicated Qualified Code(s ): F10.230 - Alcohol dependence with withdrawal, uncomplicated Is this a current diagnosis for this admission?: Yes Plan: not reported (4) Anxiety disorder Is this a current diagnosis for this admission?: Yes Plan: anxiety prophylaxsis (5) Acute respiratory failure Qualifiers: Respiratory failure complication: hypoxia Qualified Code(s): J96.01 - Acute respiratory failure with hypoxia Is this a current diagnosis for this admission?: Yes Plan: stable (6) Aspiration pneumonia Is this a current diagnosis for this admission?: Yes Plan: improved (7) COPD (chronic obstructive pulmonary disease) Qualifiers: COPD type: unspecified COPD Qualified Code(s): J44.9 - Chronic obstructive pulmonary disease, unspecified Is this a current diagnosis for this admission?: Yes Plan: tobacco abuse Generic Name Dose Route Start Last Admin Trade Name Freq PRN Reason Stop Dose Admin Albuterol/Ipratropium 3 ml 09/25/17 23:01 10/07/17 20:22 Duoneb 3 Ml Ampul NEB 10/25/17 23:00 3 ml [id number] PRN SHORTNESS OF BREATH/WHEEZING
--- NOTE | 2017-10-17 13:57 | PDOC PROGRESS REPORT ---
Subjective Progress Note for:: 10/17/17 Subjective:: Pt is now co-operating with PT/OT and was able to walk up to the elevator with a walker and licensed investment sales assistant. He refused SNF placement. Reason For Visit: GI BLEED ETOH WITHDRAWAL Physical Exam Vital Signs: Temp Pulse Resp BP Pulse Ox 98.1 F 59 L 18 102/56 L 91 L 10/17/17 07:27 10/17/17 07:27 10/17/17 07:27 10/17/17 07:27 10/17/17 07:27 Intake & Output 10/16/17 10/17/17 10/18/17 06:59 06:59 06:59 Intake Total 1505 1930 Output Total 3595 1275 Balance -2090 655 Weight 63.1 kg 62.3 kg General appearance: PRESENT: no acute distress, cooperative, thin, well- nourished Head exam: PRESENT: atraumatic Eye exam: PRESENT: EOMI, PERRLA Ear exam: PRESENT: TM's normal bilaterally Mouth exam: PRESENT: neck supple, tongue midline Cardiovascular exam: PRESENT: +S1, +S2 GI/Abdominal exam: PRESENT: normal bowel sounds, soft Rectal exam: PRESENT: deferred Neurological exam: PRESENT: alert, awake, oriented to person, oriented to place Psychiatric exam: PRESENT: normal mood Results Laboratory Results: 10/17/17 05:45 10/17/17 05:45 10/17/17 10/17/17 05:45 05:45 WBC 10.5 RBC 2.41 L Hgb 8.1 L Hct 23.4 L MCV 97 MCH 33.5 H MCHC 34.6 RDW 22.6 H Plt Count 119 L Seg Neutrophils % Not Reportable Lymphocytes % Not Reportable Monocytes % Not Reportable Eosinophils % Not Reportable Basophils % Not Reportable Absolute Neutrophils Not Reportable Absolute Lymphocytes Not Reportable Absolute Monocytes Not Reportable Absolute Eosinophils Not Reportable Absolute Basophils Not Reportable Sodium 137.3 Potassium 4.5 Chloride 99 Carbon Dioxide 30 Anion Gap 8 BUN 21 H Creatinine 1.08 Est GFR ( Amer) > 60 Est GFR (Non-Af Amer) > 60 Glucose 76 Calcium 9.0 Total Bilirubin 3.7 H AST 69 H ALT 49 Alkaline Phosphatase 179 H Total Protein 6.2 L Albumin 2.6 L 09/27/17 09/27/17 09/27/17 15:20 15:20 15:20 Creatine Kinase 95 CK-MB (CK-2) 0.80 Troponin I 0.028 NT-Pro-B Natriuret Pep 438 426 09/28/17 09/28/17 09/28/17 08:40 08:40 08:40 Creatine Kinase 64 CK-MB (CK-2) 0.47 Troponin I < 0.012 NT-Pro-B Natriuret Pep 09/29/17 10/01/17 05:05 05:30 Creatine Kinase CK-MB (CK-2) 0.57 Troponin I < 0.012 NT-Pro-B Natriuret Pep 612 Impressions: Abdomen Ultrasound 09/27/17 12:07 IMPRESSION: For visualization of the liver and hepatic vessels. Heterogeneous appearance. Fatty infiltration/ cirrhosis. KUB X-Ray 09/28/17 15:16 IMPRESSION: NG tube with its tip in the left upper quadrant presumably in the proximal stomach. Other findings as noted above Chest X-Ray 10/07/17 00:00 IMPRESSION: Slightly worsening basilar aeration, suspect effusions and volume loss with mild vascular congestion. Assessment & Plan - Diagnosis (1) Acute respiratory failure Qualifiers: Respiratory failure complication: hypoxia Qualified Code(s): J96.01 - Acute respiratory failure with hypoxia Is this a current diagnosis for this admission?: Yes Plan: He has septicemia secondary to Staph. epidermidis .Ct with Oxygen by N/C 2 L/ Min to keep saturation > 92%. Pt has completed 10-14 days course of Vancomycin and Zosyn. (2) Acute hepatic encephalopathy Is this a current diagnosis for this admission?: Yes Plan: Hold Lactulose 20g daily po for now; monitor ammonia level every other day. (3) Gastrointestinal hemorrhage Qualifiers: Gastritis type: alcoholic Is this a current diagnosis for this admission?: Yes Plan: Ct with Prevacid 30 mg BID PO; Transfused a total of 7 units of PRBC and give Lasix 20 mg IV after each unit of PRBC; Ct with 2 g sodium diet. F/U GIDr Barillas. (4) Acute blood loss anemia Is this a current diagnosis for this admission?: Yes Plan: The acute blodd loss anemia is due to GI bleed secondary to alcoholic gastritis. Pt has received a total of 7 units of PRBC and Lasix 20 mg IV given each unit of PRBC. Continue to monitor CBC daily. (5) Alcohol withdrawal delirium Is this a current diagnosis for this admission?: No Plan: Ativan 1 mg q2h IV prn; 2 hourly neurochecks; soft restraints. (6) Hypokalemia Is this a current diagnosis for this admission?: Yes Plan: He was given another 1 dose of KCL 20 MEQ IV today. So pt has received a total of KCL 20 MEQ IV [id number]. We added KCL 10 MEQ qd po.Monitor chemistries daily. (7) Hypomagnesemia Is this a current diagnosis for this admission?: Yes Plan: Pt was given additional Mg sulfate 4 G IV today. We will add Mg oxide 400 mg BID PO. Monitor mg level daily. (8) Acute hypernatremia Is this a current diagnosis for this admission?: Yes Plan: Resolved. Monitor chemistries daily. (9) Hypertension Qualifiers: Hypertension type: essential hypertension Qualified Code(s): I10 - Essential (primary) hypertension Is this a current diagnosis for this admission?: Yes Plan: Hold Coreg 6.25 mg BID PO due to hypotension; 2 g sodium diet.. (10) Hyperlipidemia Qualifiers: Hyperlipidemia type: mixed hyperlipidemia Qualified Code(s): E78.2 - Mixed hyperlipidemia Is this a current diagnosis for this admission?: Yes Plan: Simvasatin 20 mg qhs po ; 200 mg cholesterol diet.. (11) COPD (chronic obstructive pulmonary disease) Qualifiers: COPD type: unspecified COPD Qualified Code(s): J44.9 - Chronic obstructive pulmonary disease, unspecified Is this a current diagnosis for this admission?: Yes Plan: Duonebs q6h prn; Advair 250/50 1 puff BID. Oxygen by N/C 2 L/min to keep saturation>92%. (12) BPH (benign prostatic hyperplasia) Is this a current diagnosis for this admission?: Yes Plan: Ct with Flomax 0.4 mg qd po. (13) Alcoholic cirrhosis of liver Qualifiers: Ascites presence: with ascites Qualified Code(s): K70.31 - Alcoholic cirrhosis of liver with ascites Is this a current diagnosis for this admission?: Yes Plan: Restart spironolactone 50 mg qd po and Lasix 20 mg qd po.Strict input/out put chart; daily weight; monitor chemistries daily. (14) Depression Is this a current diagnosis for this admission?: Yes Plan: Ct with Celexa 20 mg qd po. (15) Osteoarthritis Is this a current diagnosis for this admission?: Yes Plan: Ct with Oxycodone 5 mg TID prn po. (16) DVT prophylaxis Is this a current diagnosis for this admission?: Yes Plan: Ct with SCD; Hold Lovenox due to GI bleed.
[2017-10-17] MEDS: ZOLPIDEM TARTRATE 5 MG TABLET PO PRN (21:45)
[2017-10-18] MEDS: LANSOPRAZOLE 30 MG TAB.RAP.DR PO SCH ×2 (05:27→17:31)
[2017-10-18 06:09] LABS: ABSOLUTE BASOPHILS # (AUTO) 0.1 10^3/uL (0.0-0.2); ABSOLUTE EOSINOPHILS # (AUTO) 0.1 10^3/uL (0.0-0.6); ABSOLUTE LYMPHOCYTES (AUTO) 1.7 10^3/uL (0.5-4.7); ABSOLUTE MONOCYTES (AUTO) 1.3 10^3/uL (0.1-1.4); ABSOLUTE NEUT (AUTO) 6.4 10^3/uL (1.7-8.2); BASOPHILS % (AUTO) 0.8 % (0-2); EOSINOPHILS % (AUTO) 1.3 % (0-6); HEMATOCRIT 24.1 % (37.9-51.0); HEMOGLOBIN 8.4 g/dL (13.5-17.0); MEAN CORPUSCULAR HEMOGLOBIN 33.5 pg (27.0-33.4); MEAN CORPUSCULAR HGB CONC 34.7 g/dL (32.0-36.0); MEAN CORPUSCULAR VOLUME 97 fl (80-97); MONOCYTES % (AUTO) 13.3 % (3-13); PLATELET COUNT 128 10^3/uL (150-450); RED BLOOD COUNT 2.49 10^6/uL (4.35-5.55); RED CELL DISTRIBUTION WIDTH 22.6 % (11.5-14.0); SEGMENTED NEUTROPHILS % (AUTO) 66.6 % (42-78); TOTAL CELLS COUNTED % (AUTO) 100 %; WHITE BLOOD COUNT 9.6 10^3/uL (4.0-10.5)
[2017-10-18 06:21] LABS: ALANINE AMINOTRANSFERASE 44 U/L (21-72); ALBUMIN 2.6 g/dL (3.5-5.0); ALKALINE PHOSPHATASE 193 U/L (38-126); ANION GAP 6 (5-19); ASPARTATE AMINO TRANSFERASE 74 U/L (17-59); BILIRUBIN,DIRECT 1.2 mg/dL (0.0-0.4); BILIRUBIN,TOTAL 3.9 mg/dL (0.2-1.3); BLOOD UREA NITROGEN 20 mg/dL (7-20); CALCIUM 8.7 mg/dL (8.4-10.2); CARBON DIOXIDE 29 mmol/L (22-30); CHLORIDE 102 mmol/L (98-107); GLUCOSE 78 mg/dL (75-110); POTASSIUM 4.5 mmol/L (3.6-5.0); SODIUM 136.7 mmol/L (137-145); TOTAL PROTEIN 6.6 g/dL (6.3-8.2)
[2017-10-18 07:35] LABS: ACANTHOCYTES SLIGHT; ANISOCYTOSIS 2+; HYPOCHROMASIA 1+; POIKILOCYTOSIS 2+; SCHISTOCYTES 1+
[2017-10-18 07:36] LABS: BURR CELLS SLIGHT; PLATELET CLUMPS PRESENT
[2017-10-18] MEDS: THIAMINE HCL 100 MG TABLET PO SCH (10:00)
[2017-10-18] MEDS: OXYCODONE HCL IR 5 MG TABLET PO PRN ×2 (12:25→20:17)
[2017-10-18] MEDS: FLUTICASONE/SALMETEROL DISKUS 250-50 MCG/DOSE IH SCH ×2 (12:25→20:17)
[2017-10-18] MEDS: CARVEDILOL 6.25 MG TABLET PO SCH ×2 (12:25→21:42)
[2017-10-18] MEDS: CITALOPRAM HYDROBROMIDE 20 MG TABLET PO SCH (12:25)
[2017-10-18] MEDS: TAMSULOSIN HCL 0.4 MG CAP.SR.24H PO SCH (12:25)
[2017-10-18] MEDS: NICOTINE 21 MG/24 HR PATCH.TD24 TD SCH (12:25)
[2017-10-18] MEDS: MAGNESIUM OXIDE 400 MG TABLET PO SCH ×2 (12:25→17:31)
[2017-10-18] MEDS: LACTULOSE SYRUP 20 GM/30 ML UDCUP PO SCH ×2 (12:25→22:48)
[2017-10-18] MEDS: FUROSEMIDE 20 MG TABLET PO SCH (12:25)
[2017-10-18] MEDS: POTASSIUM CHLORIDE 10 MEQ TABLET.SA PO SCH (12:25)
[2017-10-18] MEDS: MULTIVITAMIN TABLET PO SCH (12:25)
[2017-10-18] MEDS: SPIRONOLACTONE 25 MG TABLET PO SCH (12:25)
--- NOTE | 2017-10-18 12:41 | PDOC PROGRESS REPORT ---
Subjective Progress Note for:: 10/18/17 Subjective:: Pt is now co-operating with PT/OT and was able to walk up to the elevator with a walker and special education teaching assistant. He refused SNF placement.We will continue to work with pt on either going home or SNF placement. Reason For Visit: GI BLEED ETOH WITHDRAWAL Physical Exam Vital Signs: Temp Pulse Resp BP Pulse Ox 98.6 F 66 20 97/59 L 91 L 10/18/17 11:57 10/18/17 11:57 10/18/17 11:57 10/18/17 11:57 10/18/17 11:57 Intake & Output 10/17/17 10/18/17 10/19/17 06:59 06:59 06:59 Intake Total 1930 660 Output Total 1275 1225 Balance 655 -565 Weight 62.3 kg 59.5 kg General appearance: PRESENT: no acute distress, cooperative, thin, well- developed Head exam: PRESENT: atraumatic, normocephalic Eye exam: PRESENT: EOMI, PERRLA Ear exam: PRESENT: normal external ear exam, TM's normal bilaterally Mouth exam: PRESENT: neck supple, tongue midline Neck exam: PRESENT: full ROM Respiratory exam: PRESENT: decreased breath sounds, symmetrical Cardiovascular exam: PRESENT: +S1, +S2 Pulses: PRESENT: +1 pedal pulses bilateral GI/Abdominal exam: PRESENT: normal bowel sounds, soft Rectal exam: PRESENT: deferred Neurological exam: PRESENT: alert, awake, oriented to person, oriented to place Psychiatric exam: PRESENT: normal mood Results Laboratory Results: 10/18/17 05:35 10/18/17 05:35 10/17/17 10/18/17 10/18/17 15:30 05:35 05:35 WBC 9.6 RBC 2.49 L Hgb 8.4 L Hct 24.1 L MCV 97 MCH 33.5 H MCHC 34.7 RDW 22.6 H Plt Count 128 L Seg Neutrophils % 66.6 Lymphocytes % 18.0 Monocytes % 13.3 H Eosinophils % 1.3 Basophils % 0.8 Absolute Neutrophils 6.4 Absolute Lymphocytes 1.7 Absolute Monocytes 1.3 Absolute Eosinophils 0.1 Absolute Basophils 0.1 Sodium 136.7 L Potassium 4.5 Chloride 102 Carbon Dioxide 29 Anion Gap 6 BUN 20 Creatinine 0.98 Est GFR ( Amer) > 60 Est GFR (Non-Af Amer) > 60 Glucose 78 Calcium 8.7 Magnesium 1.6 1.5 L Total Bilirubin 3.9 H AST 74 H ALT 44 Alkaline Phosphatase 193 H Total Protein 6.6 Albumin 2.6 L 09/27/17 09/27/17 09/27/17 15:20 15:20 15:20 Creatine Kinase 95 CK-MB (CK-2) 0.80 Troponin I 0.028 NT-Pro-B Natriuret Pep 438 426 09/28/17 09/28/17 09/28/17 08:40 08:40 08:40 Creatine Kinase 64 CK-MB (CK-2) 0.47 Troponin I < 0.012 NT-Pro-B Natriuret Pep 09/29/17 10/01/17 05:05 05:30 Creatine Kinase CK-MB (CK-2) 0.57 Troponin I < 0.012 NT-Pro-B Natriuret Pep 612 Impressions: Abdomen Ultrasound 09/27/17 12:07 IMPRESSION: For visualization of the liver and hepatic vessels. Heterogeneous appearance. Fatty infiltration/ cirrhosis. KUB X-Ray 09/28/17 15:16 IMPRESSION: NG tube with its tip in the left upper quadrant presumably in the proximal stomach. Other findings as noted above Chest X-Ray 10/07/17 00:00 IMPRESSION: Slightly worsening basilar aeration, suspect effusions and volume loss with mild vascular congestion. Assessment & Plan - Diagnosis (1) Acute respiratory failure Qualifiers: Respiratory failure complication: hypoxia Qualified Code(s): J96.01 - Acute respiratory failure with hypoxia Is this a current diagnosis for this admission?: Yes Plan: He has septicemia secondary to Staph. epidermidis .Ct with Oxygen by N/C 2 L/ Min to keep saturation > 92%. Pt has completed 10-14 days course of Vancomycin and Zosyn. (2) Acute hepatic encephalopathy Is this a current diagnosis for this admission?: Yes Plan: Hold Lactulose 20g daily po for now; monitor ammonia level every other day. (3) Gastrointestinal hemorrhage Qualifiers: Gastritis type: alcoholic Is this a current diagnosis for this admission?: Yes Plan: Ct with Prevacid 30 mg BID PO; Transfused a total of 7 units of PRBC and give Lasix 20 mg IV after each unit of PRBC; Ct with 2 g sodium diet. F/U GI, Dr Barillas. (4) Acute blood loss anemia Is this a current diagnosis for this admission?: Yes Plan: The acute blodd loss anemia is due to GI bleed secondary to alcoholic gastritis. Pt has received a total of 7 units of PRBC and Lasix 20 mg IV given each unit of PRBC. Continue to monitor CBC daily. (5) Alcohol withdrawal delirium Is this a current diagnosis for this admission?: No Plan: Ativan 1 mg q2h IV prn; 2 hourly neurochecks; soft restraints. (6) Hypokalemia Is this a current diagnosis for this admission?: Yes Plan: He was given another 1 dose of KCL 20 MEQ IV today. So pt has received a total of KCL 20 MEQ IV [id number]. We added KCL 10 MEQ qd po.Monitor chemistries daily. (7) Hypomagnesemia Is this a current diagnosis for this admission?: Yes Plan: Pt was given additional Mg sulfate 4 G IV today. We will add Mg oxide 400 mg BID PO. Monitor mg level daily. (8) Acute hypernatremia Is this a current diagnosis for this admission?: Yes Plan: Resolved. Monitor chemistries daily. (9) Hypertension Qualifiers: Hypertension type: essential hypertension Qualified Code(s): I10 - Essential (primary) hypertension Is this a current diagnosis for this admission?: Yes Plan: Hold Coreg 6.25 mg BID PO due to hypotension; 2 g sodium diet.. (10) Hyperlipidemia Qualifiers: Hyperlipidemia type: mixed hyperlipidemia Qualified Code(s): E78.2 - Mixed hyperlipidemia Is this a current diagnosis for this admission?: Yes Plan: Simvasatin 20 mg qhs po ; 200 mg cholesterol diet.. (11) COPD (chronic obstructive pulmonary disease) Qualifiers: COPD type: unspecified COPD Qualified Code(s): J44.9 - Chronic obstructive pulmonary disease, unspecified Is this a current diagnosis for this admission?: Yes Plan: Duonebs q6h prn; Advair 250/50 1 puff BID. Oxygen by N/C 2 L/min to keep saturation>92%. (12) BPH (benign prostatic hyperplasia) Is this a current diagnosis for this admission?: Yes Plan: Ct with Flomax 0.4 mg qd po. (13) Alcoholic cirrhosis of liver Qualifiers: Ascites presence: with ascites Qualified Code(s): K70.31 - Alcoholic cirrhosis of liver with ascites Is this a current diagnosis for this admission?: Yes Plan: Restart spironolactone 50 mg qd po and Lasix 20 mg qd po.Strict input/out put chart; daily weight; monitor chemistries daily. (14) Depression Is this a current diagnosis for this admission?: Yes Plan: Ct with Celexa 20 mg qd po. (15) Osteoarthritis Is this a current diagnosis for this admission?: Yes Plan: Ct with Oxycodone 5 mg TID prn po. (16) DVT prophylaxis Is this a current diagnosis for this admission?: Yes Plan: Ct with SCD; Hold Lovenox due to GI bleed.
[2017-10-18] MEDS: MAGNESIUM SULFATE/D5W 1 GM/100 ML RTUPB IV SCH ×2 (16:00→17:31)
[2017-10-18] MEDS: ZOLPIDEM TARTRATE 5 MG TABLET PO PRN (22:52)
[2017-10-19] MEDS: LANSOPRAZOLE 30 MG TAB.RAP.DR PO SCH ×2 (05:20→18:31)
[2017-10-19] MEDS: OXYCODONE HCL IR 5 MG TABLET PO PRN (05:21)
[2017-10-19] MEDS: LACTULOSE SYRUP 20 GM/30 ML UDCUP PO SCH ×2 (09:46→22:50)
[2017-10-19] MEDS: NICOTINE 21 MG/24 HR PATCH.TD24 TD SCH (09:46)
[2017-10-19] MEDS: SPIRONOLACTONE 25 MG TABLET PO SCH (09:46)
[2017-10-19] MEDS: MULTIVITAMIN TABLET PO SCH (09:46)
[2017-10-19] MEDS: POTASSIUM CHLORIDE 10 MEQ TABLET.SA PO SCH (09:46)
[2017-10-19] MEDS: TAMSULOSIN HCL 0.4 MG CAP.SR.24H PO SCH (09:46)
[2017-10-19] MEDS: CARVEDILOL 6.25 MG TABLET PO SCH ×2 (09:46→22:36)
[2017-10-19] MEDS: CITALOPRAM HYDROBROMIDE 20 MG TABLET PO SCH (09:46)
[2017-10-19] MEDS: MAGNESIUM OXIDE 400 MG TABLET PO SCH ×2 (09:46→18:31)
[2017-10-19] MEDS: FUROSEMIDE 20 MG TABLET PO SCH (09:46)
[2017-10-19] MEDS: THIAMINE HCL 100 MG TABLET PO SCH (09:47)
[2017-10-19] MEDS: FLUTICASONE/SALMETEROL DISKUS 250-50 MCG/DOSE IH SCH ×2 (09:55→18:31)
[2017-10-19 16:49] LABS: ABSOLUTE BASOPHILS # (AUTO) 0.1 10^3/uL (0.0-0.2); ABSOLUTE EOSINOPHILS # (AUTO) 0.1 10^3/uL (0.0-0.6); HEMOGLOBIN 8.4 g/dL (13.5-17.0); TOTAL CELLS COUNTED % (AUTO) 100 %
--- NOTE | 2017-10-19 16:52 | PDOC PROGRESS REPORT ---
Subjective Progress Note for:: 10/19/17 Subjective:: Pt is now co-operating with PT/OT and was able to walk up to the elevator with a walker and back office medical assistant. He refused SNF placement.We will continue to work with pt on either going home or SNF placement. Reason For Visit: GI BLEED ETOH WITHDRAWAL Physical Exam Vital Signs: Temp Pulse Resp BP Pulse Ox 98.3 F 54 L 18 92/56 L 92 10/19/17 12:06 10/19/17 14:00 10/19/17 12:06 10/19/17 12:13 10/19/17 12:06 Intake & Output 10/18/17 10/19/17 10/20/17 06:59 06:59 06:59 Intake Total 660 926 342 Output Total 1225 1050 500 Balance -565 -124 -158 Weight 59.5 kg 58.9 kg General appearance: PRESENT: no acute distress, cooperative, thin, well- developed Eye exam: PRESENT: EOMI, PERRLA Ear exam: PRESENT: normal external ear exam, TM's normal bilaterally Mouth exam: PRESENT: neck supple, tongue midline Respiratory exam: PRESENT: decreased breath sounds, symmetrical Cardiovascular exam: PRESENT: +S1, +S2 Pulses: PRESENT: +1 pedal pulses bilateral GI/Abdominal exam: PRESENT: normal bowel sounds, soft Rectal exam: PRESENT: deferred Neurological exam: PRESENT: alert, awake, oriented to person, oriented to place Psychiatric exam: PRESENT: normal mood Results Laboratory Results: 09/27/17 09/27/17 09/27/17 15:20 15:20 15:20 Creatine Kinase 95 CK-MB (CK-2) 0.80 Troponin I 0.028 NT-Pro-B Natriuret Pep 438 426 09/28/17 09/28/17 09/28/17 08:40 08:40 08:40 Creatine Kinase 64 CK-MB (CK-2) 0.47 Troponin I < 0.012 NT-Pro-B Natriuret Pep 09/29/17 10/01/17 05:05 05:30 Creatine Kinase CK-MB (CK-2) 0.57 Troponin I < 0.012 NT-Pro-B Natriuret Pep 612 Impressions: Abdomen Ultrasound 09/27/17 12:07 IMPRESSION: For visualization of the liver and hepatic vessels. Heterogeneous appearance. Fatty infiltration/ cirrhosis. KUB X-Ray 09/28/17 15:16 IMPRESSION: NG tube with its tip in the left upper quadrant presumably in the proximal stomach. Other findings as noted above Chest X-Ray 10/07/17 00:00 IMPRESSION: Slightly worsening basilar aeration, suspect effusions and volume loss with mild vascular congestion. Assessment & Plan - Diagnosis (1) Acute respiratory failure Qualifiers: Respiratory failure complication: hypoxia Qualified Code(s): J96.01 - Acute respiratory failure with hypoxia Is this a current diagnosis for this admission?: Yes Plan: He has septicemia secondary to Staph. epidermidis .Ct with Oxygen by N/C 2 L/ Min to keep saturation > 92%. Pt has completed 10-14 days course of Vancomycin and Zosyn. (2) Acute hepatic encephalopathy Is this a current diagnosis for this admission?: Yes Plan: Hold Lactulose 20g daily po for now; monitor ammonia level every other day. (3) Gastrointestinal hemorrhage Qualifiers: Gastritis type: alcoholic Is this a current diagnosis for this admission?: Yes Plan: Ct with Prevacid 30 mg BID PO; Transfused a total of 7 units of PRBC and give Lasix 20 mg IV after each unit of PRBC; Ct with 2 g sodium diet. F/U GI, Dr Barillas. (4) Acute blood loss anemia Is this a current diagnosis for this admission?: Yes Plan: The acute blodd loss anemia is due to GI bleed secondary to alcoholic gastritis. Pt has received a total of 7 units of PRBC and Lasix 20 mg IV given each unit of PRBC. Continue to monitor CBC daily. (5) Alcohol withdrawal delirium Is this a current diagnosis for this admission?: No Plan: Ativan 1 mg q2h IV prn; 2 hourly neurochecks; soft restraints. (6) Hypokalemia Is this a current diagnosis for this admission?: Yes Plan: He was given another 1 dose of KCL 20 MEQ IV today. So pt has received a total of KCL 20 MEQ IV [id number]. We added KCL 10 MEQ qd po.Monitor chemistries daily. (7) Hypomagnesemia Is this a current diagnosis for this admission?: Yes Plan: Pt was given additional Mg sulfate 4 G IV today. We will add Mg oxide 400 mg BID PO. Monitor mg level daily. (8) Acute hypernatremia Is this a current diagnosis for this admission?: Yes Plan: Resolved. Monitor chemistries daily. (9) Hypertension Qualifiers: Hypertension type: essential hypertension Qualified Code(s): I10 - Essential (primary) hypertension Is this a current diagnosis for this admission?: Yes Plan: Hold Coreg 6.25 mg BID PO due to hypotension; 2 g sodium diet.. (10) Hyperlipidemia Qualifiers: Hyperlipidemia type: mixed hyperlipidemia Qualified Code(s): E78.2 - Mixed hyperlipidemia Is this a current diagnosis for this admission?: Yes Plan: Simvasatin 20 mg qhs po ; 200 mg cholesterol diet.. (11) COPD (chronic obstructive pulmonary disease) Qualifiers: COPD type: unspecified COPD Qualified Code(s): J44.9 - Chronic obstructive pulmonary disease, unspecified Is this a current diagnosis for this admission?: Yes Plan: Duonebs q6h prn; Advair 250/50 1 puff BID. Oxygen by N/C 2 L/min to keep saturation>92%. (12) BPH (benign prostatic hyperplasia) Is this a current diagnosis for this admission?: Yes Plan: Ct with Flomax 0.4 mg qd po. (13) Alcoholic cirrhosis of liver Qualifiers: Ascites presence: with ascites Qualified Code(s): K70.31 - Alcoholic cirrhosis of liver with ascites Is this a current diagnosis for this admission?: Yes Plan: Restart spironolactone 50 mg qd po and Lasix 20 mg qd po.Strict input/out put chart; daily weight; monitor chemistries daily. (14) Depression Is this a current diagnosis for this admission?: Yes Plan: Ct with Celexa 20 mg qd po. (15) Osteoarthritis Is this a current diagnosis for this admission?: Yes Plan: Ct with Oxycodone 5 mg TID prn po. (16) DVT prophylaxis Is this a current diagnosis for this admission?: Yes Plan: Ct with SCD; Hold Lovenox due to GI bleed.
[2017-10-19 16:59] LABS: ABSOLUTE LYMPHOCYTES (AUTO) 1.4 10^3/uL (0.5-4.7); ABSOLUTE MONOCYTES (AUTO) 1.1 10^3/uL (0.1-1.4); ABSOLUTE NEUT (AUTO) 5.1 10^3/uL (1.7-8.2); BASOPHILS % (AUTO) 1.3 % (0-2); EOSINOPHILS % (AUTO) 1.8 % (0-6); HEMATOCRIT 24.1 % (37.9-51.0); LYMPHOCYTES % (AUTO) 18.2 % (13-45); MEAN CORPUSCULAR HEMOGLOBIN 33.9 pg (27.0-33.4); MEAN CORPUSCULAR HGB CONC 34.9 g/dL (32.0-36.0); MEAN CORPUSCULAR VOLUME 97 fl (80-97); MONOCYTES % (AUTO) 13.9 % (3-13); PLATELET COUNT 124 10^3/uL (150-450); RED BLOOD COUNT 2.47 10^6/uL (4.35-5.55); RED CELL DISTRIBUTION WIDTH 22.2 % (11.5-14.0); SEGMENTED NEUTROPHILS % (AUTO) 64.8 % (42-78); WHITE BLOOD COUNT 7.8 10^3/uL (4.0-10.5)
[2017-10-19 17:07] LABS: ALANINE AMINOTRANSFERASE 47 U/L (21-72); ALBUMIN 2.7 g/dL (3.5-5.0); ALKALINE PHOSPHATASE 163 U/L (38-126); ANION GAP 6 (5-19); ASPARTATE AMINO TRANSFERASE 69 U/L (17-59); BILIRUBIN,DIRECT 1.3 mg/dL (0.0-0.4); BILIRUBIN,TOTAL 4.8 mg/dL (0.2-1.3); BLOOD UREA NITROGEN 20 mg/dL (7-20); CALCIUM 9.2 mg/dL (8.4-10.2); CARBON DIOXIDE 28 mmol/L (22-30); CHLORIDE 100 mmol/L (98-107); GLUCOSE 90 mg/dL (75-110); POTASSIUM 5.1 mmol/L (3.6-5.0); SODIUM 134.1 mmol/L (137-145); TOTAL PROTEIN 6.5 g/dL (6.3-8.2)
[2017-10-19 20:19] LABS: VENOUS BLOOD BASE EXCESS 2.3 mmol/L; VENOUS BLOOD HCO3 27.5 mmol/L (20-32); VENOUS BLOOD PH 7.4 (7.30-7.42)
[2017-10-20] MEDS: ZOLPIDEM TARTRATE 5 MG TABLET PO PRN ×2 (00:08→23:38)
[2017-10-20] MEDS: OXYCODONE HCL IR 5 MG TABLET PO PRN ×3 (00:50→23:38)
[2017-10-20] MEDS: LANSOPRAZOLE 30 MG TAB.RAP.DR PO SCH ×2 (06:13→18:21)
[2017-10-20 06:37] LABS: ABSOLUTE BASOPHILS # (AUTO) 0.1 10^3/uL (0.0-0.2); ABSOLUTE EOSINOPHILS # (AUTO) 0.2 10^3/uL (0.0-0.6); ABSOLUTE LYMPHOCYTES (AUTO) 1.6 10^3/uL (0.5-4.7); ABSOLUTE MONOCYTES (AUTO) 1.1 10^3/uL (0.1-1.4); BASOPHILS % (AUTO) 1.6 % (0-2); EOSINOPHILS % (AUTO) 1.7 % (0-6); HEMATOCRIT 25.1 % (37.9-51.0); HEMOGLOBIN 8.7 g/dL (13.5-17.0); LYMPHOCYTES % (AUTO) 17.6 % (13-45); MEAN CORPUSCULAR HEMOGLOBIN 33.8 pg (27.0-33.4); MEAN CORPUSCULAR HGB CONC 34.8 g/dL (32.0-36.0); MEAN CORPUSCULAR VOLUME 97 fl (80-97); MONOCYTES % (AUTO) 11.9 % (3-13); RED BLOOD COUNT 2.58 10^6/uL (4.35-5.55); RED CELL DISTRIBUTION WIDTH 22.6 % (11.5-14.0); SEGMENTED NEUTROPHILS % (AUTO) 67.2 % (42-78); TOTAL CELLS COUNTED % (AUTO) 100 %
[2017-10-20 07:07] LABS: ALANINE AMINOTRANSFERASE 55 U/L (21-72); ALBUMIN 2.9 g/dL (3.5-5.0); ALKALINE PHOSPHATASE 188 U/L (38-126); ANION GAP 7 (5-19); ASPARTATE AMINO TRANSFERASE 70 U/L (17-59); BILIRUBIN,DIRECT 1.3 mg/dL (0.0-0.4); BILIRUBIN,TOTAL 4.2 mg/dL (0.2-1.3); BLOOD UREA NITROGEN 21 mg/dL (7-20); CALCIUM 9.3 mg/dL (8.4-10.2); CARBON DIOXIDE 26 mmol/L (22-30); CHLORIDE 102 mmol/L (98-107); GLUCOSE 84 mg/dL (75-110); SODIUM 135.3 mmol/L (137-145); TOTAL PROTEIN 6.9 g/dL (6.3-8.2)
[2017-10-20 07:17] LABS: PLATELET COUNT 145 10^3/uL (150-450)
[2017-10-20] MEDS: THIAMINE HCL 100 MG TABLET PO SCH (11:47)
[2017-10-20] MEDS: MAGNESIUM OXIDE 400 MG TABLET PO SCH ×2 (11:47→18:21)
[2017-10-20] MEDS: MULTIVITAMIN TABLET PO SCH (11:47)
[2017-10-20] MEDS: SPIRONOLACTONE 25 MG TABLET PO SCH (11:48)
[2017-10-20] MEDS: FUROSEMIDE 20 MG TABLET PO SCH (11:48)
[2017-10-20] MEDS: TAMSULOSIN HCL 0.4 MG CAP.SR.24H PO SCH (11:48)
[2017-10-20] MEDS: CITALOPRAM HYDROBROMIDE 20 MG TABLET PO SCH (11:48)
[2017-10-20] MEDS: NICOTINE 21 MG/24 HR PATCH.TD24 TD SCH (11:49)
[2017-10-20] MEDS: POTASSIUM CHLORIDE 10 MEQ TABLET.SA PO SCH (11:49)
[2017-10-20] MEDS: LACTULOSE SYRUP 20 GM/30 ML UDCUP PO SCH ×2 (11:49→21:17)
[2017-10-20] MEDS: CARVEDILOL 6.25 MG TABLET PO SCH (11:49)
[2017-10-20] MEDS: FLUTICASONE/SALMETEROL DISKUS 250-50 MCG/DOSE IH SCH ×2 (13:35→18:22)
--- NOTE | 2017-10-20 17:20 | PDOC PROGRESS REPORT ---
Subjective Progress Note for:: 10/20/17 Subjective:: Patient states he is too sleepy to speak with me today. He does not have much of an appetite. He is breathing fine. No chest pain. No fevers or chills. No abdominal pain. He has had an episode of diarrhea today. Reason For Visit: GI BLEED ETOH WITHDRAWAL Physical Exam Vital Signs: Temp Pulse Resp BP Pulse Ox 97.3 F 57 L 17 100/54 L 92 10/20/17 08:00 10/20/17 14:00 10/20/17 08:00 10/20/17 08:00 10/20/17 08:00 Intake & Output 10/19/17 10/20/17 10/21/17 06:59 06:59 06:59 Intake Total 926 907 60 Output Total 1050 1650 Balance -124 -743 60 Weight 58.9 kg 55.8 kg General appearance: PRESENT: no acute distress, thin Eye exam: PRESENT: conjunctiva pink Ear exam: PRESENT: normal external ear exam Mouth exam: PRESENT: moist, tongue midline Respiratory exam: PRESENT: clear to auscultation spike, unlabored. ABSENT: rales , rhonchi, wheezes Cardiovascular exam: PRESENT: RRR. ABSENT: systolic murmur Pulses: PRESENT: normal radial pulses GI/Abdominal exam: PRESENT: normal bowel sounds, soft. ABSENT: distended, tenderness Psychiatric exam: PRESENT: flat affect. ABSENT: anxious Skin exam: PRESENT: dry, warm Results Laboratory Results: 10/20/17 06:15 10/20/17 06:15 10/19/17 10/20/17 10/20/17 20:10 06:15 06:15 WBC 9.0 RBC 2.58 L Hgb 8.7 L Hct 25.1 L MCV 97 MCH 33.8 H MCHC 34.8 RDW 22.6 H Plt Count 145 L Seg Neutrophils % 67.2 Lymphocytes % 17.6 Monocytes % 11.9 Eosinophils % 1.7 Basophils % 1.6 Absolute Neutrophils 6.0 Absolute Lymphocytes 1.6 Absolute Monocytes 1.1 Absolute Eosinophils 0.2 Absolute Basophils 0.1 VBG pH 7.40 VBG pCO2 46.0 VBG HCO3 27.5 VBG Base Excess 2.3 Sodium 135.3 L Potassium 5.0 Chloride 102 Carbon Dioxide 26 Anion Gap 7 BUN 21 H Creatinine 0.95 Est GFR ( Amer) > 60 Est GFR (Non-Af Amer) > 60 Glucose 84 Calcium 9.3 Total Bilirubin 4.2 H AST 70 H ALT 55 Alkaline Phosphatase 188 H Total Protein 6.9 Albumin 2.9 L 09/27/17 09/27/17 09/27/17 15:20 15:20 15:20 Creatine Kinase 95 CK-MB (CK-2) 0.80 Troponin I 0.028 NT-Pro-B Natriuret Pep 438 426 09/28/17 09/28/17 09/28/17 08:40 08:40 08:40 Creatine Kinase 64 CK-MB (CK-2) 0.47 Troponin I < 0.012 NT-Pro-B Natriuret Pep 09/29/17 10/01/17 05:05 05:30 Creatine Kinase CK-MB (CK-2) 0.57 Troponin I < 0.012 NT-Pro-B Natriuret Pep 612 Impressions: Abdomen Ultrasound 09/27/17 12:07 IMPRESSION: For visualization of the liver and hepatic vessels. Heterogeneous appearance. Fatty infiltration/ cirrhosis. KUB X-Ray 09/28/17 15:16 IMPRESSION: NG tube with its tip in the left upper quadrant presumably in the proximal stomach. Other findings as noted above Chest X-Ray 10/07/17 00:00 IMPRESSION: Slightly worsening basilar aeration, suspect effusions and volume loss with mild vascular congestion. Assessment & Plan - Diagnosis (1) Acute blood loss anemia Is this a current diagnosis for this admission?: Yes Plan: Secondary to GI bleed from alcohol use disorder. No sign of active bleeding. H &H have been stable. Will hold CBC for tomorrow. (2) Acute hepatic encephalopathy Is this a current diagnosis for this admission?: Yes Plan: She continues on lactulose. This problem is stable. Every once in a while he refuses his lactulose and I have encouraged nursing staff to give it to him daily as ordered. (3) Alcohol withdrawal delirium Is this a current diagnosis for this admission?: No Plan: Resolved. (4) Gastrointestinal hemorrhage Qualifiers: Gastritis type: alcoholic Is this a current diagnosis for this admission?: Yes Plan: Resolved. (5) Anxiety disorder Is this a current diagnosis for this admission?: Yes Plan: Patient is on citalopram for depression and anxiety. This problem appears stable. (6) Chronic alcohol abuse Is this a current diagnosis for this admission?: Yes Plan: We will continue alcohol cessation counseling as patient is able and willing. Patient has cirrhosis. He will continue on spironolactone and Lasix. (7) Hypotension Qualifiers: Hypotension type: other hypotension type Qualified Code(s): I95.89 - Other hypotension Is this a current diagnosis for this admission?: Yes Plan: Patient is on Coreg 6.25 mg p.o. every 12 hours. He is bradycardic in the 50s and hypotensive with systolic at 100. Today I am decreasing his Coreg to 3.125 mg p.o. twice daily. Will monitor vitals. (8) Shortness of breath Is this a current diagnosis for this admission?: Yes Plan: Resolved. - Time Time Spent with patient: 15-24 minutes Anticipated discharge: Acute Rehab - Inpatient Certification Medical Necessity: Significant Comorbidiites Make Outpatient Treatment Too Risky , Need Close Monitoring Due to Risk of Patient Decompensation, Risk of Complication if Not Cared For in Hospital
[2017-10-20] MEDS: CARVEDILOL 3.125 MG TABLET PO SCH (21:17)
[2017-10-21] MEDS: LANSOPRAZOLE 30 MG TAB.RAP.DR PO SCH ×2 (06:24→18:23)
[2017-10-21 07:07] LABS: ALANINE AMINOTRANSFERASE 49 U/L (21-72); ALKALINE PHOSPHATASE 174 U/L (38-126); ANION GAP 9 (5-19); ASPARTATE AMINO TRANSFERASE 70 U/L (17-59); BILIRUBIN,DIRECT 1.3 mg/dL (0.0-0.4); BILIRUBIN,TOTAL 3.9 mg/dL (0.2-1.3); BLOOD UREA NITROGEN 27 mg/dL (7-20); CALCIUM 9.5 mg/dL (8.4-10.2); CARBON DIOXIDE 25 mmol/L (22-30); CHLORIDE 103 mmol/L (98-107); GLUCOSE 87 mg/dL (75-110); POTASSIUM 5.2 mmol/L (3.6-5.0); SODIUM 136.6 mmol/L (137-145); TOTAL PROTEIN 7.1 g/dL (6.3-8.2)
[2017-10-21 07:39] LABS: ABSOLUTE BASOPHILS # (AUTO) 0.1 10^3/uL (0.0-0.2); ABSOLUTE EOSINOPHILS # (AUTO) 0.2 10^3/uL (0.0-0.6); ABSOLUTE LYMPHOCYTES (AUTO) 1.6 10^3/uL (0.5-4.7); ABSOLUTE MONOCYTES (AUTO) 1.3 10^3/uL (0.1-1.4); BASOPHILS % (AUTO) 0.7 % (0-2); EOSINOPHILS % (AUTO) 1.9 % (0-6); HEMATOCRIT 25.9 % (37.9-51.0); HEMOGLOBIN 9.1 g/dL (13.5-17.0); LYMPHOCYTES % (AUTO) 17.8 % (13-45); MEAN CORPUSCULAR HEMOGLOBIN 34.7 pg (27.0-33.4); MEAN CORPUSCULAR HGB CONC 35.2 g/dL (32.0-36.0); MEAN CORPUSCULAR VOLUME 99 fl (80-97); MONOCYTES % (AUTO) 13.8 % (3-13); PLATELET COUNT 156 10^3/uL (150-450); RED BLOOD COUNT 2.63 10^6/uL (4.35-5.55); RED CELL DISTRIBUTION WIDTH 22.3 % (11.5-14.0); SEGMENTED NEUTROPHILS % (AUTO) 65.8 % (42-78); TOTAL CELLS COUNTED % (AUTO) 100 %; WHITE BLOOD COUNT 9.1 10^3/uL (4.0-10.5)
[2017-10-21 08:16] LABS: ANISOCYTOSIS 2+; BURR CELLS 2+; HELMET CELLS SLIGHT; OVALOCYTES SLIGHT; PLATELET COMMENT ADEQUATE; POIKILOCYTOSIS 3+; SCHISTOCYTES SLIGHT; TARGET CELLS SLIGHT
[2017-10-21] MEDS: MAGNESIUM OXIDE 400 MG TABLET PO SCH ×2 (11:22→18:23)
[2017-10-21] MEDS: CITALOPRAM HYDROBROMIDE 20 MG TABLET PO SCH (11:22)
[2017-10-21] MEDS: THIAMINE HCL 100 MG TABLET PO SCH (11:23)
[2017-10-21] MEDS: TAMSULOSIN HCL 0.4 MG CAP.SR.24H PO SCH (11:23)
[2017-10-21] MEDS: MULTIVITAMIN TABLET PO SCH (11:23)
[2017-10-21] MEDS: FLUTICASONE/SALMETEROL DISKUS 250-50 MCG/DOSE IH SCH ×2 (11:24→18:23)
[2017-10-21] MEDS: LACTULOSE SYRUP 20 GM/30 ML UDCUP PO SCH ×2 (11:24→22:23)
[2017-10-21] MEDS: NICOTINE 21 MG/24 HR PATCH.TD24 TD SCH (11:28)
[2017-10-21] MEDS: POTASSIUM CHLORIDE 10 MEQ TABLET.SA PO SCH (11:29)
[2017-10-21] MEDS: SPIRONOLACTONE 25 MG TABLET PO SCH (11:29)
[2017-10-21] MEDS: FUROSEMIDE 20 MG TABLET PO SCH (12:17)
[2017-10-21] MEDS: CARVEDILOL 3.125 MG TABLET PO SCH ×2 (12:20→21:53)
--- NOTE | 2017-10-21 14:00 | PDOC PROGRESS REPORT ---
Subjective Progress Note for:: 10/21/17 Subjective:: Patient is a little bit more awake today. After nurse and I explained the importance of taking his lactulose he agreed to take it today. No new pain. No difficulty breathing. He is willing to try to eat a little bit more. Other than this he will just nodded yes or no and not provide much more information. Reason For Visit: GI BLEED ETOH WITHDRAWAL Physical Exam Vital Signs: Temp Pulse Resp BP Pulse Ox 98.2 F 63 18 96/55 L 90 L 10/21/17 08:25 10/21/17 08:25 10/21/17 08:25 10/21/17 08:25 10/21/17 08:25 Intake & Output 10/20/17 10/21/17 10/22/17 06:59 06:59 06:59 Intake Total 907 396 Output Total 1650 975 Balance -743 -579 Weight 55.8 kg 55.2 kg General appearance: PRESENT: no acute distress, cooperative, disheveled, thin Head exam: PRESENT: atraumatic, normocephalic Eye exam: PRESENT: conjunctiva pink, EOMI Mouth exam: PRESENT: moist, tongue midline, other - White coating over tongue Neck exam: ABSENT: lymphadenopathy Respiratory exam: PRESENT: clear to auscultation spike, unlabored Cardiovascular exam: PRESENT: RRR Pulses: PRESENT: normal radial pulses GI/Abdominal exam: PRESENT: normal bowel sounds, soft. ABSENT: guarding, tenderness Rectal exam: PRESENT: deferred Extremities exam: ABSENT: tenderness Neurological exam: PRESENT: awake, oriented to person, oriented to place, oriented to situation Psychiatric exam: PRESENT: other - Patient is a little drowsy secondary to having missed at least 2 doses of lactulose. Skin exam: PRESENT: dry, warm Results Laboratory Results: 10/21/17 06:30 10/21/17 06:30 10/21/17 10/21/17 06:30 06:30 WBC 9.1 RBC 2.63 L Hgb 9.1 L Hct 25.9 L MCV 99 H MCH 34.7 H MCHC 35.2 RDW 22.3 H Plt Count 156 Seg Neutrophils % 65.8 Lymphocytes % 17.8 Monocytes % 13.8 H Eosinophils % 1.9 Basophils % 0.7 Absolute Neutrophils 6.0 Absolute Lymphocytes 1.6 Absolute Monocytes 1.3 Absolute Eosinophils 0.2 Absolute Basophils 0.1 Sodium 136.6 L Potassium 5.2 H Chloride 103 Carbon Dioxide 25 Anion Gap 9 BUN 27 H Creatinine 1.16 Est GFR ( Amer) > 60 Est GFR (Non-Af Amer) > 60 Glucose 87 Calcium 9.5 Total Bilirubin 3.9 H AST 70 H ALT 49 Alkaline Phosphatase 174 H Total Protein 7.1 Albumin 3.0 L 09/27/17 09/27/17 09/27/17 15:20 15:20 15:20 Creatine Kinase 95 CK-MB (CK-2) 0.80 Troponin I 0.028 NT-Pro-B Natriuret Pep 438 426 09/28/17 09/28/17 09/28/17 08:40 08:40 08:40 Creatine Kinase 64 CK-MB (CK-2) 0.47 Troponin I < 0.012 NT-Pro-B Natriuret Pep 09/29/17 10/01/17 05:05 05:30 Creatine Kinase CK-MB (CK-2) 0.57 Troponin I < 0.012 NT-Pro-B Natriuret Pep 612 Impressions: Abdomen Ultrasound 09/27/17 12:07 IMPRESSION: For visualization of the liver and hepatic vessels. Heterogeneous appearance. Fatty infiltration/ cirrhosis. KUB X-Ray 09/28/17 15:16 IMPRESSION: NG tube with its tip in the left upper quadrant presumably in the proximal stomach. Other findings as noted above Chest X-Ray 10/07/17 00:00 IMPRESSION: Slightly worsening basilar aeration, suspect effusions and volume loss with mild vascular congestion. Assessment & Plan - Diagnosis (1) Acute blood loss anemia Is this a current diagnosis for this admission?: Yes Plan: Improved. Monitor for recurrent bleeding. Encourage good nutrition. (2) Acute hepatic encephalopathy Is this a current diagnosis for this admission?: Yes Plan: Patient has missed at least 2 doses of lactulose due to refusal to take. I convince the patient to take his lactulose today and also have encouraged the nurse to really not allow patient to miss this medication. (3) Alcohol withdrawal delirium Is this a current diagnosis for this admission?: No Plan: Acute component resolved. Patient probably has some chronic alcoholic encephalopathy. (4) Gastrointestinal hemorrhage Qualifiers: Gastritis type: alcoholic Is this a current diagnosis for this admission?: Yes Plan: Acute bleeding resolved. High risk for rebleed. Continue to monitor for evidence of bleeding. (5) Anxiety disorder Is this a current diagnosis for this admission?: Yes Plan: Able, continue current care. Patient would benefit from psychiatric evaluation. (6) Chronic alcohol abuse Is this a current diagnosis for this admission?: Yes Plan: We will continue to encourage cessation. Patient is now struggling with chronic medical problems related to alcohol abuse disorder. (7) Hypotension Qualifiers: Hypotension type: other hypotension type Qualified Code(s): I95.89 - Other hypotension Is this a current diagnosis for this admission?: Yes Plan: Blood pressure is intermittently low. I have decreased his Coreg to 3.125 mg p.o. twice daily. Heart rate is controlled. I have added hold parameters for the lower dose of Coreg. We will continue his diuretics. (8) Alcoholic cirrhosis of liver Qualifiers: Ascites presence: with ascites Qualified Code(s): K70.31 - Alcoholic cirrhosis of liver with ascites Is this a current diagnosis for this admission?: Yes Plan: Continue spironolactone and Lasix. Lactulose. Will need to follow-up with turret punch press operator. - Time Time Spent with patient: 25-34 minutes Medications reviewed and adjusted accordingly: Yes Anticipated discharge: Acute Rehab - Inpatient Certification Based on my medical assessment, after consideration of the patient's comorbidities, presenting symptoms, or acuity I expect that the services needed warrant INPATIENT care.: Yes I certify that my determination is in accordance with my understanding of Medicare's requirements for reasonable and necessary INPATIENT services [42 CFR 412.3e].: Yes Medical Necessity: Risk of Complication if Not Cared For in Hospital
[2017-10-21] MEDS: NYSTATIN 500000 UNIT/5 ML UDCUP PO SCH ×2 (18:23→21:53)
[2017-10-21] MEDS: OXYCODONE HCL IR 5 MG TABLET PO PRN (21:53)
[2017-10-22] MEDS: LANSOPRAZOLE 30 MG TAB.RAP.DR PO SCH ×2 (05:24→18:27)
[2017-10-22 06:08] LABS: ABSOLUTE BASOPHILS # (AUTO) 0.1 10^3/uL (0.0-0.2); ABSOLUTE EOSINOPHILS # (AUTO) 0.2 10^3/uL (0.0-0.6); ABSOLUTE LYMPHOCYTES (AUTO) 1.9 10^3/uL (0.5-4.7); ABSOLUTE MONOCYTES (AUTO) 1.6 10^3/uL (0.1-1.4); ABSOLUTE NEUT (AUTO) 5.8 10^3/uL (1.7-8.2); EOSINOPHILS % (AUTO) 2.3 % (0-6); HEMATOCRIT 25.2 % (37.9-51.0); HEMOGLOBIN 8.9 g/dL (13.5-17.0); LYMPHOCYTES % (AUTO) 19.9 % (13-45); MEAN CORPUSCULAR HEMOGLOBIN 34.8 pg (27.0-33.4); MEAN CORPUSCULAR HGB CONC 35.4 g/dL (32.0-36.0); MEAN CORPUSCULAR VOLUME 99 fl (80-97); MONOCYTES % (AUTO) 16.8 % (3-13); RED BLOOD COUNT 2.55 10^6/uL (4.35-5.55); RED CELL DISTRIBUTION WIDTH 22.2 % (11.5-14.0); TOTAL CELLS COUNTED % (AUTO) 100 %; WHITE BLOOD COUNT 9.7 10^3/uL (4.0-10.5)
[2017-10-22 06:11] LABS: PLATELET COUNT 159 10^3/uL (150-450)
[2017-10-22 06:55] LABS: ANISOCYTOSIS 2+; BURR CELLS 2+; POIKILOCYTOSIS 2+; SCHISTOCYTES SLIGHT; TARGET CELLS SLIGHT
[2017-10-22 06:56] LABS: PLATELET COMMENT ADEQUATE
[2017-10-22 08:02] LABS: ALANINE AMINOTRANSFERASE 54 U/L (21-72); ALBUMIN 2.8 g/dL (3.5-5.0); ALKALINE PHOSPHATASE 176 U/L (38-126); ANION GAP 8 (5-19); ASPARTATE AMINO TRANSFERASE 75 U/L (17-59); BILIRUBIN,DIRECT 1.4 mg/dL (0.0-0.4); BILIRUBIN,TOTAL 3.4 mg/dL (0.2-1.3); BLOOD UREA NITROGEN 33 mg/dL (7-20); CARBON DIOXIDE 26 mmol/L (22-30); CHLORIDE 104 mmol/L (98-107); GLUCOSE 102 mg/dL (75-110); SODIUM 137.6 mmol/L (137-145); TOTAL PROTEIN 7.4 g/dL (6.3-8.2)
[2017-10-22] MEDS: SPIRONOLACTONE 25 MG TABLET PO SCH (11:14)
[2017-10-22] MEDS: THIAMINE HCL 100 MG TABLET PO SCH (11:15)
[2017-10-22] MEDS: MAGNESIUM OXIDE 400 MG TABLET PO SCH ×2 (11:15→18:27)
[2017-10-22] MEDS: CITALOPRAM HYDROBROMIDE 20 MG TABLET PO SCH (11:16)
[2017-10-22] MEDS: MULTIVITAMIN TABLET PO SCH (11:16)
[2017-10-22] MEDS: CARVEDILOL 3.125 MG TABLET PO SCH ×2 (11:16→21:49)
[2017-10-22] MEDS: FLUTICASONE/SALMETEROL DISKUS 250-50 MCG/DOSE IH SCH ×2 (11:17→18:28)
[2017-10-22] MEDS: NYSTATIN 500000 UNIT/5 ML UDCUP PO SCH ×4 (11:17→21:59)
[2017-10-22] MEDS: LACTULOSE SYRUP 20 GM/30 ML UDCUP PO SCH ×2 (11:17→21:59)
[2017-10-22] MEDS: FUROSEMIDE 20 MG TABLET PO SCH (11:17)
[2017-10-22] MEDS: TAMSULOSIN HCL 0.4 MG CAP.SR.24H PO SCH (11:17)
[2017-10-22] MEDS: NICOTINE 21 MG/24 HR PATCH.TD24 TD SCH (11:18)
[2017-10-22] MEDS: OXYCODONE HCL IR 5 MG TABLET PO PRN (14:00)
--- NOTE | 2017-10-22 15:33 | PDOC PROGRESS REPORT ---
Subjective Progress Note for:: 10/22/17 Subjective:: He was able to walk around the unit today with walker without assistance. We will be discharging him home on sunday with home PT/OT. Reason For Visit: GI BLEED ETOH WITHDRAWAL Physical Exam Vital Signs: Temp Pulse Resp BP Pulse Ox 97.8 F 63 18 95/46 L 93 10/22/17 12:11 10/22/17 12:11 10/22/17 12:11 10/22/17 12:11 10/22/17 12:11 Intake & Output 10/21/17 10/22/17 10/23/17 06:59 06:59 06:59 Intake Total 396 580 350 Output Total 975 1000 150 Balance -579 -420 200 Weight 55.2 kg 53.6 kg General appearance: PRESENT: no acute distress, cooperative, thin, well- developed Head exam: PRESENT: atraumatic, normocephalic Eye exam: PRESENT: EOMI, PERRLA Ear exam: PRESENT: normal external ear exam, TM's normal bilaterally Mouth exam: PRESENT: neck supple, tongue midline Respiratory exam: PRESENT: decreased breath sounds, symmetrical Cardiovascular exam: PRESENT: +S1, +S2 Pulses: PRESENT: +1 pedal pulses bilateral Vascular exam: PRESENT: normal capillary refill GI/Abdominal exam: PRESENT: normal bowel sounds, soft Rectal exam: PRESENT: deferred Neurological exam: PRESENT: alert, awake, oriented to person, oriented to place , oriented to time Psychiatric exam: PRESENT: normal mood Results Laboratory Results: 10/22/17 05:59 10/22/17 05:59 10/22/17 10/22/17 05:59 05:59 WBC 9.7 RBC 2.55 L Hgb 8.9 L Hct 25.2 L MCV 99 H MCH 34.8 H MCHC 35.4 RDW 22.2 H Plt Count 159 Seg Neutrophils % 60.0 Lymphocytes % 19.9 Monocytes % 16.8 H Eosinophils % 2.3 Basophils % 1.0 Absolute Neutrophils 5.8 Absolute Lymphocytes 1.9 Absolute Monocytes 1.6 H Absolute Eosinophils 0.2 Absolute Basophils 0.1 Sodium 137.6 Potassium 5.0 Chloride 104 Carbon Dioxide 26 Anion Gap 8 BUN 33 H Creatinine 1.23 Est GFR ( Amer) > 60 Est GFR (Non-Af Amer) > 60 Glucose 102 Calcium 9.0 Total Bilirubin 3.4 H AST 75 H ALT 54 Alkaline Phosphatase 176 H Total Protein 7.4 Albumin 2.8 L 09/27/17 09/27/17 09/27/17 15:20 15:20 15:20 Creatine Kinase 95 CK-MB (CK-2) 0.80 Troponin I 0.028 NT-Pro-B Natriuret Pep 438 426 09/28/17 09/28/17 09/28/17 08:40 08:40 08:40 Creatine Kinase 64 CK-MB (CK-2) 0.47 Troponin I < 0.012 NT-Pro-B Natriuret Pep 09/29/17 10/01/17 05:05 05:30 Creatine Kinase CK-MB (CK-2) 0.57 Troponin I < 0.012 NT-Pro-B Natriuret Pep 612 Impressions: Abdomen Ultrasound 09/27/17 12:07 IMPRESSION: For visualization of the liver and hepatic vessels. Heterogeneous appearance. Fatty infiltration/ cirrhosis. KUB X-Ray 09/28/17 15:16 IMPRESSION: NG tube with its tip in the left upper quadrant presumably in the proximal stomach. Other findings as noted above Chest X-Ray 10/07/17 00:00 IMPRESSION: Slightly worsening basilar aeration, suspect effusions and volume loss with mild vascular congestion. Assessment & Plan - Diagnosis (1) Acute respiratory failure Qualifiers: Respiratory failure complication: hypoxia Qualified Code(s): J96.01 - Acute respiratory failure with hypoxia Is this a current diagnosis for this admission?: Yes Plan: He has septicemia secondary to Staph. epidermidis .Ct with Oxygen by N/C 2 L/ Min to keep saturation > 92%. Pt has completed 10-14 days course of Vancomycin and Zosyn. (2) Acute hepatic encephalopathy Is this a current diagnosis for this admission?: Yes Plan: Hold Lactulose 20g daily po for now; monitor ammonia level every other day. (3) Gastrointestinal hemorrhage Qualifiers: Gastritis type: alcoholic Is this a current diagnosis for this admission?: Yes Plan: Ct with Prevacid 30 mg BID PO; Transfused a total of 7 units of PRBC and give Lasix 20 mg IV after each unit of PRBC; Ct with 2 g sodium diet. F/U GI, Dr Barillas. (4) Acute blood loss anemia Is this a current diagnosis for this admission?: Yes Plan: The acute blodd loss anemia is due to GI bleed secondary to alcoholic gastritis. Pt has received a total of 7 units of PRBC and Lasix 20 mg IV given each unit of PRBC. Continue to monitor CBC daily. (5) Alcohol withdrawal delirium Is this a current diagnosis for this admission?: No Plan: Ativan 1 mg q2h IV prn; 2 hourly neurochecks; soft restraints. (6) Hypokalemia Is this a current diagnosis for this admission?: Yes Plan: He was given another 1 dose of KCL 20 MEQ IV today. So pt has received a total of KCL 20 MEQ IV [id number]. We added KCL 10 MEQ qd po.Monitor chemistries daily. (7) Hypomagnesemia Is this a current diagnosis for this admission?: Yes Plan: Pt was given additional Mg sulfate 4 G IV today. We will add Mg oxide 400 mg BID PO. Monitor mg level daily. (8) Acute hypernatremia Is this a current diagnosis for this admission?: Yes Plan: Resolved. Monitor chemistries daily. (9) Hypertension Qualifiers: Hypertension type: essential hypertension Qualified Code(s): I10 - Essential (primary) hypertension Is this a current diagnosis for this admission?: Yes Plan: Hold Coreg 6.25 mg BID PO due to hypotension; 2 g sodium diet.. (10) Hyperlipidemia Qualifiers: Hyperlipidemia type: mixed hyperlipidemia Qualified Code(s): E78.2 - Mixed hyperlipidemia Is this a current diagnosis for this admission?: Yes Plan: Simvasatin 20 mg qhs po ; 200 mg cholesterol diet.. (11) COPD (chronic obstructive pulmonary disease) Qualifiers: COPD type: unspecified COPD Qualified Code(s): J44.9 - Chronic obstructive pulmonary disease, unspecified Is this a current diagnosis for this admission?: Yes Plan: Duonebs q6h prn; Advair 250/50 1 puff BID. Oxygen by N/C 2 L/min to keep saturation>92%. (12) BPH (benign prostatic hyperplasia) Is this a current diagnosis for this admission?: Yes Plan: Ct with Flomax 0.4 mg qd po. (13) Alcoholic cirrhosis of liver Qualifiers: Ascites presence: with ascites Qualified Code(s): K70.31 - Alcoholic cirrhosis of liver with ascites Is this a current diagnosis for this admission?: Yes Plan: Restart spironolactone 50 mg qd po and Lasix 20 mg qd po.Strict input/out put chart; daily weight; monitor chemistries daily. (14) Depression Is this a current diagnosis for this admission?: Yes Plan: Ct with Celexa 20 mg qd po. (15) Osteoarthritis Is this a current diagnosis for this admission?: Yes Plan: Ct with Oxycodone 5 mg TID prn po. (16) DVT prophylaxis Is this a current diagnosis for this admission?: Yes Plan: Ct with SCD; Hold Lovenox due to GI bleed.
[2017-10-22] MEDS: NORMAL SALINE INJ/PF 0.9% 10 ML SDV IV PRN (21:59)
[2017-10-22] MEDS: ZOLPIDEM TARTRATE 5 MG TABLET PO PRN (21:59)
[2017-10-23 05:19] LABS: ABSOLUTE EOSINOPHILS # (AUTO) 0.2 10^3/uL (0.0-0.6); ABSOLUTE LYMPHOCYTES (AUTO) 1.6 10^3/uL (0.5-4.7); ABSOLUTE MONOCYTES (AUTO) 1.3 10^3/uL (0.1-1.4); ABSOLUTE NEUT (AUTO) 4.3 10^3/uL (1.7-8.2); BASOPHILS % (AUTO) 0.5 % (0-2); EOSINOPHILS % (AUTO) 2.6 % (0-6); HEMATOCRIT 25.1 % (37.9-51.0); HEMOGLOBIN 8.8 g/dL (13.5-17.0); LYMPHOCYTES % (AUTO) 21.3 % (13-45); MEAN CORPUSCULAR HEMOGLOBIN 34.4 pg (27.0-33.4); MEAN CORPUSCULAR HGB CONC 34.9 g/dL (32.0-36.0); MEAN CORPUSCULAR VOLUME 99 fl (80-97); PLATELET COUNT 154 10^3/uL (150-450); RED BLOOD COUNT 2.55 10^6/uL (4.35-5.55); RED CELL DISTRIBUTION WIDTH 22.3 % (11.5-14.0); SEGMENTED NEUTROPHILS % (AUTO) 57.6 % (42-78); TOTAL CELLS COUNTED % (AUTO) 100 %; WHITE BLOOD COUNT 7.4 10^3/uL (4.0-10.5)
[2017-10-23 05:29] LABS: ALANINE AMINOTRANSFERASE 59 U/L (21-72); ALKALINE PHOSPHATASE 179 U/L (38-126); ANION GAP 9 (5-19); ASPARTATE AMINO TRANSFERASE 77 U/L (17-59); BILIRUBIN,DIRECT 1.3 mg/dL (0.0-0.4); BILIRUBIN,TOTAL 3.4 mg/dL (0.2-1.3); BLOOD UREA NITROGEN 40 mg/dL (7-20); CALCIUM 9.5 mg/dL (8.4-10.2); CARBON DIOXIDE 26 mmol/L (22-30); CHLORIDE 103 mmol/L (98-107); GLUCOSE 118 mg/dL (75-110); POTASSIUM 5.1 mmol/L (3.6-5.0); SODIUM 138.1 mmol/L (137-145)
[2017-10-23] MEDS: LANSOPRAZOLE 30 MG TAB.RAP.DR PO SCH ×2 (05:36→18:02)
[2017-10-23] MEDS: NORMAL SALINE INJ/PF 0.9% 10 ML SDV IV PRN (05:36)
[2017-10-23 06:27] LABS: ACANTHOCYTES 1+; ANISOCYTOSIS 2+; HYPOCHROMASIA SLIGHT; PLATELET COMMENT ADEQUATE; POIKILOCYTOSIS 2+; SCHISTOCYTES SLIGHT; TARGET CELLS SLIGHT
[2017-10-23 06:28] LABS: BURR CELLS SLIGHT
[2017-10-23] MEDS: NICOTINE 21 MG/24 HR PATCH.TD24 TD SCH (10:31)
[2017-10-23] MEDS: NYSTATIN 500000 UNIT/5 ML UDCUP PO SCH ×4 (10:31→22:35)
[2017-10-23] MEDS: MULTIVITAMIN TABLET PO SCH (10:32)
[2017-10-23] MEDS: THIAMINE HCL 100 MG TABLET PO SCH (10:32)
[2017-10-23] MEDS: FUROSEMIDE 20 MG TABLET PO SCH (10:32)
[2017-10-23] MEDS: MAGNESIUM OXIDE 400 MG TABLET PO SCH ×2 (10:32→18:03)
[2017-10-23] MEDS: CITALOPRAM HYDROBROMIDE 20 MG TABLET PO SCH (10:32)
[2017-10-23] MEDS: CARVEDILOL 3.125 MG TABLET PO SCH ×2 (10:33→22:35)
[2017-10-23] MEDS: TAMSULOSIN HCL 0.4 MG CAP.SR.24H PO SCH (10:33)
[2017-10-23] MEDS: FLUTICASONE/SALMETEROL DISKUS 250-50 MCG/DOSE IH SCH ×2 (10:33→18:02)
[2017-10-23] MEDS: SPIRONOLACTONE 25 MG TABLET PO SCH (10:33)
[2017-10-23] MEDS: LACTULOSE SYRUP 20 GM/30 ML UDCUP PO SCH ×2 (10:41→22:35)
--- NOTE | 2017-10-23 12:15 | PDOC PROGRESS REPORT ---
Subjective Progress Note for:: 10/23/17 Subjective:: Pt was seen by wedding planner today and all her entries noted. He will be probably be discharged home tomorrow with wheeled walker as requested and PCS form signed by me. Reason For Visit: GI BLEED ETOH WITHDRAWAL Physical Exam Vital Signs: Temp Pulse Resp BP Pulse Ox 98.3 F 62 17 96/59 L 94 10/23/17 07:15 10/23/17 07:15 10/23/17 07:15 10/23/17 07:15 10/23/17 07:15 Intake & Output 10/22/17 10/23/17 10/24/17 06:59 06:59 06:59 Intake Total 580 1255 Output Total 1000 525 Balance -420 730 Weight 53.6 kg 55.4 kg General appearance: PRESENT: no acute distress, cooperative, thin, well- developed Head exam: PRESENT: atraumatic, normocephalic Eye exam: PRESENT: EOMI, PERRLA Ear exam: PRESENT: normal external ear exam, TM's normal bilaterally Mouth exam: PRESENT: moist, neck supple, tongue midline Respiratory exam: PRESENT: decreased breath sounds, symmetrical Cardiovascular exam: PRESENT: +S1, +S2 Pulses: PRESENT: +1 pedal pulses bilateral GI/Abdominal exam: PRESENT: normal bowel sounds, soft Neurological exam: PRESENT: alert, awake, oriented to person, oriented to place , oriented to time Psychiatric exam: PRESENT: normal mood Results Laboratory Results: 10/23/17 04:34 10/23/17 04:34 10/23/17 10/23/17 04:34 04:34 WBC 7.4 RBC 2.55 L Hgb 8.8 L Hct 25.1 L MCV 99 H MCH 34.4 H MCHC 34.9 RDW 22.3 H Plt Count 154 Seg Neutrophils % 57.6 Lymphocytes % 21.3 Monocytes % 18.0 H Eosinophils % 2.6 Basophils % 0.5 Absolute Neutrophils 4.3 Absolute Lymphocytes 1.6 Absolute Monocytes 1.3 Absolute Eosinophils 0.2 Absolute Basophils 0.0 Sodium 138.1 Potassium 5.1 H Chloride 103 Carbon Dioxide 26 Anion Gap 9 BUN 40 H Creatinine 1.22 Est GFR ( Amer) > 60 Est GFR (Non-Af Amer) > 60 Glucose 118 H Calcium 9.5 Total Bilirubin 3.4 H AST 77 H ALT 59 Alkaline Phosphatase 179 H Total Protein 7.0 Albumin 3.0 L 09/27/17 09/27/17 09/27/17 15:20 15:20 15:20 Creatine Kinase 95 CK-MB (CK-2) 0.80 Troponin I 0.028 NT-Pro-B Natriuret Pep 438 426 09/28/17 09/28/17 09/28/17 08:40 08:40 08:40 Creatine Kinase 64 CK-MB (CK-2) 0.47 Troponin I < 0.012 NT-Pro-B Natriuret Pep 09/29/17 10/01/17 05:05 05:30 Creatine Kinase CK-MB (CK-2) 0.57 Troponin I < 0.012 NT-Pro-B Natriuret Pep 612 Impressions: Abdomen Ultrasound 09/27/17 12:07 IMPRESSION: For visualization of the liver and hepatic vessels. Heterogeneous appearance. Fatty infiltration/ cirrhosis. KUB X-Ray 09/28/17 15:16 IMPRESSION: NG tube with its tip in the left upper quadrant presumably in the proximal stomach. Other findings as noted above Chest X-Ray 10/07/17 00:00 IMPRESSION: Slightly worsening basilar aeration, suspect effusions and volume loss with mild vascular congestion. Assessment & Plan - Diagnosis (1) Acute respiratory failure Qualifiers: Respiratory failure complication: hypoxia Qualified Code(s): J96.01 - Acute respiratory failure with hypoxia Is this a current diagnosis for this admission?: Yes Plan: He has septicemia secondary to Staph. epidermidis .Ct with Oxygen by N/C 2 L/ Min to keep saturation > 92%. Pt has completed 10-14 days course of Vancomycin and Zosyn. (2) Acute hepatic encephalopathy Is this a current diagnosis for this admission?: Yes Plan: Ct with Lactulose 10g BID po for now; monitor ammonia level every other day. (3) Gastrointestinal hemorrhage Qualifiers: Gastritis type: alcoholic Is this a current diagnosis for this admission?: Yes Plan: Ct with Prevacid 30 mg BID PO; Transfused a total of 7 units of PRBC and give Lasix 20 mg IV after each unit of PRBC; Ct with 2 g sodium diet. F/U GI, Dr Barillas. (4) Acute blood loss anemia Is this a current diagnosis for this admission?: Yes Plan: The acute blodd loss anemia is due to GI bleed secondary to alcoholic gastritis. Pt has received a total of 7 units of PRBC and Lasix 20 mg IV given each unit of PRBC. Continue to monitor CBC daily. (5) Alcohol withdrawal delirium Is this a current diagnosis for this admission?: No Plan: Ativan 1 mg q2h IV prn; 2 hourly neurochecks; soft restraints. (6) Hypokalemia Is this a current diagnosis for this admission?: Yes Plan: Resolved. So pt has received a total of KCL 20 MEQ IV [id number].Monitor chemistries daily. (7) Hypomagnesemia Is this a current diagnosis for this admission?: Yes Plan: Pt was given additional Mg sulfate 4 G IV today. We will add Mg oxide 400 mg BID PO. Monitor mg level daily. (8) Acute hypernatremia Is this a current diagnosis for this admission?: Yes Plan: Resolved. Monitor chemistries daily. (9) Hypertension Qualifiers: Hypertension type: essential hypertension Qualified Code(s): I10 - Essential (primary) hypertension Is this a current diagnosis for this admission?: Yes Plan: CT with Coreg 3.125 mg BID PO due to hypotension; 2 g sodium diet.. (10) Hyperlipidemia Qualifiers: Hyperlipidemia type: mixed hyperlipidemia Qualified Code(s): E78.2 - Mixed hyperlipidemia Is this a current diagnosis for this admission?: Yes Plan: Simvasatin 20 mg qhs po ; 200 mg cholesterol diet.. (11) COPD (chronic obstructive pulmonary disease) Qualifiers: COPD type: unspecified COPD Qualified Code(s): J44.9 - Chronic obstructive pulmonary disease, unspecified Is this a current diagnosis for this admission?: Yes Plan: Duonebs q6h prn; Advair 250/50 1 puff BID. Oxygen by N/C 2 L/min to keep saturation>92%. (12) BPH (benign prostatic hyperplasia) Is this a current diagnosis for this admission?: Yes Plan: Ct with Flomax 0.4 mg qd po. (13) Alcoholic cirrhosis of liver Qualifiers: Ascites presence: with ascites Qualified Code(s): K70.31 - Alcoholic cirrhosis of liver with ascites Is this a current diagnosis for this admission?: Yes Plan: Restart spironolactone 50 mg qd po and Lasix 20 mg qd po.Strict input/out put chart; daily weight; monitor chemistries daily. (14) Depression Is this a current diagnosis for this admission?: Yes Plan: Ct with Celexa 20 mg qd po. (15) Osteoarthritis Is this a current diagnosis for this admission?: Yes Plan: Ct with Oxycodone 5 mg TID prn po. (16) DVT prophylaxis Is this a current diagnosis for this admission?: Yes Plan: Ct with SCD; Hold Lovenox due to GI bleed.
[2017-10-24] MEDS: LANSOPRAZOLE 30 MG TAB.RAP.DR PO SCH ×2 (05:18→18:15)
[2017-10-24 05:39] LABS: ABSOLUTE BASOPHILS # (AUTO) 0.1 10^3/uL (0.0-0.2); ABSOLUTE EOSINOPHILS # (AUTO) 0.2 10^3/uL (0.0-0.6); ABSOLUTE LYMPHOCYTES (AUTO) 1.6 10^3/uL (0.5-4.7); ABSOLUTE MONOCYTES (AUTO) 1.5 10^3/uL (0.1-1.4); ABSOLUTE NEUT (AUTO) 4.4 10^3/uL (1.7-8.2); BASOPHILS % (AUTO) 1.8 % (0-2); EOSINOPHILS % (AUTO) 2.2 % (0-6); HEMATOCRIT 25.1 % (37.9-51.0); HEMOGLOBIN 8.9 g/dL (13.5-17.0); LYMPHOCYTES % (AUTO) 20.9 % (13-45); MEAN CORPUSCULAR HGB CONC 35.4 g/dL (32.0-36.0); MEAN CORPUSCULAR VOLUME 99 fl (80-97); MONOCYTES % (AUTO) 18.7 % (3-13); PLATELET COUNT 159 10^3/uL (150-450); RED BLOOD COUNT 2.54 10^6/uL (4.35-5.55); RED CELL DISTRIBUTION WIDTH 21.8 % (11.5-14.0); SEGMENTED NEUTROPHILS % (AUTO) 56.4 % (42-78); TOTAL CELLS COUNTED % (AUTO) 100 %; WHITE BLOOD COUNT 7.8 10^3/uL (4.0-10.5)
[2017-10-24 05:52] LABS: ALANINE AMINOTRANSFERASE 56 U/L (21-72); ALBUMIN 3.1 g/dL (3.5-5.0); ALKALINE PHOSPHATASE 168 U/L (38-126); ANION GAP 13 (5-19); ASPARTATE AMINO TRANSFERASE 69 U/L (17-59); BILIRUBIN,DIRECT 1.2 mg/dL (0.0-0.4); BILIRUBIN,TOTAL 4.4 mg/dL (0.2-1.3); BLOOD UREA NITROGEN 37 mg/dL (7-20); CALCIUM 9.6 mg/dL (8.4-10.2); CARBON DIOXIDE 25 mmol/L (22-30); CHLORIDE 102 mmol/L (98-107); GLUCOSE 100 mg/dL (75-110); POTASSIUM 4.8 mmol/L (3.6-5.0); SODIUM 139.7 mmol/L (137-145); TOTAL PROTEIN 7.1 g/dL (6.3-8.2)
[2017-10-24] MEDS: THIAMINE HCL 100 MG TABLET PO SCH (11:02)
[2017-10-24] MEDS: MULTIVITAMIN TABLET PO SCH (11:02)
[2017-10-24] MEDS: CITALOPRAM HYDROBROMIDE 20 MG TABLET PO SCH (11:02)
[2017-10-24] MEDS: MAGNESIUM OXIDE 400 MG TABLET PO SCH ×2 (11:02→18:15)
[2017-10-24] MEDS: FLUTICASONE/SALMETEROL DISKUS 250-50 MCG/DOSE IH SCH ×2 (11:03→18:16)
[2017-10-24] MEDS: NYSTATIN 500000 UNIT/5 ML UDCUP PO SCH ×4 (11:03→21:40)
[2017-10-24] MEDS: TAMSULOSIN HCL 0.4 MG CAP.SR.24H PO SCH (11:03)
[2017-10-24] MEDS: LACTULOSE SYRUP 20 GM/30 ML UDCUP PO SCH ×2 (11:03→21:41)
[2017-10-24] MEDS: NICOTINE 21 MG/24 HR PATCH.TD24 TD SCH (11:04)
[2017-10-24] MEDS: FUROSEMIDE 20 MG TABLET PO SCH (13:13)
[2017-10-24] MEDS: CARVEDILOL 3.125 MG TABLET PO SCH ×2 (13:13→21:40)
[2017-10-24] MEDS: SPIRONOLACTONE 25 MG TABLET PO SCH (13:13)
--- NOTE | 2017-10-24 16:35 | PDOC PROGRESS REPORT ---
Subjective Progress Note for:: 10/24/17 Subjective:: Pt was seen by conservation planner yesterday and all her entries noted. He will be probably be discharged home tomorrow with wheeled walker as requested and PCS form signed by me. Reason For Visit: GI BLEED ETOH WITHDRAWAL Physical Exam Vital Signs: Temp Pulse Resp BP Pulse Ox 98.8 F 63 16 83/45 L 94 10/24/17 11:01 10/24/17 14:00 10/24/17 11:01 10/24/17 11:01 10/24/17 11:01 Intake & Output 10/23/17 10/24/17 10/25/17 06:59 06:59 06:59 Intake Total 1255 804 Output Total 525 780 Balance 730 24 Weight 55.4 kg 53.9 kg General appearance: PRESENT: no acute distress, thin, well-developed Head exam: PRESENT: atraumatic, normocephalic Eye exam: PRESENT: EOMI, PERRLA Ear exam: PRESENT: normal external ear exam, TM's normal bilaterally Mouth exam: PRESENT: neck supple, tongue midline Respiratory exam: PRESENT: decreased breath sounds, symmetrical Cardiovascular exam: PRESENT: +S1, +S2 Pulses: PRESENT: +1 pedal pulses bilateral GI/Abdominal exam: PRESENT: normal bowel sounds, soft Rectal exam: PRESENT: deferred Neurological exam: PRESENT: alert, awake, oriented to person, oriented to place , oriented to time Psychiatric exam: PRESENT: normal mood Results Laboratory Results: 10/24/17 05:30 10/24/17 05:30 10/24/17 10/24/17 05:30 05:30 WBC 7.8 RBC 2.54 L Hgb 8.9 L Hct 25.1 L MCV 99 H MCH 35.0 H MCHC 35.4 RDW 21.8 H Plt Count 159 Seg Neutrophils % 56.4 Lymphocytes % 20.9 Monocytes % 18.7 H Eosinophils % 2.2 Basophils % 1.8 Absolute Neutrophils 4.4 Absolute Lymphocytes 1.6 Absolute Monocytes 1.5 H Absolute Eosinophils 0.2 Absolute Basophils 0.1 Sodium 139.7 Potassium 4.8 Chloride 102 Carbon Dioxide 25 Anion Gap 13 BUN 37 H Creatinine 1.13 Est GFR ( Amer) > 60 Est GFR (Non-Af Amer) > 60 Glucose 100 Calcium 9.6 Total Bilirubin 4.4 H AST 69 H ALT 56 Alkaline Phosphatase 168 H Total Protein 7.1 Albumin 3.1 L 09/27/17 09/27/17 09/27/17 15:20 15:20 15:20 Creatine Kinase 95 CK-MB (CK-2) 0.80 Troponin I 0.028 NT-Pro-B Natriuret Pep 438 426 09/28/17 09/28/17 09/28/17 08:40 08:40 08:40 Creatine Kinase 64 CK-MB (CK-2) 0.47 Troponin I < 0.012 NT-Pro-B Natriuret Pep 09/29/17 10/01/17 05:05 05:30 Creatine Kinase CK-MB (CK-2) 0.57 Troponin I < 0.012 NT-Pro-B Natriuret Pep 612 Impressions: Abdomen Ultrasound 09/27/17 12:07 IMPRESSION: For visualization of the liver and hepatic vessels. Heterogeneous appearance. Fatty infiltration/ cirrhosis. KUB X-Ray 09/28/17 15:16 IMPRESSION: NG tube with its tip in the left upper quadrant presumably in the proximal stomach. Other findings as noted above Chest X-Ray 10/07/17 00:00 IMPRESSION: Slightly worsening basilar aeration, suspect effusions and volume loss with mild vascular congestion. Assessment & Plan - Diagnosis (1) Acute respiratory failure Qualifiers: Respiratory failure complication: hypoxia Qualified Code(s): J96.01 - Acute respiratory failure with hypoxia Is this a current diagnosis for this admission?: Yes Plan: He has septicemia secondary to Staph. epidermidis .Ct with Oxygen by N/C 2 L/ Min to keep saturation > 92%. Pt has completed 10-14 days course of Vancomycin and Zosyn. (2) Acute hepatic encephalopathy Is this a current diagnosis for this admission?: Yes Plan: Ct with Lactulose 10g BID po for now; monitor ammonia level every other day. (3) Gastrointestinal hemorrhage Qualifiers: Gastritis type: alcoholic Is this a current diagnosis for this admission?: Yes Plan: Ct with Prevacid 30 mg BID PO; Transfused a total of 7 units of PRBC and give Lasix 20 mg IV after each unit of PRBC; Ct with 2 g sodium diet. F/U GI, Dr Barillas. (4) Acute blood loss anemia Is this a current diagnosis for this admission?: Yes Plan: The acute blodd loss anemia is due to GI bleed secondary to alcoholic gastritis. Pt has received a total of 7 units of PRBC and Lasix 20 mg IV given each unit of PRBC. Continue to monitor CBC daily. (5) Alcohol withdrawal delirium Is this a current diagnosis for this admission?: No Plan: Ativan 1 mg q2h IV prn; 2 hourly neurochecks; soft restraints. (6) Hypokalemia Is this a current diagnosis for this admission?: Yes Plan: Resolved. So pt has received a total of KCL 20 MEQ IV [id number].Monitor chemistries daily. (7) Hypomagnesemia Is this a current diagnosis for this admission?: Yes Plan: Pt was given additional Mg sulfate 4 G IV today. We will add Mg oxide 400 mg BID PO. Monitor mg level daily. (8) Acute hypernatremia Is this a current diagnosis for this admission?: Yes Plan: Resolved. Monitor chemistries daily. (9) Hypertension Qualifiers: Hypertension type: essential hypertension Qualified Code(s): I10 - Essential (primary) hypertension Is this a current diagnosis for this admission?: Yes Plan: CT with Coreg 3.125 mg BID PO due to hypotension; 2 g sodium diet.. (10) Hyperlipidemia Qualifiers: Hyperlipidemia type: mixed hyperlipidemia Qualified Code(s): E78.2 - Mixed hyperlipidemia Is this a current diagnosis for this admission?: Yes Plan: Simvasatin 20 mg qhs po ; 200 mg cholesterol diet.. (11) COPD (chronic obstructive pulmonary disease) Qualifiers: COPD type: unspecified COPD Qualified Code(s): J44.9 - Chronic obstructive pulmonary disease, unspecified Is this a current diagnosis for this admission?: Yes Plan: Duonebs q6h prn; Advair 250/50 1 puff BID. Oxygen by N/C 2 L/min to keep saturation>92%. (12) BPH (benign prostatic hyperplasia) Is this a current diagnosis for this admission?: Yes Plan: Ct with Flomax 0.4 mg qd po. (13) Alcoholic cirrhosis of liver Qualifiers: Ascites presence: with ascites Qualified Code(s): K70.31 - Alcoholic cirrhosis of liver with ascites Is this a current diagnosis for this admission?: Yes Plan: Restart spironolactone 50 mg qd po and Lasix 20 mg qd po.Strict input/out put chart; daily weight; monitor chemistries daily. (14) Depression Is this a current diagnosis for this admission?: Yes Plan: Ct with Celexa 20 mg qd po. (15) Osteoarthritis Is this a current diagnosis for this admission?: Yes Plan: Ct with Oxycodone 5 mg TID prn po. (16) DVT prophylaxis Is this a current diagnosis for this admission?: Yes Plan: Ct with SCD; Hold Lovenox due to GI bleed.
[2017-10-25] MEDS: LANSOPRAZOLE 30 MG TAB.RAP.DR PO SCH ×2 (05:06→16:56)
[2017-10-25 05:52] LABS: ALANINE AMINOTRANSFERASE 57 U/L (21-72); ALBUMIN 3.1 g/dL (3.5-5.0); ALKALINE PHOSPHATASE 187 U/L (38-126); ANION GAP 7 (5-19); ASPARTATE AMINO TRANSFERASE 74 U/L (17-59); BILIRUBIN,DIRECT 1.3 mg/dL (0.0-0.4); BILIRUBIN,TOTAL 3.9 mg/dL (0.2-1.3); BLOOD UREA NITROGEN 32 mg/dL (7-20); CALCIUM 9.7 mg/dL (8.4-10.2); CARBON DIOXIDE 27 mmol/L (22-30); CHLORIDE 104 mmol/L (98-107); GLUCOSE 92 mg/dL (75-110); POTASSIUM 4.9 mmol/L (3.6-5.0); SODIUM 138.4 mmol/L (137-145); TOTAL PROTEIN 7.3 g/dL (6.3-8.2)
[2017-10-25 05:54] LABS: ABSOLUTE BASOPHILS # (AUTO) 0.1 10^3/uL (0.0-0.2); ABSOLUTE EOSINOPHILS # (AUTO) 0.1 10^3/uL (0.0-0.6); ABSOLUTE LYMPHOCYTES (AUTO) 1.6 10^3/uL (0.5-4.7); ABSOLUTE MONOCYTES (AUTO) 1.1 10^3/uL (0.1-1.4); ABSOLUTE NEUT (AUTO) 4.9 10^3/uL (1.7-8.2); BASOPHILS % (AUTO) 1.3 % (0-2); EOSINOPHILS % (AUTO) 1.7 % (0-6); HEMATOCRIT 24.6 % (37.9-51.0); HEMOGLOBIN 8.6 g/dL (13.5-17.0); MEAN CORPUSCULAR HEMOGLOBIN 34.8 pg (27.0-33.4); MEAN CORPUSCULAR VOLUME 99 fl (80-97); MONOCYTES % (AUTO) 14.4 % (3-13); PLATELET COUNT 152 10^3/uL (150-450); RED BLOOD COUNT 2.48 10^6/uL (4.35-5.55); RED CELL DISTRIBUTION WIDTH 21.3 % (11.5-14.0); SEGMENTED NEUTROPHILS % (AUTO) 62.6 % (42-78); TOTAL CELLS COUNTED % (AUTO) 100 %; WHITE BLOOD COUNT 7.8 10^3/uL (4.0-10.5)
[2017-10-25 06:16] LABS: ANISOCYTOSIS 2+; BURR CELLS 1+; PLATELET COMMENT ADEQUATE; POIKILOCYTOSIS 1+; SCHISTOCYTES SLIGHT; TARGET CELLS SLIGHT
[2017-10-25 06:17] LABS: PLATELET LARGE PRESENT
[2017-10-25] MEDS: SPIRONOLACTONE 25 MG TABLET PO SCH (09:49)
[2017-10-25] MEDS: NYSTATIN 500000 UNIT/5 ML UDCUP PO SCH ×4 (09:49→21:45)
[2017-10-25] MEDS: LACTULOSE SYRUP 20 GM/30 ML UDCUP PO SCH ×2 (09:49→21:44)
[2017-10-25] MEDS: FUROSEMIDE 20 MG TABLET PO SCH (09:50)
[2017-10-25] MEDS: MULTIVITAMIN TABLET PO SCH (09:50)
[2017-10-25] MEDS: FLUTICASONE/SALMETEROL DISKUS 250-50 MCG/DOSE IH SCH ×2 (09:50→17:19)
[2017-10-25] MEDS: CITALOPRAM HYDROBROMIDE 20 MG TABLET PO SCH (09:50)
[2017-10-25] MEDS: CARVEDILOL 3.125 MG TABLET PO SCH ×2 (09:50→21:44)
[2017-10-25] MEDS: MAGNESIUM OXIDE 400 MG TABLET PO SCH ×2 (09:50→17:19)
[2017-10-25] MEDS: NICOTINE 21 MG/24 HR PATCH.TD24 TD SCH (09:50)
[2017-10-25] MEDS: THIAMINE HCL 100 MG TABLET PO SCH (09:50)
[2017-10-25] MEDS: TAMSULOSIN HCL 0.4 MG CAP.SR.24H PO SCH (09:50)
--- NOTE | 2017-10-25 13:15 | PDOC PROGRESS REPORT ---
Subjective Progress Note for:: 10/25/17 Subjective:: Pt is yet to be seen by PT today, but I discussed with his nurse to follow up with PT to work with patient today since I plan to discharge him home tomorrow. The inventory planner has discussed with PCS and she was instructed to submit an expedited application and by so doing, the home health aide will come to patient's house on day of discharge. Reason For Visit: GI BLEED ETOH WITHDRAWAL Physical Exam Vital Signs: Temp Pulse Resp BP Pulse Ox 97.6 F 56 L 16 103/58 L 96 10/25/17 12:35 10/25/17 12:35 10/25/17 12:35 10/25/17 12:35 10/25/17 12:35 Intake & Output 10/24/17 10/25/17 10/26/17 06:59 06:59 06:59 Intake Total 804 290 118 Output Total 780 625 200 Balance 24 -335 -82 Weight 53.9 kg 54.6 kg General appearance: PRESENT: no acute distress, cooperative, thin, well- developed, well-nourished Head exam: PRESENT: atraumatic, normocephalic Eye exam: PRESENT: EOMI, PERRLA Ear exam: PRESENT: normal external ear exam, TM's normal bilaterally Mouth exam: PRESENT: neck supple, tongue midline Respiratory exam: PRESENT: clear to auscultation spike, symmetrical Cardiovascular exam: PRESENT: +S1, +S2 Pulses: PRESENT: +1 pedal pulses bilateral GI/Abdominal exam: PRESENT: normal bowel sounds, soft Rectal exam: PRESENT: deferred Extremities exam: PRESENT: full ROM Musculoskeletal exam: PRESENT: full ROM Neurological exam: PRESENT: alert, awake, oriented to person, oriented to place Psychiatric exam: PRESENT: normal mood Results Laboratory Results: 10/25/17 05:00 10/25/17 05:00 10/25/17 10/25/17 05:00 05:00 WBC 7.8 RBC 2.48 L Hgb 8.6 L Hct 24.6 L MCV 99 H MCH 34.8 H MCHC 35.0 RDW 21.3 H Plt Count 152 Seg Neutrophils % 62.6 Lymphocytes % 20.0 Monocytes % 14.4 H Eosinophils % 1.7 Basophils % 1.3 Absolute Neutrophils 4.9 Absolute Lymphocytes 1.6 Absolute Monocytes 1.1 Absolute Eosinophils 0.1 Absolute Basophils 0.1 Sodium 138.4 Potassium 4.9 Chloride 104 Carbon Dioxide 27 Anion Gap 7 BUN 32 H Creatinine 1.01 Est GFR ( Amer) > 60 Est GFR (Non-Af Amer) > 60 Glucose 92 Calcium 9.7 Total Bilirubin 3.9 H AST 74 H ALT 57 Alkaline Phosphatase 187 H Total Protein 7.3 Albumin 3.1 L 09/27/17 09/27/17 09/27/17 15:20 15:20 15:20 Creatine Kinase 95 CK-MB (CK-2) 0.80 Troponin I 0.028 NT-Pro-B Natriuret Pep 438 426 09/28/17 09/28/17 09/28/17 08:40 08:40 08:40 Creatine Kinase 64 CK-MB (CK-2) 0.47 Troponin I < 0.012 NT-Pro-B Natriuret Pep 09/29/17 10/01/17 05:05 05:30 Creatine Kinase CK-MB (CK-2) 0.57 Troponin I < 0.012 NT-Pro-B Natriuret Pep 612 Impressions: Abdomen Ultrasound 09/27/17 12:07 IMPRESSION: For visualization of the liver and hepatic vessels. Heterogeneous appearance. Fatty infiltration/ cirrhosis. KUB X-Ray 09/28/17 15:16 IMPRESSION: NG tube with its tip in the left upper quadrant presumably in the proximal stomach. Other findings as noted above Chest X-Ray 10/07/17 00:00 IMPRESSION: Slightly worsening basilar aeration, suspect effusions and volume loss with mild vascular congestion. Assessment & Plan - Diagnosis (1) Acute respiratory failure Qualifiers: Respiratory failure complication: hypoxia Qualified Code(s): J96.01 - Acute respiratory failure with hypoxia Is this a current diagnosis for this admission?: Yes Plan: He has septicemia secondary to Staph. epidermidis .Ct with Oxygen by N/C 2 L/ Min to keep saturation > 92%. Pt has completed 10-14 days course of Vancomycin and Zosyn. (2) Acute hepatic encephalopathy Is this a current diagnosis for this admission?: Yes Plan: Ct with Lactulose 10g BID po for now; monitor ammonia level every other day. (3) Gastrointestinal hemorrhage Qualifiers: Gastritis type: alcoholic Is this a current diagnosis for this admission?: Yes Plan: Ct with Prevacid 30 mg BID PO; Transfused a total of 7 units of PRBC and give Lasix 20 mg IV after each unit of PRBC; Ct with 2 g sodium diet. F/U GI, Dr Barillas. (4) Acute blood loss anemia Is this a current diagnosis for this admission?: Yes Plan: The acute blodd loss anemia is due to GI bleed secondary to alcoholic gastritis. Pt has received a total of 7 units of PRBC and Lasix 20 mg IV given each unit of PRBC. Continue to monitor CBC daily. (5) Alcohol withdrawal delirium Is this a current diagnosis for this admission?: No Plan: Ativan 1 mg q2h IV prn; 2 hourly neurochecks; soft restraints. (6) Hypokalemia Is this a current diagnosis for this admission?: Yes Plan: Resolved. So pt has received a total of KCL 20 MEQ IV h3dliam.Monitor chemistries daily. (7) Hypomagnesemia Is this a current diagnosis for this admission?: Yes Plan: Pt was given additional Mg sulfate 4 G IV today. We will add Mg oxide 400 mg BID PO. Monitor mg level daily. (8) Acute hypernatremia Is this a current diagnosis for this admission?: Yes Plan: Resolved. Monitor chemistries daily. (9) Hypertension Qualifiers: Hypertension type: essential hypertension Qualified Code(s): I10 - Essential (primary) hypertension Is this a current diagnosis for this admission?: Yes Plan: CT with Coreg 3.125 mg BID PO due to hypotension; 2 g sodium diet.. (10) Hyperlipidemia Qualifiers: Hyperlipidemia type: mixed hyperlipidemia Qualified Code(s): E78.2 - Mixed hyperlipidemia Is this a current diagnosis for this admission?: Yes Plan: Simvasatin 20 mg qhs po ; 200 mg cholesterol diet.. (11) COPD (chronic obstructive pulmonary disease) Qualifiers: COPD type: unspecified COPD Qualified Code(s): J44.9 - Chronic obstructive pulmonary disease, unspecified Is this a current diagnosis for this admission?: Yes Plan: Duonebs q6h prn; Advair 250/50 1 puff BID. Oxygen by N/C 2 L/min to keep saturation>92%. (12) BPH (benign prostatic hyperplasia) Is this a current diagnosis for this admission?: Yes Plan: Ct with Flomax 0.4 mg qd po. (13) Alcoholic cirrhosis of liver Qualifiers: Ascites presence: with ascites Qualified Code(s): K70.31 - Alcoholic cirrhosis of liver with ascites Is this a current diagnosis for this admission?: Yes Plan: Restart spironolactone 50 mg qd po and Lasix 20 mg qd po.Strict input/out put chart; daily weight; monitor chemistries daily. (14) Depression Is this a current diagnosis for this admission?: Yes Plan: Ct with Celexa 20 mg qd po. (15) Osteoarthritis Is this a current diagnosis for this admission?: Yes Plan: Ct with Oxycodone 5 mg TID prn po. (16) DVT prophylaxis Is this a current diagnosis for this admission?: Yes Plan: Ct with SCD; Hold Lovenox due to GI bleed.
--- NOTE | 2017-10-25 13:28 | PDOC PROGRESS REPORT ---
Subjective Progress Note for:: 10/25/17 Subjective:: stable Reason For Visit: GI BLEED ETOH WITHDRAWAL Physical Exam Vital Signs: Temp Pulse Resp BP Pulse Ox 97.6 F 56 L 16 103/58 L 96 10/25/17 12:35 10/25/17 12:35 10/25/17 12:35 10/25/17 12:35 10/25/17 12:35 Intake & Output 10/24/17 10/25/17 10/26/17 06:59 06:59 06:59 Intake Total 804 290 118 Output Total 780 625 200 Balance 24 335 -82 Weight 53.9 kg 54.6 kg General appearance: PRESENT: no acute distress, cooperative, disheveled, thin, well-developed Head exam: PRESENT: atraumatic, normocephalic Eye exam: PRESENT: conjunctiva pale, EOMI. ABSENT: nystagmus, periorbital swelling, scleral icterus Mouth exam: PRESENT: dry mucosa, neck supple, tongue midline Neck exam: ABSENT: carotid bruit, JVD, lymphadenopathy, thyromegaly, tracheal deviation, tracheostomy Cardiovascular exam: PRESENT: RRR, +S1, +S2 Pulses: PRESENT: normal radial pulses GI/Abdominal exam: PRESENT: diminished bowel sounds, soft Extremities exam: ABSENT: clubbing Musculoskeletal exam: ABSENT: ambulatory, deformity, dislocation Neurological exam: PRESENT: alert, awake Skin exam: PRESENT: dry, warm Results Laboratory Results: 10/25/17 05:00 10/25/17 05:00 10/25/17 10/25/17 05:00 05:00 WBC 7.8 RBC 2.48 L Hgb 8.6 L Hct 24.6 L MCV 99 H MCH 34.8 H MCHC 35.0 RDW 21.3 H Plt Count 152 Seg Neutrophils % 62.6 Lymphocytes % 20.0 Monocytes % 14.4 H Eosinophils % 1.7 Basophils % 1.3 Absolute Neutrophils 4.9 Absolute Lymphocytes 1.6 Absolute Monocytes 1.1 Absolute Eosinophils 0.1 Absolute Basophils 0.1 Sodium 138.4 Potassium 4.9 Chloride 104 Carbon Dioxide 27 Anion Gap 7 BUN 32 H Creatinine 1.01 Est GFR ( Amer) > 60 Est GFR (Non-Af Amer) > 60 Glucose 92 Calcium 9.7 Total Bilirubin 3.9 H AST 74 H ALT 57 Alkaline Phosphatase 187 H Total Protein 7.3 Albumin 3.1 L 09/27/17 09/27/17 09/27/17 15:20 15:20 15:20 Creatine Kinase 95 CK-MB (CK-2) 0.80 Troponin I 0.028 NT-Pro-B Natriuret Pep 438 426 09/28/17 09/28/17 09/28/17 08:40 08:40 08:40 Creatine Kinase 64 CK-MB (CK-2) 0.47 Troponin I < 0.012 NT-Pro-B Natriuret Pep 09/29/17 10/01/17 05:05 05:30 Creatine Kinase CK-MB (CK-2) 0.57 Troponin I < 0.012 NT-Pro-B Natriuret Pep 612 Impressions: Abdomen Ultrasound 09/27/17 12:07 IMPRESSION: For visualization of the liver and hepatic vessels. Heterogeneous appearance. Fatty infiltration/ cirrhosis. KUB X-Ray 09/28/17 15:16 IMPRESSION: NG tube with its tip in the left upper quadrant presumably in the proximal stomach. Other findings as noted above Chest X-Ray 10/07/17 00:00 IMPRESSION: Slightly worsening basilar aeration, suspect effusions and volume loss with mild vascular congestion. 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 (3) Alcohol withdrawal seizure Qualifiers: Complication of substance-induced condition: uncomplicated Qualified Code(s ): F10.230 - Alcohol dependence with withdrawal, uncomplicated Is this a current diagnosis for this admission?: Yes Plan: not reported (4) Anxiety disorder Is this a current diagnosis for this admission?: Yes Plan: anxiety prophylaxsis (5) Acute respiratory failure Qualifiers: Respiratory failure complication: hypoxia Qualified Code(s): J96.01 - Acute respiratory failure with hypoxia Is this a current diagnosis for this admission?: Yes Plan: stable (6) Aspiration pneumonia Is this a current diagnosis for this admission?: Yes Plan: improved (7) COPD (chronic obstructive pulmonary disease) Qualifiers: COPD type: unspecified COPD Qualified Code(s): J44.9 - Chronic obstructive pulmonary disease, unspecified Is this a current diagnosis for this admission?: Yes Plan: tobacco abuse Generic Name Dose Route Start Last Admin Trade Name Freq PRN Reason Stop Dose Admin Albuterol/Ipratropium 3 ml 09/25/17 23:01 10/07/17 20:22 Duoneb 3 Ml Ampul NEB 10/25/17 23:00 3 ml [id number] PRN SHORTNESS OF BREATH/WHEEZING
--- NOTE | 2017-10-25 13:34 | PDOC PROGRESS REPORT ---
Subjective Progress Note for:: 10/23/17 Subjective:: stable Reason For Visit: GI BLEED ETOH WITHDRAWAL Physical Exam Vital Signs: Temp Pulse Resp BP Pulse Ox 98.0 F 58 L 14 97/55 L 98 10/23/17 11:20 10/23/17 14:00 10/23/17 11:20 10/23/17 11:20 10/23/17 11:20 Intake & Output 10/22/17 10/23/17 10/24/17 06:59 06:59 06:59 Intake Total 580 1255 200 Output Total 1000 525 300 Balance -420 730 -100 Weight 53.6 kg 55.4 kg General appearance: PRESENT: no acute distress, cooperative, disheveled, thin, well-developed Head exam: PRESENT: atraumatic, normocephalic Eye exam: PRESENT: conjunctiva pale, EOMI. ABSENT: nystagmus, periorbital swelling, scleral icterus Mouth exam: PRESENT: dry mucosa, neck supple, tongue midline Neck exam: ABSENT: carotid bruit, JVD, lymphadenopathy, thyromegaly, tracheal deviation, tracheostomy Respiratory exam: PRESENT: decreased breath sounds, prolonged expiratory phas, rhonchi, symmetrical, unlabored. ABSENT: retraction, stridor, tachypnea Cardiovascular exam: PRESENT: RRR, +S1, +S2. ABSENT: tachycardia Pulses: PRESENT: normal radial pulses GI/Abdominal exam: PRESENT: diminished bowel sounds, soft Extremities exam: ABSENT: clubbing Musculoskeletal exam: ABSENT: deformity, dislocation Neurological exam: PRESENT: alert, awake Skin exam: PRESENT: dry, warm Results Laboratory Results: 10/23/17 04:34 10/23/17 04:34 10/23/17 10/23/17 04:34 04:34 WBC 7.4 RBC 2.55 L Hgb 8.8 L Hct 25.1 L MCV 99 H MCH 34.4 H MCHC 34.9 RDW 22.3 H Plt Count 154 Seg Neutrophils % 57.6 Lymphocytes % 21.3 Monocytes % 18.0 H Eosinophils % 2.6 Basophils % 0.5 Absolute Neutrophils 4.3 Absolute Lymphocytes 1.6 Absolute Monocytes 1.3 Absolute Eosinophils 0.2 Absolute Basophils 0.0 Sodium 138.1 Potassium 5.1 H Chloride 103 Carbon Dioxide 26 Anion Gap 9 BUN 40 H Creatinine 1.22 Est GFR ( Amer) > 60 Est GFR (Non-Af Amer) > 60 Glucose 118 H Calcium 9.5 Total Bilirubin 3.4 H AST 77 H ALT 59 Alkaline Phosphatase 179 H Total Protein 7.0 Albumin 3.0 L 09/27/17 09/27/17 09/27/17 15:20 15:20 15:20 Creatine Kinase 95 CK-MB (CK-2) 0.80 Troponin I 0.028 NT-Pro-B Natriuret Pep 438 426 09/28/17 09/28/17 09/28/17 08:40 08:40 08:40 Creatine Kinase 64 CK-MB (CK-2) 0.47 Troponin I < 0.012 NT-Pro-B Natriuret Pep 09/29/17 10/01/17 05:05 05:30 Creatine Kinase CK-MB (CK-2) 0.57 Troponin I < 0.012 NT-Pro-B Natriuret Pep 612 Impressions: Abdomen Ultrasound 09/27/17 12:07 IMPRESSION: For visualization of the liver and hepatic vessels. Heterogeneous appearance. Fatty infiltration/ cirrhosis. KUB X-Ray 09/28/17 15:16 IMPRESSION: NG tube with its tip in the left upper quadrant presumably in the proximal stomach. Other findings as noted above Chest X-Ray 10/07/17 00:00 IMPRESSION: Slightly worsening basilar aeration, suspect effusions and volume loss with mild vascular congestion. Assessment & Plan - Diagnosis (1) Alcoholic cirrhosis of liver Qualifiers: Ascites presence: with ascites Qualified Code(s): K70.31 - Alcoholic cirrhosis of liver with ascites Is this a current diagnosis for this admission?: No (2) Anemia Qualifiers: Bone marrow failure anemia type: pancytopenia, other Is this a current diagnosis for this admission?: Yes (3) Alcohol withdrawal seizure Qualifiers: Complication of substance-induced condition: uncomplicated Qualified Code(s ): F10.230 - Alcohol dependence with withdrawal, uncomplicated Is this a current diagnosis for this admission?: Yes Plan: not reported (4) Anxiety disorder Is this a current diagnosis for this admission?: Yes Plan: anxiety prophylaxsis (5) Acute respiratory failure Qualifiers: Respiratory failure complication: hypoxia Qualified Code(s): J96.01 - Acute respiratory failure with hypoxia Is this a current diagnosis for this admission?: Yes Plan: stable//resolved (6) Aspiration pneumonia Is this a current diagnosis for this admission?: Yes Plan: improved (7) COPD (chronic obstructive pulmonary disease) Qualifiers: COPD type: unspecified COPD Qualified Code(s): J44.9 - Chronic obstructive pulmonary disease, unspecified Is this a current diagnosis for this admission?: Yes Plan: tobacco abuse Generic Name Dose Route Start Last Admin Trade Name Freq PRN Reason Stop Dose Admin Albuterol/Ipratropium 3 ml 09/25/17 23:01 10/07/17 20:22 Duoneb 3 Ml Ampul NEB 10/25/17 23:00 3 ml [id number] PRN SHORTNESS OF BREATH/WHEEZING
--- NOTE | 2017-10-25 13:38 | PDOC PROGRESS REPORT ---
Subjective Progress Note for:: 10/22/17 Subjective:: stable Reason For Visit: GI BLEED ETOH WITHDRAWAL Physical Exam Vital Signs: Temp Pulse Resp BP Pulse Ox 98.0 F 58 L 14 97/55 L 98 10/23/17 11:20 10/23/17 14:00 10/23/17 11:20 10/23/17 11:20 10/23/17 11:20 Intake & Output 10/22/17 10/23/17 10/24/17 06:59 06:59 06:59 Intake Total 580 1255 200 Output Total 1000 525 300 Balance -420 730 -100 Weight 53.6 kg 55.4 kg General appearance: PRESENT: no acute distress, cooperative, disheveled, thin, well-developed Head exam: PRESENT: atraumatic, normocephalic Eye exam: PRESENT: conjunctiva pale, EOMI. ABSENT: nystagmus, periorbital swelling, scleral icterus Mouth exam: PRESENT: dry mucosa, neck supple, tongue midline Neck exam: ABSENT: carotid bruit, JVD, lymphadenopathy, thyromegaly, tracheal deviation, tracheostomy Respiratory exam: PRESENT: decreased breath sounds, prolonged expiratory phas, rhonchi, symmetrical, unlabored. ABSENT: retraction, stridor Cardiovascular exam: PRESENT: RRR, +S1, +S2 Pulses: PRESENT: normal radial pulses GI/Abdominal exam: PRESENT: normal bowel sounds, rigid, soft, other. ABSENT: organolmegaly, rebound, tenderness Extremities exam: ABSENT: clubbing Musculoskeletal exam: ABSENT: ambulatory, deformity, dislocation Neurological exam: PRESENT: alert, awake Skin exam: PRESENT: dry, warm Results Laboratory Results: 10/23/17 04:34 10/23/17 04:34 10/23/17 10/23/17 04:34 04:34 WBC 7.4 RBC 2.55 L Hgb 8.8 L Hct 25.1 L MCV 99 H MCH 34.4 H MCHC 34.9 RDW 22.3 H Plt Count 154 Seg Neutrophils % 57.6 Lymphocytes % 21.3 Monocytes % 18.0 H Eosinophils % 2.6 Basophils % 0.5 Absolute Neutrophils 4.3 Absolute Lymphocytes 1.6 Absolute Monocytes 1.3 Absolute Eosinophils 0.2 Absolute Basophils 0.0 Sodium 138.1 Potassium 5.1 H Chloride 103 Carbon Dioxide 26 Anion Gap 9 BUN 40 H Creatinine 1.22 Est GFR ( Amer) > 60 Est GFR (Non-Af Amer) > 60 Glucose 118 H Calcium 9.5 Total Bilirubin 3.4 H AST 77 H ALT 59 Alkaline Phosphatase 179 H Total Protein 7.0 Albumin 3.0 L 09/27/17 09/27/17 09/27/17 15:20 15:20 15:20 Creatine Kinase 95 CK-MB (CK-2) 0.80 Troponin I 0.028 NT-Pro-B Natriuret Pep 438 426 09/28/17 09/28/17 09/28/17 08:40 08:40 08:40 Creatine Kinase 64 CK-MB (CK-2) 0.47 Troponin I < 0.012 NT-Pro-B Natriuret Pep 09/29/17 10/01/17 05:05 05:30 Creatine Kinase CK-MB (CK-2) 0.57 Troponin I < 0.012 NT-Pro-B Natriuret Pep 612 Impressions: Abdomen Ultrasound 09/27/17 12:07 IMPRESSION: For visualization of the liver and hepatic vessels. Heterogeneous appearance. Fatty infiltration/ cirrhosis. KUB X-Ray 09/28/17 15:16 IMPRESSION: NG tube with its tip in the left upper quadrant presumably in the proximal stomach. Other findings as noted above Chest X-Ray 10/07/17 00:00 IMPRESSION: Slightly worsening basilar aeration, suspect effusions and volume loss with mild vascular congestion. 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 (3) Alcohol withdrawal seizure Qualifiers: Complication of substance-induced condition: uncomplicated Qualified Code(s ): F10.230 - Alcohol dependence with withdrawal, uncomplicated Is this a current diagnosis for this admission?: Yes Plan: not reported (4) Anxiety disorder Is this a current diagnosis for this admission?: No Plan: anxiety prophylaxsis (5) Acute respiratory failure Qualifiers: Respiratory failure complication: hypoxia Qualified Code(s): J96.01 - Acute respiratory failure with hypoxia Is this a current diagnosis for this admission?: Yes Plan: stable//resolved (6) Aspiration pneumonia Is this a current diagnosis for this admission?: Yes Plan: improved (7) COPD (chronic obstructive pulmonary disease) Qualifiers: COPD type: unspecified COPD Qualified Code(s): J44.9 - Chronic obstructive pulmonary disease, unspecified Is this a current diagnosis for this admission?: Yes Plan: tobacco abuse Generic Name Dose Route Start Last Admin Trade Name Freq PRN Reason Stop Dose Admin Albuterol/Ipratropium 3 ml 09/25/17 23:01 10/07/17 20:22 Duoneb 3 Ml Ampul NEB 10/25/17 23:00 3 ml [id number] PRN SHORTNESS OF BREATH/WHEEZING
--- NOTE | 2017-10-25 13:40 | PDOC PROGRESS REPORT ---
Subjective Progress Note for:: 10/19/17 Subjective:: stable Reason For Visit: GI BLEED ETOH WITHDRAWAL Physical Exam Vital Signs: Temp Pulse Resp BP Pulse Ox 98.0 F 58 L 14 97/55 L 98 10/23/17 11:20 10/23/17 14:00 10/23/17 11:20 10/23/17 11:20 10/23/17 11:20 Intake & Output 10/22/17 10/23/17 10/24/17 06:59 06:59 06:59 Intake Total 580 1255 200 Output Total 1000 525 300 Balance -420 730 -100 Weight 53.6 kg 55.4 kg General appearance: PRESENT: no acute distress, cooperative, disheveled, thin, well-developed Head exam: PRESENT: atraumatic, normocephalic Eye exam: PRESENT: conjunctiva pale, EOMI. ABSENT: nystagmus, periorbital swelling, scleral icterus Mouth exam: PRESENT: dry mucosa, neck supple, tongue midline Neck exam: ABSENT: carotid bruit, JVD, lymphadenopathy, thyromegaly, tracheal deviation, tracheostomy Respiratory exam: PRESENT: decreased breath sounds, prolonged expiratory phas, rhonchi, symmetrical, unlabored. ABSENT: rales, retraction, stridor, tachypnea , wheezes Cardiovascular exam: PRESENT: RRR, +S1, +S2 Pulses: PRESENT: normal radial pulses GI/Abdominal exam: PRESENT: diminished bowel sounds, soft Extremities exam: ABSENT: calf tenderness, clubbing Musculoskeletal exam: ABSENT: ambulatory, deformity, dislocation Neurological exam: PRESENT: alert, awake Psychiatric exam: PRESENT: normal mood Skin exam: PRESENT: dry, warm Results Laboratory Results: 10/23/17 04:34 10/23/17 04:34 10/23/17 10/23/17 04:34 04:34 WBC 7.4 RBC 2.55 L Hgb 8.8 L Hct 25.1 L MCV 99 H MCH 34.4 H MCHC 34.9 RDW 22.3 H Plt Count 154 Seg Neutrophils % 57.6 Lymphocytes % 21.3 Monocytes % 18.0 H Eosinophils % 2.6 Basophils % 0.5 Absolute Neutrophils 4.3 Absolute Lymphocytes 1.6 Absolute Monocytes 1.3 Absolute Eosinophils 0.2 Absolute Basophils 0.0 Sodium 138.1 Potassium 5.1 H Chloride 103 Carbon Dioxide 26 Anion Gap 9 BUN 40 H Creatinine 1.22 Est GFR ( Amer) > 60 Est GFR (Non-Af Amer) > 60 Glucose 118 H Calcium 9.5 Total Bilirubin 3.4 H AST 77 H ALT 59 Alkaline Phosphatase 179 H Total Protein 7.0 Albumin 3.0 L 09/27/17 09/27/17 09/27/17 15:20 15:20 15:20 Creatine Kinase 95 CK-MB (CK-2) 0.80 Troponin I 0.028 NT-Pro-B Natriuret Pep 438 426 09/28/17 09/28/17 09/28/17 08:40 08:40 08:40 Creatine Kinase 64 CK-MB (CK-2) 0.47 Troponin I < 0.012 NT-Pro-B Natriuret Pep 09/29/17 10/01/17 05:05 05:30 Creatine Kinase CK-MB (CK-2) 0.57 Troponin I < 0.012 NT-Pro-B Natriuret Pep 612 Impressions: Abdomen Ultrasound 09/27/17 12:07 IMPRESSION: For visualization of the liver and hepatic vessels. Heterogeneous appearance. Fatty infiltration/ cirrhosis. KUB X-Ray 09/28/17 15:16 IMPRESSION: NG tube with its tip in the left upper quadrant presumably in the proximal stomach. Other findings as noted above Chest X-Ray 10/07/17 00:00 IMPRESSION: Slightly worsening basilar aeration, suspect effusions and volume loss with mild vascular congestion. 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 (3) Alcohol withdrawal seizure Qualifiers: Complication of substance-induced condition: uncomplicated Qualified Code(s ): F10.230 - Alcohol dependence with withdrawal, uncomplicated Is this a current diagnosis for this admission?: Yes Plan: not reported (4) Anxiety disorder Is this a current diagnosis for this admission?: Yes Plan: anxiety prophylaxsis (5) Acute respiratory failure Qualifiers: Respiratory failure complication: hypoxia Qualified Code(s): J96.01 - Acute respiratory failure with hypoxia Is this a current diagnosis for this admission?: Yes Plan: stable//resolved (6) Aspiration pneumonia Is this a current diagnosis for this admission?: Yes Plan: improved (7) COPD (chronic obstructive pulmonary disease) Qualifiers: COPD type: unspecified COPD Qualified Code(s): J44.9 - Chronic obstructive pulmonary disease, unspecified Is this a current diagnosis for this admission?: Yes Plan: tobacco abuse Generic Name Dose Route Start Last Admin Trade Name Freq PRN Reason Stop Dose Admin Albuterol/Ipratropium 3 ml 09/25/17 23:01 10/07/17 20:22 Duoneb 3 Ml Ampul NEB 10/25/17 23:00 3 ml [id number] PRN SHORTNESS OF BREATH/WHEEZING
--- NOTE | 2017-10-25 13:43 | PDOC PROGRESS REPORT ---
Subjective Progress Note for:: 10/18/17 Subjective:: stable Reason For Visit: GI BLEED ETOH WITHDRAWAL Physical Exam Vital Signs: Temp Pulse Resp BP Pulse Ox 98.6 F 66 20 97/59 L 91 L 10/18/17 11:57 10/18/17 11:57 10/18/17 11:57 10/18/17 11:57 10/18/17 11:57 Intake & Output 10/17/17 10/18/17 10/19/17 06:59 06:59 06:59 Intake Total 1930 660 Output Total 1275 1225 Balance 655 -565 Weight 62.3 kg 59.5 kg General appearance: PRESENT: no acute distress, cooperative, disheveled, thin, well-developed Head exam: PRESENT: atraumatic, normocephalic Eye exam: PRESENT: conjunctiva pale, EOMI. ABSENT: nystagmus, periorbital swelling, scleral icterus Mouth exam: PRESENT: dry mucosa, neck supple, tongue midline Neck exam: ABSENT: carotid bruit, JVD, lymphadenopathy, thyromegaly, tracheal deviation, tracheostomy Respiratory exam: PRESENT: decreased breath sounds, prolonged expiratory phas, rhonchi, symmetrical, unlabored. ABSENT: retraction, stridor, tachypnea Cardiovascular exam: PRESENT: RRR, +S1, +S2 Pulses: PRESENT: normal radial pulses GI/Abdominal exam: PRESENT: diminished bowel sounds, soft Extremities exam: ABSENT: calf tenderness, clubbing Musculoskeletal exam: ABSENT: ambulatory, deformity, dislocation Neurological exam: PRESENT: alert, awake Psychiatric exam: PRESENT: normal mood Skin exam: PRESENT: dry, warm Results Laboratory Results: 10/18/17 05:35 10/18/17 05:35 10/17/17 10/18/17 10/18/17 15:30 05:35 05:35 WBC 9.6 RBC 2.49 L Hgb 8.4 L Hct 24.1 L MCV 97 MCH 33.5 H MCHC 34.7 RDW 22.6 H Plt Count 128 L Seg Neutrophils % 66.6 Lymphocytes % 18.0 Monocytes % 13.3 H Eosinophils % 1.3 Basophils % 0.8 Absolute Neutrophils 6.4 Absolute Lymphocytes 1.7 Absolute Monocytes 1.3 Absolute Eosinophils 0.1 Absolute Basophils 0.1 Sodium 136.7 L Potassium 4.5 Chloride 102 Carbon Dioxide 29 Anion Gap 6 BUN 20 Creatinine 0.98 Est GFR ( Amer) > 60 Est GFR (Non-Af Amer) > 60 Glucose 78 Calcium 8.7 Magnesium 1.6 1.5 L Total Bilirubin 3.9 H AST 74 H ALT 44 Alkaline Phosphatase 193 H Total Protein 6.6 Albumin 2.6 L 09/27/17 09/27/17 09/27/17 15:20 15:20 15:20 Creatine Kinase 95 CK-MB (CK-2) 0.80 Troponin I 0.028 NT-Pro-B Natriuret Pep 438 426 09/28/17 09/28/17 09/28/17 08:40 08:40 08:40 Creatine Kinase 64 CK-MB (CK-2) 0.47 Troponin I < 0.012 NT-Pro-B Natriuret Pep 09/29/17 10/01/17 05:05 05:30 Creatine Kinase CK-MB (CK-2) 0.57 Troponin I < 0.012 NT-Pro-B Natriuret Pep 612 Impressions: Abdomen Ultrasound 09/27/17 12:07 IMPRESSION: For visualization of the liver and hepatic vessels. Heterogeneous appearance. Fatty infiltration/ cirrhosis. KUB X-Ray 09/28/17 15:16 IMPRESSION: NG tube with its tip in the left upper quadrant presumably in the proximal stomach. Other findings as noted above Chest X-Ray 10/07/17 00:00 IMPRESSION: Slightly worsening basilar aeration, suspect effusions and volume loss with mild vascular congestion. Assessment & Plan - Diagnosis (1) Alcoholic cirrhosis of liver Qualifiers: Ascites presence: with ascites Qualified Code(s): K70.31 - Alcoholic cirrhosis of liver with ascites Is this a current diagnosis for this admission?: Yes (2) Anemia Qualifiers: Bone marrow failure anemia type: pancytopenia, other Is this a current diagnosis for this admission?: No (3) Alcohol withdrawal seizure Qualifiers: Complication of substance-induced condition: uncomplicated Qualified Code(s ): F10.230 - Alcohol dependence with withdrawal, uncomplicated Is this a current diagnosis for this admission?: Yes Plan: not reported (4) Anxiety disorder Is this a current diagnosis for this admission?: Yes Plan: anxiety prophylaxsis (5) Acute respiratory failure Qualifiers: Respiratory failure complication: hypoxia Qualified Code(s): J96.01 - Acute respiratory failure with hypoxia Is this a current diagnosis for this admission?: Yes Plan: stable//resolved (6) Aspiration pneumonia Is this a current diagnosis for this admission?: No (7) COPD (chronic obstructive pulmonary disease) Qualifiers: COPD type: unspecified COPD Qualified Code(s): J44.9 - Chronic obstructive pulmonary disease, unspecified Is this a current diagnosis for this admission?: Yes Plan: tobacco abuse Generic Name Dose Route Start Last Admin Trade Name Freq PRN Reason Stop Dose Admin Albuterol/Ipratropium 3 ml 09/25/17 23:01 10/07/17 20:22 Duoneb 3 Ml Ampul NEB 10/25/17 23:00 3 ml [id number] PRN SHORTNESS OF BREATH/WHEEZING
[2017-10-26] MEDS: LANSOPRAZOLE 30 MG TAB.RAP.DR PO SCH (05:49)
[2017-10-26] MEDS: CARVEDILOL 3.125 MG TABLET PO SCH (09:36)
[2017-10-26] MEDS: FUROSEMIDE 20 MG TABLET PO SCH (09:36)
[2017-10-26] MEDS: MULTIVITAMIN TABLET PO SCH (09:36)
[2017-10-26] MEDS: SPIRONOLACTONE 25 MG TABLET PO SCH (09:37)
[2017-10-26] MEDS: TAMSULOSIN HCL 0.4 MG CAP.SR.24H PO SCH (09:37)
[2017-10-26] MEDS: MAGNESIUM OXIDE 400 MG TABLET PO SCH (09:38)
[2017-10-26] MEDS: LACTULOSE SYRUP 20 GM/30 ML UDCUP PO SCH (09:38)
[2017-10-26] MEDS: NYSTATIN 500000 UNIT/5 ML UDCUP PO SCH ×2 (09:38→14:35)
--- NOTE | 2017-10-26 13:27 | PDOC DISCHARGE SUMMARY ---
General - Admit/Disc Date/PCP Admission Date/Primary Care Provider: 09/25/17 17:49 GARLAND ROJAS Discharge Date: 10/26/17 - Discharge Diagnosis (1) Acute respiratory failure Is this a current diagnosis for this admission?: Yes (2) Acute hepatic encephalopathy Is this a current diagnosis for this admission?: Yes (3) Gastrointestinal hemorrhage Is this a current diagnosis for this admission?: Yes (4) Acute blood loss anemia Is this a current diagnosis for this admission?: Yes (5) Alcohol withdrawal delirium Is this a current diagnosis for this admission?: No (6) Hypokalemia Is this a current diagnosis for this admission?: Yes (7) Hypomagnesemia Is this a current diagnosis for this admission?: Yes (8) Acute hypernatremia Is this a current diagnosis for this admission?: Yes (9) Hypertension Is this a current diagnosis for this admission?: Yes (10) Hyperlipidemia Is this a current diagnosis for this admission?: Yes (11) COPD (chronic obstructive pulmonary disease) Is this a current diagnosis for this admission?: Yes (12) BPH (benign prostatic hyperplasia) Is this a current diagnosis for this admission?: Yes (13) Alcoholic cirrhosis of liver Is this a current diagnosis for this admission?: Yes (14) Depression Is this a current diagnosis for this admission?: Yes (15) Osteoarthritis Is this a current diagnosis for this admission?: Yes (16) DVT prophylaxis Is this a current diagnosis for this admission?: Yes - Additional Information Resuscitation Status: Full Code Prescriptions: Albuterol Sulfate [Proair Hfa Inhalation Aerosol 8.5 gm Mdi] 2 puff IH Q6H PRN # 1 mdi PRN Reason: Albuterol Sulfate [Albuterol Sulfate 2.5mg/3 mL] 2.5 mg IH Q6H PRN #30 vial.neb PRN Reason: Fluticasone/Salmeterol [Advair 250-50 Diskus 28 dose] 1 inh IH Q12H #1 inhaler Furosemide [Lasix 20 mg Tablet] 20 mg PO DAILY #30 tablet Lactulose [Cephulac Syrup 20 gm/30 ml Udcup] 10 gm PO Q12 #60 udc Magnesium Oxide [Mag-Ox 400 mg Tablet] 400 mg PO BID #60 tablet Spironolactone [Aldactone 25 mg Tablet] 50 mg PO DAILY #30 tablet Thiamine HCl [Thiamine 100 mg Tablet] 100 mg PO DAILY #30 tablet Home Medications: Fluticasone Propionate [Flonase Nasal Merrill 50 Mcg/Merrill 16 gm] 1 spray NASL DAILY 09/26/17 Oxycodone HCl [Oxy-Ir 5 mg Tablet] 5 mg PO Q8 09/26/17 Tamsulosin HCl [Flomax 0.4 mg Cap.sr] 0.4 mg PO DAILY 09/26/17 Zolpidem Tartrate [Ambien 5 mg Tablet] 5 mg PO QHS 09/26/17 Albuterol Sulfate [Albuterol Sulfate 2.5mg/3 mL] 2.5 mg IH Q6H PRN #30 vial.neb 10/26/17 Albuterol Sulfate [Proair Hfa Inhalation Aerosol 8.5 gm Mdi] 2 puff IH Q6H PRN # 1 mdi 10/26/17 Fluticasone/Salmeterol [Advair 250-50 Diskus 28 dose] 1 inh IH Q12H #1 inhaler 10/26/17 Furosemide [Lasix 20 mg Tablet] 20 mg PO DAILY #30 tablet 10/26/17 Lactulose [Cephulac Syrup 20 gm/30 ml Udcup] 10 gm PO Q12 #60 udc 10/26/17 Magnesium Oxide [Mag-Ox 400 mg Tablet] 400 mg PO BID #60 tablet 10/26/17 Spironolactone [Aldactone 25 mg Tablet] 50 mg PO DAILY #30 tablet 10/26/17 Thiamine HCl [Thiamine 100 mg Tablet] 100 mg PO DAILY #30 tablet 10/26/17 History of Present Illness History of Present Illness: 57 year old man with hx of HTN/Hyperlipidemia/COPD/PUD/ETOH liver disease/BPH/ Osteoarthritis/Rhinitis/RLS/Gout/Vitamin D def/Depression/Anxiety disorder/ Chronic smoker, who was transferred to [facility] for GI blled s.p EGD/colonoscopy. Pt continued to drink heavily. He was woken up from sleep at around 1-2 am with persistent vomiting, abd. pain, dark stool - possible hematochezia vs melena. He denied NSAID use. He was brought to ER by EMS and his Hb is 6.4; BUN/Cr- 33/0.88. He is mildly tachycardic.He was admitted to [facility] for GI bleed and severe ETOH withdrawal with possible delirium tremens. Hospital Course Hospital Course: 57 year old man who was admitted initially at [facility] for GI bleed/Anemia of acute blood loss ,Delirium tremens, acute kidney injury and later developed acute respiratory failure, aspiration pneumonia and hepatic encephalopathy and was intubated and transferred to ICU and was on the [facility]. ventilation for over 1 week. We appreciate input of product technician, Dr Park and hospitalists in the management of this pt. He was eventually extubated and transferred back to [facility]. His course was complicated by multiple electrolyte abnormalities- hyokalemia, hypomagnesemia, hypernatremia, which were corrected. he also received multiple PRBC transfusion. He developed mobility difficulty and we got PT/OT consult and they recommended SNF placement, but pt refused since he does not want to look his benefits while at SNF. WE got production planner scheduler consult who worked on many options including SNF placement, out patient PT/OT, but medicaid will not pay for out patient PT/OT. She eventually applied for expedited PCS and she was promised they will send home health aide on day of discharge. Patient will be discharged home today with walker to assist with his mobility needs. Pt will follow up with his PCP within 1 week and he is in agreement with this plan of care. Physical Exam Vital Signs: Temp Pulse Resp BP Pulse Ox 97.5 F 60 13 98/72 L 97 10/26/17 11:46 10/26/17 11:46 10/26/17 11:46 10/26/17 11:46 10/26/17 11:46 Intake & Output 10/25/17 10/26/17 10/27/17 06:59 06:59 06:59 Intake Total 290 875 354 Output Total 625 725 Balance -335 150 354 Weight 54.6 kg 52.3 kg General appearance: PRESENT: no acute distress, cooperative, thin, well- developed Head exam: PRESENT: atraumatic, normocephalic Eye exam: PRESENT: EOMI, PERRLA Ear exam: PRESENT: normal external ear exam, TM's normal bilaterally Mouth exam: PRESENT: neck supple, tongue midline Respiratory exam: PRESENT: clear to auscultation spike, symmetrical Cardiovascular exam: PRESENT: +S1, +S2 Pulses: PRESENT: +1 pedal pulses bilateral GI/Abdominal exam: PRESENT: normal bowel sounds, soft Rectal exam: PRESENT: deferred Musculoskeletal exam: PRESENT: full ROM Neurological exam: PRESENT: alert, awake, oriented to person, oriented to place , oriented to time Psychiatric exam: PRESENT: normal mood Results Laboratory Results: 10/25/17 05:00 10/25/17 05:00 09/27/17 09/27/17 09/27/17 15:20 15:20 15:20 Creatine Kinase 95 CK-MB (CK-2) 0.80 Troponin I 0.028 NT-Pro-B Natriuret Pep 438 426 09/28/17 09/28/17 09/28/17 08:40 08:40 08:40 Creatine Kinase 64 CK-MB (CK-2) 0.47 Troponin I < 0.012 NT-Pro-B Natriuret Pep 09/29/17 10/01/17 05:05 05:30 Creatine Kinase CK-MB (CK-2) 0.57 Troponin I < 0.012 NT-Pro-B Natriuret Pep 612 Impressions: Abdomen Ultrasound 09/27/17 12:07 IMPRESSION: For visualization of the liver and hepatic vessels. Heterogeneous appearance. Fatty infiltration/ cirrhosis. KUB X-Ray 09/28/17 15:16 IMPRESSION: NG tube with its tip in the left upper quadrant presumably in the proximal stomach. Other findings as noted above Chest X-Ray 10/07/17 00:00 IMPRESSION: Slightly worsening basilar aeration, suspect effusions and volume loss with mild vascular congestion. Qualifiers - * PATEINT BEING DISCHARGED WITH ANY OF THE FOLLOWING DIAGNOSIS?: No
[2017-10-26 13:47] VITALS: BP 96/42
--- NOTE | 2017-10-27 18:48 | PDOC PROGRESS REPORT ---
Subjective Progress Note for:: 10/27/17 Subjective:: stable Reason For Visit: GI BLEED ETOH WITHDRAWAL Physical Exam Vital Signs: Temp Pulse Resp BP Pulse Ox 97.5 F 64 13 96/42 L 97 10/26/17 13:40 10/26/17 14:00 10/26/17 13:40 10/26/17 13:40 10/26/17 13:40 Intake & Output 10/26/17 10/27/17 10/28/17 06:59 06:59 07:59 Intake Total 875 354 Output Total 725 Balance 150 354 Weight 52.3 kg General appearance: PRESENT: no acute distress, cooperative, disheveled, thin, well-developed Head exam: PRESENT: atraumatic, normocephalic Eye exam: PRESENT: conjunctiva pale, EOMI. ABSENT: nystagmus, periorbital swelling, scleral icterus Mouth exam: PRESENT: dry mucosa, neck supple, tongue midline Neck exam: ABSENT: carotid bruit, JVD, lymphadenopathy, thyromegaly, tracheal deviation, tracheostomy Respiratory exam: PRESENT: decreased breath sounds, prolonged expiratory phas, rhonchi, symmetrical, unlabored. ABSENT: stridor, tachypnea Cardiovascular exam: PRESENT: RRR, +S1, +S2 Pulses: PRESENT: normal radial pulses GI/Abdominal exam: PRESENT: diminished bowel sounds, soft Extremities exam: ABSENT: clubbing Musculoskeletal exam: ABSENT: ambulatory, deformity, dislocation Neurological exam: PRESENT: awake Skin exam: PRESENT: dry, warm Results Laboratory Results: 10/25/17 05:00 10/25/17 05:00 09/27/17 09/27/17 09/27/17 15:20 15:20 15:20 Creatine Kinase 95 CK-MB (CK-2) 0.80 Troponin I 0.028 NT-Pro-B Natriuret Pep 438 426 09/28/17 09/28/17 09/28/17 08:40 08:40 08:40 Creatine Kinase 64 CK-MB (CK-2) 0.47 Troponin I < 0.012 NT-Pro-B Natriuret Pep 09/29/17 10/01/17 05:05 05:30 Creatine Kinase CK-MB (CK-2) 0.57 Troponin I < 0.012 NT-Pro-B Natriuret Pep 612 Impressions: Abdomen Ultrasound 09/27/17 12:07 IMPRESSION: For visualization of the liver and hepatic vessels. Heterogeneous appearance. Fatty infiltration/ cirrhosis. KUB X-Ray 09/28/17 15:16 IMPRESSION: NG tube with its tip in the left upper quadrant presumably in the proximal stomach. Other findings as noted above Chest X-Ray 10/07/17 00:00 IMPRESSION: Slightly worsening basilar aeration, suspect effusions and volume loss with mild vascular congestion. Assessment & Plan - Diagnosis (1) Alcoholic cirrhosis of liver Qualifiers: Ascites presence: with ascites Qualified Code(s): K70.31 - Alcoholic cirrhosis of liver with ascites Is this a current diagnosis for this admission?: Yes (2) Anemia Qualifiers: Bone marrow failure anemia type: pancytopenia, other Is this a current diagnosis for this admission?: No (3) Alcohol withdrawal seizure Qualifiers: Complication of substance-induced condition: uncomplicated Qualified Code(s ): F10.230 - Alcohol dependence with withdrawal, uncomplicated Is this a current diagnosis for this admission?: Yes Plan: not reported (4) Anxiety disorder Is this a current diagnosis for this admission?: Yes Plan: anxiety prophylaxsis (5) Acute respiratory failure Qualifiers: Respiratory failure complication: hypoxia Qualified Code(s): J96.01 - Acute respiratory failure with hypoxia Is this a current diagnosis for this admission?: No (6) Aspiration pneumonia Is this a current diagnosis for this admission?: No (7) COPD (chronic obstructive pulmonary disease) Qualifiers: COPD type: unspecified COPD Qualified Code(s): J44.9 - Chronic obstructive pulmonary disease, unspecified Is this a current diagnosis for this admission?: Yes Plan: tobacco abuse Generic Name Dose Route Start Last Admin Trade Name Freq PRN Reason Stop Dose Admin Albuterol/Ipratropium 3 ml 09/25/17 23:01 10/07/17 20:22 Duoneb 3 Ml Ampul NEB 10/25/17 23:00 3 ml [id number] PRN SHORTNESS OF BREATH/WHEEZING
== END 2017-10-26 16:20 | disposition home or self-care (01) | DRG 377 ==
LOC: ER 15:55 → EH 17:49 → 3S 22:36 → ICU 09-27 11:27 → 3N 10-05 03:51
PROVIDERS: ADMIT Internal Medicine; ATTEND Internal Medicine
PROC: 30233N1 Transfusion of Nonautologous Red Blood Cells into Peripheral Vein, Percutaneous Approach (ICD-10-PCS; principal; 2017-09-25)
PROC: 30233N1 Transfusion of Nonautologous Red Blood Cells into Peripheral Vein, Percutaneous Approach (ICD-10-PCS; 2017-09-27)
PROC: 0BH17EZ Insertion of Endotracheal Airway into Trachea, Via Natural or Artificial Opening (ICD-10-PCS; 2017-09-27)
PROC: 5A1955Z Respiratory Ventilation, Greater than 96 Consecutive Hours (ICD-10-PCS; 2017-09-27)
PROC: 02H633Z Insertion of Infusion Device into Right Atrium, Percutaneous Approach (ICD-10-PCS; 2017-09-27)
PROC: 0DD68ZX Extraction of Stomach, Via Natural or Artificial Opening Endoscopic, Diagnostic (ICD-10-PCS; 2017-09-28)
PROC: 30233K1 Transfusion of Nonautologous Frozen Plasma into Peripheral Vein, Percutaneous Approach (ICD-10-PCS; 2017-09-28)
PROC: 30233R1 Transfusion of Nonautologous Platelets into Peripheral Vein, Percutaneous Approach (ICD-10-PCS; 2017-09-28)
PROC: 30233N1 Transfusion of Nonautologous Red Blood Cells into Peripheral Vein, Percutaneous Approach (ICD-10-PCS; 2017-10-03)
DX: K92.2 Gastrointestinal hemorrhage, unspecified (principal); J69.0 Pneumonitis due to inhalation of food and vomit; J96.01 Acute respiratory failure with hypoxia; A41.1 Sepsis due to other specified staphylococcus; D62 Acute posthemorrhagic anemia; E87.0 Hyperosmolality and hypernatremia; F10.231 Alcohol dependence with withdrawal delirium; D61.818 Other pancytopenia; K70.31 Alcoholic cirrhosis of liver with ascites; K70.40 Alcoholic hepatic failure without coma; K70.11 Alcoholic hepatitis with ascites; K29.20 Alcoholic gastritis without bleeding; K92.1 Melena; E78.00 Pure hypercholesterolemia, unspecified; I10 Essential (primary) hypertension; K27.9 Peptic ulcer, site unspecified, unspecified as acute or chronic, without hemorrhage or perforation; J44.9 Chronic obstructive pulmonary disease, unspecified; K21.9 Gastro-esophageal reflux disease without esophagitis; E87.6 Hypokalemia; E83.42 Hypomagnesemia; M10.9 Gout, unspecified; G25.81 Restless legs syndrome; F41.8 Other specified anxiety disorders; M06.9 Rheumatoid arthritis, unspecified; N40.0 Benign prostatic hyperplasia without lower urinary tract symptoms; Y90.0 Blood alcohol level of less than 20 mg/100 ml; F17.210 Nicotine dependence, cigarettes, uncomplicated
CPT/HCPCS: 36415; 36430; 36600; 43239; 71045; 71046; 74018; 76700; 80048; 80053; 80061; 80074; 80076; 80202; 80307; 81001; 82140; 82272; 82550; 82553; 82565; 82803; 82962; 83605; 83690; 83735; 83880; 84100; 84478; 84484; 85025; 85027; 85610; 85730; 86701; 86850; 86900; 86901; 86920; 87040; 87070; 87077; 87086; 87186; 87205; 87493; 88305; 88342; 93005; 93010; 94002; 94003; 94799; 96360; 99285; J0171; J0610; J0690; J1100; J1200; J1610; J1630; J1642; J1940; J2060; J2250; J2310; J2370; J2405; J2543; J2704; J3010; J3370; J3411; J3475; J3480; J3490; J7050; J7060; J7120; J7620; P9016; P9017; P9035; S0164

== ENCOUNTER 2017-11-22 14:36 | Emergency (ER) | payer MEDICAID ==
[2017-11-22 14:41] VITALS: BP 111/66
[2017-11-22] MEDS ORDERED: OXYCODONE HCL IR 5 MG TABLET PO ONE (15:12)
[2017-11-22] MEDS ORDERED: LIDOCAINE 5% (700 MG) TRANSDERMAL ADH..PATCH TP ONE (15:18)
--- NOTE | 2017-11-22 15:18 | ER Document Report ---
HPI - HPI Pain Level: 5 Context: Patient is a 57-year-old male who presents emergency department for med refill. Patient states that he has a history of rheumatoid arthritis and follows with Dr. Rojas. Patient states that he was given 90 oxycodone prior to his discharge from the hospital approximately 2 months ago. He states that he was taking more than directed on the medications so he ran out early. He is not able to follow-up with Dr. Rojas until November 27. Otherwise he denies any recent fall, trauma or new injury. He complains of pain in his right buttock radiating into his right leg. Describes as a constant ache. - EENT EENT: DENIES: Sore Throat, Ear Pain, Eye problems - NEURO Neurology: DENIES: Headache, Weakness, Vision blurred, Dizzinesss / Vertigo - CARDIOVASCULAR Cardiovascular: DENIES: Chest pain - RESPIRATORY Respiratory: DENIES: Trouble Breathing, Coughing - GASTROINTESTINAL Gastrointestinal: DENIES: Abdominal Pain, Black / Bloody Stools - URINARY Urinary: DENIES: Dysuria, Urgency, Frequency - REPRODUCTIVE Reproductive: DENIES: : - MUSCULOSKELETAL Musculoskeletal: REPORTS: Extremity pain - RLE Past Medical History - Social History Smoking Status: Unknown if Ever Smoked Family History: Reviewed & Not Pertinent Patient has suicidal ideation: No Patient has homicidal ideation: No - Past Medical History Cardiac Medical History: Reports: Hx Hypercholesterolemia, Hx Hypertension Pulmonary Medical History: Reports: Hx Bronchitis, Hx COPD Neurological Medical History: Denies: Hx Seizures Renal/ Medical History: Denies: Hx Peritoneal Dialysis GI Medical History: Reports: Hx Gastroesophageal Reflux Disease Musculoskeltal Medical History: Reports Hx Arthritis - RA Psychiatric Medical History: Reports: Hx Depression Past Surgical History: Reports: Hx Orthopedic Surgery - right femur, jaw surgery - Immunizations Hx Diphtheria, Pertussis, Tetanus Vaccination: Yes Vertical Provider Document - CONSTITUTIONAL Agree With Documented VS: Yes Notes: PHYSICAL EXAM GENERAL: Alert, interacts well. HEAD: Normocephalic, atraumatic. EXTREMITIES: Moves all 4 extremities spontaneously. No edema, radial and dorsalis pedis pulses 2/4 bilaterally. No cyanosis. NEUROLOGICAL: Alert and oriented x4. Normal speech. normal gait. 5 out of 5 strength in both lower extremities bilaterally. Sensation is grossly intact throughout. PSYCH: Normal affect, normal mood. SKIN: Warm, dry, normal turgor. No rashes or lesions noted. - INFECTION CONTROL TRAVEL OUTSIDE OF THE [place] IN LAST 30 DAYS: No Course - Re-evaluation Re-evalutation: 11/22/17 15:16 Patient is a 57-year-old male who is hemodynamically stable, no acute distress afebrile. No evidence of a septic joint, gout flare, dislocation, or fracture on exam. Vitals wnl. At this time, I do not see an indication for labs or further imaging. Discussed with patient states and department policy on emergency department filling chronic opiates and to follow up with primary care. Will discharge with conservative measures, return precautions, and follow -up recommendations. - Vital Signs Vital signs: Temp Pulse Resp BP Pulse Ox 98.1 F 102 H 18 111/66 96 11/22/17 14:39 11/22/17 14:39 11/22/17 14:39 11/22/17 14:39 11/22/17 14:39 Discharge - Discharge Clinical Impression: Chronic pain Qualifiers: Chronic pain type: chronic pain syndrome Qualified Code(s): G89.4 - Chronic pain syndrome Condition: Good Disposition: HOME, SELF-CARE Additional Instructions: Chronic Pain Control Stress, inactivity, and depression make pain more severe regardless of the cause of the pain. Stress and poor physical condition can cause pain such as headaches and backache. Relaxation: Rest in a quiet place with your eyes closed for 20 minutes twice daily. Concentrate on a pleasant image, or simply "feel" your breathing. Clear your mind. Stress management: Deal with your "stressors." Either take action, or eliminate the stressor from your life. Don't let things hang over you. Accept those things you can't change. Nutrition: Eat small, balanced meals -- don't skip, don't overeat. Meals should be high-carbohydrate, low-sugar, low-fat. Exercise: Exercise helps painful conditions and eases stress. Get 30 minutes of moderate exercise, five days a week. Do an activity that does not flare your pain. Precautions: Pain which continues to disrupt daily activities, or which changes in nature, requires a medical evaluation. Pain Clinic referral is available. We do not manage chronic pain in the Emergency Department. We will try to appropriately help you through an acute flare of your chronic painful condition , but for on-going chronic pain that does not improve, you will need to see your private doctor or custom motorcycle painter. We do not provide repeated medication management of chronic painful conditions. If you wish, we can provide the name of local pain management physicians. Prescriptions: Lidocaine [Lidoderm 5% (700 mg) Transdermal Patch] 1 patch TP DAILY #30 adh..patch Referrals: GARLAND ROJAS MD [Primary Care Provider] - Follow up in 3-5 days
== END 2017-11-22 15:30 | disposition home or self-care (01) ==
LOC: ER 14:36
DX: Z76.0 Encounter for issue of repeat prescription (principal); G89.4 Chronic pain syndrome; M06.9 Rheumatoid arthritis, unspecified; Z91.14 Patient's other noncompliance with medication regimen; I10 Essential (primary) hypertension; J44.9 Chronic obstructive pulmonary disease, unspecified
CPT/HCPCS: 99282; J3490 ×2

== ENCOUNTER 2017-11-25 19:43 | Inpatient (IN) | payer MEDICAID ==
--- NOTE | 2017-11-25 20:07 | ER Document Report ---
ED Medical Screen (RME) - General Chief Complaint: Altered Mental Status Stated Complaint: ALTERED MENTAL STATUS Time Seen by Provider: 11/25/17 19:59 Notes: 57-year-old patient with alcoholic cirrhosis and prior GI bleed. Found on the floor by a neighbor. Patient was here 3 days ago trying to get refills for his chronic pain medication opiates. He had run out due to taking them in larger quantities than prescribed. He did spend approximately 1 month in the emergency room through September into October for his alcoholic liver disease and GI bleed. He complains of chronic low back pain and states she is feeling more weak today. I have greeted and performed a rapid initial assessment of this patient. A comprehensive ED assessment and evaluation of the patient, analysis of test results and completion of the medical decision making process will be conducted by additional ED providers. TRAVEL OUTSIDE OF THE [place] IN LAST 30 DAYS: No COUNTRY TRAVELED TO/FROM: [facility] - Related Data Allergies/Adverse Reactions: No Known Allergies Allergy (Verified 11/22/17 14:36) Past Medical History - Past Medical History Cardiac Medical History: Reports: Hx Hypercholesterolemia, Hx Hypertension Pulmonary Medical History: Reports: Hx Bronchitis, Hx COPD Neurological Medical History: Denies: Hx Seizures Renal/ Medical History: Denies: Hx Peritoneal Dialysis GI Medical History: Reports: Hx Gastroesophageal Reflux Disease Musculoskeltal Medical History: Reports Hx Arthritis - RA Psychiatric Medical History: Reports: Hx Depression Past Surgical History: Reports: Hx Orthopedic Surgery - right femur, jaw surgery - Immunizations Hx Diphtheria, Pertussis, Tetanus Vaccination: Yes History of Influenza Vaccine for 05/2017 - 10/2017 Season: Refused
--- NOTE | 2017-11-25 20:36 | RADIOLOGY REPORT (SQ) ---
EXAM DESCRIPTION: CHEST SINGLE VIEW COMPLETED DATE/TIME: 11/25/2017 8:23 pm REASON FOR STUDY: Weakness, alcoholic liver disease COMPARISON: 10/07/2017. EXAM PARAMETERS: NUMBER OF VIEWS: One view. TECHNIQUE: Single frontal radiographic view of the chest acquired. RADIATION DOSE: NA LIMITATIONS: None. FINDINGS: LUNGS AND PLEURA: Chronic elevation of the right hemidiaphragm. No opacities, masses or p neumothorax. No pleural effusion. MEDIASTINUM AND HILAR STRUCTURES: No masses. Contour normal. HEART AND VASCULAR STRUCTURES: Heart normal in size. Normal vasculature. BONES: No acute findings. HARDWARE: None in the chest. OTHER: No other significant finding. IMPRESSION: NO ACUTE RADIOGRAPHIC FINDING IN THE CHEST. TECHNICAL DOCUMENTATION: JOB ID: [id number] [email or web address] All Rights Reserved Reading location - IP/workstation name: [email or web address]
[2017-11-25 20:44] LABS: INTERNATIONAL RATION (INR) 1.39; PROTHROMBIN TIME 17.7 SEC (11.4-15.4)
--- NOTE | 2017-11-25 20:50 | RADIOLOGY REPORT (SQ) ---
EXAM DESCRIPTION: CT HEAD WITHOUT COMPLETED DATE/TIME: 11/25/2017 8:37 pm REASON FOR STUDY: ams COMPARISON: 09/09/2015. TECHNIQUE: Axial images acquired through the brain without intravenous contrast. Images reviewed wi th bone, brain and subdural windows. Additional sagittal and coronal reconstructions were generated. Images stored on PACS. All CT scanners at this facility use dose modulation, iterative reconstruction, and/or weight based d osing when appropriate to reduce radiation dose to as low as reasonably achievable (ALARA). [facility]: Dose Right [facility]: CareDose [facility]: Dose Right [facility]: Teradose 4D [facility]: [employer] RADIATION DOSE: CT Rad equipment meets quality standard of care and radiation dose reduction techniq ues were employed. CTDIvol: 48.6 mGy. DLP: 880 mGy-cm. mGy. LIMITATIONS: None. FINDINGS: VENTRICLES: Normal size and contour. CEREBRUM: No masses. No hemorrhage. No midline shift. No evidence for acute infarction. Normal gra y/white matter differentiation. No areas of low density in the white matter. CEREBELLUM: No masses. No hemorrhage. No alteration of density. No evidence for acute infarction. EXTRAAXIAL SPACES: No fluid collections. No masses. ORBITS AND GLOBE: No intra- or extraconal masses. Normal contour of globe without masses. CALVARIUM: No fracture. PARANASAL SINUSES: No fluid or mucosal thickening. SOFT TISSUES: No mass or hematoma. OTHER: No other significant finding. IMPRESSION: NORMAL BRAIN CT WITHOUT CONTRAST. EVIDENCE OF ACUTE STROKE: NO. COMMENT: Quality ID # [id number]: Final reports with documentation of one or more dose reduction techniques (e.g., Automated exposure control, adjustment of the mA and/or kV according to patient size, use of iterative reconstruction technique) TECHNICAL DOCUMENTATION: JOB ID: [id number] [employer]- All Rights Reserved Reading location - IP/workstation name: [email or web address]
[2017-11-25 20:56] LABS: ALANINE AMINOTRANSFERASE 52 U/L (21-72); ALBUMIN 3.3 g/dL (3.5-5.0); ALKALINE PHOSPHATASE 344 U/L (38-126); ANION GAP 10 (5-19); ASPARTATE AMINO TRANSFERASE 93 U/L (17-59); BILIRUBIN,TOTAL 4.4 mg/dL (0.2-1.3); BLOOD UREA NITROGEN 17 mg/dL (7-20); CALCIUM 9.6 mg/dL (8.4-10.2); CARBON DIOXIDE 26 mmol/L (22-30); CHLORIDE 99 mmol/L (98-107); CREATINE KINASE 97 U/L (55-170); GLUCOSE 90 mg/dL (75-110); POTASSIUM 3.5 mmol/L (3.6-5.0); SODIUM 134.7 mmol/L (137-145); TOTAL PROTEIN 7.4 g/dL (6.3-8.2)
[2017-11-25 20:58] LABS: ABSOLUTE BASOPHILS # (AUTO) 0.1 10^3/uL (0.0-0.2); ABSOLUTE EOSINOPHILS # (AUTO) 0.1 10^3/uL (0.0-0.6); ABSOLUTE LYMPHOCYTES (AUTO) 1.9 10^3/uL (0.5-4.7); ABSOLUTE MONOCYTES (AUTO) 1.1 10^3/uL (0.1-1.4); ABSOLUTE NEUT (AUTO) 7.7 10^3/uL (1.7-8.2); BASOPHILS % (AUTO) 0.9 % (0-2); EOSINOPHILS % (AUTO) 0.8 % (0-6); HEMATOCRIT 25.8 % (37.9-51.0); LYMPHOCYTES % (AUTO) 17.6 % (13-45); MEAN CORPUSCULAR HEMOGLOBIN 37.3 pg (27.0-33.4); MEAN CORPUSCULAR HGB CONC 34.7 g/dL (32.0-36.0); MEAN CORPUSCULAR VOLUME 107 fl (80-97); MONOCYTES % (AUTO) 10.3 % (3-13); RED BLOOD COUNT 2.41 10^6/uL (4.35-5.55); RED CELL DISTRIBUTION WIDTH 16.1 % (11.5-14.0); SEGMENTED NEUTROPHILS % (AUTO) 70.4 % (42-78); TOTAL CELLS COUNTED % (AUTO) 100 %
[2017-11-25 20:59] LABS: ALCOHOL < 10 mg/dL (NONE DETECTED)
[2017-11-25 21:00] LABS: PLATELET COUNT 168 10^3/uL (150-450)
[2017-11-25] MEDS ORDERED: NORMAL SALINE 1000 ML 1,000 ML IV ONE ×2 (21:03→22:36)
--- NOTE | 2017-11-25 21:05 | ER Document Report ---
ED General - General Chief Complaint: Altered Mental Status Stated Complaint: ALTERED MENTAL STATUS Time Seen by Provider: 11/25/17 19:59 Cannot obtain history due to: Altered mental status Notes: Patient is a 57-year-old male with chronic alcoholic liver cirrhosis who presents with a friend for altered mental status. The patient is alert and oriented but a very poor historian, unable to provide me any appropriate details about what brought him to the emergency department today. The friend at the bedside reports that he called the patient that he sounded intoxicated confused on the phone so he went to check on him. States he found the patient lying on the floor and very confused. He states that the patient was making nonsensical statements and appeared quite dehydrated. The patient was subsequently brought to the emergency department for further assessment. TRAVEL OUTSIDE OF THE [place] IN LAST 30 DAYS: No COUNTRY TRAVELED TO/FROM: [facility] - Related Data Allergies/Adverse Reactions: No Known Allergies Allergy (Verified 11/22/17 14:36) Past Medical History - General Information source: Patient, Relative - Social History Smoking Status: Former Smoker Frequency of alcohol use: Occasional Drug Abuse: None Lives with: Alone Family History: Reviewed & Not Pertinent - Past Medical History Cardiac Medical History: Reports: Hx Hypercholesterolemia, Hx Hypertension Pulmonary Medical History: Reports: Hx Bronchitis, Hx COPD Neurological Medical History: Denies: Hx Seizures Renal/ Medical History: Denies: Hx Peritoneal Dialysis GI Medical History: Reports: Hx Gastroesophageal Reflux Disease Musculoskeltal Medical History: Reports Hx Arthritis - RA Psychiatric Medical History: Reports: Hx Depression Past Surgical History: Reports: Hx Orthopedic Surgery - right femur, jaw surgery - Immunizations Hx Diphtheria, Pertussis, Tetanus Vaccination: Yes Review of Systems - Review of Systems -: Yes ROS unobtainable due to patient's medical condition Physical Exam - Vital signs Vitals: Pulse Resp BP Pulse Ox 110 H 18 87/70 L 93 11/25/17 19:50 11/25/17 19:50 11/25/17 19:50 11/25/17 19:50 Interpretation: Hypotensive, Tachycardic Notes: PHYSICAL EXAMINATION: GENERAL: Ill in appearance, lethargic HEAD: Atraumatic, normocephalic. EYES: Pupils equal round and reactive to light, extraocular movements intact, sclera with icterus, conjunctiva are normal. ENT: nares patent, oropharynx clear without exudates. Extremely dry mucous membranes. NECK: Normal range of motion, supple without lymphadenopathy LUNGS: Diminished breath sounds at the right base. Moderate tachypnea. HEART: Regular tachycardia without murmurs ABDOMEN: Soft, no fluid wave, nontender, normoactive bowel sounds. No guarding , no rebound. No masses appreciated. EXTREMITIES: Normal range of motion, no pitting or edema. No cyanosis. NEUROLOGICAL: No focal neurological deficits. Moves all extremities spontaneously and on command. PSYCH: Alert and oriented but seems generally confused, quite lethargic falling asleep easily even while people are talking in the room. SKIN: Warm, diffuse icterus Course - Re-evaluation Re-evalutation: 11/25/17 21:04 Patient presents confused, intermittent having visual hallucinations, appears visibly icteric. No ascites on examination. Although he is alert and oriented he also reports that people came to his house today, told him to pack his things and that he would have to leave his home. His neighbor states that this is not true and that the patient appears to have hallucinated this event. Patient appears extraordinarily dehydrated, dry mucous membranes. His labs do show findings of chronic cirrhosis without any significant acute worsening. Ammonia level is pending. Patient is ill in appearance, somewhat altered, and require frequent reassessments. He is in guarded condition at this time. 11/25/17 22:09 Patient continues to be tachycardic, saturations of 89% on room air, continues to be somewhat diminished in the right lower lobe. Although chest x-ray is clear patient does meet subsequent sepsis criteria given his altered mental status, tachycardia, tachypnea and hypoxemia which is not his baseline. Clinically he does fit with a diagnosis of a pneumonia. He will be started on empiric coverage of ceftriaxone and azithromycin. Will continue to monitor closely 11/25/17 23:49 Patient continues to be somewhat lethargic, falls asleep easily, vital signs overall unchanged. He has received thiamine, folate, IV fluids, and I discussed with the hospitalist who has accepted for admission. - Vital Signs Vital signs: Temp Pulse Resp BP Pulse Ox 97.8 F 114 H 16 122/74 93 11/26/17 03:02 11/26/17 03:02 11/26/17 03:02 11/26/17 03:02 11/26/17 03:02 - Laboratory Result Diagrams: 11/25/17 20:27 11/25/17 20:27 Laboratory results interpreted by me: 11/25/17 11/25/17 11/25/17 20:27 20:27 20:27 WBC 11.0 H RBC 2.41 L Hgb 9.0 L Hct 25.8 L MCV 107 H MCH 37.3 H RDW 16.1 H PT 17.7 H Sodium 134.7 L Potassium 3.5 L Total Bilirubin 4.4 H Direct Bilirubin 2.0 H AST 93 H Alkaline Phosphatase 344 H Ammonia Albumin 3.3 L 11/25/17 21:11 WBC RBC Hgb Hct MCV MCH RDW PT Sodium Potassium Total Bilirubin Direct Bilirubin AST Alkaline Phosphatase Ammonia < 8.7 L Albumin - Diagnostic Test Radiology reviewed: Image reviewed, Reports reviewed Radiology results interpreted by me: 11/26/17 03:44 CT head: No acute intracranial bleed or mass Chest x-ray: No acute infiltrate Critical Care Note - Critical Care Note Total time excluding time spent on procedures (mins): 37 Comments: Critical care time spent obtaining history from patient or surrogate, discussions with consultants, development of treatment plan with patient or surrogate, evaluation of patient's response to treatment, examination of patient , ordering and performing treatments and interventions, ordering and review of laboratory studies, re-evaluation of patient's condition, ordering and review of radiographic studies and review of old charts Discharge - Discharge Clinical Impression: Hypoxia Sepsis Qualifiers: Sepsis type: sepsis due to unspecified organism Qualified Code(s): A41.9 - Sepsis, unspecified organism Altered mental status Qualifiers: Altered mental status type: transient alteration of awareness Qualified Code(s) : R40.4 - Transient alteration of awareness Alcoholic cirrhosis of liver Qualifiers: Ascites presence: without ascites Qualified Code(s): K70.30 - Alcoholic cirrhosis of liver without ascites Condition: Fair Disposition: ADMITTED INPATIENT Admitting Provider: Hospitalist Unit Admitted: [facility]
[2017-11-25] MEDS ORDERED: AZITHROMYCIN 250 MG TABLET PO ONE (22:09)
[2017-11-25] MEDS ORDERED: CEFTRIAXONE INJ 1000 MG VIAL IV ONE (22:09)
[2017-11-26] MEDS ORDERED: IPRATROPIUM/ALBUTEROL 0.5-2.5 MG/3 ML AMPUL NEB PRN (00:09)
[2017-11-26] MEDS ORDERED: DEXTROSE 5%-LACTATED RINGERS 1,000 ML IV PRN (00:17)
[2017-11-26] MEDS ORDERED: FOLIC ACID INJ 5 MG/1 ML 10 ML VIAL IV PRN (00:26)
[2017-11-26] MEDS ORDERED: THIAMINE HCL INJ 200 MG/2 ML VIAL IV PRN (00:26)
[2017-11-26] MEDS ORDERED: LEVOFLOXACIN 750 MG/D5W RTU 750 MG/150 ML RTUPB IV ONE (01:00)
[2017-11-26 01:10] LABS: APPEARANCE,URINE CLEAR; BILIRUBIN,URINE NEGATIVE (NEGATIVE); COLOR,URINE YELLOW; GLUCOSE, URINE NEGATIVE (NEGATIVE); KETONES,URINE NEGATIVE (NEGATIVE); LEUKOCYTE ESTERASE,URINE NEGATIVE (NEGATIVE); NITRITE,URINE NEGATIVE (NEGATIVE); PROTEIN,URINE NEGATIVE (NEGATIVE); URINE SPECIFIC GRAVITY 1.011; UROBILINOGEN,URINE NEGATIVE mg/dL (<2.0)
[2017-11-26 01:24] LABS: URINE AMPHETAMINES SCREEN NEGATIVE; URINE BARBITURATES SCREEN NEGATIVE; URINE BENZODIAZEPINES SCREEN NEGATIVE; URINE COCAINE SCREEN NEGATIVE; URINE MARIJUANA (THC) SCREEN NEGATIVE; URINE METHADONE SCREEN NEGATIVE; URINE PHENCYCLIDINE SCREEN NEGATIVE
[2017-11-26] MEDS ORDERED: ACETAMINOPHEN 325 MG TABLET PO ONE (01:38)
--- NOTE | 2017-11-26 02:40 | PDOC H&P ---
History of Present Illness Admission Date/PCP: 11/26/17 00:00 GAR[place] ROJAS History of Present Illness: MARTIN OWEN is a 57 year old male patient with past medical history of HTN, HLD, COPD, alcohol induced cirrhosis of the liver, anxiety depression and restless leg syndrome, improved with chief complaint of confusion, and intermittent visual hallucination. Even though his liver chemistry is stable and his ammonia level is within normal limits, and is icteric and looks dehydrated. Patient claims he is sober for the last 1 month. At the ER patient was continuously tachycardic and desaturated to 89% on room air. His chest x-ray reported normal but has decreased air entry at the lung bases marked on the right side. Detailed history and review of systems is unobtainable. Past Medical History Cardiac Medical History: Reports: Hyperlipidema, Hypertension Pulmonary Medical History: Reports: Bronchitis, Chronic Obstructive Pulmonary Disease (COPD) Neurological Medical History: Denies: Seizures GI Medical History: Reports: Gastroesophageal Reflux Disease Musculoskeltal Medical History: Reports: Arthritis - RA Psychiatric Medical History: Reports: Depression Hematology: Denies: Anemia Past Surgical History Past Surgical History: Reports: Orthopedic Surgery - right femur, jaw surgery Social History Smoking Status: Current Every Day Smoker Frequency of Alcohol Use: Heavy Hx Recreational Drug Use: Yes Drugs: Cocaine, Marijuana Hx Prescription Drug Abuse: No Family History Family History: Reviewed & Not Pertinent Parental Family History Reviewed: No - Patient complains Children Family History Reviewed: Unknown Sibling(s) Family History Reviewed.: Unknown Medication/Allergy Home Medications: Fluticasone Propionate [Flonase Nasal [place] 50 Mcg/[place] 16 gm] 1 spray NASL DAILY 09/26/17 Oxycodone HCl [Oxy-Ir 5 mg Tablet] 5 mg PO Q8 09/26/17 Tamsulosin HCl [Flomax 0.4 mg Cap.sr] 0.4 mg PO DAILY 09/26/17 Zolpidem Tartrate [Ambien 5 mg Tablet] 5 mg PO QHS 09/26/17 Albuterol Sulfate [Albuterol Sulfate 2.5mg/3 mL] 2.5 mg IH Q6H PRN #30 vial.neb 10/26/17 Albuterol Sulfate [Proair Hfa Inhalation Aerosol 8.5 gm Mdi] 2 puff IH Q6H PRN # 1 mdi 10/26/17 Fluticasone/Salmeterol [Advair 250-50 Diskus 28 dose] 1 inh IH Q12H #1 inhaler 10/26/17 Furosemide [Lasix 20 mg Tablet] 20 mg PO DAILY #30 tablet 10/26/17 Lactulose [Cephulac Syrup 20 gm/30 ml Udcup] 10 gm PO Q12 #60 udc 10/26/17 Magnesium Oxide [Mag-Ox 400 mg Tablet] 400 mg PO BID #60 tablet 10/26/17 Spironolactone [Aldactone 25 mg Tablet] 50 mg PO DAILY #30 tablet 10/26/17 Thiamine HCl [Thiamine 100 mg Tablet] 100 mg PO DAILY #30 tablet 10/26/17 Lidocaine [Lidoderm 5% (700 mg) Transdermal Patch] 1 patch TP DAILY #30 adh..patch 11/22/17 Allergies/Adverse Reactions: No Known Allergies Allergy (Verified 11/22/17 14:36) Review of Systems ROS unobtainable: Due to mental status Physical Exam Vital Signs: Temp Pulse Resp BP Pulse Ox 110 H 19 130/80 H 97 11/25/17 20:00 11/26/17 00:35 11/26/17 00:01 11/26/17 00:35 General appearance: PRESENT: mild distress Eye exam: PRESENT: scleral icterus Mouth exam: PRESENT: dry mucosa Respiratory exam: PRESENT: decreased breath sounds - decreased air entry at the lung bases [place] on the right side Cardiovascular exam: PRESENT: tachycardia GI/Abdominal exam: PRESENT: normal bowel sounds, soft. ABSENT: distended, guarding, mass, organolmegaly, rebound, tenderness Results Laboratory Results: 11/26/17 00:38 Urine Color YELLOW Urine Appearance CLEAR Urine pH 7.0 Ur Specific [place] 1.011 Urine Protein NEGATIVE Urine Glucose (UA) NEGATIVE Urine Ketones NEGATIVE Urine Blood NEGATIVE Urine Nitrite NEGATIVE Ur Leukocyte Esterase NEGATIVE Urine WBC (Auto) 1 Urine RBC (Auto) 0 Impressions: Chest X-Ray 11/25/17 20:07 IMPRESSION: NO ACUTE RADIOGRAPHIC FINDING IN THE CHEST. Head CT 11/25/17 20:08 IMPRESSION: NORMAL BRAIN CT WITHOUT CONTRAST. EVIDENCE OF ACUTE STROKE: NO. Assessment & Plan - Diagnosis (1) Altered mental status Qualifiers: Altered mental status type: transient alteration of awareness Qualified Code(s): R40.4 - Transient alteration of awareness Is this a current diagnosis for this admission?: Yes Plan: Questionable hepatic encephalopathy. Fall and aspiration precaution. Monitor his liver chemistry. We will start him on D5 with normal saline, folic acid, thiamine and magnesium. (2) Pneumonia Qualifiers: Pneumonia type: due to unspecified organism Laterality: unspecified laterality Is this a current diagnosis for this admission?: Yes Plan: Patient empirically started on Levaquin 750 mg IV daily. (3) Alcoholic cirrhosis of liver Qualifiers: Ascites presence: without ascites Qualified Code(s): K70.30 - Alcoholic cirrhosis of liver without ascites Is this a current diagnosis for this admission?: Yes Plan: As #1 (4) COPD (chronic obstructive pulmonary disease) Qualifiers: COPD type: unspecified COPD Qualified Code(s): J44.9 - Chronic obstructive pulmonary disease, unspecified Is this a current diagnosis for this admission?: Yes Plan: As needed breathing treatment. - Time Time Spent: 30 to 50 Minutes - Inpatient Certification Medical Necessity: Need for IV Antibiotics
[2017-11-26] MEDS: HEPARIN SOD (PORCINE) 5,000 UNIT/ML 1 ML SYRINGE SUBCUT SCH ×3 (05:44→22:15)
[2017-11-26] MEDS: OXYCODONE-ACETAMINOPHEN 5-325 MG TABLET PO PRN ×2 (05:47→11:49)
[2017-11-26 07:07] LABS: HEMATOCRIT 21.5 % (37.9-51.0); MEAN CORPUSCULAR HEMOGLOBIN 37.2 pg (27.0-33.4); MEAN CORPUSCULAR HGB CONC 34.8 g/dL (32.0-36.0); MEAN CORPUSCULAR VOLUME 107 fl (80-97); PLATELET COUNT 128 10^3/uL (150-450); RED CELL DISTRIBUTION WIDTH 15.7 % (11.5-14.0); WHITE BLOOD COUNT 9.7 10^3/uL (4.0-10.5)
[2017-11-26 07:27] LABS: ALANINE AMINOTRANSFERASE 44 U/L (21-72); ALBUMIN 2.5 g/dL (3.5-5.0); ALKALINE PHOSPHATASE 211 U/L (38-126); ANION GAP 8 (5-19); ASPARTATE AMINO TRANSFERASE 77 U/L (17-59); BILIRUBIN,DIRECT 1.9 mg/dL (0.0-0.4); BILIRUBIN,TOTAL 4.4 mg/dL (0.2-1.3); BLOOD UREA NITROGEN 17 mg/dL (7-20); CALCIUM 8.9 mg/dL (8.4-10.2); CARBON DIOXIDE 25 mmol/L (22-30); CHLORIDE 104 mmol/L (98-107); GLUCOSE 94 mg/dL (75-110); POTASSIUM 3.8 mmol/L (3.6-5.0); SODIUM 137.2 mmol/L (137-145); TOTAL PROTEIN 6.5 g/dL (6.3-8.2)
[2017-11-26 07:46] LABS: HEMOGLOBIN 7.5 g/dL (13.5-17.0)
[2017-11-26 07:47] LABS: ABSOLUTE MONOCYTES # (MANUAL) 1.1 10^3/uL (0.1-1.4); ABSOLUTE NEUTROPHILS# (MANUAL) 7.7 10^3/uL (1.7-8.2); ANISOCYTOSIS 1+; BASOPHILS % (MANUAL) 0 % (0-2); EOSINOPHILS % (MANUAL) 0 % (0-6); LYMPHOCYTES % (MANUAL) 10 % (13-45); METAMYELOCYTES % (MANUAL) 1 % (0); MONOCYTES % (MANUAL) 11 % (3-13); PLATELET COMMENT DECREASED; ROULEAUX 1+; SEGMENTED NEUTROPHILS % (MAN) 78 % (42-78); TARGET CELLS SLIGHT; TOTAL CELLS COUNTED 100
[2017-11-26] MEDS ORDERED: NICOTINE 21 MG/24 HR PATCH.TD24 TD SCH (10:00)
[2017-11-26] MEDS ORDERED: THIAMINE HCL 100 MG, FOLIC ACID 1 MG in NORMAL SALINE 250 ML IV SCH (10:00)
[2017-11-26] MEDS ORDERED: OXYCODONE HCL IR 5 MG TABLET PO PRN (12:58)
[2017-11-26] MEDS ORDERED: ALBUTEROL SULFATE HFA (90 MCG/PUFF) 200 PUFF/8.5 GM MDI IH PRN (12:58)
[2017-11-26] MEDS ORDERED: NICOTINE 21 MG/24 HR PATCH.TD24 TD ONE (13:30)
[2017-11-26] MEDS: GABAPENTIN 100 MG CAPSULE PO SCH ×2 (13:36→22:15)
--- NOTE | 2017-11-26 17:28 | PDOC PROGRESS REPORT ---
Subjective Progress Note for:: 11/26/17 Subjective:: Pt is much awake and alert, though he is still weak. We will get PT/OT consult evaluate for deconditioning. His HB/HCT decreased which is likely dilutional and we discontinued IV fluids for now. Reason For Visit: ALTERED MENTAL STATUS, PNEUMONIA Physical Exam Vital Signs: Temp Pulse Resp BP Pulse Ox 98.5 F 101 H 16 107/59 L 97 11/26/17 15:11 11/26/17 15:11 11/26/17 15:11 11/26/17 15:11 11/26/17 15:11 Intake & Output 11/25/17 11/26/17 11/27/17 06:59 06:59 06:59 Intake Total 1175 375 Balance 1175 375 Weight 56 kg General appearance: PRESENT: no acute distress, cooperative, thin, well- developed, well-nourished Head exam: PRESENT: atraumatic, normocephalic Eye exam: PRESENT: EOMI, PERRLA Ear exam: PRESENT: normal external ear exam, TM's normal bilaterally Mouth exam: PRESENT: neck supple, tongue midline Neck exam: PRESENT: full ROM Respiratory exam: PRESENT: decreased breath sounds, symmetrical Cardiovascular exam: PRESENT: +S1, +S2 Pulses: PRESENT: +2 pedal pulses bilateral GI/Abdominal exam: PRESENT: normal bowel sounds, soft Rectal exam: PRESENT: deferred Extremities exam: PRESENT: full ROM Musculoskeletal exam: PRESENT: full ROM Neurological exam: PRESENT: alert, awake, oriented to person, oriented to place Psychiatric exam: PRESENT: normal mood Results Laboratory Results: 11/26/17 06:36 11/26/17 06:36 11/26/17 11/26/17 11/26/17 00:38 06:36 06:36 WBC 9.7 RBC 2.00 L Hgb 7.5 L Hct 21.5 L MCV 107 H MCH 37.2 H MCHC 34.8 RDW 15.7 H Plt Count 128 L Seg Neutrophils % Not Reportable Lymphocytes % Not Reportable Monocytes % Not Reportable Eosinophils % Not Reportable Basophils % Not Reportable Absolute Neutrophils Not Reportable Absolute Lymphocytes Not Reportable Absolute Monocytes Not Reportable Absolute Eosinophils Not Reportable Absolute Basophils Not Reportable Sodium 137.2 Potassium 3.8 Chloride 104 Carbon Dioxide 25 Anion Gap 8 BUN 17 Creatinine 0.94 Est GFR ( Amer) > 60 Est GFR (Non-Af Amer) > 60 Glucose 94 Calcium 8.9 Magnesium 1.6 Total Bilirubin 4.4 H AST 77 H ALT 44 Alkaline Phosphatase 211 H Ammonia Total Protein 6.5 Albumin 2.5 L Urine Color YELLOW Urine Appearance CLEAR Urine pH 7.0 Ur Specific [place] 1.011 Urine Protein NEGATIVE Urine Glucose (UA) NEGATIVE Urine Ketones NEGATIVE Urine Blood NEGATIVE Urine Nitrite NEGATIVE Ur Leukocyte Esterase NEGATIVE Urine WBC (Auto) 1 Urine RBC (Auto) 0 11/26/17 06:36 WBC RBC Hgb Hct MCV MCH MCHC RDW Plt Count Seg Neutrophils % Lymphocytes % Monocytes % Eosinophils % Basophils % Absolute Neutrophils Absolute Lymphocytes Absolute Monocytes Absolute Eosinophils Absolute Basophils Sodium Potassium Chloride Carbon Dioxide Anion Gap BUN Creatinine Est GFR ( Amer) Est GFR (Non-Af Amer) Glucose Calcium Magnesium Total Bilirubin AST ALT Alkaline Phosphatase Ammonia 41.1 H Total Protein Albumin Urine Color Urine Appearance Urine pH Ur Specific [place] Urine Protein Urine Glucose (UA) Urine Ketones Urine Blood Urine Nitrite Ur Leukocyte Esterase Urine WBC (Auto) Urine RBC (Auto) Impressions: Chest X-Ray 11/25/17 20:07 IMPRESSION: NO ACUTE RADIOGRAPHIC FINDING IN THE CHEST. Head CT 11/25/17 20:08 IMPRESSION: NORMAL BRAIN CT WITHOUT CONTRAST. EVIDENCE OF ACUTE STROKE: NO. Assessment & Plan - Diagnosis (1) Pneumonia Qualifiers: Pneumonia type: due to unspecified organism Laterality: unspecified laterality Is this a current diagnosis for this admission?: Yes Plan: Ct with Levaquin 750 mg qd IV; Oxygen by N/C 2 L/min prn to keep saturation >92% . Follow up blood cultures. (2) Altered mental status Qualifiers: Altered mental status type: somnolence Qualified Code(s): R40.0 - Somnolence Is this a current diagnosis for this admission?: Yes Plan: Ct with 2-4 hourly neurochecks; Seizure/falls precautions; Ct with Lactulose; Follow up PT/OT consult. (3) COPD (chronic obstructive pulmonary disease) Qualifiers: COPD type: unspecified COPD Qualified Code(s): J44.9 - Chronic obstructive pulmonary disease, unspecified Is this a current diagnosis for this admission?: Yes Plan: Ct with oxygen by N/C 2 L/min prn to keep saturation>92%; Duonebs q4h prn; Advair 250/50 1 BID. (4) Acute hepatic encephalopathy Is this a current diagnosis for this admission?: Yes Plan: Ct with Lactulose 10g(15mls) daily po; f/u ammonia level. (5) Alcoholic cirrhosis of liver Qualifiers: Ascites presence: without ascites Qualified Code(s): K70.30 - Alcoholic cirrhosis of liver without ascites Is this a current diagnosis for this admission?: Yes Plan: Ct with Lasix 20 mg qd po; Spironolactone 50 mg qd po. (6) Peptic ulcer disease Is this a current diagnosis for this admission?: Yes Plan: Ct with Prevacid 30 mg qd po. (7) Lumbago Qualifiers: Back pain laterality: unspecified Is this a current diagnosis for this admission?: Yes Plan: Ct with Gabapentin 100 mg TID po (8) Chronic alcohol abuse Is this a current diagnosis for this admission?: Yes Plan: Ct with Thiamine 100 mg qd po. (9) Hypomagnesemia Is this a current diagnosis for this admission?: Yes Plan: Ct with Mg oxide 400 mg qd po. (10) DVT prophylaxis Is this a current diagnosis for this admission?: Yes Plan: Ct with Heparin and SCD. - Time Time Spent with patient: 35 or more minutes Medications reviewed and adjusted accordingly: Yes Anticipated discharge: Home Within: within 72 hours
[2017-11-26] MEDS ORDERED: LEVOFLOXACIN 750 MG/D5W RTU 750 MG/150 ML RTUPB IV SCH (22:00)
[2017-11-26] MEDS ORDERED: ZOLPIDEM TARTRATE 5 MG TABLET PO SCH (22:00)
[2017-11-26] MEDS: FLUTICASONE/SALMETEROL DISKUS 250-50 MCG/DOSE IH SCH (22:15)
[2017-11-27] MEDS ORDERED: IBUPROFEN 800 MG TABLET PO PRN (01:15)
[2017-11-27] MEDS ORDERED: IBUPROFEN 800 MG TABLET ONE (01:28)
[2017-11-27] MEDS ORDERED: OXYCODONE HCL IR 5 MG TABLET PO PRN (01:30)
[2017-11-27] MEDS: IBUPROFEN 800 MG TABLET PO PRN ×2 (01:35→09:11)
[2017-11-27] MEDS: GABAPENTIN 100 MG CAPSULE PO SCH (06:20)
[2017-11-27 07:18] LABS: ABSOLUTE BASOPHILS # (AUTO) 0.1 10^3/uL (0.0-0.2); ABSOLUTE EOSINOPHILS # (AUTO) 0.2 10^3/uL (0.0-0.6); ABSOLUTE LYMPHOCYTES (AUTO) 1.9 10^3/uL (0.5-4.7); ABSOLUTE MONOCYTES (AUTO) 1.4 10^3/uL (0.1-1.4); HEMATOCRIT 21.4 % (37.9-51.0); TOTAL CELLS COUNTED % (AUTO) 100 %
[2017-11-27 07:24] LABS: ABSOLUTE NEUT (AUTO) 7.8 10^3/uL (1.7-8.2); BASOPHILS % (AUTO) 0.7 % (0-2); EOSINOPHILS % (AUTO) 1.8 % (0-6); LYMPHOCYTES % (AUTO) 16.9 % (13-45); MEAN CORPUSCULAR HEMOGLOBIN 36.9 pg (27.0-33.4); MEAN CORPUSCULAR HGB CONC 34.5 g/dL (32.0-36.0); MEAN CORPUSCULAR VOLUME 107 fl (80-97); MONOCYTES % (AUTO) 12.4 % (3-13); PLATELET COUNT 124 10^3/uL (150-450); SEGMENTED NEUTROPHILS % (AUTO) 68.2 % (42-78); WHITE BLOOD COUNT 11.4 10^3/uL (4.0-10.5)
[2017-11-27 07:40] LABS: ALANINE AMINOTRANSFERASE 45 U/L (21-72); ALBUMIN 2.3 g/dL (3.5-5.0); ALKALINE PHOSPHATASE 217 U/L (38-126); ANION GAP 6 (5-19); ASPARTATE AMINO TRANSFERASE 64 U/L (17-59); BILIRUBIN,DIRECT 1.9 mg/dL (0.0-0.4); BLOOD UREA NITROGEN 19 mg/dL (7-20); CALCIUM 8.5 mg/dL (8.4-10.2); CARBON DIOXIDE 26 mmol/L (22-30); CHLORIDE 105 mmol/L (98-107); GLUCOSE 117 mg/dL (75-110); SODIUM 137.2 mmol/L (137-145)
[2017-11-27 07:46] LABS: HEMOGLOBIN 7.4 g/dL (13.5-17.0)
[2017-11-27 07:54] VITALS: BP 97/59
[2017-11-27] MEDS: HEPARIN SOD (PORCINE) 5,000 UNIT/ML 1 ML SYRINGE SUBCUT SCH (07:55)
[2017-11-27] MEDS: FLUTICASONE/SALMETEROL DISKUS 250-50 MCG/DOSE IH SCH (09:09)
--- NOTE | 2017-11-27 09:10 | PDOC DISCHARGE SUMMARY ---
General - Admit/Disc Date/PCP Admission Date/Primary Care Provider: 11/26/17 00:00 GARLAND ROJAS Discharge Date: 11/27/17 - Discharge Diagnosis (1) Leukocytosis, unspecified Is this a current diagnosis for this admission?: Yes Summary: Ct with Levaquin (2) Pneumonia Is this a current diagnosis for this admission?: Yes (3) Altered mental status Is this a current diagnosis for this admission?: Yes (4) COPD (chronic obstructive pulmonary disease) Is this a current diagnosis for this admission?: Yes (5) Acute hepatic encephalopathy Is this a current diagnosis for this admission?: Yes (6) Alcoholic cirrhosis of liver Is this a current diagnosis for this admission?: Yes (7) Peptic ulcer disease Is this a current diagnosis for this admission?: Yes (8) Lumbago Is this a current diagnosis for this admission?: Yes (9) Chronic alcohol abuse Is this a current diagnosis for this admission?: Yes (10) Hypomagnesemia Is this a current diagnosis for this admission?: Yes (11) DVT prophylaxis Is this a current diagnosis for this admission?: Yes (12) Anemia of chronic disease Is this a current diagnosis for this admission?: Yes Summary: Follow up repeat CBC on outpatient. - Additional Information Resuscitation Status: Full Code Prescriptions: Levofloxacin [Levaquin 500 mg Tablet] 500 mg PO DAILY #5 tablet Home Medications: Albuterol Sulfate [Proair HFA Inhalation Aerosol 8.5 gm MDI] 2 puff IH Q6HP PRN 11/26/17 Cyclobenzaprine HCl [Flexeril 10 mg Tablet] 10 mg PO BIDP PRN 11/26/17 Furosemide [Lasix 20 mg Tablet] 20 mg PO DAILY 11/26/17 Gabapentin [Neurontin 100 mg Capsule] 100 mg PO Q8 11/26/17 Lactulose [Constulose 10 gm/15 mL Oral Solution] 15 ml PO DAILYP PRN 11/26/17 Magnesium Oxide [Mag-Ox 400 mg Tablet] 400 mg PO DAILY 11/26/17 Nicotine [Nicoderm 21 mg/24 Hr Transderm Patch] 21 mg TD DAILY 11/26/17 Oxycodone HCl [Oxy-Ir 5 mg Tablet] 5 mg PO Q8HP PRN 11/26/17 Spironolactone [Aldactone] 50 mg PO DAILY 11/26/17 Thiamine HCl [Thiamine 100 mg Tablet] 100 mg PO DAILY 11/26/17 Zolpidem Tartrate [Ambien 5 mg Tablet] 5 mg PO QHS 11/26/17 Levofloxacin [Levaquin 500 mg Tablet] 500 mg PO DAILY #5 tablet 11/27/17 History of Present Illness History of Present Illness: MARTIN OWEN is a 57 year old male with hx of HTN/Hyperlipidemia/COPD/ETOH cirrhosis/PUD/BPH/Anemia of chronic disease/Vitamin D drf/Rhinitis/Gout/Anxiety disorder/Depression/Chronic smoker, who claimed he was lying on his floor sleeping with dog and his neighbor came and woke him up around 9.00 pm and he cursed out and the neighbor called EMS claiming his mental status was altered and he was brought to ER and was subsequently admitted by hospitalist for altered mental status and possible pneumonia. Chest xray and blood culture did not support diagnosis of pneumonia, though his WBC was still slightly elevated. Hospital Course Hospital Course: Pt was admitted for altered mental status and possible pneumonia. He was put on Levaquin and chest xary and blood culture were both negative. His WBC came back to normal and then went up slighly today, but patient has no fever or any clinical features suggestive of pneumonia. His HB/HCT went down slightly due to dilutional effect of IV fluids, which was later held and his HB/HCT has remained stable and no indication for blood transfusion or there is any active bleeding. He is stable and back to his baseline and he requested for discharge home. He will be discharged home today to follow up with his PCP within 1 week. Physical Exam Vital Signs: Temp Pulse Resp BP Pulse Ox 98.5 F 100 16 97/59 L 96 11/27/17 07:20 11/27/17 07:20 11/27/17 07:20 11/27/17 07:20 11/27/17 07:20 Intake & Output 11/26/17 11/27/17 11/28/17 06:59 06:59 06:59 Intake Total 1175 1223 Output Total 75 Balance 1175 1148 Weight 56 kg 62.9 kg General appearance: PRESENT: no acute distress, cooperative, thin, well- developed, well-nourished Head exam: PRESENT: atraumatic, normocephalic Eye exam: PRESENT: EOMI, PERRLA Ear exam: PRESENT: normal external ear exam, TM's normal bilaterally Mouth exam: PRESENT: neck supple, tongue midline Respiratory exam: PRESENT: clear to auscultation spike, symmetrical Cardiovascular exam: PRESENT: +S1, +S2 Pulses: PRESENT: +2 pedal pulses bilateral GI/Abdominal exam: PRESENT: normal bowel sounds, soft Rectal exam: PRESENT: deferred Extremities exam: PRESENT: full ROM Musculoskeletal exam: PRESENT: full ROM Neurological exam: PRESENT: alert, awake, oriented to person, oriented to place , oriented to time Psychiatric exam: PRESENT: normal mood Results Laboratory Results: 11/27/17 06:50 11/27/17 06:50 11/27/17 11/27/17 11/27/17 06:50 06:50 06:50 WBC 11.4 H RBC 2.00 L Hgb 7.4 L Hct 21.4 L MCV 107 H MCH 36.9 H MCHC 34.5 RDW 16.0 H Plt Count 124 L Seg Neutrophils % 68.2 Lymphocytes % 16.9 Monocytes % 12.4 Eosinophils % 1.8 Basophils % 0.7 Absolute Neutrophils 7.8 Absolute Lymphocytes 1.9 Absolute Monocytes 1.4 Absolute Eosinophils 0.2 Absolute Basophils 0.1 Sodium 137.2 Potassium 4.0 Chloride 105 Carbon Dioxide 26 Anion Gap 6 BUN 19 Creatinine 0.89 Est GFR ( Amer) > 60 Est GFR (Non-Af Amer) > 60 Glucose 117 H Calcium 8.5 Magnesium 1.5 L Total Bilirubin 4.0 H AST 64 H ALT 45 Alkaline Phosphatase 217 H Ammonia 18.4 Total Protein 6.0 L Albumin 2.3 L Impressions: Chest X-Ray 11/25/17 20:07 IMPRESSION: NO ACUTE RADIOGRAPHIC FINDING IN THE CHEST. Head CT 11/25/17 20:08 IMPRESSION: NORMAL BRAIN CT WITHOUT CONTRAST. EVIDENCE OF ACUTE STROKE: NO. Qualifiers - * PATEINT BEING DISCHARGED WITH ANY OF THE FOLLOWING DIAGNOSIS?: No
[2017-11-27] MEDS ORDERED: THIAMINE HCL 100 MG TABLET PO SCH (10:00)
[2017-11-27] MEDS ORDERED: SPIRONOLACTONE 25 MG TABLET PO SCH (10:00)
[2017-11-27] MEDS ORDERED: NICOTINE 21 MG/24 HR PATCH.TD24 TD SCH (10:00)
[2017-11-27] MEDS ORDERED: FUROSEMIDE 20 MG TABLET PO SCH (10:00)
[2017-11-27] MEDS ORDERED: (PENDING PHARMACY ID) (Lactulose [Constulose 10 Gm/15 Ml Oral Solution] 15 ML) PO SCH (10:00)
[2017-11-27] MEDS ORDERED: (PENDING PHARMACY ID) (Spironolactone [Aldactone] 50 MG) PO SCH (10:00)
[2017-11-27] MEDS ORDERED: LACTULOSE SYRUP 20 GM/30 ML UDCUP PO SCH (10:00)
[2017-11-27] MEDS ORDERED: MAGNESIUM OXIDE 400 MG TABLET PO SCH (10:00)
== END 2017-11-27 12:06 | disposition home or self-care (01) | DRG 433 ==
LOC: ER 19:43 → EH 11-26 → 3N 11-26 02:49
PROVIDERS: ADMIT Internal Medicine; ATTEND Internal Medicine
PROC: 3E0F73Z Introduction of Anti-inflammatory into Respiratory Tract, Via Natural or Artificial Opening (ICD-10-PCS; principal; 2017-11-26)
DX: K70.40 Alcoholic hepatic failure without coma (principal); J44.0 Chronic obstructive pulmonary disease with (acute) lower respiratory infection; D72.829 Elevated white blood cell count, unspecified; F10.20 Alcohol dependence, uncomplicated; K70.30 Alcoholic cirrhosis of liver without ascites; K27.9 Peptic ulcer, site unspecified, unspecified as acute or chronic, without hemorrhage or perforation; M54.5 Low back pain; E83.42 Hypomagnesemia; D63.8 Anemia in other chronic diseases classified elsewhere; I10 Essential (primary) hypertension; E78.00 Pure hypercholesterolemia, unspecified; N40.0 Benign prostatic hyperplasia without lower urinary tract symptoms; E55.9 Vitamin D deficiency, unspecified; M10.9 Gout, unspecified; F41.9 Anxiety disorder, unspecified; F32.9 Major depressive disorder, single episode, unspecified; G25.81 Restless legs syndrome; K21.9 Gastro-esophageal reflux disease without esophagitis; M06.9 Rheumatoid arthritis, unspecified; F17.210 Nicotine dependence, cigarettes, uncomplicated; Z79.899 Other long term (current) drug therapy
CPT/HCPCS: 36415; 70450; 71045; 80053; 80307; 81001; 82140; 82550; 83605; 83735; 84484; 85025; 85610; 87040; 96365; 99291; J0696; J1644; J1956; J3411; J3490; J7030; J7050

== ENCOUNTER 2017-11-29 01:40 | Emergency (ER) | payer MEDICAID ==
[2017-11-29 02:11] VITALS: BP 98/55
--- NOTE | 2017-11-29 04:06 | RADIOLOGY REPORT (SQ) ---
EXAM DESCRIPTION: FEMUR RIGHT CLINICAL HISTORY: 57 years, Male, fall COMPARISON: None. NUMBER OF VIEWS: 4 LIMITATIONS: None. FINDINGS: Intramedullary jennifer fixation of the right femur chronic deformity of the right mid-distal femoral diaphysis. No evidence of acute complication. IMPRESSION: No acute findings.
--- NOTE | 2017-11-29 04:08 | RADIOLOGY REPORT (SQ) ---
EXAM DESCRIPTION: HIP RIGHT AP/LATERAL CLINICAL HISTORY: 57 years, Male, fall COMPARISON: None. NUMBER OF VIEWS: 2 LIMITATIONS: None. Findings: Bones, joints, and soft tissues of HIP RIGHT AP/LATERAL appear intact. Right femoral intramedullary jennifer. Likely mild L4 vertebral height loss. IMPRESSION: Mild L4 vertebral height loss. Else, no acute findings of the right hip.
--- NOTE | 2017-11-29 04:11 | RADIOLOGY REPORT (SQ) ---
EXAM DESCRIPTION: KNEE RIGHT 3 VIEWS CLINICAL HISTORY: 57 years, Male, fall COMPARISON: None. NUMBER OF VIEWS: 3 Findings: Partially imaged intramedullary jennifer of the right femur. 0.3 cm nonspecific calcification at the popliteal soft tissues probably related to old injury. Mild osteoarthritis of the medial patellofemoral joint. Bones, joints, and soft tissues of KNEE RIGHT 3 VIEWS appear otherwise intact. No significant effusion. IMPRESSION: No acute findings.
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
[2017-11-29] MEDS ORDERED: KETOROLAC TROMETHAMINE 60 MG/2 ML SDV IM ONE (04:43)
== END 2017-11-29 05:03 | disposition home or self-care (01) ==
LOC: ER 01:40
DX: M79.604 Pain in right leg (principal); M25.551 Pain in right hip; M25.561 Pain in right knee; W19.XXXA Unspecified fall, initial encounter; Y92.002 Bathroom of unspecified non-institutional (private) residence as the place of occurrence of the external cause; I10 Essential (primary) hypertension; J44.9 Chronic obstructive pulmonary disease, unspecified
CPT/HCPCS: 99284; 96372; 73552; 73502; 73562; J1885

== ENCOUNTER 2017-12-03 19:34 | Emergency (ER) | payer MEDICAID ==
[2017-12-03 23:28] LABS: ABSOLUTE BASOPHILS # (AUTO) 0.1 10^3/uL (0.0-0.2); ABSOLUTE EOSINOPHILS # (AUTO) 0.1 10^3/uL (0.0-0.6); ABSOLUTE LYMPHOCYTES (AUTO) 1.6 10^3/uL (0.5-4.7); ABSOLUTE MONOCYTES (AUTO) 1.2 10^3/uL (0.1-1.4); ABSOLUTE NEUT (AUTO) 4.9 10^3/uL (1.7-8.2); BASOPHILS % (AUTO) 0.9 % (0-2); EOSINOPHILS % (AUTO) 1.7 % (0-6); HEMATOCRIT 23.4 % (37.9-51.0); LYMPHOCYTES % (AUTO) 20.2 % (13-45); MEAN CORPUSCULAR HEMOGLOBIN 37.4 pg (27.0-33.4); MEAN CORPUSCULAR HGB CONC 34.3 g/dL (32.0-36.0); MEAN CORPUSCULAR VOLUME 109 fl (80-97); MONOCYTES % (AUTO) 15.6 % (3-13); PLATELET COUNT 119 10^3/uL (150-450); RED BLOOD COUNT 2.15 10^6/uL (4.35-5.55); RED CELL DISTRIBUTION WIDTH 15.7 % (11.5-14.0); SEGMENTED NEUTROPHILS % (AUTO) 61.6 % (42-78); TOTAL CELLS COUNTED % (AUTO) 100 %
[2017-12-03 23:34] LABS: APPEARANCE,URINE CLEAR; BILIRUBIN,URINE NEGATIVE (NEGATIVE); COLOR,URINE AMBER; GLUCOSE, URINE NEGATIVE (NEGATIVE); KETONES,URINE NEGATIVE (NEGATIVE); LEUKOCYTE ESTERASE,URINE NEGATIVE (NEGATIVE); NITRITE,URINE NEGATIVE (NEGATIVE); PROTEIN,URINE NEGATIVE (NEGATIVE)
[2017-12-03 23:43] LABS: ALANINE AMINOTRANSFERASE 41 U/L (21-72); ALBUMIN 2.6 g/dL (3.5-5.0); ALKALINE PHOSPHATASE 360 U/L (38-126); ANION GAP 8 (5-19); ASPARTATE AMINO TRANSFERASE 72 U/L (17-59); BILIRUBIN,DIRECT 1.2 mg/dL (0.0-0.4); BILIRUBIN,TOTAL 2.6 mg/dL (0.2-1.3); BLOOD UREA NITROGEN 21 mg/dL (7-20); CALCIUM 8.5 mg/dL (8.4-10.2); CARBON DIOXIDE 26 mmol/L (22-30); CHLORIDE 107 mmol/L (98-107); GLUCOSE 98 mg/dL (75-110); POTASSIUM 3.8 mmol/L (3.6-5.0); SODIUM 140.8 mmol/L (137-145); TOTAL PROTEIN 6.3 g/dL (6.3-8.2)
[2017-12-03 23:45] LABS: ALCOHOL < 10 mg/dL (NONE DETECTED)
[2017-12-03 23:52] LABS: URINE AMPHETAMINES SCREEN NEGATIVE; URINE BARBITURATES SCREEN NEGATIVE; URINE BENZODIAZEPINES SCREEN NEGATIVE; URINE COCAINE SCREEN NEGATIVE; URINE MARIJUANA (THC) SCREEN NEGATIVE; URINE METHADONE SCREEN NEGATIVE; URINE PHENCYCLIDINE SCREEN NEGATIVE
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
[2017-12-04 00:11] LABS: PROTHROMBIN TIME 19.8 SEC (11.4-15.4)
[2017-12-04 06:48] VITALS: BP 135/86
--- NOTE | 2017-12-04 09:25 | EKG REPORT ---
SEVERITY:- BORDERLINE ECG - SINUS RHYTHM BORDERLINE T ABNORMALITIES, ANT-LAT LEADS BORDERLINE PROLONGED QT INTERVAL : Confirmed by: Fausto Russell 04-Dec-2017 09:24:13
== END 2017-12-04 06:48 | disposition home or self-care (01) ==
LOC: ER 19:34
DX: D63.8 Anemia in other chronic diseases classified elsewhere (principal); R40.4 Transient alteration of awareness; K70.30 Alcoholic cirrhosis of liver without ascites; F10.10 Alcohol abuse, uncomplicated; E78.00 Pure hypercholesterolemia, unspecified; I10 Essential (primary) hypertension; J44.9 Chronic obstructive pulmonary disease, unspecified
CPT/HCPCS: 36415; 80053; 80307; 81001; 82140; 85025; 85610; 93005; 93010; 99285

== ENCOUNTER 2018-05-06 12:29 | Emergency (ER) | payer MEDICAID ==
[2018-05-06] MEDS ORDERED: NORMAL SALINE 1000 ML 1,000 ML IV ONE (12:42)
--- NOTE | 2018-05-06 12:44 | ER Document Report ---
ED General - General Stated Complaint: ALTERED MENTAL STATUS Time Seen by Provider: 05/06/18 12:36 TRAVEL OUTSIDE OF THE [place] IN LAST 30 DAYS: No COUNTRY TRAVELED TO/FROM: [facility] Patient complains to provider of: lightheaded Onset: Other - This 58-year-old man with history of polysubstance abuse in the past who presents for evaluation of being found sitting on the right side, he was noted to be lightheaded at that time, states that he had walked a couple of miles to try and get to - Related Data Allergies/Adverse Reactions: No Known Allergies Allergy (Verified 11/29/17 01:45) Past Medical History - General Information source: Patient - Social History Smoking Status: Current Every Day Smoker Family History: Reviewed & Not Pertinent - Past Medical History Cardiac Medical History: Reports: Hx Hypercholesterolemia, Hx Hypertension Pulmonary Medical History: Reports: Hx Bronchitis, Hx COPD Neurological Medical History: Denies: Hx Seizures Renal/ Medical History: Denies: Hx Peritoneal Dialysis GI Medical History: Reports: Hx Gastroesophageal Reflux Disease Musculoskeletal Medical History: Reports Hx Arthritis - RA Psychiatric Medical History: Reports: Hx Depression Past Surgical History: Reports: Hx Orthopedic Surgery - right femur, jaw surgery - Immunizations Hx Diphtheria, Pertussis, Tetanus Vaccination: Yes Review of Systems - Review of Systems -: Yes All other systems reviewed and negative Physical Exam - Vital signs Vitals: Temp Pulse Resp BP Pulse Ox 97.9 F 94 16 100/64 96 05/06/18 13:45 05/06/18 13:45 05/06/18 13:45 05/06/18 13:45 05/06/18 13:45 - General General appearance: Appears well In distress: None - HEENT Head: Normocephalic Eyes: Normal Conjunctiva: Normal Cornea: Normal Extraocular movements intact: Yes Eyelashes: Normal Pupils: PERRL - Respiratory Respiratory status: No respiratory distress Chest status: Nontender Breath sounds: Normal Chest palpation: Normal - Cardiovascular Rhythm: Regular Heart sounds: Normal auscultation Murmur: No - Abdominal Inspection: Normal, Striae Tenderness: Nontender - Back Back: Normal - Extremities General upper extremity: Normal inspection, Nontender, Normal ROM, Normal strength General lower extremity: Normal inspection, Nontender, Normal ROM, Normal strength - Neurological Neuro grossly intact: Yes Cognition: Normal Orientation: AAOx4 Kuna Coma Scale Eye Opening: Spontaneous Jeanne Coma Scale Verbal: Oriented Jeanne Coma Scale Motor: Obeys Commands Jeanne Coma Scale Total: 15 Speech: Normal Cranial nerves: Normal - Psychological Associated symptoms: Normal mood Course - Re-evaluation Re-evalutation: 05/06/18 16:58 This is an overall well-appearing 58-year-old man who was picked up for some lightheadedness. He notes that he did not want come to the hospital, he feels like he is generally well overall. Because he is well-appearing at this time has no desire to pursue further care will initiate resuscitation with a liter of normal saline. Following reassessment of patient's laboratory evaluation looks like he is got a modest AK I, that being the case believe he is likely safe for discharge as long as he is able tolerate orals which he is. We will plan for this patient undergo discharge with return precautions. - Vital Signs Vital signs: Temp Pulse Resp BP Pulse Ox 97.9 F 94 16 100/64 96 05/06/18 13:45 05/06/18 13:45 05/06/18 13:45 05/06/18 13:45 05/06/18 13:45 - Laboratory Result Diagrams: 05/06/18 13:35 Laboratory results interpreted by me: 05/06/18 13:35 Sodium 135.9 L Carbon Dioxide 21 L BUN 34 H Creatinine 1.48 H Est GFR ( Amer) 59 L Est GFR (Non-Af Amer) 49 L Glucose 121 H Discharge - Discharge Clinical Impression: Lightheaded, Dehydration Condition: Good Disposition: HOME, SELF-CARE Instructions: Dehydration (OM), Dizziness ([facility]) Referrals: [facility] [NO LOCAL MD] - Follow up as needed
[2018-05-06 14:07] LABS: ANION GAP 12 (5-19); BLOOD UREA NITROGEN 34 mg/dL (7-20); CALCIUM 8.9 mg/dL (8.4-10.2); CARBON DIOXIDE 21 mmol/L (22-30); CHLORIDE 103 mmol/L (98-107); GLUCOSE 121 mg/dL (75-110); POTASSIUM 4.2 mmol/L (3.6-5.0); SODIUM 135.9 mmol/L (137-145)
[2018-05-06 14:46] VITALS: BP 100/64
== END 2018-05-06 17:00 | disposition home or self-care (01) ==
LOC: ER 12:29
DX: R42 Dizziness and giddiness (principal); E86.0 Dehydration; F17.200 Nicotine dependence, unspecified, uncomplicated
CPT/HCPCS: 36415; 80048; 96360; 96361; 99285

== ENCOUNTER 2018-06-18 10:44 | Inpatient (IN) | payer MEDICAID ==
[2018-06-18] MEDS ORDERED: IPRATROPIUM/ALBUTEROL 0.5-2.5 MG/3 ML AMPUL NEB ONE (11:00)
--- NOTE | 2018-06-18 11:03 | ER Document Report ---
ED Respiratory Problem - General Stated Complaint: SHORTNESS OF BREATH Time Seen by Provider: 06/18/18 10:59 Notes: Patient is being seen today because he has been getting very weak, so much so that he is unable to walk. He is complaining of difficulty breathing as well. Has a history of severe COPD and a history of pneumonias in the past but continues to smoke cigarettes. EMS was called to the scene and they said that his oxygen saturation on room air was 88-94%. Patient does not have home O2. He has a nebulizer, but has not used it for over a year. He has been using inhalers of a steroid and Pro Air. Patient also reportedly has cirrhosis of the liver TRAVEL OUTSIDE OF THE [place] IN LAST 30 DAYS: No COUNTRY TRAVELED TO/FROM: [facility] - Related Data Allergies/Adverse Reactions: No Known Allergies Allergy (Verified 11/29/17 01:45) Past Medical History - Social History Smoking Status: Current Every Day Smoker Family History: Reviewed & Not Pertinent - Past Medical History Cardiac Medical History: Reports: Hx Hypercholesterolemia, Hx Hypertension Pulmonary Medical History: Reports: Hx Bronchitis, Hx COPD Neurological Medical History: Denies: Hx Seizures GI Medical History: Reports: Hx Cirrhosis, Hx Gastroesophageal Reflux Disease Musculoskeletal Medical History: Reports Hx Arthritis - RA Psychiatric Medical History: Reports: Hx Depression Past Surgical History: Reports: Hx Orthopedic Surgery - right femur, jaw surgery - Immunizations Hx Diphtheria, Pertussis, Tetanus Vaccination: Yes Review of Systems - Review of Systems Notes: REVIEW OF SYSTEMS: CONSTITUTIONAL : Denies fever. EENT: Denies eye, ear, nose or mouth or throat pain or other symptoms. CARDIOVASCULAR: Denies chest pain. RESPIRATORY: See HPI. GASTROINTESTINAL: Denies abdominal pain or nausea, vomiting, or diarrhea. GENITOURINARY: Denies difficulty or painful urinating, urinary frequency, blood in urine. MUSCULOSKELETAL: denies back or neck pain. Denies joint pain or swelling. SKIN: Denies rash or skin lesions. NEUROLOGICAL: Denies LOC or altered mental status. Denies headache. Denies sensory loss or motor deficits. ALL OTHER SYSTEMS REVIEWED AND NEGATIVE. Physical Exam - Vital signs Vitals: Temp 97.8 F 06/18/18 10:45 - Notes Notes: PHYSICAL EXAMINATION: GENERAL: Appears ill. Although no acute distress. HEAD: Atraumatic, normocephalic. EYES: Pupils equal round and reactive to light, extraocular movements intact. Scleral icterus present. ENT: oropharynx clear without exudates. Moist mucous membranes. NECK: Normal range of motion, supple. LUNGS: Breath sounds decreased with expiratory wheezes bilaterally. HEART: Regular rate and rhythm without murmurs. Heart rate approximately 100 at bedside by me. ABDOMEN: Soft, very mild, diffuse tenderness. No guarding or rebound. No masses. BACK: No tenderness throughout entire back. EXTREMITIES: Normal range of motion without pain. Negative Homans bilaterally. No pitting edema present. NEUROLOGICAL: Normal speech, normal gait. Normal sensory, motor, and reflex exams. Awake, alert, and oriented x3. Cranial nerves normal. PSYCH: Normal mood, normal affect. SKIN: Warm, dry, no rashes. Course - Re-evaluation Re-evalutation: 06/18/18 15:[address] Chung, patient's primary care provider. Patient will be admitted to IMCU for IV antibiotics. 06/18/18 15:07 Patient had a transient episode of hypotension. His systolic blood pressures have been running between 101 110 for at least 5 recordings on the monitor and then I noted his systolic pressure of 90. I gave him a liter of saline and his blood pressure returned to its earlier values of about 110 systolic. - Vital Signs Vital signs: Temp Pulse Resp BP Pulse Ox 97.8 F 20 119/64 97 06/18/18 14:01 06/18/18 14:31 06/18/18 14:31 06/18/18 14:31 - Laboratory Result Diagrams: 06/18/18 10:59 06/18/18 10:59 Laboratory results interpreted by me: 06/18/18 06/18/18 06/18/18 10:53 10:59 10:59 WBC 20.1 H RBC 2.31 L Hgb 8.2 L Hct 23.9 L MCV 103 H MCH 35.5 H RDW 17.5 H Plt Count 64 L Lymphocytes % (Manual) 7 L Abs Neuts (Manual) 15.3 H Abs Monocytes (Manual) 2.6 H Potassium 3.2 L BUN 42 H Creatinine 1.69 H Est GFR ( Amer) 51 L Est GFR (Non-Af Amer) 42 L Lactic Acid 2.5 H Calcium 7.7 L Total Bilirubin 4.9 H Direct Bilirubin 3.5 H AST 62 H Alkaline Phosphatase 307 H Creatine Kinase 43 L Albumin 2.4 L Urine Urobilinogen 06/18/18 13:04 WBC RBC Hgb Hct MCV MCH RDW Plt Count Lymphocytes % (Manual) Abs Neuts (Manual) Abs Monocytes (Manual) Potassium BUN Creatinine Est GFR ( Amer) Est GFR (Non-Af Amer) Lactic Acid Calcium Total Bilirubin Direct Bilirubin AST Alkaline Phosphatase Creatine Kinase Albumin Urine Urobilinogen 4.0 H - Diagnostic Test Radiology results interpreted by me: 06/18/18 15:04 Chest x-ray shows a right pleural effusion associated with either atelectasis or infiltrate in the right lung base. Left lung is clear. - EKG Interpretation by Me EKG shows normal: Sinus rhythm Rate: Normal, Tachycardia Rhythm: NSR Voltage: Decreased voltage Critical Care Note - Critical Care Note Total time excluding time spent on procedures (mins): 35 Discharge - Discharge Clinical Impression: Pneumonia, Cirrhosis Condition: Fair Disposition: ADMITTED INPATIENT Admitting Provider: Juliet [facility] Admitted: [facility]
[2018-06-18 11:22] LABS: HEMATOCRIT 23.9 % (37.9-51.0); HEMOGLOBIN 8.2 g/dL (13.5-17.0); MEAN CORPUSCULAR HEMOGLOBIN 35.5 pg (27.0-33.4); MEAN CORPUSCULAR HGB CONC 34.3 g/dL (32.0-36.0); MEAN CORPUSCULAR VOLUME 103 fl (80-97); RED BLOOD COUNT 2.31 10^6/uL (4.35-5.55); RED CELL DISTRIBUTION WIDTH 17.5 % (11.5-14.0); WHITE BLOOD COUNT 20.1 10^3/uL (4.0-10.5)
[2018-06-18 11:27] LABS: PLATELET COUNT 64 10^3/uL (150-450)
[2018-06-18 11:34] LABS: ALANINE AMINOTRANSFERASE 40 U/L (21-72); ALBUMIN 2.4 g/dL (3.5-5.0); ALKALINE PHOSPHATASE 307 U/L (38-126); ANION GAP 13 (5-19); ASPARTATE AMINO TRANSFERASE 62 U/L (17-59); BILIRUBIN,DIRECT 3.5 mg/dL (0.0-0.4); BILIRUBIN,TOTAL 4.9 mg/dL (0.2-1.3); BLOOD UREA NITROGEN 42 mg/dL (7-20); CALCIUM 7.7 mg/dL (8.4-10.2); CARBON DIOXIDE 26 mmol/L (22-30); CHLORIDE 100 mmol/L (98-107); CREATINE KINASE 43 U/L (55-170); GLUCOSE 99 mg/dL (75-110); POTASSIUM 3.2 mmol/L (3.6-5.0); SODIUM 138.7 mmol/L (137-145); TOTAL PROTEIN 6.7 g/dL (6.3-8.2)
--- NOTE | 2018-06-18 11:37 | RADIOLOGY REPORT (SQ) ---
EXAM DESCRIPTION: CHEST SINGLE VIEW COMPLETED DATE/TIME: 06/18/2018 11:24 am REASON FOR STUDY: bed 2 db COMPARISON: January 2011 EXAM PARAMETERS: NUMBER OF VIEWS: One view. TECHNIQUE: Single frontal radiographic view of the chest acquired. RADIATION DOSE: NA LIMITATIONS: None. FINDINGS: LUNGS AND PLEURA: There is increased density in the right lung base with some loss of defi nition of the right hemidiaphragm. The appearance is consistent with a small right pleural effusion with some associated atelectasis or infiltrate in the right lung base. The left lung remains clear a nd well expanded. MEDIASTINUM AND HILAR STRUCTURES: No masses. Contour normal. HEART AND VASCULAR STRUCTURES: Heart normal in size. Normal vasculature. BONES: No acute findings. HARDWARE: None in the chest. OTHER: Some elevation of the right hemidiaphragm is seen. IMPRESSION: Right basilar densities as noted above. TECHNICAL DOCUMENTATION: JOB ID: [id number] [employer]- All Rights Reserved Reading location - IP/workstation name: [email or web address]
[2018-06-18 11:38] LABS: ABSOLUTE LYMPHOCYTES# (MANUAL) 1.4 10^3/uL (0.5-4.7); ABSOLUTE MONOCYTES # (MANUAL) 2.6 10^3/uL (0.1-1.4); ABSOLUTE NEUTROPHILS# (MANUAL) 15.3 10^3/uL (1.7-8.2); BASOPHILS % (MANUAL) 1 % (0-2); EOSINOPHILS % (MANUAL) 3 % (0-6); LYMPHOCYTES % (MANUAL) 7 % (13-45); MONOCYTES % (MANUAL) 13 % (3-13); SEGMENTED NEUTROPHILS % (MAN) 76 % (42-78); TOTAL CELLS COUNTED 100
[2018-06-18 11:44] LABS: PLATELET COMMENT DECREASED
[2018-06-18 11:47] LABS: ANISOCYTOSIS 1+; BURR CELLS 1+; POIKILOCYTOSIS 1+; TROPONIN I < 0.012 ng/mL
[2018-06-18 11:48] LABS: POLYCHROMASIA SLIGHT; TARGET CELLS SLIGHT; TOXIC GRANULATION 1+; TOXIC VACUOLATION PRESENT
[2018-06-18 11:49] LABS: HYPOCHROMASIA SLIGHT
[2018-06-18 12:02] LABS: CREATINE KINASE MB 2.11 ng/mL (<4.55)
[2018-06-18] MEDS ORDERED: METHYLPREDNISOLONE INJ 125 MG/2 ML SDV IV ONE (12:53)
[2018-06-18] MEDS ORDERED: CEFTRIAXONE INJ 1000 MG VIAL IV ONE (12:53)
[2018-06-18 13:23] LABS: APPEARANCE,URINE CLEAR; BILIRUBIN,URINE NEGATIVE (NEGATIVE); COLOR,URINE AMBER; GLUCOSE, URINE NEGATIVE (NEGATIVE); KETONES,URINE NEGATIVE (NEGATIVE); LEUKOCYTE ESTERASE,URINE NEGATIVE (NEGATIVE); NITRITE,URINE NEGATIVE (NEGATIVE); PROTEIN,URINE NEGATIVE (NEGATIVE); URINE SPECIFIC GRAVITY 1.014
[2018-06-18] MEDS ORDERED: NORMAL SALINE 1000 ML 1,000 ML IV ONE (13:39)
[2018-06-18] MEDS ORDERED: AZITHROMYCIN INJ 500 MG VIAL IV ONE (14:30)
[2018-06-18] MEDS ORDERED: POTASSIUM CHLORIDE 10 MEQ CAPSULE.ER PO ONE (15:42)
[2018-06-18] MEDS ORDERED: ACETAMINOPHEN 325 MG TABLET PO PRN (16:12)
[2018-06-18] MEDS ORDERED: DOCUSATE SODIUM 100 MG CAPSULE PO PRN (16:12)
[2018-06-18] MEDS ORDERED: ZOLPIDEM TARTRATE 5 MG TABLET PO PRN (16:12)
[2018-06-18] MEDS ORDERED: (PENDING PHARMACY ID) (Lactulose [Constulose 10 Gm/15 Ml Oral Solution] 15 ML) PO PRN (16:22)
[2018-06-18] MEDS ORDERED: ALBUTEROL SULFATE HFA (90 MCG/PUFF) 200 PUFF/8.5 GM MDI IH PRN (16:22)
[2018-06-18] MEDS ORDERED: OXYCODONE HCL IR 5 MG TABLET PO PRN (16:22)
[2018-06-18] MEDS ORDERED: CYCLOBENZAPRINE HCL 10 MG TABLET PO PRN (16:22)
[2018-06-18] MEDS ORDERED: LACTULOSE SYRUP 20 GM/30 ML UDCUP PO PRN (16:49)
--- NOTE | 2018-06-18 16:55 | PDOC H&P ---
History of Present Illness Admission Date/PCP: 06/18/18 15:10 Patient complains of: Cough, dyspnea, weakness. History of Present Illness: MARTIN OWEN is a 58 year old male with hx of HTN/Hyperlipidemia/COPD/Cirrhosis /PUD/Rhinitis/BPH/OA/Vitamin D def/Chronic smoker, who discharged from [facility] on for pneumonia. He is chronically non-compliant with medications and office visits. He has been having worsening cough, dyspnea and weakness to the extent that he find it difficult to move around. On account of the worsening of these symptoms, he called EMS and was brought to ER. He was found to have right lower lobe pneumonia, acute kidney injury and acute on chronic anemia, and was admitted to [facility] for mgt. Past Medical History Cardiac Medical History: Reports: Hyperlipidema, Hypertension Pulmonary Medical History: Reports: Bronchitis, Chronic Obstructive Pulmonary Disease (COPD) Neurological Medical History: Denies: Seizures Endocrine Medical History: Denies: None, Diabetes Mellitus Type 1, Diabetes Mellitus Type 2, Hyperthyroidism, Hypothyroidism, Other GI Medical History: Reports: Cirrhosis, Gastroesophageal Reflux Disease Musculoskeltal Medical History: Reports: Arthritis - RA Psychiatric Medical History: Reports: Depression Hematology: Denies: Anemia Past Surgical History Past Surgical History: Reports: Orthopedic Surgery - right femur, jaw surgery Social History Smoking Status: Current Every Day Smoker Frequency of Alcohol Use: Heavy Hx Recreational Drug Use: Yes Drugs: Cocaine, Marijuana Hx Prescription Drug Abuse: No Family History Family History: Reviewed & Not Pertinent Parental Family History Reviewed: Yes Children Family History Reviewed: Yes Sibling(s) Family History Reviewed.: Yes Medication/Allergy Home Medications: Albuterol Sulfate [Proair HFA Inhalation Aerosol 8.5 gm MDI] 2 puff IH Q6HP PRN 11/26/17 Cyclobenzaprine HCl [Flexeril 10 mg Tablet] 10 mg PO BIDP PRN 11/26/17 Furosemide [Lasix 20 mg Tablet] 20 mg PO DAILY 11/26/17 Gabapentin [Neurontin 100 mg Capsule] 100 mg PO Q8 11/26/17 Lactulose [Constulose 10 gm/15 mL Oral Solution] 15 ml PO DAILYP PRN 11/26/17 Magnesium Oxide [Mag-Ox 400 mg Tablet] 400 mg PO DAILY 11/26/17 Nicotine [Nicoderm 21 mg/24 Hr Transderm Patch] 21 mg TD DAILY 11/26/17 Oxycodone HCl [Oxy-Ir 5 mg Tablet] 5 mg PO Q8HP PRN 11/26/17 Spironolactone [Aldactone] 50 mg PO DAILY 11/26/17 Thiamine HCl [Thiamine 100 mg Tablet] 100 mg PO DAILY 11/26/17 Zolpidem Tartrate [Ambien 5 mg Tablet] 5 mg PO QHS 11/26/17 Levofloxacin [Levaquin 500 mg Tablet] 500 mg PO DAILY #5 tablet 11/27/17 Allergies/Adverse Reactions: No Known Allergies Allergy (Verified 11/29/17 01:45) Review of Systems All systems: as per PMH Constitutional: PRESENT: as per HPI, anorexia, fatigue, weakness Eyes: PRESENT: as per HPI Ears: PRESENT: as per HPI Nose, Mouth, and Throat: PRESENT: as per HPI Breasts: PRESENT: as per HPI Cardiovascular: PRESENT: dyspnea on exertion, edema Respiratory: PRESENT: cough, dyspnea Gastrointestinal: PRESENT: as per HPI Genitourinary: PRESENT: as per HPI Musculoskeletal: PRESENT: as per HPI Integumentary: PRESENT: as per HPI Neurological: PRESENT: as per HPI Psychiatric: PRESENT: as per HPI Endocrine: PRESENT: as per HPI Hematologic/Lymphatic: PRESENT: as per HPI Allergic/Immunologic: PRESENT: as per HPI Physical Exam Vital Signs: Temp Pulse Resp BP Pulse Ox 97.8 F 20 119/64 97 06/18/18 14:01 06/18/18 14:31 06/18/18 14:31 06/18/18 14:31 General appearance: PRESENT: no acute distress, cooperative, thin Head exam: PRESENT: atraumatic, normocephalic Eye exam: PRESENT: EOMI, PERRLA Ear exam: PRESENT: normal external ear exam, TM's normal bilaterally Mouth exam: PRESENT: neck supple, tongue midline Neck exam: PRESENT: full ROM Respiratory exam: PRESENT: crackles, decreased breath sounds, symmetrical Cardiovascular exam: PRESENT: +S1, +S2 Pulses: PRESENT: +1 pedal pulses bilateral GI/Abdominal exam: PRESENT: normal bowel sounds, soft Rectal exam: PRESENT: deferred Extremities exam: PRESENT: full ROM Musculoskeletal exam: PRESENT: full ROM Neurological exam: PRESENT: alert, awake, oriented to person, oriented to place , oriented to time, CN II-XII grossly intact Psychiatric exam: PRESENT: normal mood Results Impressions: Chest X-Ray 06/18/18 10:47 IMPRESSION: Right basilar densities as noted above. Assessment & Plan - Diagnosis (1) Pneumonia Qualifiers: Laterality: right Lung location: lower lobe of lung Is this a current diagnosis for this admission?: Yes Plan: Ct with Rocephin 1 G daily IV; Azithromycin 500 mg daily IV; Tylenol 650 mg q6h prn po; F/u blood cultures and sputum cultures if possible. (2) Acute kidney injury Is this a current diagnosis for this admission?: Yes Plan: Ct with IV fluids normal saline plus 20 MEQ KCL at 75 cc/hr; Avoid nephrotoxics ; Strict input/output chart; Daily weight; Monitor chemistries daily. (3) Acute blood loss anemia Is this a current diagnosis for this admission?: Yes Plan: Transfuse 2 units of PRBC;Monitor CBC daily. (4) Cirrhosis Qualifiers: Hepatic cirrhosis type: alcoholic cirrhosis Is this a current diagnosis for this admission?: Yes Plan: Ct with Lasix 20 mg daily po; Spironolactone 50 mg qd po; Lactulose 15 mls daily po; Thiamine 100 mg daily po. (5) COPD (chronic obstructive pulmonary disease) Qualifiers: COPD type: unspecified COPD Qualified Code(s): J44.9 - Chronic obstructive pulmonary disease, unspecified Is this a current diagnosis for this admission?: Yes Plan: Ct with Duonebs q6h prn; Advair 250/50 1 puff BID; ProAir HFA- 2 puffs q6h prn; Oxygen 2 L/Min to keep saturation >95%. (6) BPH (benign prostatic hyperplasia) Is this a current diagnosis for this admission?: Yes Plan: Ct with Flomax 0.4mg qd po. (7) Hyperlipidemia Qualifiers: Hyperlipidemia type: mixed hyperlipidemia Qualified Code(s): E78.2 - Mixed hyperlipidemia Is this a current diagnosis for this admission?: Yes Plan: Ct with Simvastatin 20 mg qhs po; 200mg cholesterol diet. (8) PUD (peptic ulcer disease) Is this a current diagnosis for this admission?: Yes Plan: Ct with Prevacid 30 mg daily PO since we do not have Omeprazole in our formulary. (9) Rhinitis, allergic Is this a current diagnosis for this admission?: Yes Plan: CT with Flonase nasal spray- 2 nasal spray daily. (10) Lumbago Qualifiers: Back pain laterality: unspecified Is this a current diagnosis for this admission?: Yes Plan: Ct with Oxycodone 5 mg TID prn po. (11) Hypomagnesemia Is this a current diagnosis for this admission?: Yes Plan: Ct with Magnesium oxide 4oo mg daily po. (12) DVT prophylaxis Is this a current diagnosis for this admission?: Yes Plan: Ct with SCD; Hold Lovenox due to thrombocytopenia. (13) Hypokalemia Is this a current diagnosis for this admission?: Yes Plan: Pt was given KCL 40 MEQ POx1 at ER; ct with IV fluids normal saline with 20 MEQ KCL at 75cc/hr; monitor his chemistries daily. (14) Smoker Is this a current diagnosis for this admission?: Yes Plan: Pt was counseled on smoking cessation. Ct with Nicotine 21 mg daily. - Time Time Spent: 30 to 50 Minutes Smoking Cessation Education: 3 to 10 minutes Medications reviewed and adjusted accordingly: Yes Anticipated discharge: Home Within: within 72 hours
[2018-06-18] MEDS ORDERED: NORMAL SALINE 250 ML IV PRN (17:43)
[2018-06-18] MEDS: TAMSULOSIN HCL 0.4 MG CAP.SR.24H PO SCH (18:48)
[2018-06-18] MEDS: POTASSI CL 20 MEQ/NS 1L 1,000 ML IV PRN (18:49)
[2018-06-18] MEDS ORDERED: CALCIUM CARBONATE 500 MG TAB.CHEW PO PRN (19:58)
[2018-06-18] MEDS ORDERED: NICOTINE 21 MG/24 HR PATCH.TD24 TD ONE (20:00)
[2018-06-18] MEDS: IPRATROPIUM/ALBUTEROL 0.5-2.5 MG/3 ML AMPUL NEB SCH (20:37)
[2018-06-18] MEDS: FLUTICASONE/SALMETEROL DISKUS 250-50 MCG/DOSE IH SCH (21:41)
[2018-06-18] MEDS: SIMVASTATIN 40 MG TABLET PO SCH (21:42)
[2018-06-18] MEDS: METHYLPREDNISOLONE INJ 125 MG/2 ML SDV IV SCH (21:42)
[2018-06-19] MEDS: METHYLPREDNISOLONE INJ 125 MG/2 ML SDV IV SCH ×3 (06:01→21:42)
[2018-06-19] MEDS: LANSOPRAZOLE 30 MG TAB.RAP.DR PO SCH (06:02)
[2018-06-19] MEDS: IPRATROPIUM/ALBUTEROL 0.5-2.5 MG/3 ML AMPUL NEB SCH ×3 (08:00→20:37)
[2018-06-19 08:19] LABS: ABSOLUTE BASOPHILS # (AUTO) 0.1 10^3/uL (0.0-0.2); ABSOLUTE MONOCYTES (AUTO) 0.9 10^3/uL (0.1-1.4); ABSOLUTE NEUT (AUTO) 11.6 10^3/uL (1.7-8.2); BASOPHILS % (AUTO) 0.4 % (0-2); HEMATOCRIT 29.9 % (37.9-51.0); LYMPHOCYTES % (AUTO) 7.3 % (13-45); MEAN CORPUSCULAR HEMOGLOBIN 33.4 pg (27.0-33.4); MEAN CORPUSCULAR HGB CONC 34.6 g/dL (32.0-36.0); MONOCYTES % (AUTO) 6.3 % (3-13); RED BLOOD COUNT 3.09 10^6/uL (4.35-5.55); RED CELL DISTRIBUTION WIDTH 22.6 % (11.5-14.0); TOTAL CELLS COUNTED % (AUTO) 100 %; WHITE BLOOD COUNT 13.5 10^3/uL (4.0-10.5)
--- NOTE | 2018-06-19 08:24 | EKG REPORT ---
SEVERITY:- ABNORMAL ECG - SINUS TACHYCARDIA CONSIDER ANTERIOR INFARCT BORDERLINE T ABNORMALITIES, ANTERIOR LEADS BORDERLINE PROLONGED QT INTERVAL : Confirmed by: Nori Mcfadden MD 19-Jun-2018 08:23:08
[2018-06-19 08:32] LABS: ALANINE AMINOTRANSFERASE 41 U/L (21-72); ALBUMIN 2.4 g/dL (3.5-5.0); ALKALINE PHOSPHATASE 297 U/L (38-126); ANION GAP 12 (5-19); ASPARTATE AMINO TRANSFERASE 58 U/L (17-59); BILIRUBIN,DIRECT 2.7 mg/dL (0.0-0.4); BILIRUBIN,TOTAL 4.5 mg/dL (0.2-1.3); BLOOD UREA NITROGEN 47 mg/dL (7-20); CALCIUM 8.1 mg/dL (8.4-10.2); CARBON DIOXIDE 25 mmol/L (22-30); CHLORIDE 102 mmol/L (98-107); CHOLESTEROL 167.38 mg/dL (0-200); GLUCOSE 194 mg/dL (75-110); POTASSIUM 3.9 mmol/L (3.6-5.0); SODIUM 139.2 mmol/L (137-145); TOTAL PROTEIN 6.8 g/dL (6.3-8.2); TRIGLYCERIDES 101 mg/dL (<150)
[2018-06-19 08:33] LABS: HEMOGLOBIN 10.3 g/dL (13.5-17.0)
[2018-06-19 08:34] LABS: MEAN CORPUSCULAR VOLUME 97 fl (80-97)
[2018-06-19 08:43] LABS: DIRECT LDL 48 mg/dL (<100)
[2018-06-19 08:54] LABS: PLATELET COUNT 69 10^3/uL (150-450)
[2018-06-19 08:55] LABS: ANISOCYTOSIS 2+; BURR CELLS 2+; PLATELET COMMENT DECREASED; POIKILOCYTOSIS 2+; POLYCHROMASIA 1+; SCHISTOCYTES SLIGHT; TARGET CELLS SLIGHT
[2018-06-19] MEDS: MAGNESIUM OXIDE 400 MG TABLET PO SCH (09:48)
[2018-06-19] MEDS: NICOTINE 21 MG/24 HR PATCH.TD24 TD SCH (09:48)
[2018-06-19] MEDS: FLUTICASONE NASAL SPRAY 50 MCG/SPRY 120 SPRAY/16 GM NASL SCH (09:55)
[2018-06-19] MEDS: THIAMINE HCL 100 MG TABLET PO SCH (09:56)
[2018-06-19] MEDS ORDERED: (PENDING PHARMACY ID) (Spironolactone [Aldactone] 50 MG) PO SCH (10:00)
[2018-06-19] MEDS: FLUTICASONE/SALMETEROL DISKUS 250-50 MCG/DOSE IH SCH ×2 (10:11→21:41)
[2018-06-19] MEDS: SPIRONOLACTONE 25 MG TABLET PO SCH (12:00)
[2018-06-19] MEDS: FUROSEMIDE 20 MG TABLET PO SCH (12:00)
[2018-06-19] MEDS ORDERED: FUROSEMIDE INJ/PF 20 MG/2 ML SDV ONE (16:27)
[2018-06-19] MEDS ORDERED: FUROSEMIDE INJ/PF 20 MG/2 ML SDV IV ONE (16:45)
--- NOTE | 2018-06-19 16:50 | PDOC PROGRESS REPORT ---
Subjective Progress Note for:: 06/19/18 Subjective:: He is still weak,but a little bit improved. He had 2 units of PRBC and his HB/ HCT is 10.3/29.9. His blood culture grew Gram negative rods. We will continue him cautiously on IV fluids due to acute kidney injury. The hypokalemia has resolved. Continue to monitor him closely at [facility]. Reason For Visit: COMMUNITY ACQUIRED PNEUMONIA,ACUTE KIDNEY INJURY, Physical Exam Vital Signs: Temp Pulse Resp BP Pulse Ox 97.7 F 116 H 24 H 118/56 L 94 06/19/18 15:22 06/19/18 15:22 06/19/18 15:22 06/19/18 15:22 06/19/18 15:22 Intake & Output 06/18/18 06/19/18 06/20/18 06:59 06:59 06:59 Intake Total 700 740 Output Total 460 200 Balance 240 540 Weight 67 kg General appearance: PRESENT: no acute distress, cooperative, well-developed, well-nourished Head exam: PRESENT: atraumatic, normocephalic Eye exam: PRESENT: conjunctiva pale, EOMI, PERRLA Ear exam: PRESENT: normal external ear exam, TM's normal bilaterally Mouth exam: PRESENT: moist, neck supple, tongue midline Neck exam: PRESENT: full ROM Respiratory exam: PRESENT: decreased breath sounds, symmetrical, wheezes Cardiovascular exam: PRESENT: +S1, +S2 Pulses: PRESENT: +1 pedal pulses bilateral GI/Abdominal exam: PRESENT: normal bowel sounds, soft Rectal exam: PRESENT: deferred Extremities exam: PRESENT: full ROM Musculoskeletal exam: PRESENT: full ROM Neurological exam: PRESENT: alert, awake, oriented to person, oriented to place , oriented to time Psychiatric exam: PRESENT: normal mood Results Laboratory Results: 06/19/18 07:48 06/19/18 07:48 06/18/18 06/18/18 06/19/18 18:16 18:16 07:48 WBC 13.5 H RBC 3.09 L Hgb 10.3 L D Hct 29.9 L MCV 97 D MCH 33.4 MCHC 34.6 RDW 22.6 H Plt Count 69 L Seg Neutrophils % 86.0 H Lymphocytes % 7.3 L Monocytes % 6.3 Eosinophils % 0.0 Basophils % 0.4 Absolute Neutrophils 11.6 H Absolute Lymphocytes 1.0 Absolute Monocytes 0.9 Absolute Eosinophils 0.0 Absolute Basophils 0.1 Sodium Potassium Chloride Carbon Dioxide Anion Gap BUN Creatinine Est GFR ( Amer) Est GFR (Non-Af Amer) Glucose Lactic Acid 5.8 H Calcium Total Bilirubin AST ALT Alkaline Phosphatase Total Protein Albumin Triglycerides Cholesterol LDL Cholesterol Direct VLDL Cholesterol HDL Cholesterol Blood Type O NEGATIVE Antibody Screen POSITIVE 06/19/18 07:48 WBC RBC Hgb Hct MCV MCH MCHC RDW Plt Count Seg Neutrophils % Lymphocytes % Monocytes % Eosinophils % Basophils % Absolute Neutrophils Absolute Lymphocytes Absolute Monocytes Absolute Eosinophils Absolute Basophils Sodium 139.2 Potassium 3.9 Chloride 102 Carbon Dioxide 25 Anion Gap 12 BUN 47 H Creatinine 1.73 H Est GFR ( Amer) 49 L Est GFR (Non-Af Amer) 41 L Glucose 194 H Lactic Acid Calcium 8.1 L Total Bilirubin 4.5 H AST 58 ALT 41 Alkaline Phosphatase 297 H Total Protein 6.8 Albumin 2.4 L Triglycerides 101 Cholesterol 167.38 LDL Cholesterol Direct 48 VLDL Cholesterol 20.0 HDL Cholesterol 27 L Blood Type Antibody Screen Impressions: Chest X-Ray 06/18/18 10:47 IMPRESSION: Right basilar densities as noted above. Assessment & Plan - Diagnosis (1) Pneumonia Qualifiers: Laterality: right Lung location: lower lobe of lung Is this a current diagnosis for this admission?: Yes Plan: Ct with Rocephin 1 G daily IV; Azithromycin 500 mg daily IV; Tylenol 650 mg q6h prn po; F/u blood cultures. (2) Acute kidney injury Is this a current diagnosis for this admission?: Yes Plan: Ct with IV fluids normal saline plus 20 MEQ KCL at 75 cc/hr; Avoid nephrotoxics ; Strict input/output chart; Daily weight; Monitor chemistries daily. (3) Acute blood loss anemia Is this a current diagnosis for this admission?: Yes Plan: He received 2 units of PRBC on 06/18/18;Monitor CBC daily. (4) Cirrhosis Qualifiers: Hepatic cirrhosis type: alcoholic cirrhosis Is this a current diagnosis for this admission?: Yes Plan: Ct with Lasix 20 mg daily po; Spironolactone 50 mg qd po; Lactulose 15 mls daily po; Thiamine 100 mg daily po. (5) COPD (chronic obstructive pulmonary disease) Qualifiers: COPD type: unspecified COPD Qualified Code(s): J44.9 - Chronic obstructive pulmonary disease, unspecified Is this a current diagnosis for this admission?: Yes Plan: Ct with Duonebs q6h prn; Solumedrol 60 mg q8h IV; Advair 250/50 1 puff BID; ProAir HFA- 2 puffs q6h prn; Oxygen 2 L/Min to keep saturation >95%. (6) BPH (benign prostatic hyperplasia) Is this a current diagnosis for this admission?: Yes Plan: Ct with Flomax 0.4mg qd po. (7) Hyperlipidemia Qualifiers: Hyperlipidemia type: mixed hyperlipidemia Qualified Code(s): E78.2 - Mixed hyperlipidemia Is this a current diagnosis for this admission?: Yes Plan: Ct with Simvastatin 20 mg qhs po; 200mg cholesterol diet. (8) PUD (peptic ulcer disease) Is this a current diagnosis for this admission?: Yes Plan: Ct with Prevacid 30 mg daily PO since we do not have Omeprazole in our formulary. (9) Rhinitis, allergic Is this a current diagnosis for this admission?: Yes Plan: CT with Flonase nasal spray- 2 nasal spray daily. (10) Lumbago Qualifiers: Back pain laterality: unspecified Is this a current diagnosis for this admission?: Yes Plan: Ct with Oxycodone 5 mg TID prn po. (11) Hypomagnesemia Is this a current diagnosis for this admission?: Yes Plan: Ct with Magnesium oxide 4oo mg daily po. (12) DVT prophylaxis Is this a current diagnosis for this admission?: Yes Plan: Ct with SCD; Hold Lovenox due to thrombocytopenia. (13) Hypokalemia Is this a current diagnosis for this admission?: Yes Plan: Pt was given KCL 40 MEQ POx1 at ER; ct with IV fluids normal saline with 20 MEQ KCL at 75cc/hr; monitor his chemistries daily. (14) Smoker Is this a current diagnosis for this admission?: Yes Plan: Pt was counseled on smoking cessation. Ct with Nicotine 21 mg daily.
[2018-06-19] MEDS: TAMSULOSIN HCL 0.4 MG CAP.SR.24H PO SCH (18:17)
[2018-06-19] MEDS ORDERED: LORAZEPAM INJ 2 MG/1 ML VIAL ONE (18:30)
[2018-06-19] MEDS: SIMVASTATIN 40 MG TABLET PO SCH (21:42)
[2018-06-19] MEDS: POTASSI CL 20 MEQ/NS 1L 1,000 ML IV PRN (23:40)
[2018-06-20 06:16] LABS: HEMATOCRIT 29.6 % (37.9-51.0); HEMOGLOBIN 10.6 g/dL (13.5-17.0); MEAN CORPUSCULAR HEMOGLOBIN 33.8 pg (27.0-33.4); MEAN CORPUSCULAR HGB CONC 35.8 g/dL (32.0-36.0); MEAN CORPUSCULAR VOLUME 95 fl (80-97); RED BLOOD COUNT 3.13 10^6/uL (4.35-5.55); RED CELL DISTRIBUTION WIDTH 22.8 % (11.5-14.0); WHITE BLOOD COUNT 10.1 10^3/uL (4.0-10.5)
[2018-06-20 06:17] LABS: PLATELET COUNT 72 10^3/uL (150-450)
[2018-06-20 06:30] LABS: ALANINE AMINOTRANSFERASE 40 U/L (21-72); ALBUMIN 2.3 g/dL (3.5-5.0); ALKALINE PHOSPHATASE 265 U/L (38-126); ANION GAP 12 (5-19); ASPARTATE AMINO TRANSFERASE 57 U/L (17-59); BILIRUBIN,DIRECT 2.5 mg/dL (0.0-0.4); BILIRUBIN,TOTAL 4.4 mg/dL (0.2-1.3); BLOOD UREA NITROGEN 54 mg/dL (7-20); CALCIUM 8.1 mg/dL (8.4-10.2); CARBON DIOXIDE 23 mmol/L (22-30); CHLORIDE 103 mmol/L (98-107); GLUCOSE 173 mg/dL (75-110); POTASSIUM 4.2 mmol/L (3.6-5.0); SODIUM 138.2 mmol/L (137-145); TOTAL PROTEIN 6.6 g/dL (6.3-8.2)
[2018-06-20] MEDS: METHYLPREDNISOLONE INJ 125 MG/2 ML SDV IV SCH ×3 (06:43→21:12)
[2018-06-20] MEDS: LANSOPRAZOLE 30 MG TAB.RAP.DR PO SCH (06:46)
[2018-06-20 06:49] LABS: ABSOLUTE LYMPHOCYTES# (MANUAL) 0.7 10^3/uL (0.5-4.7); ABSOLUTE MONOCYTES # (MANUAL) 0.6 10^3/uL (0.1-1.4); ABSOLUTE NEUTROPHILS# (MANUAL) 8.8 10^3/uL (1.7-8.2); BAND NEUTROPHILS % (MANUAL) 2 % (3-5); BASOPHILS % (MANUAL) 0 % (0-2); EOSINOPHILS % (MANUAL) 0 % (0-6); LYMPHOCYTES % (MANUAL) 7 % (13-45); MONOCYTES % (MANUAL) 6 % (3-13); SEGMENTED NEUTROPHILS % (MAN) 85 % (42-78); TOTAL CELLS COUNTED 100
[2018-06-20 06:55] LABS: ACANTHOCYTES 1+; ANISOCYTOSIS 3+; BURR CELLS 1+; POIKILOCYTOSIS 2+
[2018-06-20 06:56] LABS: PLATELET COMMENT DECREASED; TARGET CELLS SLIGHT
[2018-06-20] MEDS: IPRATROPIUM/ALBUTEROL 0.5-2.5 MG/3 ML AMPUL NEB SCH ×3 (08:20→20:06)
[2018-06-20] MEDS: SPIRONOLACTONE 25 MG TABLET PO SCH (09:55)
[2018-06-20] MEDS: FUROSEMIDE 20 MG TABLET PO SCH (09:56)
[2018-06-20] MEDS: MAGNESIUM OXIDE 400 MG TABLET PO SCH (09:56)
[2018-06-20] MEDS: FLUTICASONE NASAL SPRAY 50 MCG/SPRY 120 SPRAY/16 GM NASL SCH (09:56)
[2018-06-20] MEDS: FLUTICASONE/SALMETEROL DISKUS 250-50 MCG/DOSE IH SCH ×2 (09:56→21:12)
[2018-06-20] MEDS: THIAMINE HCL 100 MG TABLET PO SCH (09:56)
[2018-06-20] MEDS: NICOTINE 21 MG/24 HR PATCH.TD24 TD SCH (09:57)
[2018-06-20] MEDS: AZITHROMYCIN 500 MG in DEXTROSE 5%-WATER 250 ML IV SCH (10:38)
[2018-06-20] MEDS: CEFTRIAXONE SODIUM 1,000 MG in DEXTROSE 5%-WATER 50 ML IV SCH (12:03)
[2018-06-20] MEDS: POTASSI CL 20 MEQ/NS 1L 1,000 ML IV PRN (12:29)
[2018-06-20] MEDS: LORAZEPAM INJ 2 MG/1 ML VIAL IV PRN ×2 (14:49→21:29)
--- NOTE | 2018-06-20 16:19 | PDOC PROGRESS REPORT ---
Subjective Progress Note for:: 06/20/18 Subjective:: Pt still talking about leaving and we had put him on Ativan 1 mg q6h IV prn for possible alcohol withdrawal since he has history of chronic alcohol use. Blood culture still shows Gram negative rods. His BUN/Cr has improved. Reason For Visit: COMMUNITY ACQUIRED PNEUMONIA,ACUTE KIDNEY INJURY, Physical Exam Vital Signs: Temp Pulse Resp BP Pulse Ox 97.6 F 116 H 19 127/69 H 94 06/20/18 15:28 06/20/18 15:28 06/20/18 15:28 06/20/18 15:28 06/20/18 15:28 Intake & Output 06/19/18 06/20/18 06/21/18 06:59 06:59 06:59 Intake Total 700 2213 1615 Output Total 460 1450 300 Balance 194 762 1669 Weight 67 kg 68 kg General appearance: PRESENT: no acute distress, cooperative, well-nourished Head exam: PRESENT: atraumatic, normocephalic Eye exam: PRESENT: EOMI, PERRLA Mouth exam: PRESENT: neck supple, tongue midline Neck exam: PRESENT: full ROM Respiratory exam: PRESENT: clear to auscultation spike, symmetrical Cardiovascular exam: PRESENT: +S1, +S2 Pulses: PRESENT: +1 pedal pulses bilateral GI/Abdominal exam: PRESENT: normal bowel sounds, soft Rectal exam: PRESENT: deferred Extremities exam: PRESENT: full ROM Neurological exam: PRESENT: alert, awake, oriented to person, oriented to place , oriented to time Psychiatric exam: PRESENT: normal mood Results Laboratory Results: 06/20/18 05:46 06/20/18 05:46 06/19/18 06/20/18 06/20/18 17:00 05:46 05:46 WBC 10.1 RBC 3.13 L Hgb 10.6 L Hct 29.6 L MCV 95 MCH 33.8 H MCHC 35.8 RDW 22.8 H Plt Count 72 L Seg Neutrophils % Not Reportable Lymphocytes % Not Reportable Monocytes % Not Reportable Eosinophils % Not Reportable Basophils % Not Reportable Absolute Neutrophils Not Reportable Absolute Lymphocytes Not Reportable Absolute Monocytes Not Reportable Absolute Eosinophils Not Reportable Absolute Basophils Not Reportable Sodium 138.2 Potassium 4.2 Chloride 103 Carbon Dioxide 23 Anion Gap 12 BUN 54 H Creatinine 1.49 H Est GFR ( Amer) 59 L Est GFR (Non-Af Amer) 48 L Glucose 173 H Calcium 8.1 L Total Bilirubin 4.4 H AST 57 ALT 40 Alkaline Phosphatase 265 H Ammonia < 8.7 L Total Protein 6.6 Albumin 2.3 L Impressions: Chest X-Ray 06/18/18 10:47 IMPRESSION: Right basilar densities as noted above. Assessment & Plan - Diagnosis (1) Pneumonia Qualifiers: Laterality: right Lung location: lower lobe of lung Is this a current diagnosis for this admission?: Yes Plan: Ct with Rocephin 1 G daily IV; Azithromycin 500 mg daily IV; Tylenol 650 mg q6h prn po; F/u blood cultures. (2) Acute kidney injury Is this a current diagnosis for this admission?: Yes Plan: Ct with IV fluids normal saline plus 20 MEQ KCL at 75 cc/hr; Avoid nephrotoxics ; Strict input/output chart; Daily weight; Monitor chemistries daily. (3) Acute blood loss anemia Is this a current diagnosis for this admission?: Yes Plan: He received 2 units of PRBC on 06/18/18;Monitor CBC daily. (4) Cirrhosis Qualifiers: Hepatic cirrhosis type: alcoholic cirrhosis Is this a current diagnosis for this admission?: Yes Plan: Ct with Lasix 20 mg daily po; Spironolactone 50 mg qd po; Lactulose 15 mls daily po; Thiamine 100 mg daily po. (5) COPD (chronic obstructive pulmonary disease) Qualifiers: COPD type: unspecified COPD Qualified Code(s): J44.9 - Chronic obstructive pulmonary disease, unspecified Is this a current diagnosis for this admission?: Yes Plan: Ct with Duonebs q6h prn; Solumedrol 60 mg q8h IV; Advair 250/50 1 puff BID; ProAir HFA- 2 puffs q6h prn; Oxygen 2 L/Min to keep saturation >95%. (6) BPH (benign prostatic hyperplasia) Is this a current diagnosis for this admission?: Yes Plan: Ct with Flomax 0.4mg qd po. (7) Hyperlipidemia Qualifiers: Hyperlipidemia type: mixed hyperlipidemia Qualified Code(s): E78.2 - Mixed hyperlipidemia Is this a current diagnosis for this admission?: Yes Plan: Ct with Simvastatin 20 mg qhs po; 200mg cholesterol diet. (8) PUD (peptic ulcer disease) Is this a current diagnosis for this admission?: Yes Plan: Ct with Prevacid 30 mg daily PO since we do not have Omeprazole in our formulary. (9) Rhinitis, allergic Is this a current diagnosis for this admission?: Yes Plan: CT with Flonase nasal spray- 2 nasal spray daily. (10) Lumbago Qualifiers: Back pain laterality: unspecified Is this a current diagnosis for this admission?: Yes Plan: Ct with Oxycodone 5 mg TID prn po. (11) Hypomagnesemia Is this a current diagnosis for this admission?: Yes Plan: Ct with Magnesium oxide 4oo mg daily po. (12) Alcohol withdrawal Qualifiers: Complication of substance-induced condition: with delirium Qualified Code(s ): F10.231 - Alcohol dependence with withdrawal delirium Is this a current diagnosis for this admission?: Yes Plan: Ct with Ativan 1 mg q6h IV prn.Counseling on alcohol cessation. (13) Hypokalemia Is this a current diagnosis for this admission?: Yes Plan: Pt was given KCL 40 MEQ POx1 at ER; ct with IV fluids normal saline with 20 MEQ KCL at 75cc/hr; monitor his chemistries daily. (14) DVT prophylaxis Is this a current diagnosis for this admission?: Yes Plan: Ct with SCD; Hold Lovenox due to thrombocytopenia. (15) Smoker Is this a current diagnosis for this admission?: Yes Plan: Pt was counseled on smoking cessation. Ct with Nicotine 21 mg daily.
[2018-06-20] MEDS: TAMSULOSIN HCL 0.4 MG CAP.SR.24H PO SCH (17:21)
[2018-06-20] MEDS: SIMVASTATIN 40 MG TABLET PO SCH (21:11)
[2018-06-21] MEDS: POTASSI CL 20 MEQ/NS 1L 1,000 ML IV PRN (01:41)
[2018-06-21] MEDS: LANSOPRAZOLE 30 MG TAB.RAP.DR PO SCH (05:54)
[2018-06-21] MEDS: METHYLPREDNISOLONE INJ 125 MG/2 ML SDV IV SCH ×3 (05:54→21:07)
[2018-06-21 06:10] LABS: HEMOGLOBIN 10.1 g/dL (13.5-17.0); MEAN CORPUSCULAR HEMOGLOBIN 33.5 pg (27.0-33.4); MEAN CORPUSCULAR HGB CONC 34.9 g/dL (32.0-36.0); MEAN CORPUSCULAR VOLUME 96 fl (80-97); RED BLOOD COUNT 3.03 10^6/uL (4.35-5.55); RED CELL DISTRIBUTION WIDTH 23.2 % (11.5-14.0); WHITE BLOOD COUNT 7.1 10^3/uL (4.0-10.5)
[2018-06-21 06:14] LABS: PLATELET COUNT 75 10^3/uL (150-450)
[2018-06-21 06:36] LABS: ABSOLUTE LYMPHOCYTES# (MANUAL) 0.4 10^3/uL (0.5-4.7); ABSOLUTE MONOCYTES # (MANUAL) 0.5 10^3/uL (0.1-1.4); ABSOLUTE NEUTROPHILS# (MANUAL) 6.2 10^3/uL (1.7-8.2); BASOPHILS % (MANUAL) 0 % (0-2); EOSINOPHILS % (MANUAL) 0 % (0-6); LYMPHOCYTES % (MANUAL) 5 % (13-45); MONOCYTES % (MANUAL) 7 % (3-13); SEGMENTED NEUTROPHILS % (MAN) 88 % (42-78); TOTAL CELLS COUNTED 100
[2018-06-21 06:38] LABS: ANISOCYTOSIS 3+; BURR CELLS 1+; PLATELET COMMENT DECREASED; POIKILOCYTOSIS 1+; TARGET CELLS 1+
[2018-06-21] MEDS: LORAZEPAM INJ 2 MG/1 ML VIAL IV PRN ×2 (06:41→22:12)
[2018-06-21] MEDS: IPRATROPIUM/ALBUTEROL 0.5-2.5 MG/3 ML AMPUL NEB SCH ×3 (08:13→20:35)
[2018-06-21] MEDS: AZITHROMYCIN 500 MG in DEXTROSE 5%-WATER 250 ML IV SCH (08:32)
[2018-06-21 08:52] LABS: ALANINE AMINOTRANSFERASE 53 U/L (21-72); ALBUMIN 2.3 g/dL (3.5-5.0); ALKALINE PHOSPHATASE 246 U/L (38-126); ANION GAP 10 (5-19); ASPARTATE AMINO TRANSFERASE 71 U/L (17-59); BILIRUBIN,DIRECT 2.3 mg/dL (0.0-0.4); BILIRUBIN,TOTAL 4.8 mg/dL (0.2-1.3); BLOOD UREA NITROGEN 57 mg/dL (7-20); CALCIUM 8.3 mg/dL (8.4-10.2); CARBON DIOXIDE 23 mmol/L (22-30); CHLORIDE 106 mmol/L (98-107); GLUCOSE 159 mg/dL (75-110); POTASSIUM 4.7 mmol/L (3.6-5.0); SODIUM 139.4 mmol/L (137-145); TOTAL PROTEIN 6.6 g/dL (6.3-8.2)
[2018-06-21] MEDS: CEFTRIAXONE SODIUM 1,000 MG in DEXTROSE 5%-WATER 50 ML IV SCH (10:59)
[2018-06-21] MEDS: FLUTICASONE/SALMETEROL DISKUS 250-50 MCG/DOSE IH SCH ×2 (13:46→21:06)
[2018-06-21] MEDS: SPIRONOLACTONE 25 MG TABLET PO SCH (13:47)
[2018-06-21] MEDS: FLUTICASONE NASAL SPRAY 50 MCG/SPRY 120 SPRAY/16 GM NASL SCH (13:48)
[2018-06-21] MEDS: FUROSEMIDE 20 MG TABLET PO SCH (13:48)
[2018-06-21] MEDS: MAGNESIUM OXIDE 400 MG TABLET PO SCH (13:49)
[2018-06-21] MEDS: THIAMINE HCL 100 MG TABLET PO SCH (13:49)
[2018-06-21] MEDS: NICOTINE 21 MG/24 HR PATCH.TD24 TD SCH (13:56)
[2018-06-21] MEDS ORDERED: NORMAL SALINE 1000 ML 1,000 ML IV PRN (16:22)
--- NOTE | 2018-06-21 16:34 | PDOC PROGRESS REPORT ---
Subjective Progress Note for:: 06/21/18 Subjective:: His Blood culture showed E.coli and sensitivity pattern noted. His potassium is 4.7 and we switched his IV fluids to normal saline at 50cc/hr. He still has having delirium possibly due to alcohol withdrawal and he is getting Lorazepan prn for that. His HB/HCT is stable. F/U APS and workforce planner for possible placement if pt agrees. Reason For Visit: COMMUNITY ACQUIRED PNEUMONIA,ACUTE KIDNEY INJURY, Physical Exam Vital Signs: Temp Pulse Resp BP Pulse Ox 97.5 F 110 H 23 H 127/73 H 90 L 06/21/18 15:36 06/21/18 15:36 06/21/18 15:36 06/21/18 15:36 06/21/18 15:36 Intake & Output 06/20/18 06/21/18 06/22/18 06:59 06:59 06:59 Intake Total 2213 2842 118 Output Total 1450 1600 400 Balance 763 1242 -282 Weight 68 kg 70.2 kg General appearance: PRESENT: no acute distress, cooperative, thin, well- developed Head exam: PRESENT: atraumatic, normocephalic Eye exam: PRESENT: EOMI, PERRLA Ear exam: PRESENT: TM's normal bilaterally Mouth exam: PRESENT: neck supple, tongue midline Neck exam: PRESENT: full ROM Respiratory exam: PRESENT: symmetrical, wheezes Cardiovascular exam: PRESENT: +S1, +S2 Pulses: PRESENT: +1 pedal pulses bilateral GI/Abdominal exam: PRESENT: normal bowel sounds, soft Rectal exam: PRESENT: deferred Extremities exam: PRESENT: full ROM Musculoskeletal exam: PRESENT: full ROM Neurological exam: PRESENT: alert, awake, oriented to person, oriented to place , oriented to time Psychiatric exam: PRESENT: normal mood Results Laboratory Results: 06/21/18 05:44 06/21/18 08:15 06/21/18 06/21/18 06/21/18 05:44 05:54 07:01 WBC 7.1 RBC 3.03 L Hgb 10.1 L Hct 29.0 L MCV 96 MCH 33.5 H MCHC 34.9 RDW 23.2 H Plt Count 75 L Seg Neutrophils % Not Reportable Lymphocytes % Not Reportable Monocytes % Not Reportable Eosinophils % Not Reportable Basophils % Not Reportable Absolute Neutrophils Not Reportable Absolute Lymphocytes Not Reportable Absolute Monocytes Not Reportable Absolute Eosinophils Not Reportable Absolute Basophils Not Reportable Sodium Cancelled Cancelled Potassium Cancelled Cancelled Chloride Cancelled Cancelled Carbon Dioxide Cancelled Cancelled Anion Gap Cancelled Cancelled BUN Cancelled Cancelled Creatinine Cancelled Cancelled Est GFR ( Amer) Cancelled Cancelled Est GFR (Non-Af Amer) Cancelled Cancelled Glucose Cancelled Cancelled Calcium Cancelled Cancelled Total Bilirubin Cancelled Cancelled AST Cancelled Cancelled ALT Cancelled Cancelled Alkaline Phosphatase Cancelled Cancelled Total Protein Cancelled Cancelled Albumin Cancelled Cancelled 06/21/18 08:15 WBC RBC Hgb Hct MCV MCH MCHC RDW Plt Count Seg Neutrophils % Lymphocytes % Monocytes % Eosinophils % Basophils % Absolute Neutrophils Absolute Lymphocytes Absolute Monocytes Absolute Eosinophils Absolute Basophils Sodium 139.4 Potassium 4.7 Chloride 106 Carbon Dioxide 23 Anion Gap 10 BUN 57 H Creatinine 1.30 H Est GFR ( Amer) > 60 Est GFR (Non-Af Amer) 57 L Glucose 159 H Calcium 8.3 L Total Bilirubin 4.8 H AST 71 H ALT 53 Alkaline Phosphatase 246 H Total Protein 6.6 Albumin 2.3 L Impressions: Chest X-Ray 06/18/18 10:47 IMPRESSION: Right basilar densities as noted above. Assessment & Plan - Diagnosis (1) Pneumonia Qualifiers: Pneumonia type: due to Escherichia coli Laterality: right Lung location: lower lobe of lung Qualified Code(s): J15.5 - Pneumonia due to Escherichia coli Is this a current diagnosis for this admission?: Yes Plan: Ct with Rocephin 1 G daily IV; Azithromycin 500 mg daily IV; Tylenol 650 mg q6h prn po; F/u blood cultures. (2) Acute kidney injury Is this a current diagnosis for this admission?: Yes Plan: Ct with IV fluids normal saline at 50 cc/hr; Avoid nephrotoxics; Strict input/ output chart; Daily weight; Monitor chemistries daily. (3) Acute blood loss anemia Is this a current diagnosis for this admission?: Yes Plan: The anemia is due to ongoing chronic blood loss - possibly multifactorial cause , since there is no hx of melena or positive occult blood test.He received 2 units of PRBC on 06/18/18;Monitor CBC daily. (4) Cirrhosis Qualifiers: Hepatic cirrhosis type: alcoholic cirrhosis Is this a current diagnosis for this admission?: Yes Plan: Ct with Lasix 20 mg daily po; Spironolactone 50 mg qd po; Lactulose 15 mls daily po; Thiamine 100 mg daily po. (5) COPD (chronic obstructive pulmonary disease) Qualifiers: COPD type: unspecified COPD Qualified Code(s): J44.9 - Chronic obstructive pulmonary disease, unspecified Is this a current diagnosis for this admission?: Yes Plan: Ct with Duonebs q6h prn; Solumedrol 60 mg q12h IV; Advair 250/50 1 puff BID; ProAir HFA- 2 puffs q6h prn; Oxygen 2 L/Min to keep saturation >95%. (6) BPH (benign prostatic hyperplasia) Is this a current diagnosis for this admission?: Yes Plan: Ct with Flomax 0.4mg qd po. (7) Hyperlipidemia Qualifiers: Hyperlipidemia type: mixed hyperlipidemia Qualified Code(s): E78.2 - Mixed hyperlipidemia Is this a current diagnosis for this admission?: Yes Plan: Ct with Simvastatin 20 mg qhs po; 200mg cholesterol diet. (8) PUD (peptic ulcer disease) Is this a current diagnosis for this admission?: Yes Plan: Ct with Prevacid 30 mg daily PO since we do not have Omeprazole in our formulary. (9) Rhinitis, allergic Is this a current diagnosis for this admission?: Yes Plan: CT with Flonase nasal spray- 2 nasal spray daily. (10) Lumbago Qualifiers: Back pain laterality: unspecified Is this a current diagnosis for this admission?: Yes Plan: Ct with Oxycodone 5 mg TID prn po. (11) Hypomagnesemia Is this a current diagnosis for this admission?: Yes Plan: Ct with Magnesium oxide 4oo mg daily po. (12) Alcohol withdrawal Qualifiers: Complication of substance-induced condition: with delirium Qualified Code(s ): F10.231 - Alcohol dependence with withdrawal delirium Is this a current diagnosis for this admission?: Yes Plan: Ct with Ativan 1 mg q6h IV prn.Counseling on alcohol cessation. (13) Hypokalemia Is this a current diagnosis for this admission?: Yes Plan: Pt was given KCL 40 MEQ POx1 at ER; His potassium today is 4.7; monitor his chemistries daily. (14) DVT prophylaxis Is this a current diagnosis for this admission?: Yes Plan: Ct with SCD; Hold Lovenox due to thrombocytopenia. (15) Smoker Is this a current diagnosis for this admission?: Yes Plan: Pt was counseled on smoking cessation. Ct with Nicotine 21 mg daily.
[2018-06-21] MEDS: TAMSULOSIN HCL 0.4 MG CAP.SR.24H PO SCH (17:17)
[2018-06-21 17:23] LABS: HEMATOCRIT 29.9 % (37.9-51.0); HEMOGLOBIN 10.8 g/dL (13.5-17.0); MEAN CORPUSCULAR HEMOGLOBIN 34.9 pg (27.0-33.4); MEAN CORPUSCULAR HGB CONC 36.2 g/dL (32.0-36.0); MEAN CORPUSCULAR VOLUME 97 fl (80-97); RED CELL DISTRIBUTION WIDTH 23.2 % (11.5-14.0); WHITE BLOOD COUNT 7.6 10^3/uL (4.0-10.5)
[2018-06-21] MEDS ORDERED: FUROSEMIDE INJ/PF 20 MG/2 ML SDV ONE (17:29)
[2018-06-21 17:48] LABS: PLATELET COUNT 87 10^3/uL (150-450)
--- NOTE | 2018-06-21 19:31 | RADIOLOGY REPORT (SQ) ---
EXAM DESCRIPTION: CHEST 2 VIEWS COMPLETED DATE/TIME: 06/21/2018 6:28 pm REASON FOR STUDY: chest congestion COMPARISON: 06/18/2018 EXAM PARAMETERS: NUMBER OF VIEWS: two views TECHNIQUE: Digital Frontal and Lateral radiographic views of the chest acquired. RADIATION DOSE: NA LIMITATIONS: none FINDINGS: LUNGS AND PLEURA: Marked opacification in the right base. MEDIASTINUM AND HILAR STRUCTURES: No masses or contour abnormalities. HEART AND VASCULAR STRUCTURES: Heart size is indeterminate. BONES: No acute findings. HARDWARE: None in the chest. OTHER: No other significant finding. IMPRESSION: Right pleural effusion. TECHNICAL DOCUMENTATION: JOB ID: [id number] [employer]- All Rights Reserved Reading location - IP/workstation name: [email or web address]
[2018-06-21] MEDS: SIMVASTATIN 40 MG TABLET PO SCH (21:06)
[2018-06-22] MEDS: LORAZEPAM INJ 2 MG/1 ML VIAL IV PRN ×4 (04:33→16:07)
[2018-06-22] MEDS: METHYLPREDNISOLONE INJ 125 MG/2 ML SDV IV SCH (06:16)
[2018-06-22] MEDS: LANSOPRAZOLE 30 MG TAB.RAP.DR PO SCH (06:16)
[2018-06-22 06:29] LABS: ALANINE AMINOTRANSFERASE 54 U/L (21-72); ALKALINE PHOSPHATASE 200 U/L (38-126); ANION GAP 10 (5-19); ASPARTATE AMINO TRANSFERASE 69 U/L (17-59); BILIRUBIN,DIRECT 2.6 mg/dL (0.0-0.4); BILIRUBIN,TOTAL 6.2 mg/dL (0.2-1.3); BLOOD UREA NITROGEN 57 mg/dL (7-20); CALCIUM 8.6 mg/dL (8.4-10.2); CARBON DIOXIDE 23 mmol/L (22-30); CHLORIDE 108 mmol/L (98-107); GLUCOSE 176 mg/dL (75-110); POTASSIUM 4.7 mmol/L (3.6-5.0); SODIUM 140.5 mmol/L (137-145)
[2018-06-22] MEDS: IPRATROPIUM/ALBUTEROL 0.5-2.5 MG/3 ML AMPUL NEB SCH (08:38)
[2018-06-22] MEDS: CEFTRIAXONE SODIUM 1,000 MG in DEXTROSE 5%-WATER 50 ML IV SCH (09:52)
[2018-06-22] MEDS: AZITHROMYCIN 500 MG in DEXTROSE 5%-WATER 250 ML IV SCH (09:52)
[2018-06-22] MEDS: NICOTINE 21 MG/24 HR PATCH.TD24 TD SCH (09:59)
[2018-06-22] MEDS: SPIRONOLACTONE 25 MG TABLET PO SCH (10:00)
[2018-06-22] MEDS: MAGNESIUM OXIDE 400 MG TABLET PO SCH (10:00)
[2018-06-22] MEDS: THIAMINE HCL 100 MG TABLET PO SCH (10:00)
[2018-06-22] MEDS: FLUTICASONE NASAL SPRAY 50 MCG/SPRY 120 SPRAY/16 GM NASL SCH (10:00)
[2018-06-22] MEDS: FUROSEMIDE 20 MG TABLET PO SCH (10:00)
[2018-06-22] MEDS: FLUTICASONE/SALMETEROL DISKUS 250-50 MCG/DOSE IH SCH ×2 (10:00→23:28)
[2018-06-22] MEDS ORDERED: METHYLPREDNISOLONE INJ 125 MG/2 ML SDV IV SCH (12:43)
[2018-06-22] MEDS: METHYLPREDNISOLONE INJ 40 MG/1 ML SDV IV SCH ×2 (13:20→23:28)
[2018-06-22] MEDS ORDERED: MORPHINE SULFATE 10 MG/ML INJ IV PRN (16:45)
[2018-06-22] MEDS ORDERED: LORAZEPAM INJ 2 MG/1 ML VIAL IV ONE (16:50)
[2018-06-22 16:54] LABS: ARTERIAL BLOOD BASE EXCESS -4.8 mmol/L; ARTERIAL BLOOD H2CO3 1.01 mmol/L (1.05-1.35); ARTERIAL BLOOD HCO3 19.7 mmol/L (20-24); ARTERIAL BLOOD O2 SATURATION 80.7 % (94-98); ARTERIAL BLOOD PCO2 33.4 mmHg (35-45); ARTERIAL BLOOD PH 7.39 (7.35-7.45); ARTERIAL BLOOD PO2 44.6 mmHg (80-100); ARTERIAL BLOOD TOTAL CO2 20.7 mmol/L (23-27)
[2018-06-22 16:57] LABS: ARTERIAL BLOOD FIO2 4L
[2018-06-22] MEDS ORDERED: PIPERACILLIN/TAZOBACTAM 4.5 GM VIAL IV ONE (17:22)
[2018-06-22] MEDS: TAMSULOSIN HCL 0.4 MG CAP.SR.24H PO SCH (17:33)
[2018-06-22] MEDS: PIPERACILLIN SODIUM/TAZOBACTAM 4.5 GM in NORMAL SALINE 100 ML IV SCH (17:41)
--- NOTE | 2018-06-22 17:45 | RADIOLOGY REPORT (SQ) ---
EXAM DESCRIPTION: CHEST SINGLE VIEW COMPLETED DATE/TIME: 06/22/2018 5:04 pm REASON FOR STUDY: Hypoxia COMPARISON: 06/21/2018 TECHNIQUE: Frontal and lateral radiographic views of the chest acquired. NUMBER OF VIEWS: Two view. LIMITATIONS: None. FINDINGS: LUNGS AND PLEURA: No pneumothorax. Right lower lobe subsegmental atelectasis. Similar ri ght basilar pleural effusion. Left lung appears clear. MEDIASTINUM AND HILAR STRUCTURES: Stable. HEART AND VASCULAR STRUCTURES: Stable. BONES: No acute findings. HARDWARE: None in the chest. OTHER: No other significant finding. IMPRESSION: Right lower lobe subsegmental atelectasis. Similar right basilar pleural effusion. TECHNICAL DOCUMENTATION: JOB ID: [id number] 2010 [employer]- All Rights Reserved Reading location - IP/workstation name: [email or web address]
[2018-06-22 18:21] LABS: HEMATOCRIT 17.9 % (37.9-51.0); MEAN CORPUSCULAR HEMOGLOBIN 33.5 pg (27.0-33.4); MEAN CORPUSCULAR HGB CONC 34.5 g/dL (32.0-36.0); MEAN CORPUSCULAR VOLUME 97 fl (80-97); RED BLOOD COUNT 1.84 10^6/uL (4.35-5.55); RED CELL DISTRIBUTION WIDTH 22.5 % (11.5-14.0)
[2018-06-22 18:23] LABS: HEMOGLOBIN 6.2 g/dL (13.5-17.0); WHITE BLOOD COUNT 18.7 10^3/uL (4.0-10.5)
[2018-06-22 18:38] LABS: PLATELET COUNT 88 10^3/uL (150-450)
--- NOTE | 2018-06-22 18:41 | PROGRESS NOTE E ---
Progress Note NAME: MARTIN OWEN : 1960 AGE: 58Y DATE: 06/22/2018 ROOM: 329 SUBJECTIVE: The patient is lying in bed. The patient appears to be in DTs. He has been combative with staff, is not oriented. The patient is completely delirious. He has been unable to express any concerns at this time. The patient is requiring supplemental O2. REVIEW OF SYSTEMS: Unobtainable. MEDICATIONS: Reviewed. OBJECTIVE: GENERAL: The patient is a 58-year-old male who is awake, alert, unable to fully assess orientation. He does not appear to be distressed. VITAL SIGNS: As follows: Temperature is 97.7, pulse 79, respirations 19, blood pressure 142/72, oxygen saturation is 92% on 3 L nasal cannula. SKIN: Jaundice. Multiple areas of bruising. HEENT: Pupils are reactive. Sclerae is icterus. No evidence of JVP. CARDIOVASCULAR: Heart is regular. No rub. CHEST: Rhonchorous, symmetrical, unlabored. ABDOMEN: Mildly distended with ascites. EXTREMITIES: No edema. PSYCHIATRIC: The patient is delirious. DIAGNOSTICS: Lab values are as follows. Hematology obtained on 06/22/2018: WBCs are 7.6, hemoglobin is 10.8, hematocrit is 29.9, platelet count is 77,000. Chemistry obtained on 06/22/2018: Sodium is 140, potassium 4.7, chloride is 108, carbon dioxide 23, BUN 57, creatinine is 1.27, glucose 176, calcium is 8.6, bilirubin 6.2, AST 69, ALT 54, alk phos 200. IMPRESSION AND PLAN: 1. COMMUNITY-ACQUIRED PNEUMONIA. Do have a low threshold for covering the patient for aspiration but at this time he continues to improve. Will continue current coverage and follow. 2. ACUTE KIDNEY INJURY. This did improve with saline. 3. DELIRIUM TREMENS DUE TO ALCOHOL DEPENDENCY, CONTINUOUS. Will continue to supplement B vitamins and increase Ativan to be consistent with CIWA protocol. 4. ACUTE BLOOD LOSS ANEMIA SECONDARY TO ONGOING CHRONIC LOSSES, MOST LIKELY MULTIFOCAL. The patient has been transfused 2 units of packed red blood cells on 06/18/2018. 5. HEPATIC CIRRHOSIS. The patient is currently on Lasix and spironolactone as well as lactulose and thiamine. 6. CHRONIC OBSTRUCTIVE PULMONARY DISEASE. Continue nebulizers and titrate O2. 7. BPH. The patient has actually required a Dillon. He is on Flomax. 8. HYPERLIPIDEMIA. Continue simvastatin. 9. PEPTIC ULCER DISEASE. Will continue PPI therapy. 10. ALLERGIC RHINITIS. Continue with Flonase. 11. BACK PAIN. Continue p.r.n. oxycodone. 12. HYPOMAGNESEMIA. This is being supplemented daily. 13. HYPOKALEMIA. This has been supplemented. 14. DVT PROPHYLAXIS. Lovenox is on hold due to thrombocytopenia. Try to get the patient to comply with SCDs. 15. TOBACCO DEPENDENCY, CONTINUOUS. The patient does have a p.r.n. nicotine patch. DISPOSITION: THE PATIENT IS A DO NOT INTUBATE. Pending the patient's symptomatology and diagnostic findings, will re-evaluate as needed. Time spent on this followup, including assessment/plan, physical examination, patient education, and review of records, is 45 minutes. ADDENDUM: I was notified around 1730 from nursing staff that the patient was Tachycardic and tachypneic. ABG, EKG was obtained. BiPAP was applied. Magnesium was added. Repeat labs ordered. With review of the patient's chart I found entries consistent with DNI as well as DO NOT RESUSCITATE. I called and discussed the case with the patient's listed contact, his sister, since he was unable to provide history. By conversation consensus it appears the patient's previous expressed wishes were consistent with a DO NOT RESUSCITATE status. Will proceed with this. DICTATING PHYSICIAN: JACKI BLACKWOOD NP [id number] PHY#: [id number] ID: [id number] JOB#: [id number] ACCT: [id number] cc: > [facility]
--- NOTE | 2018-06-22 22:03 | EKG REPORT ---
SEVERITY:- ABNORMAL ECG - SINUS TACHYCARDIA VENTRICULAR BIGEMINY LOW VOLTAGE THROUGHOUT BORDERLINE R WAVE PROGRESSION, ANTERIOR LEADS BORDERLINE T ABNORMALITIES, ANT-LAT LEADS : Confirmed by: Nori Mcfadden MD 22-Jun-2018 22:02:10
[2018-06-22] MEDS: SIMVASTATIN 40 MG TABLET PO SCH (23:28)
[2018-06-23] MEDS: PIPERACILLIN SODIUM/TAZOBACTAM 4.5 GM in NORMAL SALINE 100 ML IV SCH ×4 (00:40→18:29)
[2018-06-23] MEDS ORDERED: PANTOPRAZOLE SODIUM 40 MG VIAL IV ONE (02:45)
[2018-06-23 03:52] LABS: MEAN CORPUSCULAR HEMOGLOBIN 32.2 pg (27.0-33.4); MEAN CORPUSCULAR HGB CONC 34.6 g/dL (32.0-36.0); RED BLOOD COUNT 2.89 10^6/uL (4.35-5.55); RED CELL DISTRIBUTION WIDTH 20.6 % (11.5-14.0)
[2018-06-23 04:02] LABS: HEMOGLOBIN 9.3 g/dL (13.5-17.0); MEAN CORPUSCULAR VOLUME 93 fl (80-97)
[2018-06-23 04:03] LABS: PLATELET COUNT 85 10^3/uL (150-450)
[2018-06-23] MEDS ORDERED: MIDAZOLAM HCL 50 MG/100 ML RTUINJ ONE (04:14)
[2018-06-23 04:16] LABS: ARTERIAL BLOOD BASE EXCESS -2.9 mmol/L; ARTERIAL BLOOD H2CO3 0.97 mmol/L (1.05-1.35); ARTERIAL BLOOD HCO3 20.8 mmol/L (20-24); ARTERIAL BLOOD O2 SATURATION 94.7 % (94-98); ARTERIAL BLOOD PCO2 32.1 mmHg (35-45); ARTERIAL BLOOD PH 7.43 (7.35-7.45); ARTERIAL BLOOD PO2 69.9 mmHg (80-100); ARTERIAL BLOOD TOTAL CO2 21.8 mmol/L (23-27)
[2018-06-23 04:22] LABS: ARTERIAL BLOOD FIO2 40%
[2018-06-23] MEDS ORDERED: PROPOFOL INJ 200 MG/20 ML VIAL IV ONE (04:33)
[2018-06-23 04:39] LABS: ALANINE AMINOTRANSFERASE 99 U/L (21-72); ALBUMIN 1.9 g/dL (3.5-5.0); ALKALINE PHOSPHATASE 134 U/L (38-126); ANION GAP 12 (5-19); ASPARTATE AMINO TRANSFERASE 147 U/L (17-59); BILIRUBIN,DIRECT 4.6 mg/dL (0.0-0.4); CALCIUM 8.9 mg/dL (8.4-10.2); CARBON DIOXIDE 21 mmol/L (22-30); CHLORIDE 110 mmol/L (98-107); GLUCOSE 188 mg/dL (75-110); SODIUM 142.8 mmol/L (137-145); TOTAL PROTEIN 5.3 g/dL (6.3-8.2)
[2018-06-23 04:58] LABS: BLOOD UREA NITROGEN 78 mg/dL (7-20)
[2018-06-23 04:59] LABS: POTASSIUM 6.2 mmol/L (3.6-5.0)
[2018-06-23] MEDS ORDERED: DEXTROSE 50%-WATER 25 GM/50 ML DISP.SYRIN IV PRN ×2 (05:01)
[2018-06-23] MEDS ORDERED: GLUCAGON,HUMAN RECOMB 1 MG INJ IM PRN (05:01)
[2018-06-23] MEDS ORDERED: DEXTROSE 40% GEL 15 GM TUBE PO PRN ×2 (05:01)
[2018-06-23 05:05] LABS: INTERNATIONAL RATION (INR) 4.15
[2018-06-23] MEDS ORDERED: DEXTROSE 50%-WATER 25 GM/50 ML DISP.SYRIN IV ONE (05:10)
[2018-06-23] MEDS ORDERED: CALCIUM GLUCONATE 1,000 MG in DEXTROSE 5%-WATER 50 ML IV ONE (05:10)
[2018-06-23] MEDS ORDERED: INSULIN REG, HUMAN 100 UNIT/ML 3 ML VIAL (PYX) IV ONE (05:10)
[2018-06-23] MEDS ORDERED: SODIUM POLYSTYRENE SULFONATE 15 GM/60 ML NG ONE ×2 (05:11→19:25)
[2018-06-23] MEDS ORDERED: ALBUTEROL SULFATE HFA (90 MCG/PUFF) 200 PUFF/8.5 GM MDI IH PRN (05:30)
--- NOTE | 2018-06-23 05:30 | RADIOLOGY REPORT (SQ) ---
EXAM DESCRIPTION: XR CHEST 1 VIEW COMPLETED DATE/TME: 06/23/2018 00:00 CLINICAL HISTORY: 58 years, Male, post intubation COMPARISON: Prior chest x-ray 06/22/2018 NUMBER OF VIEWS: 1 TECHNIQUE: AP portable semierect view the chest LIMITATIONS: None. FINDINGS: The heart size is stable. Moderate right pleural effusion with adjacent airspace opacity. Interval intubation with the tip of the endotracheal tube 4.7 cm above the will. Enteric tube also in place. No pneumothorax. Osteopenia. IMPRESSION: Interval intubation and placement of an enteric tube. Other findings are grossly stable 2010 [employer]- All Rights Reserved
[2018-06-23] MEDS ORDERED: NORMAL SALINE 250 ML IV PRN ×2 (05:38→19:14)
[2018-06-23] MEDS ORDERED: CALCIUM GLUCONATE 1000 MG/10 ML INJ IV ONE (05:59)
--- NOTE | 2018-06-23 06:02 | Progress Note ---
Provider Note Provider Note: Nurse called me as patient was hypotensive with a BP 92/47. Patient was receiving 2u PRBC as per his h/h found 6.2/17.9. Patient has been receiving PRBC since admission as his h/h was decreasing, initially unclear etiology, nurse called me back because pt has a huge bowel movement with melanotic and loi stool. After 2U PRBC given, patient still persistently hypotensive. Patient obtunded, responding to painfull stimuli on BIPAP. Decision was made to transfer him to the ICU. I contacted his sister who is our emergency contact to know we believed was the next of kin and made him DNR yesterday (Sunday am); she tells me that she did not make him DNR, she hasn't seen him in many years and she is NOT able to make any decision for him. Ex and niece were at the bedside, after conversation with them tells me he has a daughter, fortunately niece could get in contact with her Charlotte Jamey [phone], she is the next of kin. In the meantime everything happened decision was made to intubated him until clarify his code status. Labs were repeated hb 9.3, in the meantime 1 more u PRBC is running. NG tube placed with gastric contents VS: HR 91 BP 111/56 R14 T39 Vent settings 14/450/50% PEEP 5 PE: Intubated on mechanical ventilator, under sedation. Lungs: b/l decreased air entry, no wheezing, rales or ronchi. Abd: soft, nt, no distended, positive BS. Imp: Acute GI bleeding, likely upper, less likely esophageal varices as NG tube with gastric seceretions and no blood Hyperkalemia Supratherapeutic INR Acute encephalopathy see more diagnostics in prior progress notes Plan: Continue full mechanical ventilator 2 PRBC on hold in blood bank K 6.2, ordered D50, 10insulin R, calcium gluconate, kayexalate INR 4, 2 units FFP ordered Continue antibiotics Pulmonary and surgical consult serum cbc and K q4H CXray reviewed Others as per progress notes Daughter has a discussion with family and will continue DNR status
[2018-06-23 06:15] LABS: HEMATOCRIT 32.3 % (37.9-51.0); HEMOGLOBIN 11.2 g/dL (13.5-17.0); MEAN CORPUSCULAR HEMOGLOBIN 31.8 pg (27.0-33.4); MEAN CORPUSCULAR HGB CONC 34.6 g/dL (32.0-36.0); MEAN CORPUSCULAR VOLUME 92 fl (80-97); RED BLOOD COUNT 3.51 10^6/uL (4.35-5.55); RED CELL DISTRIBUTION WIDTH 19.2 % (11.5-14.0); WHITE BLOOD COUNT 13.1 10^3/uL (4.0-10.5)
[2018-06-23] MEDS: PANTOPRAZOLE SODIUM 40 MG VIAL IV SCH ×2 (06:40→16:40)
[2018-06-23] MEDS: METHYLPREDNISOLONE INJ 40 MG/1 ML SDV IV SCH ×3 (06:40→21:58)
[2018-06-23 06:44] LABS: ARTERIAL BLOOD BASE EXCESS -3.9 mmol/L; ARTERIAL BLOOD H2CO3 1.04 mmol/L (1.05-1.35); ARTERIAL BLOOD HCO3 20.5 mmol/L (20-24); ARTERIAL BLOOD O2 SATURATION 96.9 % (94-98); ARTERIAL BLOOD PCO2 34.4 mmHg (35-45); ARTERIAL BLOOD PH 7.39 (7.35-7.45); ARTERIAL BLOOD PO2 90.2 mmHg (80-100); ARTERIAL BLOOD TOTAL CO2 21.5 mmol/L (23-27)
[2018-06-23 06:45] LABS: ARTERIAL BLOOD FIO2 50%
[2018-06-23 06:56] LABS: PLATELET COUNT 69 10^3/uL (150-450)
[2018-06-23] MEDS ORDERED: SUCCINYLCHOLINE CHLORIDE INJ 200 MG/10 ML VIAL ONE (07:47)
[2018-06-23] MEDS ORDERED: DEXTROSE 5%-WATER 250 ML with VASOPRESSIN 100 UNIT IV PRN ×2 (08:27)
[2018-06-23] MEDS: NORMAL SALINE 500 ML with OCTREOTIDE ACETATE 500 MCG IV PRN ×4 (09:28→19:08)
[2018-06-23 10:06] LABS: HEMATOCRIT 31.2 % (37.9-51.0); HEMOGLOBIN 10.9 g/dL (13.5-17.0); MEAN CORPUSCULAR HEMOGLOBIN 32.1 pg (27.0-33.4); MEAN CORPUSCULAR VOLUME 92 fl (80-97); RED CELL DISTRIBUTION WIDTH 20.5 % (11.5-14.0); WHITE BLOOD COUNT 12.9 10^3/uL (4.0-10.5)
[2018-06-23] MEDS: FLUTICASONE/SALMETEROL DISKUS 250-50 MCG/DOSE IH SCH ×2 (10:16→21:59)
[2018-06-23] MEDS: FLUTICASONE NASAL SPRAY 50 MCG/SPRY 120 SPRAY/16 GM NASL SCH (10:16)
[2018-06-23 10:26] LABS: PLATELET COUNT 60 10^3/uL (150-450)
[2018-06-23] MEDS: NICOTINE 21 MG/24 HR PATCH.TD24 TD SCH (10:29)
[2018-06-23] MEDS: MIDAZOLAM HCL 50 MG/100 ML RTUINJ IV PRN ×2 (11:20→16:40)
[2018-06-23 16:13] LABS: HEMATOCRIT 28.1 % (37.9-51.0); MEAN CORPUSCULAR HEMOGLOBIN 32.6 pg (27.0-33.4); MEAN CORPUSCULAR HGB CONC 35.7 g/dL (32.0-36.0); MEAN CORPUSCULAR VOLUME 91 fl (80-97); RED BLOOD COUNT 3.09 10^6/uL (4.35-5.55); WHITE BLOOD COUNT 12.6 10^3/uL (4.0-10.5)
[2018-06-23 16:33] LABS: PLATELET COUNT 58 10^3/uL (150-450)
[2018-06-23 16:47] LABS: ALANINE AMINOTRANSFERASE 89 U/L (21-72); ALBUMIN 2.2 g/dL (3.5-5.0); ALKALINE PHOSPHATASE 122 U/L (38-126); ANION GAP 10 (5-19); ASPARTATE AMINO TRANSFERASE 114 U/L (17-59); BILIRUBIN,DIRECT 4.1 mg/dL (0.0-0.4); BILIRUBIN,TOTAL 8.5 mg/dL (0.2-1.3); BLOOD UREA NITROGEN 84 mg/dL (7-20); CALCIUM 9.3 mg/dL (8.4-10.2); CARBON DIOXIDE 25 mmol/L (22-30); CHLORIDE 110 mmol/L (98-107); GLUCOSE 216 mg/dL (75-110); POTASSIUM 5.3 mmol/L (3.6-5.0); TOTAL PROTEIN 5.7 g/dL (6.3-8.2)
--- NOTE | 2018-06-23 17:16 | PROGRESS NOTE E ---
Progress Note NAME: MARTIN OWEN : 1960 AGE: 58Y DATE: 06/23/2018 ROOM: 603 SUBJECTIVE: The patient is lying in bed. He is intubated, sedated with Versed. The patient's urine output has been decent. Heart rate is in a good range. At this point in time, the patient is maintaining a decent MAP. BRIEF HISTORY: Over the weekend, the patient decompensated. The evening of 06/22/2018, the patient became increasingly tachypneic and was in severe DTs. ABG was obtained. The patient was placed on BiPAP, which he tolerated reasonably well for a period of time; however, the patient then had a massive melanotic maroon bowel movement and hemoglobin was obtained of 6.2. The patient was typed and crossed, transfused, and was moved to the intensive care unit. Care was discussed with the listed next of kin, his sister, and in an effort to clarify the patient's code status of DNR/DNI, the patient was intubated until clarification could be obtained from the patient's next of kin, which is his daughter. DNI was listed in the [employer] code status; however, previous documentation was DNR. However, the patient's daughter came on site and has made the patient a DO NOT RESUSCITATE. At this present time, the patient is receiving FFP as well as being transfused blood. The patient's prognosis is quite grim. The family has been made aware of this. REVIEW OF SYSTEMS: Unobtainable, due to intubation and sedation. MEDICATIONS: Reviewed. OBJECTIVE: GENERAL: The patient is a frail, chronically ill-appearing 58-year-old male, who is sedated. Does not appear to be distressed. VITAL SIGNS: Temperature is 96.8, pulse 88, respirations 12, blood pressure 103/57, oxygen saturation is 100% on 40% FiO2. SKIN: Jaundiced. He is not diaphoretic. Multiple areas of bruising. HEENT: Pupils are reactive bilaterally. Sclerae are extremely icterus. Conjunctivae are pale. CVS: Heart is regular, no rub. CHEST: Diminished, symmetrical, unlabored. ABDOMEN: Soft, nontender. EXTREMITIES: No edema. The patient does have intact reflexes of the lower extremities. PSYCHIATRIC: Unable to assess. DIAGNOSTICS: Lab values are as follows: Hematology obtained 06/23/2018: WBCs are 12.9, hemoglobin is 10.9, hematocrit is 31.2, platelet count is 60,000. Chemistry obtained on 06/23/2018: Sodium is 142, potassium 6.2, chloride is 110, carbon dioxide 21, BUN 78, creatinine is 1.58. Glucose 188. Calcium is 8.9, magnesium is 1.2, bilirubin is 10. AST 147, ALT is 99, alk phos 134. Protein 5.3, albumin 1.9. IMPRESSION AND PLAN: 1. MASSIVE GI BLEED, RESULTING IN ANEMIA, SECONDARY TO GI LOSSES. The patient has been transfused and a repeat hemoglobin does reveal improvement. The patient did not have any blood in his NG tube; therefore, do not think this was necessarily a variceal bleed. Continue supportive measures, including Sandostatin, vasopressor as needed, as well as frequent CBCs. 2. COMMUNITY-ACQUIRED PNEUMONIA AND POSSIBLE ASPIRATION. The patient is covered with Zosyn at this point in time. 3. DELIRIUM TREMORS DUE TO CONTINUOUS ALCOHOL DEPENDENCY. The patient has been supplemented B vitamins. He is currently on Versed drip. 4. ACUTE HYPOXIC RESPIRATORY FAILURE. This is secondary to the above. The patient was profoundly tachypneic. He has indeed been intubated to secure airway at this point in time. 5. HEPATIC CIRRHOSIS. The patient does appear to be end-stage. He is on Lasix and spironolactone, as well as lactulose and thiamine. 6. CHRONIC OBSTRUCTIVE PULMONARY DISEASE. Continue bronchodilators. The patient does not have a high requirement of O2 at this point. 7. BPH. The patient has actually required Dillon. He is on Flomax. 8. HYPERLIPIDEMIA. The patient was on a statin. 9. PEPTIC ULCER DISEASE. Continue PPI. 10. HYPOMAGNESEMIA. This has been supplemented. 11. HYPERKALEMIA. This is secondary to GI bleed absorption. The patient has been treated and it has trended down. Currently awaiting another repeat BNP. 12. DVT PROPHYLAXIS. Lovenox is on hold due to thrombocytopenia. Remains on SCDs. 13. TOBACCO DEPENDENCY, CONTINUOUS. The patient was on a p.r.n. nicotine patch. DISPOSITION: The patient is a DO NOT RESUSCITATE/DO NOT INTUBATE. Pending patient's symptomatology and diagnostic findings, will reevaluate as needed. The patient will be followed by his primary care provider in the morning. Time spent on this critical care visit, including assessment, plan, physical examination, patient education and review of records is 45 minutes. DICTATING PHYSICIAN: JACKI BLACKWOOD NP [id number] PHY#: [id number] ID: [id number] JOB#: [id number] ACCT: [id number] cc: >
[2018-06-23 18:23] LABS: INTERNATIONAL RATION (INR) 2.77; PROTHROMBIN TIME 30.5 SEC (11.4-15.4)
[2018-06-23 18:32] LABS: HEMATOCRIT 24.6 % (37.9-51.0); HEMOGLOBIN 8.8 g/dL (13.5-17.0); MEAN CORPUSCULAR HEMOGLOBIN 32.4 pg (27.0-33.4); MEAN CORPUSCULAR HGB CONC 35.7 g/dL (32.0-36.0); MEAN CORPUSCULAR VOLUME 91 fl (80-97); RED BLOOD COUNT 2.71 10^6/uL (4.35-5.55); RED CELL DISTRIBUTION WIDTH 19.9 % (11.5-14.0); WHITE BLOOD COUNT 8.5 10^3/uL (4.0-10.5)
[2018-06-23 18:54] LABS: PLATELET COUNT 54 10^3/uL (150-450)
[2018-06-23] MEDS ORDERED: PHYTONADIONE INJ 1 MG/0.5 ML DISP.SYRIN INJ ONE (19:25)
[2018-06-23] MEDS ORDERED: PHYTONADIONE INJ 1 MG/0.5 ML DISP.SYRIN ONE ×2 (19:59→20:00)
--- NOTE | 2018-06-23 21:32 | PDOC CONSULTATION ---
Consultation Consult Date: 06/23/18 Consult reason:: GI Bleed History of Present Illness Admission Date/PCP: 06/18/18 15:10 History of Present Illness: MARTIN OWEN is a 58 year old male with known history of liver cirrhosis,PUD alcohol abuse admitted for pneumonia 06/18/18. Noted to have melena at 4 am today. Also noted to be in alcohol withdrawal and subsequently intubated. Noted Hb of6.2. INR 4.15 PT 42 sec. Patient on no anticoagulation. Coagulopathy likely due to Liver cirrhosis. Had 3 units FFP and 3 units PRBC with INR 2.77 PT 30.5 sec and Hb 8.8. Platelet count about 50,000. He Is currently a DNR. I spoke to her daughter on the phone, next of kin, and explained patient's condition. At present ,still needs correction of coagulopathy. She has not decided about giving permission for endoscopy at this time. Past Medical History Cardiac Medical History: Reports: Hyperlipidema, Hypertension Pulmonary Medical History: Reports: Bronchitis, Chronic Obstructive Pulmonary Disease (COPD) Neurological Medical History: Denies: Seizures Endocrine Medical History: Denies: None, Diabetes Mellitus Type 1, Diabetes Mellitus Type 2, Hyperthyroidism, Hypothyroidism, Other GI Medical History: Reports: Cirrhosis, Gastroesophageal Reflux Disease Musculoskeltal Medical History: Reports: Arthritis - RA Psychiatric Medical History: Reports: Depression Hematology: Denies: Anemia Past Surgical History Past Surgical History: Reports: Orthopedic Surgery - right femur, jaw surgery Social History Smoking Status: Current Every Day Smoker Cigarettes Packs Per Day: 0.5 Number of Years Smokin Last Time Smoked: 06/18/18 Frequency of Alcohol Use: Occasional Hx Recreational Drug Use: Yes Drugs: Cocaine, Marijuana Hx Prescription Drug Abuse: No - Advance Directive Resuscitation Status: Do Not Resuscitate Family History Family History: Reviewed & Not Pertinent Parental Family History Reviewed: Yes Children Family History Reviewed: No Sibling(s) Family History Reviewed.: No Medication/Allergy Home Medications: Albuterol Sulfate [Proair HFA Inhalation Aerosol 8.5 gm MDI] 2 puff IH Q6HP PRN 06/18/18 Cyclobenzaprine HCl [Flexeril 10 mg Tablet] 10 mg PO Q12 06/18/18 Fluticasone/Salmeterol [Advair 250-50 Diskus 14 Dose/Diskus] 1 puff IH Q12 06/18 Furosemide [Lasix 20 mg Tablet] 20 mg PO DAILY 06/18/18 Ibuprofen [Motrin 800 mg Tablet] 800 mg PO BIDP PRN 06/18/18 Spironolactone [Aldactone] 50 mg PO DAILY 06/18/18 Zolpidem Tartrate [Ambien 5 mg Tablet] 5 mg PO HSP PRN 06/18/18 Allergies/Adverse Reactions: No Known Allergies Allergy (Verified 11/29/17 01:45) Review of Systems ROS unobtainable: Due to endotracheal tube Physical Exam Vital Signs: Temp Pulse Resp BP Pulse Ox 96.8 F L 80 14 96/54 L 100 06/23/18 19:24 06/23/18 20:55 06/23/18 20:55 06/23/18 20:55 06/23/18 20:55 Intake & Output 06/22/18 06/23/18 06/24/18 07:59 06:59 06:59 Intake Total 1680 Output Total 830 Balance 850 Weight Exam: Intubated. Sedated. Abd is soft Respiratory exam: PRESENT: clear to auscultation spike Cardiovascular exam: PRESENT: RRR Pulses: PRESENT: normal radial pulses Vascular exam: PRESENT: normal capillary refill GI/Abdominal exam: PRESENT: soft Rectal exam: PRESENT: deferred Skin exam: PRESENT: normal color, warm Results Laboratory Results: 06/23/18 18:05 06/23/18 16:04 06/22/18 06/23/18 06/23/18 19:16 01:40 EST 03:23 WBC RBC Hgb Hct MCV MCH MCHC RDW Plt Count Carbonic Acid HCO3/H2CO3 Ratio ABG pH ABG pCO2 ABG pO2 ABG HCO3 ABG O2 Saturation ABG Base Excess FiO2 Sodium Cancelled Potassium Cancelled Chloride Cancelled Carbon Dioxide Cancelled Anion Gap Cancelled BUN Cancelled Creatinine Cancelled Est GFR ( Amer) Cancelled Est GFR (Non-Af Amer) Cancelled Glucose Cancelled Calcium Cancelled Magnesium Cancelled Total Bilirubin Cancelled AST Cancelled ALT Cancelled Alkaline Phosphatase Cancelled Total Protein Cancelled Albumin Cancelled Stool Occult Blood POSITIVE Blood Type O NEGATIVE Antibody Screen POSITIVE 06/23/18 06/23/18 06/23/18 03:23 04:08 04:10 WBC 12.0 H RBC 2.89 L Hgb 9.3 L D Hct 27.0 L MCV 93 D MCH 32.2 MCHC 34.6 RDW 20.6 H Plt Count 85 L Carbonic Acid 0.97 L HCO3/H2CO3 Ratio 21:1 ABG pH 7.43 ABG pCO2 32.1 L ABG pO2 69.9 L ABG HCO3 20.8 ABG O2 Saturation 94.7 ABG Base Excess -2.9 FiO2 40% Sodium 142.8 Potassium 6.2 H* D Chloride 110 H Carbon Dioxide 21 L Anion Gap 12 BUN 78 H D Creatinine 1.58 H Est GFR ( Amer) 55 L Est GFR (Non-Af Amer) 45 L Glucose 188 H Calcium 8.9 Magnesium 2.2 Total Bilirubin 10.0 H D AST 147 H ALT 99 H Alkaline Phosphatase 134 H Total Protein 5.3 L Albumin 1.9 L Stool Occult Blood Blood Type Antibody Screen 06/23/18 06/23/18 06/23/18 05:59 06:30 09:57 WBC 13.1 H 12.9 H RBC 3.51 L 3.40 L Hgb 11.2 L 10.9 L Hct 32.3 L 31.2 L MCV 92 92 MCH 31.8 32.1 MCHC 34.6 35.0 RDW 19.2 H 20.5 H Plt Count 69 L 60 L Carbonic Acid 1.04 L HCO3/H2CO3 Ratio 19:1 ABG pH 7.39 ABG pCO2 34.4 L ABG pO2 90.2 ABG HCO3 20.5 ABG O2 Saturation 96.9 ABG Base Excess -3.9 FiO2 50% Sodium Potassium Chloride Carbon Dioxide Anion Gap BUN Creatinine Est GFR ( Amer) Est GFR (Non-Af Amer) Glucose Calcium Magnesium Total Bilirubin AST ALT Alkaline Phosphatase Total Protein Albumin Stool Occult Blood Blood Type Antibody Screen 06/23/18 06/23/18 06/23/18 09:57 15:07 16:04 WBC 12.6 H RBC 3.09 L Hgb 10.0 L Hct 28.1 L MCV 91 MCH 32.6 MCHC 35.7 RDW 20.0 H Plt Count 58 L Carbonic Acid HCO3/H2CO3 Ratio ABG pH ABG pCO2 ABG pO2 ABG HCO3 ABG O2 Saturation ABG Base Excess FiO2 Sodium 145.0 Potassium 5.1 H D 5.3 H Chloride 110 H Carbon Dioxide 25 Anion Gap 10 BUN 84 H Creatinine 1.62 H Est GFR ( Amer) 53 L Est GFR (Non-Af Amer) 44 L Glucose 216 H Calcium 9.3 Magnesium Total Bilirubin 8.5 H AST 114 H ALT 89 H Alkaline Phosphatase 122 Total Protein 5.7 L Albumin 2.2 L Stool Occult Blood Blood Type Antibody Screen 06/23/18 18:05 WBC 8.5 RBC 2.71 L Hgb 8.8 L Hct 24.6 L MCV 91 MCH 32.4 MCHC 35.7 RDW 19.9 H Plt Count 54 L Carbonic Acid HCO3/H2CO3 Ratio ABG pH ABG pCO2 ABG pO2 ABG HCO3 ABG O2 Saturation ABG Base Excess FiO2 Sodium Potassium Chloride Carbon Dioxide Anion Gap BUN Creatinine Est GFR ( Amer) Est GFR (Non-Af Amer) Glucose Calcium Magnesium Total Bilirubin AST ALT Alkaline Phosphatase Total Protein Albumin Stool Occult Blood Blood Type Antibody Screen Impressions: Chest X-Ray 06/23/18 00:00 IMPRESSION: Interval intubation and placement of an enteric tube. Other findings are grossly stable 2010 [employer]- All Rights Reserved Assessment & Plan - Diagnosis (1) Coagulopathy Is this a current diagnosis for this admission?: Yes (2) Gastrointestinal hemorrhage Qualifiers: Gastritis type: alcoholic Is this a current diagnosis for this admission?: Yes (3) Cirrhosis Qualifiers: Hepatic cirrhosis type: alcoholic cirrhosis Is this a current diagnosis for this admission?: Yes - Time Time Spent: 30 to 50 Minutes - Inpatient Certification Medical Necessity: Need Close Monitoring Due to Risk of Patient Decompensation, Need For IV Fluids, Need For Continuous Telemetry Monitoring - Plan Summary Plan Summary: Correct coagulopathy Possible EGD tomorrow
[2018-06-23 22:18] LABS: HEMATOCRIT 23.7 % (37.9-51.0); HEMOGLOBIN 8.5 g/dL (13.5-17.0); MEAN CORPUSCULAR HEMOGLOBIN 32.6 pg (27.0-33.4); MEAN CORPUSCULAR HGB CONC 35.8 g/dL (32.0-36.0); MEAN CORPUSCULAR VOLUME 91 fl (80-97); RED BLOOD COUNT 2.61 10^6/uL (4.35-5.55); WHITE BLOOD COUNT 9.3 10^3/uL (4.0-10.5)
[2018-06-23 22:40] LABS: PLATELET COUNT 50 10^3/uL (150-450)
[2018-06-24] MEDS: PIPERACILLIN SODIUM/TAZOBACTAM 4.5 GM in NORMAL SALINE 100 ML IV SCH ×3 (00:41→11:40)
[2018-06-24] MEDS: MIDAZOLAM HCL 50 MG/100 ML RTUINJ IV PRN ×2 (00:48→18:30)
[2018-06-24 02:04] LABS: HEMATOCRIT 23.2 % (37.9-51.0); HEMOGLOBIN 8.3 g/dL (13.5-17.0); MEAN CORPUSCULAR HGB CONC 35.9 g/dL (32.0-36.0); MEAN CORPUSCULAR VOLUME 92 fl (80-97); RED BLOOD COUNT 2.52 10^6/uL (4.35-5.55); RED CELL DISTRIBUTION WIDTH 20.6 % (11.5-14.0); WHITE BLOOD COUNT 7.9 10^3/uL (4.0-10.5)
[2018-06-24 02:10] LABS: PLATELET COUNT 51 10^3/uL (150-450)
[2018-06-24 05:37] LABS: ARTERIAL BLOOD BASE EXCESS 0.1 mmol/L; ARTERIAL BLOOD HCO3 24.2 mmol/L (20-24); ARTERIAL BLOOD O2 SATURATION 91.3 % (94-98); ARTERIAL BLOOD PCO2 36.5 mmHg (35-45); ARTERIAL BLOOD PH 7.44 (7.35-7.45); ARTERIAL BLOOD PO2 58.2 mmHg (80-100); ARTERIAL BLOOD TOTAL CO2 25.3 mmol/L (23-27)
[2018-06-24 05:39] LABS: ARTERIAL BLOOD FIO2 25%
[2018-06-24] MEDS: METHYLPREDNISOLONE INJ 40 MG/1 ML SDV IV SCH ×3 (05:45→21:18)
[2018-06-24] MEDS: PANTOPRAZOLE SODIUM 40 MG VIAL IV SCH (05:45)
[2018-06-24] MEDS: NORMAL SALINE 500 ML with OCTREOTIDE ACETATE 500 MCG IV PRN ×4 (06:05→16:13)
[2018-06-24 06:30] LABS: HEMATOCRIT 23.2 % (37.9-51.0); HEMOGLOBIN 8.4 g/dL (13.5-17.0); MEAN CORPUSCULAR HGB CONC 36.1 g/dL (32.0-36.0); MEAN CORPUSCULAR VOLUME 91 fl (80-97); RED BLOOD COUNT 2.54 10^6/uL (4.35-5.55); RED CELL DISTRIBUTION WIDTH 20.5 % (11.5-14.0); WHITE BLOOD COUNT 8.2 10^3/uL (4.0-10.5)
[2018-06-24 06:34] LABS: INTERNATIONAL RATION (INR) 2.27; PROTHROMBIN TIME 26.2 SEC (11.4-15.4)
--- NOTE | 2018-06-24 06:37 | RADIOLOGY REPORT (SQ) ---
EXAM DESCRIPTION: X-ray single view chest. CLINICAL HISTORY: 58 years Male, resp failure COMPARISON: Portable chest performed on 06/23/2018 and 06/22/2018. TECHNIQUE: Single portable view of the chest performed on 06/24/2018 at 6:19 AM FINDINGS: The lungs are well expanded. There is persistent volume loss in the right lung base similar when compared to the prior studies. No new parenchymal abnormalities are identified. There is no evidence of a pneumothorax. The cardiac silhouette is normal in size and configuration. The mediastinal contours are normal. No acute osseous abnormality is identified. No focal soft tissue abnormalities are seen. Lines and tubes: The endotracheal tube and feeding tube are grossly stable. IMPRESSION: No significant change when compared to the most recent study. There is ongoing volume loss in the right inferior hemithorax.
[2018-06-24 07:11] LABS: ALANINE AMINOTRANSFERASE 80 U/L (21-72); ALBUMIN 2.1 g/dL (3.5-5.0); ALKALINE PHOSPHATASE 105 U/L (38-126); ANION GAP 9 (5-19); ASPARTATE AMINO TRANSFERASE 82 U/L (17-59); BILIRUBIN,DIRECT 3.1 mg/dL (0.0-0.4); BILIRUBIN,TOTAL 7.1 mg/dL (0.2-1.3); BLOOD UREA NITROGEN 77 mg/dL (7-20); CALCIUM 9.1 mg/dL (8.4-10.2); CARBON DIOXIDE 25 mmol/L (22-30); CHLORIDE 116 mmol/L (98-107); GLUCOSE 206 mg/dL (75-110); PHOSPHORUS 5.3 mg/dL (2.5-4.5); SODIUM 149.9 mmol/L (137-145); TOTAL PROTEIN 5.3 g/dL (6.3-8.2)
[2018-06-24 07:29] LABS: POTASSIUM 4.3 mmol/L (3.6-5.0)
[2018-06-24 07:55] LABS: PLATELET COUNT 56 10^3/uL (150-450)
--- NOTE | 2018-06-24 08:24 | PDOC PROGRESS REPORT ---
Subjective Progress Note for:: 06/24/18 Subjective:: sedater, intubated, no bloody stools reported, bile in the NGT Reason For Visit: COMMUNITY ACQUIRED PNEUMONIA,ACUTE KIDNEY INJURY, Physical Exam Vital Signs: Temp Pulse Resp BP Pulse Ox 97.3 F 81 14 109/64 100 06/24/18 07:48 06/23/18 23:41 06/24/18 05:10 06/24/18 05:10 06/24/18 08:00 Intake & Output 06/23/18 06/24/18 06/25/18 06:59 06:59 06:59 Intake Total 2933 Output Total 1605 100 Balance 1328 -100 Weight 71.6 kg General appearance: PRESENT: other - sedated, intubated, not responsive Respiratory exam: PRESENT: clear to auscultation spike Cardiovascular exam: PRESENT: RRR GI/Abdominal exam: PRESENT: hypoactive bowel sounds, soft Results Laboratory Results: 06/24/18 06:10 06/24/18 06:10 06/22/18 06/23/18 06/23/18 19:16 09:57 09:57 WBC 12.9 H RBC 3.40 L Hgb 10.9 L Hct 31.2 L MCV 92 MCH 32.1 MCHC 35.0 RDW 20.5 H Plt Count 60 L Carbonic Acid HCO3/H2CO3 Ratio ABG pH ABG pCO2 ABG pO2 ABG HCO3 ABG O2 Saturation ABG Base Excess FiO2 Sodium Potassium 5.1 H D Chloride Carbon Dioxide Anion Gap BUN Creatinine Est GFR ( Amer) Est GFR (Non-Af Amer) Glucose Calcium Phosphorus Magnesium Total Bilirubin AST ALT Alkaline Phosphatase Total Protein Albumin Blood Type O NEGATIVE Antibody Screen POSITIVE 06/23/18 06/23/18 06/23/18 15:07 16:04 18:05 WBC 12.6 H 8.5 RBC 3.09 L 2.71 L Hgb 10.0 L 8.8 L Hct 28.1 L 24.6 L MCV 91 91 MCH 32.6 32.4 MCHC 35.7 35.7 RDW 20.0 H 19.9 H Plt Count 58 L 54 L Carbonic Acid HCO3/H2CO3 Ratio ABG pH ABG pCO2 ABG pO2 ABG HCO3 ABG O2 Saturation ABG Base Excess FiO2 Sodium 145.0 Potassium 5.3 H Chloride 110 H Carbon Dioxide 25 Anion Gap 10 BUN 84 H Creatinine 1.62 H Est GFR ( Amer) 53 L Est GFR (Non-Af Amer) 44 L Glucose 216 H Calcium 9.3 Phosphorus Magnesium Total Bilirubin 8.5 H AST 114 H ALT 89 H Alkaline Phosphatase 122 Total Protein 5.7 L Albumin 2.2 L Blood Type Antibody Screen 06/23/18 06/24/18 06/24/18 22:03 01:55 05:09 WBC 9.3 7.9 RBC 2.61 L 2.52 L Hgb 8.5 L 8.3 L Hct 23.7 L 23.2 L MCV 91 92 MCH 32.6 33.0 MCHC 35.8 35.9 RDW 20.0 H 20.6 H Plt Count 50 L 51 L Carbonic Acid 1.10 HCO3/H2CO3 Ratio 22:1 ABG pH 7.44 ABG pCO2 36.5 ABG pO2 58.2 L ABG HCO3 24.2 H ABG O2 Saturation 91.3 L ABG Base Excess 0.1 FiO2 25% Sodium Potassium Chloride Carbon Dioxide Anion Gap BUN Creatinine Est GFR ( Amer) Est GFR (Non-Af Amer) Glucose Calcium Phosphorus Magnesium Total Bilirubin AST ALT Alkaline Phosphatase Total Protein Albumin Blood Type Antibody Screen 06/24/18 06/24/18 06:10 06:10 WBC 8.2 RBC 2.54 L Hgb 8.4 L Hct 23.2 L MCV 91 MCH 33.0 MCHC 36.1 H RDW 20.5 H Plt Count 56 L Carbonic Acid HCO3/H2CO3 Ratio ABG pH ABG pCO2 ABG pO2 ABG HCO3 ABG O2 Saturation ABG Base Excess FiO2 Sodium 149.9 H Potassium 4.3 D Chloride 116 H Carbon Dioxide 25 Anion Gap 9 BUN 77 H Creatinine 1.54 H Est GFR ( Amer) 56 L Est GFR (Non-Af Amer) 47 L Glucose 206 H Calcium 9.1 Phosphorus 5.3 H Magnesium 2.3 Total Bilirubin 7.1 H AST 82 H ALT 80 H Alkaline Phosphatase 105 Total Protein 5.3 L Albumin 2.1 L Blood Type Antibody Screen Impressions: Chest X-Ray 06/24/18 06:00 IMPRESSION: No significant change when compared to the most recent study. There is ongoing volume loss in the right inferior hemithorax. Assessment & Plan - Diagnosis (1) Cirrhosis Qualifiers: Hepatic cirrhosis type: alcoholic cirrhosis Is this a current diagnosis for this admission?: Yes (2) Coagulopathy Is this a current diagnosis for this admission?: Yes (3) Acute blood loss anemia Is this a current diagnosis for this admission?: Yes (4) Anemia Qualifiers: Bone marrow failure anemia type: pancytopenia, other Is this a current diagnosis for this admission?: Yes - Plan Summary Plan Summary: A/ Alcoholic liver cirrhosis GI bleeding unknown origin: Bile in NGT and bloody stools laste evening point to a GI bleeding below the ligament of Treitz Possible small bowel bleed secondary to telangectasia or colonic bleed secondary to multiple causes Stable H/H after last evening drop and 3 units of FFP given HD sable No new hematochetia P/ Start TPN today Monitor H/H BID No intervention planned at this point due to the stable H/h and liver induced coagulopathy
[2018-06-24] MEDS ORDERED: INSULIN REG, HUMAN 100 UNIT/ML 3 ML VIAL (PYX) SUBCUT PRN (08:32)
[2018-06-24] MEDS ORDERED: DEXTROSE 50%-WATER SYRINGE 25 GM/50 ML DOSE IV PRN (08:32)
[2018-06-24] MEDS ORDERED: GLUCAGON,HUMAN RECOMB 1 MG INJ IM PRN (08:32)
[2018-06-24] MEDS ORDERED: DEXTROSE 40% GEL 15 GM TUBE X 2 PO PRN (08:32)
[2018-06-24] MEDS ORDERED: DEXTROSE 50%-WATER SYRINGE 12.5 GM/25 ML DOSE IV PRN (08:32)
[2018-06-24] MEDS ORDERED: DEXTROSE 10%-WATER 1,000 ML IV PRN (08:32)
[2018-06-24] MEDS ORDERED: DEXTROSE 40% GEL 15 GM TUBE PO PRN (08:32)
[2018-06-24] MEDS ORDERED: FAT EMULSIONS 250 ML IV SCH (10:00)
[2018-06-24] MEDS: FLUTICASONE NASAL SPRAY 50 MCG/SPRY 120 SPRAY/16 GM NASL SCH (11:26)
[2018-06-24] MEDS: FLUTICASONE/SALMETEROL DISKUS 250-50 MCG/DOSE IH SCH ×2 (11:26→21:14)
[2018-06-24] MEDS: NICOTINE 21 MG/24 HR PATCH.TD24 TD SCH (11:36)
[2018-06-24] MEDS ORDERED: AMINO ACIDS 5%/D25W 1,000 ML IV PRN (15:00)
[2018-06-24 18:12] LABS: HEMATOCRIT 27.8 % (37.9-51.0); HEMOGLOBIN 10.1 g/dL (13.5-17.0); MEAN CORPUSCULAR HEMOGLOBIN 33.3 pg (27.0-33.4); MEAN CORPUSCULAR HGB CONC 36.3 g/dL (32.0-36.0); MEAN CORPUSCULAR VOLUME 92 fl (80-97); RED BLOOD COUNT 3.02 10^6/uL (4.35-5.55); RED CELL DISTRIBUTION WIDTH 20.8 % (11.5-14.0); WHITE BLOOD COUNT 15.6 10^3/uL (4.0-10.5)
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
[2018-06-24 18:47] LABS: ABSOLUTE LYMPHOCYTES# (MANUAL) 1.4 10^3/uL (0.5-4.7); ABSOLUTE MONOCYTES # (MANUAL) 0.5 10^3/uL (0.1-1.4); ABSOLUTE NEUTROPHILS# (MANUAL) 13.7 10^3/uL (1.7-8.2); BASOPHILS % (MANUAL) 0 % (0-2); EOSINOPHILS % (MANUAL) 0 % (0-6); LYMPHOCYTES % (MANUAL) 9 % (13-45); MONOCYTES % (MANUAL) 3 % (3-13); SEGMENTED NEUTROPHILS % (MAN) 88 % (42-78); TOTAL CELLS COUNTED 100
[2018-06-24 18:52] LABS: PLATELET COMMENT DECREASED; PLATELET LARGE PRESENT; POLYCHROMASIA SLIGHT
[2018-06-24 18:53] LABS: ANISOCYTOSIS 2+; POIKILOCYTOSIS SLIGHT; TARGET CELLS SLIGHT
[2018-06-24 18:54] LABS: PLATELET COUNT 67 10^3/uL (150-450)
[2018-06-24] MEDS: NORMAL SALINE 100 ML with PANTOPRAZOLE SODIUM 80 MG IV PRN ×2 (20:22)
[2018-06-24] MEDS: PIPERACILLIN SODIUM/TAZOBACTAM 3.375 GM in NORMAL SALINE 100 ML IV SCH (20:33)
[2018-06-25] MEDS: NORMAL SALINE 500 ML with OCTREOTIDE ACETATE 500 MCG IV PRN ×2 (02:57)
[2018-06-25] MEDS: PIPERACILLIN SODIUM/TAZOBACTAM 3.375 GM in NORMAL SALINE 100 ML IV SCH ×2 (02:57→09:23)
[2018-06-25] MEDS: NORMAL SALINE 100 ML with PANTOPRAZOLE SODIUM 80 MG IV PRN ×2 (02:57)
[2018-06-25 05:39] LABS: ABSOLUTE BASOPHILS # (AUTO) 0.4 10^3/uL (0.0-0.2); ABSOLUTE LYMPHOCYTES (AUTO) 0.8 10^3/uL (0.5-4.7); ABSOLUTE MONOCYTES (AUTO) 1.6 10^3/uL (0.1-1.4); ABSOLUTE NEUT (AUTO) 11.5 10^3/uL (1.7-8.2); BASOPHILS % (AUTO) 2.5 % (0-2); EOSINOPHILS % (AUTO) 0.1 % (0-6); HEMATOCRIT 27.8 % (37.9-51.0); HEMOGLOBIN 9.7 g/dL (13.5-17.0); LYMPHOCYTES % (AUTO) 5.5 % (13-45); MEAN CORPUSCULAR HEMOGLOBIN 32.5 pg (27.0-33.4); MEAN CORPUSCULAR VOLUME 93 fl (80-97); MONOCYTES % (AUTO) 11.3 % (3-13); RED BLOOD COUNT 2.99 10^6/uL (4.35-5.55); SEGMENTED NEUTROPHILS % (AUTO) 80.6 % (42-78); TOTAL CELLS COUNTED % (AUTO) 100 %; WHITE BLOOD COUNT 14.2 10^3/uL (4.0-10.5)
[2018-06-25 05:42] LABS: INTERNATIONAL RATION (INR) 2.38; PROTHROMBIN TIME 27.2 SEC (11.4-15.4)
[2018-06-25 05:52] LABS: ALANINE AMINOTRANSFERASE 78 U/L (21-72); ALBUMIN 2.2 g/dL (3.5-5.0); ALKALINE PHOSPHATASE 124 U/L (38-126); ANION GAP 7 (5-19); ASPARTATE AMINO TRANSFERASE 85 U/L (17-59); BILIRUBIN,DIRECT 4.1 mg/dL (0.0-0.4); BLOOD UREA NITROGEN 70 mg/dL (7-20); CALCIUM 8.7 mg/dL (8.4-10.2); CARBON DIOXIDE 28 mmol/L (22-30); CHLORIDE 118 mmol/L (98-107); GLUCOSE 214 mg/dL (75-110); POTASSIUM 3.6 mmol/L (3.6-5.0); SODIUM 153.4 mmol/L (137-145); TOTAL PROTEIN 5.6 g/dL (6.3-8.2)
[2018-06-25 06:05] LABS: BILIRUBIN,TOTAL 9.6 mg/dL (0.2-1.3)
[2018-06-25 06:12] LABS: ARTERIAL BLOOD BASE EXCESS 0.8 mmol/L; ARTERIAL BLOOD H2CO3 1.07 mmol/L (1.05-1.35); ARTERIAL BLOOD HCO3 24.5 mmol/L (20-24); ARTERIAL BLOOD O2 SATURATION 87.6 % (94-98); ARTERIAL BLOOD PCO2 35.5 mmHg (35-45); ARTERIAL BLOOD PH 7.46 (7.35-7.45); ARTERIAL BLOOD TOTAL CO2 25.6 mmol/L (23-27)
[2018-06-25 06:13] LABS: ARTERIAL BLOOD FIO2 21%
[2018-06-25] MEDS: METHYLPREDNISOLONE INJ 40 MG/1 ML SDV IV SCH (06:32)
--- NOTE | 2018-06-25 06:32 | RADIOLOGY REPORT (SQ) ---
EXAM DESCRIPTION: XR CHEST 1 VIEW COMPLETED DATE/TME: 06/25/2018 06:00 CLINICAL HISTORY: 58 years Male, resp failure COMPARISON: One day prior. NUMBER OF VIEWS/TECHNIQUE: 1/AP FINDINGS: Moderate bilateral lower opacity-effusion, normal cardiac silhouette size, adequate appearing endotracheal tube, likely adequate enteric tube obscured distally. No pneumothorax. Stable bony thorax. IMPRESSION: No significant change.
[2018-06-25 06:41] LABS: PLATELET COUNT 68 10^3/uL (150-450)
--- NOTE | 2018-06-25 08:15 | PDOC PROGRESS REPORT ---
Subjective Progress Note for:: 06/25/18 Subjective:: Patient sedated, intubated, not responsive, moves spontaneously the head only Reason For Visit: COMMUNITY ACQUIRED PNEUMONIA,ACUTE KIDNEY INJURY, Physical Exam Vital Signs: Temp Pulse Resp BP Pulse Ox 98.4 F 97 14 138/83 H 100 06/25/18 08:00 06/25/18 08:00 06/25/18 08:00 06/25/18 08:00 06/25/18 08:00 Intake & Output 06/24/18 06/25/18 06/26/18 06:59 06:59 06:59 Intake Total 3033 1606 Output Total 1605 2165 140 Balance 1428 -559 -140 Weight 71.6 kg 67.8 kg General appearance: PRESENT: other - not responsive, under IV sedation, intubated Head exam: PRESENT: atraumatic Mouth exam: PRESENT: other - ETT in place, NGT in place Neck exam: PRESENT: other - movea head spontaneously and not purposely Respiratory exam: PRESENT: clear to auscultation spike Cardiovascular exam: PRESENT: RRR GI/Abdominal exam: PRESENT: soft Results Laboratory Results: 06/25/18 05:27 06/25/18 05:27 06/22/18 06/24/18 06/24/18 19:16 06:10 17:53 WBC 15.6 H RBC 3.02 L Hgb 10.1 L Hct 27.8 L MCV 92 MCH 33.3 MCHC 36.3 H RDW 20.8 H Plt Count 67 L Seg Neutrophils % Not Reportable Lymphocytes % Not Reportable Monocytes % Not Reportable Eosinophils % Not Reportable Basophils % Not Reportable Absolute Neutrophils Not Reportable Absolute Lymphocytes Not Reportable Absolute Monocytes Not Reportable Absolute Eosinophils Not Reportable Absolute Basophils Not Reportable Carbonic Acid HCO3/H2CO3 Ratio ABG pH ABG pCO2 ABG pO2 ABG HCO3 ABG O2 Saturation ABG Base Excess FiO2 Sodium Potassium Chloride Carbon Dioxide Anion Gap BUN Creatinine Est GFR ( Amer) Est GFR (Non-Af Amer) Glucose Calcium Total Bilirubin AST ALT Alkaline Phosphatase Total Protein Albumin Prealbumin 10.3 L Blood Type O NEGATIVE Antibody Screen POSITIVE 06/25/18 06/25/18 06/25/18 05:27 05:27 05:30 WBC 14.2 H RBC 2.99 L Hgb 9.7 L Hct 27.8 L MCV 93 MCH 32.5 MCHC 35.0 RDW 21.0 H Plt Count 68 L Seg Neutrophils % 80.6 H Lymphocytes % 5.5 L Monocytes % 11.3 Eosinophils % 0.1 Basophils % 2.5 H Absolute Neutrophils 11.5 H Absolute Lymphocytes 0.8 Absolute Monocytes 1.6 H Absolute Eosinophils 0.0 Absolute Basophils 0.4 H Carbonic Acid Cancelled HCO3/H2CO3 Ratio Cancelled ABG pH Cancelled ABG pCO2 Cancelled ABG pO2 Cancelled ABG HCO3 Cancelled ABG O2 Saturation Cancelled ABG Base Excess Cancelled FiO2 Cancelled Sodium 153.4 H Potassium 3.6 Chloride 118 H Carbon Dioxide 28 Anion Gap 7 BUN 70 H Creatinine 1.53 H Est GFR ( Amer) 57 L Est GFR (Non-Af Amer) 47 L Glucose 214 H Calcium 8.7 Total Bilirubin 9.6 H D AST 85 H ALT 78 H Alkaline Phosphatase 124 Total Protein 5.6 L Albumin 2.2 L Prealbumin Blood Type Antibody Screen 06/25/18 06:00 WBC RBC Hgb Hct MCV MCH MCHC RDW Plt Count Seg Neutrophils % Lymphocytes % Monocytes % Eosinophils % Basophils % Absolute Neutrophils Absolute Lymphocytes Absolute Monocytes Absolute Eosinophils Absolute Basophils Carbonic Acid 1.07 HCO3/H2CO3 Ratio 22:1 ABG pH 7.46 H ABG pCO2 35.5 ABG pO2 50.0 L ABG HCO3 24.5 H ABG O2 Saturation 87.6 L ABG Base Excess 0.8 FiO2 21% Sodium Potassium Chloride Carbon Dioxide Anion Gap BUN Creatinine Est GFR ( Amer) Est GFR (Non-Af Amer) Glucose Calcium Total Bilirubin AST ALT Alkaline Phosphatase Total Protein Albumin Prealbumin Blood Type Antibody Screen Impressions: Chest X-Ray 06/25/18 06:00 IMPRESSION: No significant change. Assessment & Plan - Diagnosis (1) Cirrhosis Qualifiers: Hepatic cirrhosis type: alcoholic cirrhosis Is this a current diagnosis for this admission?: Yes (2) Coagulopathy Is this a current diagnosis for this admission?: Yes (3) Acute blood loss anemia Is this a current diagnosis for this admission?: Yes (4) Anemia Qualifiers: Bone marrow failure anemia type: pancytopenia, other Is this a current diagnosis for this admission?: Yes - Plan Summary Plan Summary: A/ Alcoholic liver cirrhosis Anemia Hematochetia/melena H/H stable On TF via NGT tolerated, minimal residual Patient still coagulopathic P/ Continue TF No acute General Surgery issues identified I will contact PCP to establish treatment plan today
[2018-06-25] MEDS: NICOTINE 21 MG/24 HR PATCH.TD24 TD SCH (09:23)
[2018-06-25] MEDS: FLUTICASONE/SALMETEROL DISKUS 250-50 MCG/DOSE IH SCH (12:21)
[2018-06-25] MEDS: FLUTICASONE NASAL SPRAY 50 MCG/SPRY 120 SPRAY/16 GM NASL SCH (12:22)
[2018-06-25] MEDS ORDERED: MORPHINE SULFATE 10 MG/ML INJ IV PRN (13:41)
[2018-06-25] MEDS ORDERED: MIDAZOLAM 2 MG/2 ML INJ IV PRN (13:42)
--- NOTE | 2018-06-25 17:09 | PDOC PROGRESS REPORT ---
Subjective Progress Note for:: 06/25/18 Subjective:: Pt was reviewed by ethics committee, Ms Chrissy Win and she agreed with extubating the pt in keeping with his wishes. His daugher, Ms Charlotte Concepcion also agreed to extubate pt and put him on comfort measures. I had discussed his care with surgicalist, Dr Dockery and he is of the opinion of extubating him in keeping with his wishes and to hold off colonoscopy for now. Pt was also seen by hat presser, Dr Park, who also agreed with extubation and comfort measures. Pt was extubated and on room and he non- responsive but vital signs are holding up and saturation on room is in the 90s. Pt's ex- is at the bedside. Reason For Visit: COMMUNITY ACQUIRED PNEUMONIA,ACUTE KIDNEY INJURY, Physical Exam Vital Signs: Temp Pulse Resp BP Pulse Ox 98.1 F 102 H 13 130/88 H 97 06/25/18 14:00 06/25/18 14:45 06/25/18 16:04 06/25/18 16:04 06/25/18 16:04 Intake & Output 06/24/18 06/25/18 06/26/18 06:59 06:59 06:59 Intake Total 3033 1606 573 Output Total 1605 2165 775 Balance 7372 -193 -050 Weight 71.6 kg 67.8 kg General appearance: PRESENT: no acute distress, cooperative, well-nourished Head exam: PRESENT: atraumatic, normocephalic Eye exam: PRESENT: EOMI, PERRLA Ear exam: PRESENT: normal external ear exam, TM's normal bilaterally Mouth exam: PRESENT: moist, neck supple Neck exam: PRESENT: full ROM Respiratory exam: PRESENT: decreased breath sounds, symmetrical Cardiovascular exam: PRESENT: +S1, +S2 Pulses: PRESENT: +1 pedal pulses bilateral GI/Abdominal exam: PRESENT: diminished bowel sounds, normal bowel sounds, soft Rectal exam: PRESENT: deferred Neurological exam: PRESENT: altered Results Laboratory Results: 06/25/18 05:27 06/25/18 05:27 06/24/18 06/25/18 06/25/18 17:53 05:27 05:27 WBC 15.6 H 14.2 H RBC 3.02 L 2.99 L Hgb 10.1 L 9.7 L Hct 27.8 L 27.8 L MCV 92 93 MCH 33.3 32.5 MCHC 36.3 H 35.0 RDW 20.8 H 21.0 H Plt Count 67 L 68 L Seg Neutrophils % Not Reportable 80.6 H Lymphocytes % Not Reportable 5.5 L Monocytes % Not Reportable 11.3 Eosinophils % Not Reportable 0.1 Basophils % Not Reportable 2.5 H Absolute Neutrophils Not Reportable 11.5 H Absolute Lymphocytes Not Reportable 0.8 Absolute Monocytes Not Reportable 1.6 H Absolute Eosinophils Not Reportable 0.0 Absolute Basophils Not Reportable 0.4 H Carbonic Acid HCO3/H2CO3 Ratio ABG pH ABG pCO2 ABG pO2 ABG HCO3 ABG O2 Saturation ABG Base Excess FiO2 Sodium 153.4 H Potassium 3.6 Chloride 118 H Carbon Dioxide 28 Anion Gap 7 BUN 70 H Creatinine 1.53 H Est GFR ( Amer) 57 L Est GFR (Non-Af Amer) 47 L Glucose 214 H Calcium 8.7 Total Bilirubin 9.6 H D AST 85 H ALT 78 H Alkaline Phosphatase 124 Total Protein 5.6 L Albumin 2.2 L 06/25/18 06/25/18 05:30 06:00 WBC RBC Hgb Hct MCV MCH MCHC RDW Plt Count Seg Neutrophils % Lymphocytes % Monocytes % Eosinophils % Basophils % Absolute Neutrophils Absolute Lymphocytes Absolute Monocytes Absolute Eosinophils Absolute Basophils Carbonic Acid Cancelled 1.07 HCO3/H2CO3 Ratio Cancelled 22:1 ABG pH Cancelled 7.46 H ABG pCO2 Cancelled 35.5 ABG pO2 Cancelled 50.0 L ABG HCO3 Cancelled 24.5 H ABG O2 Saturation Cancelled 87.6 L ABG Base Excess Cancelled 0.8 FiO2 Cancelled 21% Sodium Potassium Chloride Carbon Dioxide Anion Gap BUN Creatinine Est GFR ( Amer) Est GFR (Non-Af Amer) Glucose Calcium Total Bilirubin AST ALT Alkaline Phosphatase Total Protein Albumin Impressions: Chest X-Ray 06/25/18 06:00 IMPRESSION: No significant change. Assessment & Plan - Diagnosis (1) Acute respiratory failure Qualifiers: Respiratory failure complication: hypoxia Qualified Code(s): J96.01 - Acute respiratory failure with hypoxia Is this a current diagnosis for this admission?: Yes Plan: Ct with comfort care- Morphine 1 mg q2h IV; Ativan 2 mg q2h IV. (2) Gastrointestinal hemorrhage Qualifiers: Gastritis type: alcoholic Is this a current diagnosis for this admission?: Yes Plan: Ct with comfort care. (3) Pneumonia Qualifiers: Pneumonia type: due to Escherichia coli Laterality: right Lung location: lower lobe of lung Qualified Code(s): J15.5 - Pneumonia due to Escherichia coli Is this a current diagnosis for this admission?: Yes Plan: Ct with Comfort care. (4) Acute kidney injury Is this a current diagnosis for this admission?: Yes Plan: Ct with comfort care. (5) Acute blood loss anemia Is this a current diagnosis for this admission?: Yes Plan: Ct with comfort care. (6) Cirrhosis Qualifiers: Hepatic cirrhosis type: alcoholic cirrhosis Is this a current diagnosis for this admission?: Yes Plan: Ct with comfort care (7) COPD (chronic obstructive pulmonary disease) Qualifiers: COPD type: unspecified COPD Qualified Code(s): J44.9 - Chronic obstructive pulmonary disease, unspecified Is this a current diagnosis for this admission?: Yes Plan: Ct with comfort care. (8) BPH (benign prostatic hyperplasia) Is this a current diagnosis for this admission?: Yes (9) Hyperlipidemia Qualifiers: Hyperlipidemia type: mixed hyperlipidemia Qualified Code(s): E78.2 - Mixed hyperlipidemia Is this a current diagnosis for this admission?: Yes (10) PUD (peptic ulcer disease) Is this a current diagnosis for this admission?: Yes (11) Rhinitis, allergic Is this a current diagnosis for this admission?: Yes (12) Lumbago Qualifiers: Back pain laterality: unspecified Is this a current diagnosis for this admission?: Yes (13) Hypomagnesemia Is this a current diagnosis for this admission?: Yes (14) Alcohol withdrawal Qualifiers: Complication of substance-induced condition: with delirium Qualified Code(s ): F10.231 - Alcohol dependence with withdrawal delirium Is this a current diagnosis for this admission?: Yes Plan: Ct with comfort care. (15) Hypokalemia Is this a current diagnosis for this admission?: Yes (16) DVT prophylaxis Is this a current diagnosis for this admission?: Yes (17) Smoker Is this a current diagnosis for this admission?: Yes
--- NOTE | 2018-06-26 08:25 | Progress Note ---
Provider Note Provider Note: Pt with myriad social and medical issues. I would avoid any surgery in this pt due to his extremely high risk for mortality. Will see again as-needed. Please renotify with any issues or concerns.
--- NOTE | 2018-06-26 15:19 | PDOC PROGRESS REPORT ---
Subjective Progress Note for:: 06/26/18 Subjective:: Pt is still unresponsive and is on comfort care. His vital signs are still stable.We will continue to monitor him at ICU for now. His ex- was at his bedside earlier. Reason For Visit: PNA,ETOH,LIVER FAILURE,GI BLEED Physical Exam Vital Signs: Temp Pulse Resp BP Pulse Ox 98.2 F 112 H 15 102/64 97 06/26/18 11:40 06/25/18 22:00 06/26/18 12:00 06/26/18 06:13 06/26/18 03:00 Intake & Output 06/25/18 06/26/18 06/27/18 06:59 06:59 06:59 Intake Total 1606 573 Output Total 2165 1960 310 Balance -559 -8647 -310 Weight 67.8 kg General appearance: PRESENT: no acute distress, cooperative, well-developed Head exam: PRESENT: atraumatic, normocephalic Eye exam: PRESENT: EOMI, PERRLA Mouth exam: PRESENT: neck supple Respiratory exam: PRESENT: decreased breath sounds, symmetrical Cardiovascular exam: PRESENT: +S1, +S2 Pulses: PRESENT: +1 pedal pulses bilateral GI/Abdominal exam: PRESENT: hypoactive bowel sounds, soft Rectal exam: PRESENT: deferred Neurological exam: PRESENT: altered Results Laboratory Results: 06/25/18 05:27 06/25/18 05:27 Impressions: Chest X-Ray 06/25/18 06:00 IMPRESSION: No significant change. Assessment & Plan - Diagnosis (1) Acute respiratory failure Qualifiers: Respiratory failure complication: hypoxia Qualified Code(s): J96.01 - Acute respiratory failure with hypoxia Is this a current diagnosis for this admission?: Yes Plan: Ct with comfort care- Morphine 1 mg q2h IV; Ativan 2 mg q2h IV. (2) Gastrointestinal hemorrhage Qualifiers: Gastritis type: alcoholic Is this a current diagnosis for this admission?: Yes Plan: Ct with comfort care. (3) Pneumonia Qualifiers: Pneumonia type: due to Escherichia coli Laterality: right Lung location: lower lobe of lung Qualified Code(s): J15.5 - Pneumonia due to Escherichia coli Is this a current diagnosis for this admission?: Yes Plan: Ct with Comfort care. (4) Acute kidney injury Is this a current diagnosis for this admission?: Yes Plan: Ct with comfort care. (5) Acute blood loss anemia Is this a current diagnosis for this admission?: Yes Plan: Ct with comfort care. (6) Cirrhosis Qualifiers: Hepatic cirrhosis type: alcoholic cirrhosis Is this a current diagnosis for this admission?: Yes Plan: Ct with comfort care (7) COPD (chronic obstructive pulmonary disease) Qualifiers: COPD type: unspecified COPD Qualified Code(s): J44.9 - Chronic obstructive pulmonary disease, unspecified Is this a current diagnosis for this admission?: Yes Plan: Ct with comfort care. (8) BPH (benign prostatic hyperplasia) Is this a current diagnosis for this admission?: Yes Plan: Ct with comfort care. (9) Hyperlipidemia Qualifiers: Hyperlipidemia type: mixed hyperlipidemia Qualified Code(s): E78.2 - Mixed hyperlipidemia Is this a current diagnosis for this admission?: Yes Plan: Ct with comfort care. (10) PUD (peptic ulcer disease) Is this a current diagnosis for this admission?: Yes Plan: Ct with comfort care. (11) Rhinitis, allergic Is this a current diagnosis for this admission?: Yes Plan: Ct with comfort care. (12) Lumbago Qualifiers: Back pain laterality: unspecified Is this a current diagnosis for this admission?: Yes Plan: Ct with comfort care. (13) Hypomagnesemia Is this a current diagnosis for this admission?: Yes Plan: Ct with comfort care. (14) Alcohol withdrawal Qualifiers: Complication of substance-induced condition: with delirium Qualified Code(s ): F10.231 - Alcohol dependence with withdrawal delirium Is this a current diagnosis for this admission?: Yes Plan: Ct with comfort care. (15) Hypokalemia Is this a current diagnosis for this admission?: Yes Plan: Ct with comfort care. (16) DVT prophylaxis Is this a current diagnosis for this admission?: Yes Plan: Ct with comfort care. (17) Smoker Is this a current diagnosis for this admission?: Yes Plan: Ct with comfort care.
[2018-06-26 17:19] VITALS: BP 103/41
--- NOTE | 2018-06-27 14:08 | Death Summary ---
Summary Date : 06/27/18 Time of :: 10:00 Autopsy: No Resuscitation Status: Do Not Resuscitate Primary Care Provider: Felix Chung Consulting Provider: Surgicalist/Dr Park - Final Diagnosis (1) Acute respiratory failure Is this a current diagnosis for this admission?: Yes (2) Gastrointestinal hemorrhage Is this a current diagnosis for this admission?: Yes (3) Pneumonia Is this a current diagnosis for this admission?: Yes (4) Acute kidney injury Is this a current diagnosis for this admission?: Yes (5) Acute blood loss anemia Is this a current diagnosis for this admission?: Yes (6) Cirrhosis Is this a current diagnosis for this admission?: Yes (7) COPD (chronic obstructive pulmonary disease) Is this a current diagnosis for this admission?: Yes (8) BPH (benign prostatic hyperplasia) Is this a current diagnosis for this admission?: Yes (9) Hyperlipidemia Is this a current diagnosis for this admission?: Yes (10) PUD (peptic ulcer disease) Is this a current diagnosis for this admission?: Yes (11) Rhinitis, allergic Is this a current diagnosis for this admission?: Yes (12) Lumbago Is this a current diagnosis for this admission?: Yes (13) Hypomagnesemia Is this a current diagnosis for this admission?: Yes (14) Alcohol withdrawal Is this a current diagnosis for this admission?: Yes (15) Hypokalemia Is this a current diagnosis for this admission?: Yes (16) DVT prophylaxis Is this a current diagnosis for this admission?: Yes (17) Smoker Is this a current diagnosis for this admission?: Yes Hospital Course:: 58 year old man with multiple medical problems who was admitted initially at [facility] for community acquired pneumonia, acute kidney injury, acute on chronic blood loss anemia and alcohol withdrawal. He was put on Rocephin and Azithromycin IV and had 2 units of PRBC and IV fluids. He was started on IV Ativan prn for alcohol withdrawal. He later developed acute hypoxic respiratory failure and GI bleed and was intubated due to miscommunication about his code status on 06/23/2018. He was transferred to ICU. He was managed in ICU, but his code status was changed back to DNI/DNR after discussions with his family-( daughter, sister, ex-, niece), ethics committee, surgicalist and Dr Park. His daughter agreed for him to be put on comfort care. He was exturbated on 06/24/2018 and put on comfort measures. He was transferred to medical floor(4th floor) on 06/26/2018 evening and he peacefully on 06/27/2018 at 10.00 am. December his soul rest in peace. His family was notified by his nurse.
== END 2018-06-27 11:46 | DRG 208 ==
LOC: ER 10:44 → EH 15:10 → 3S 18:02 → ICU 06-23 03:36 → 4N 06-26 18:47
PROVIDERS: ADMIT Internal Medicine; ATTEND Internal Medicine
PROC: 30233N1 Transfusion of Nonautologous Red Blood Cells into Peripheral Vein, Percutaneous Approach (ICD-10-PCS; principal; 2018-06-18)
PROC: 30233N1 Transfusion of Nonautologous Red Blood Cells into Peripheral Vein, Percutaneous Approach (ICD-10-PCS; 2018-06-22)
PROC: 5A1945Z Respiratory Ventilation, 24-96 Consecutive Hours (ICD-10-PCS; 2018-06-23)
PROC: 0BH17EZ Insertion of Endotracheal Airway into Trachea, Via Natural or Artificial Opening (ICD-10-PCS; 2018-06-23)
PROC: 30233K1 Transfusion of Nonautologous Frozen Plasma into Peripheral Vein, Percutaneous Approach (ICD-10-PCS; 2018-06-23)
PROC: 30233K1 Transfusion of Nonautologous Frozen Plasma into Peripheral Vein, Percutaneous Approach (ICD-10-PCS; 2018-06-23)
DX: J15.5 Pneumonia due to Escherichia coli (principal); J96.01 Acute respiratory failure with hypoxia; N17.9 Acute kidney failure, unspecified; F10.231 Alcohol dependence with withdrawal delirium; Z66 Do not resuscitate; D62 Acute posthemorrhagic anemia; K92.2 Gastrointestinal hemorrhage, unspecified; D68.8 Other specified coagulation defects; K70.30 Alcoholic cirrhosis of liver without ascites; E83.42 Hypomagnesemia; D69.6 Thrombocytopenia, unspecified; K27.9 Peptic ulcer, site unspecified, unspecified as acute or chronic, without hemorrhage or perforation; E87.6 Hypokalemia; J44.9 Chronic obstructive pulmonary disease, unspecified; E78.5 Hyperlipidemia, unspecified; I10 Essential (primary) hypertension; K21.9 Gastro-esophageal reflux disease without esophagitis; I95.9 Hypotension, unspecified; D64.9 Anemia, unspecified; N40.0 Benign prostatic hyperplasia without lower urinary tract symptoms; F32.9 Major depressive disorder, single episode, unspecified; M06.9 Rheumatoid arthritis, unspecified; J30.9 Allergic rhinitis, unspecified; M54.5 Low back pain; F17.210 Nicotine dependence, cigarettes, uncomplicated; Y90.9 Presence of alcohol in blood, level not specified; Z91.19 Patient's noncompliance with other medical treatment and regimen
CPT/HCPCS: 31500; 36415; 36430; 51702; 71045; 71046; 80053; 80061; 81001; 82140; 82272; 82550; 82553; 82803; 82962; 83605; 83735; 84100; 84132; 84134; 84484; 85025; 85027; 85610; 85730; 86850; 86870; 86900; 86901; 86902; 86920; 86922; 87040; 87077; 87186; 93005; 93010; 94002; 94003; 94640; 94660; 96361; 96365; 96375; 99291; J0330; J0456; J0610; J0696; J1815; J1940; J2060; J2250; J2270; J2354; J2543; J2704; J2920; J2930; J3480; J3490; J7030; J7040; J7060; J7620; P9016; P9017; S0164